=== PATIENT | male | born 1935 | race Caucasian/White ===

== ENCOUNTER → 2016-12-24 | Day surgery (SDC) | payer MEDICARE ==
[~2016-12-24] VITALS: Ht 177.8 cm; Wt 84.8 kg
[~2016-12-24] MED LIST: /BACIOPOI; /GLYB5TA; ACETAMINOPHEN 325 MG TAB PO PRN; ACETAMINOPHEN TAB 650MG DOSE (2X325MG) PO PRN; ACUV0.45 OU; AMLO2.5T; ASPI1TAB PO; ASPI81TA83; ATEN25TA; ATOR80TA59 PO; AVAN8TAB3; BIMA01SOL OU; CALC1CAP31 PO; COLA100C2; COLA100C5 PO; DORZ2OPD OU; DOXY100C PO; FLON1SPR; FLUNISOLIDE NASAL; FURO20TA2 PO; FURO40TA2 PO; GABA-282 PO; GLYB5TA PO; HUMU70IN SC; INSULIN 70/30; IPRASOL4 INH; ISOS30BRAN; KETOROLAC 0.5% OPHTH SOLN OS ONE; LASI40TA; LATA5OPD OU; LEVA500T; LEVO25TA5 PO; LEVO75TA4 PO; LIDOCAINE 2% W/EPIN INJ 20ML **PRES FREE As Ordered ONE; LIDOCAINE 4% INJ 5 ML AMP OU ONE; LISI10TA4; LR 1,000 ML IV SCH; MIDAZOLAM INJ 2 MG/2 ML VIAL (J2250) As Ordered ONE; MUPI2OI TOP; MURO5OIN OU; NEXI20CA PO; NITR4TASL SL; NOVO1INJ4 SC; NOVOINJ14 SC; OFLOXACIN 0.3 % (OCUFLOX) OPTH SOL 5ML OS ONE; OMEG100011 PO; OMEGA 3 FISH OIL; ONDANSETRON 4MG/2ML VIAL (J2405) IV PRN; PERC5TAB8; PLAV1TAB2 PO; PLAV75TA2; POVIDONE-IODINE 5% OPHTH PREP SOL 30ML As Ordered ONE; PRED1SUS OS; PROPARACAINE 0.5% OPHTH SOL 15ML OS PRN; PROV90AE; SAWPOW; SIMB1SUS OU; SIMV40TA2; SIMV40TA2 PO; SLOWTAB; THERGRAN; TIMO0.5S4 OU; TOBR3OPD OU; TOBRADEX OPHTH OINT 3.5 GM As Ordered ONE; TRAM50TA2 PO; TRIMETHOBENZAMIDE 300 MG CAP PO PRN; VITA100066 PO; VITA500T88 PO; VITMTA PO; ZYRT10TA2 PO; [UNRECOGNIZED DRUG - OTHER]; fentaNYL 100 MCG/2 ML INJECTION (J3010) As Ordered ONE
[2016-12-24 10:30] VITALS: BP 161/71
--- NOTE | 2016-12-25 11:05 | RO ---
DATE OF PROCEDURE: 12/24/2016 PREOPERATIVE DIAGNOSIS: Glaucoma left eye. POSTOPERATIVE DIAGNOSIS; Glaucoma left eye. PROCEDURE: Placement of the Ahmed valve left eye. SURGEON: Gem Jackson MD CHURN DRILLER HELPER: None. ANESTHESIA: COMPLICATIONS: None. PROCEDURE IN DETAIL: The patient was brought to the operating room and laid in supine position. The left eye was prepped and draped in a sterile fashion for ophthalmic surgery and a lid speculum was placed. A #7-0 Vicryl suture was used to rotate the eye downward and inwards towards the nose. A limbal based conjunctival peritomy was done for 5 o'clock hours in the supratemporal quadrant. Following this, hemostasis was obtained as necessary. The eye was marked about 9 mm behind the limbus. A scleral tunnel was created 5 mm behind the limbus and was carried all the way to the limbus and the eye was entered with a side port blade. The Ahmed valve was then primed and was working well. The tube was cute in sized and then inserted through the scleral tunnel. The Ahmed valve was then sutured in place 9 mm behind the limbus with two #10-0 nylon sutures. The conjunctiva was then closed using #8-0 Vicryl sutures. The corneal suture was released. The eye was patched with TobraDex and patient returned to the recovery room in stable condition after the lid speculum was removed.
== END | disposition home or self-care (01) ==
LOC: M SDC 06:19
PROVIDERS: ATTEND Ophthalmology
DX: H40.812 Glaucoma with increased episcleral venous pressure, left eye (principal); I10 Essential (primary) hypertension; E78.5 Hyperlipidemia, unspecified; I25.2 Old myocardial infarction; E11.9 Type 2 diabetes mellitus without complications; E03.9 Hypothyroidism, unspecified; J44.9 Chronic obstructive pulmonary disease, unspecified; Z95.5 Presence of coronary angioplasty implant and graft; Z87.891 Personal history of nicotine dependence; Z79.899 Other long term (current) drug therapy; Z79.02 Long term (current) use of antithrombotics/antiplatelets; Z79.82 Long term (current) use of aspirin
CPT/HCPCS: 66183; J2250; J3010

== ENCOUNTER 2017-01-12 07:22 | Day surgery (SDC) | payer MEDICARE ==
[~2017-01-12] VITALS: Ht 177.8 cm; Wt 84.8 kg
[~2017-01-12 07:22] MED LIST changes: -ACETAMINOPHEN TAB 650MG DOSE (2X325MG) PO PRN; +BSS with VANC/TOB/EPI for EYE CASES IR ONE; -KETOROLAC 0.5% OPHTH SOLN OS ONE; +LIDOCAINE 3.5 % 1ML OPHTH TOPICAL GEL OU ONE; -LIDOCAINE 4% INJ 5 ML AMP OU ONE; -LR 1,000 ML IV SCH; +OFLOXACIN 0.3 % (OCUFLOX) OPTH SOL 5ML OD ONE; -OFLOXACIN 0.3 % (OCUFLOX) OPTH SOL 5ML OS ONE; -ONDANSETRON 4MG/2ML VIAL (J2405) IV PRN; -POVIDONE-IODINE 5% OPHTH PREP SOL 30ML As Ordered ONE; +PROPARACAINE 0.5% OPHTH SOL 15ML OD PRN; -PROPARACAINE 0.5% OPHTH SOL 15ML OS PRN; -TRIMETHOBENZAMIDE 300 MG CAP PO PRN; -fentaNYL 100 MCG/2 ML INJECTION (J3010) As Ordered ONE
[2017-01-12] MEDS ORDERED: D5W/0.2% SODIUM CHLORIDE 250 ML IV ONE (07:45)
[2017-01-12] MEDS ORDERED: mitoMYcin 0.2 MG/VIAL KIT FOR OPHTHALMIC USE (J7315 PER 0.2MG) As Ordered ONE (08:59)
[2017-01-12] MEDS ORDERED: fentaNYL 100 MCG/2 ML INJECTION (J3010) As Ordered ONE (09:20)
[2017-01-12 10:10] VITALS: BP 173/73
[2017-01-12] MEDS ORDERED: TRIMETHOBENZAMIDE 300 MG CAP PO PRN (10:15)
[2017-01-12] MEDS ORDERED: KETOROLAC 0.5% OPHTH SOLN OD ONE (10:15)
--- NOTE | 2017-02-05 16:29 | RO ---
DATE OF PROCEDURE: 01/12/2017 PREPROCEDURE DIAGNOSIS: Uncontrolled glaucoma, right eye. POSTPROCEDURE DIAGNOSIS: Uncontrolled glaucoma, right eye. PROCEDURE: Placement of the Ahmed valve on the right eye. SURGEON: Dr. Gem Jackson PSYCHOLOGIST PRIVATE PRACTICE: ANESTHESIA: Local IV standby. COMPLICATIONS: None. DESCRIPTION OF PROCEDURE: The patient was brought to the operating room, laid in supine position. The eye was prepped and draped in a sterile fashion for ophthalmic surgery and a lid speculum was placed. Conjunctival peritomy was done between 10 o'clock and 1 o'clock hours and then carried on superiorly in the supratemporal quadrant. Tenon dissection was carried out, hemostasis obtained with the help of the cautery as needed. With the help of the calipers, 9 mm mitchel was placed away from the limbus in the supratemporal quadrant. The Ahmed valve was primed and then sutured in place using two #10-0 nylon sutures, 9 mm away from the limbus and the supratemporal quadrant. A scleral tunnel was then made in front of the Ahmed valve all the way into the blue line, and the anterior chamber was entered with the help of the Super Sharp blade. The tube of the Ahmed valve was then cut to size and then placed in the tunnel and was noted to be in excellent position, placed right in the posterior chamber. Conjunctiva was then closed using #10-0 nylon sutures. No leaks were noted. Anterior chamber was well maintained. Lid speculum was removed, TobraDex ointment was applied, eye was patched and the patient was returned to the recovery room in stable condition.
== END 2017-01-12 10:42 | disposition home or self-care (01) ==
LOC: M SDC 07:22
PROVIDERS: ATTEND Ophthalmology
DX: H40.811 Glaucoma with increased episcleral venous pressure, right eye (principal); I25.10 Atherosclerotic heart disease of native coronary artery without angina pectoris; I25.2 Old myocardial infarction; E11.9 Type 2 diabetes mellitus without complications; I10 Essential (primary) hypertension; E78.5 Hyperlipidemia, unspecified; E03.9 Hypothyroidism, unspecified; J44.9 Chronic obstructive pulmonary disease, unspecified; Z98.61 Coronary angioplasty status; Z87.891 Personal history of nicotine dependence; Z79.4 Long term (current) use of insulin; Z79.82 Long term (current) use of aspirin; Z79.02 Long term (current) use of antithrombotics/antiplatelets; Z88.8 Allergy status to other drugs, medicaments and biological substances; N40.0 Benign prostatic hyperplasia without lower urinary tract symptoms
CPT/HCPCS: 66183; J2250; J3010

== ENCOUNTER 2017-06-21 10:40 | Emergency (ER) | payer MEDICARE ==
[2017-06-21] MEDS: NITROGLYCERIN 0.4 MG SUBL TABLET SL (11:31)
[2017-06-21] MEDS: NS 1,000 ML IV (11:31)
[2017-06-21 11:37] LABS: BASO # 0.1 10^3/uL (0.0-0.2); BASO % 0.9 % (0.0-1.0); EOS % 0.1 % (0.0-3.0); HEMATOCRIT 46.5 % (42.0-52.0); HEMOGLOBIN 14.9 g/dl (14.0-18.0); IMMATURE GRANULOCYTE # 0.1 10^3/uL (0-0); IMMATURE GRANULOCYTE % 0.3 % (0-0); LYMPH # 1.2 10^3/uL (1.5-4.5); LYMPH % 7.6 % (24.0-44.0); MEAN CORPUSCULAR HEMOGLOBIN 29.2 pg (27.0-33.0); MEAN CORPUSCULAR VOLUME 91.2 fl (80.0-96.0); MONO # 0.8 10^3/uL (0.0-0.8); NEUTROPHILS # 13.4 10^3/uL (1.8-7.7); NEUTROPHILS % 86.1 % (36.0-66.0); PLATELET COUNT, AUTOMATED 237 10^3/uL (150-450); RED CELL DISTRIBUTION WIDTH 16.1 % (11.5-14.5); WHITE BLOOD COUNT 15.6 10^3/uL (4.0-10.0)
[2017-06-21] MEDS ORDERED: HEPARIN SOD (PORCINE) 5000 UNITS/ML VIAL As Ordered (11:46)
[2017-06-21] MEDS ORDERED: HEPARIN 25,000 UNITS/250 ML D5W BAG (100 UNITS/ML) As Ordered (11:46)
[2017-06-21] MEDS: ASPIRIN 81 MG CHEW TABLET PO (11:48)
[2017-06-21] MEDS: HEPARIN SOD (PORCINE) 5000 UNITS/ML VIAL IV (11:53)
[2017-06-21] MEDS: HEPARIN DRIP 25,000 UNITS in APPROPRIATE DILUENT 1 EA IV (11:54)
[2017-06-21 11:59] LABS: INR 1.16
[2017-06-21 12:00] LABS: PARTIAL THROMBOPLASTIN TIME 35.4 SECONDS (26.8-37.9)
[2017-06-21 12:06] LABS: ALBUMIN 3.3 GM/DL (3.2-5.2); ALBUMIN/GLOBULIN RATIO 0.85 (1.00-1.93); ALKALINE PHOSPHATASE 200 U/L (45-117); ALT/SGPT 44 U/L (12-78); ANION GAP 14 MEQ/L (8-16); AST/SGOT 65 U/L (7-37); BILIRUBIN,DIRECT 0.5 MG/DL (0.0-0.2); BILIRUBIN,TOTAL 1.2 MG/DL (0.2-1.0); BLOOD UREA NITROGEN 42 MG/DL (7-18); CALCIUM LEVEL 9.1 MG/DL (8.8-10.2); CARBON DIOXIDE LEVEL 26 MEQ/L (21-32); CHLORIDE LEVEL 96 MEQ/L (98-107); CPK CREATINE PHOSPHOKINASE 141 U/L (39-308); CREATININE FOR GFR 2.58 MG/DL (0.70-1.30); FREE T4 1.39 NG/DL (0.76-1.46); GLOMERULAR FILTRATION RATE 25.5 (>35); GLUCOSE, FASTING 305 MG/DL (83-110); POTASSIUM SERUM 3.6 MEQ/L (3.5-5.1); SODIUM LEVEL 136 MEQ/L (136-145); TOTAL PROTEIN 7.2 GM/DL (6.4-8.2)
[2017-06-21 12:12] LABS: CK-MB VALUE MASS 9.4 NG/ML (0.0-3.6); MB/CK RELATIVE INDEX 6.66 (< OR =4)
[2017-06-21 12:13] LABS: TROPONIN I 7.16 NG/ML (< 0.10)
[2017-06-21 12:17] LABS: NT-PRO BNP 39112 PG/ML (<450)
[2017-06-21] MEDS: NITROGLYCERIN 2% OINT 1 GM *U/D* PKT TOP (12:23)
== END 2017-06-21 12:27 | disposition short-term general hospital (02) ==
LOC: M ED 10:40
DX: I21.4 Non-ST elevation (NSTEMI) myocardial infarction (principal); I25.110 Atherosclerotic heart disease of native coronary artery with unstable angina pectoris; I25.2 Old myocardial infarction; E10.9 Type 1 diabetes mellitus without complications; J44.9 Chronic obstructive pulmonary disease, unspecified; E07.9 Disorder of thyroid, unspecified; Z95.5 Presence of coronary angioplasty implant and graft; Z95.1 Presence of aortocoronary bypass graft; Z87.891 Personal history of nicotine dependence; Z79.899 Other long term (current) drug therapy; Z79.02 Long term (current) use of antithrombotics/antiplatelets; Z79.82 Long term (current) use of aspirin; Z88.8 Allergy status to other drugs, medicaments and biological substances; Z88.5 Allergy status to narcotic agent; Z91.041 Radiographic dye allergy status
CPT/HCPCS: 71045

== ENCOUNTER 2017-06-30 12:24 | Inpatient (IN) | payer MEDICARE, OTHER ==
[2017-06-30] MEDS: NS 500 ML IV (12:45)
[2017-06-30 13:03] LABS: BASO # 0.1 10^3/uL (0.0-0.2); EOS # 0.2 10^3/uL (0.0-0.50); EOS % 1.4 % (0.0-3.0); HEMATOCRIT 38.5 % (42.0-52.0); HEMOGLOBIN 12.2 g/dl (14.0-18.0); IMMATURE GRANULOCYTE # 0.1 10^3/uL (0-0); IMMATURE GRANULOCYTE % 0.5 % (0-0); LYMPH # 1.2 10^3/uL (1.5-4.5); LYMPH % 10.7 % (24.0-44.0); MEAN CORPUSCULAR HEMOGLOBIN 29.5 pg (27.0-33.0); MEAN CORPUSCULAR HGB CONC 31.7 g/dl (32.0-36.5); MONO % 9.2 % (0.0-5.0); NEUTROPHILS # 8.6 10^3/uL (1.8-7.7); NEUTROPHILS % 77.2 % (36.0-66.0); PLATELET COUNT, AUTOMATED 241 10^3/uL (150-450); RED BLOOD COUNT 4.14 10^6/uL (4.30-6.10); RED CELL DISTRIBUTION WIDTH 16.3 % (11.5-14.5); WHITE BLOOD COUNT 11.2 10^3/uL (4.0-10.0)
[2017-06-30 13:17] LABS: INR 1.09; PROTHROMBIN TIME 14.3 SECONDS (12.4-14.5)
[2017-06-30 13:18] LABS: PARTIAL THROMBOPLASTIN TIME 31.9 SECONDS (26.8-37.9)
[2017-06-30 13:24] LABS: NT-PRO BNP 26743 PG/ML (<450)
[2017-06-30 13:24] LABS: ALBUMIN 2.4 GM/DL (3.2-5.2); ALBUMIN/GLOBULIN RATIO 0.67 (1.00-1.93); ALKALINE PHOSPHATASE 160 U/L (45-117); ALT/SGPT 27 U/L (12-78); ANION GAP 10 MEQ/L (8-16); AST/SGOT 32 U/L (7-37); BILIRUBIN,DIRECT 0.2 MG/DL (0.0-0.2); BILIRUBIN,TOTAL 0.4 MG/DL (0.2-1.0); BLOOD UREA NITROGEN 82 MG/DL (7-18); CALCIUM LEVEL 8.3 MG/DL (8.8-10.2); CARBON DIOXIDE LEVEL 23 MEQ/L (21-32); CHLORIDE LEVEL 96 MEQ/L (98-107); CREATININE FOR GFR 5.53 MG/DL (0.70-1.30); GLOMERULAR FILTRATION RATE 10.6 (>35); GLUCOSE, FASTING 229 MG/DL (70-100); POTASSIUM SERUM 4.4 MEQ/L (3.5-5.1); SODIUM LEVEL 129 MEQ/L (136-145)
[2017-06-30] MEDS: DOBUTamine HCL 500,000 MCG in APPROPRIATE DILUENT 1 EA IV ×2 (14:32→17:33)
[2017-06-30] MEDS ORDERED: zolPIDEM TARTRATE 5 MG TAB PO (15:30)
[2017-06-30] MEDS ORDERED: GLUCAGON FOR INJ 1 MG VIAL (J1610) SC (15:45)
[2017-06-30] MEDS ORDERED: NITROGLYCERIN 0.4 MG SUBL TABLET SL (15:45)
[2017-06-30] MEDS ORDERED: GLUCOSE 4 GM CHEW TABLET PO (15:45)
[2017-06-30 15:50] LABS: MAGNESIUM LEVEL 2.8 MG/DL (1.8-2.4)
[2017-06-30 15:58] LABS: TROPONIN I 2.76 NG/ML (< 0.10)
[2017-06-30] MEDS: FUROSEMIDE 100 MG/10 ML VIAL (J1940) IV ×2 (16:00→22:55)
[2017-06-30] MEDS ORDERED: ALBUTEROL SULFATE 2.5 MG/0.5 ML INH NEB SOLN INH (16:15)
[2017-06-30 17:32] LABS: APPEARANCE, URINE HAZY (CLEAR); BACTERIA, URINE AUTO 1+ (NEGATIVE); BILIRUBIN, URINE AUTO NEGATIVE (NEGATIVE); BLOOD, URINE BLOOD 3+ (NEGATIVE); COLOR, URINE YELLOW (YELLOW); GLUCOSE, URINE (UA) AUTO 1+ mg/dL (NEGATIVE); KETONE, URINE AUTO NEGATIVE (NEGATIVE); LEUKOCYTE ESTERASE, URINE AUTO NEGATIVE (NEGATIVE); MUCUS, URINE SMALL (NEGATIVE); NITRITE, URINE AUTO NEGATIVE (NEGATIVE); PROTEIN, URINE AUTO NEGATIVE (NEGATIVE); RBC, URINE AUTO 6 /HPF (0-3); SPECIFIC GRAVITY URINE AUTO 1.005 (1.002-1.035); SQUAMOUS EPITHELIAL CELL UR AU 1 /HPF (0-6); UROBILINOGEN, URINE AUTO 0.2 mg/dL (0.0-2.0); WBC, URINE AUTO 6 /HPF (0-3)
[2017-06-30] MEDS: PANTOPRAZOLE 40MG TAB (PROTONIX) PO (17:46)
[2017-06-30] MEDS: HumaLOG INSULIN (NovoLOG) PER UNIT SC ×2 (17:47→21:00)
[2017-06-30 17:51] LABS: BEDSIDE GLUCOSE 238 MG/DL (83-110)
[2017-06-30] MEDS: DORZOLAMIDE 2% OPHTH SOLN 10 ML BTL OU (21:00)
[2017-06-30] MEDS: ALBUTEROL SULFATE 2.5 MG/0.5 ML INH NEB SOLN INH (21:01)
[2017-06-30 21:02] LABS: BEDSIDE GLUCOSE 212 MG/DL (83-110)
[2017-06-30] MEDS: APIXABAN 2.5 MG TAB (ELIQUIS) PO (21:17)
[2017-06-30] MEDS: SENOKOT S TAB PO (21:17)
[2017-06-30] MEDS: SIMVASTATIN 40 MG TAB PO (21:17)
[2017-06-30] MEDS: LATANOPROST 0.005% OPHTH SOLN 2.5 ML OU (21:18)
[2017-06-30] MEDS: metOLazone 2.5 MG TAB PO (22:50)
[2017-06-30 23:53] LABS: TROPONIN I 2.48 NG/ML (< 0.10)
[2017-07-01] MEDS: DOBUTamine HCL 500,000 MCG in APPROPRIATE DILUENT 1 EA IV ×3 (01:12→21:06)
[2017-07-01] MEDS: LEVOTHYROXINE 75MCG TABLET (0.075MG) PO (06:07)
[2017-07-01] MEDS: ALBUTEROL SULFATE 2.5 MG/0.5 ML INH NEB SOLN INH ×4 (07:20→20:26)
[2017-07-01 07:38] LABS: BASO # 0.1 10^3/uL (0.0-0.2); BASO % 0.6 % (0.0-1.0); EOS # 0.1 10^3/uL (0.0-0.50); EOS % 0.7 % (0.0-3.0); HEMATOCRIT 33.4 % (42.0-52.0); HEMOGLOBIN 10.9 g/dl (14.0-18.0); IMMATURE GRANULOCYTE % 0.4 % (0-0); LYMPH # 0.7 10^3/uL (1.5-4.5); LYMPH % 7.9 % (24.0-44.0); MEAN CORPUSCULAR HEMOGLOBIN 29.9 pg (27.0-33.0); MEAN CORPUSCULAR HGB CONC 32.6 g/dl (32.0-36.5); MEAN CORPUSCULAR VOLUME 91.5 fl (80.0-96.0); MONO # 0.7 10^3/uL (0.0-0.8); MONO % 8.5 % (0.0-5.0); NEUTROPHILS # 6.8 10^3/uL (1.8-7.7); NEUTROPHILS % 81.9 % (36.0-66.0); PLATELET COUNT, AUTOMATED 186 10^3/uL (150-450); RED BLOOD COUNT 3.65 10^6/uL (4.30-6.10); RED CELL DISTRIBUTION WIDTH 16.1 % (11.5-14.5); WHITE BLOOD COUNT 8.2 10^3/uL (4.0-10.0)
[2017-07-01 08:05] LABS: ALBUMIN 2.3 GM/DL (3.2-5.2); ANION GAP 10 MEQ/L (8-16); BLOOD UREA NITROGEN 81 MG/DL (7-18); CALCIUM LEVEL 8.3 MG/DL (8.8-10.2); CARBON DIOXIDE LEVEL 22 MEQ/L (21-32); CHLORIDE LEVEL 98 MEQ/L (98-107); CREATININE FOR GFR 5.61 MG/DL (0.70-1.30); GLOMERULAR FILTRATION RATE 10.4 (>35); GLUCOSE, FASTING 243 MG/DL (70-100); PHOSPHORUS LEVEL 5.1 MG/DL (2.5-4.9); POTASSIUM SERUM 4.4 MEQ/L (3.5-5.1); SODIUM LEVEL 130 MEQ/L (136-145)
[2017-07-01 08:10] LABS: TROPONIN I 2.33 NG/ML (< 0.10)
[2017-07-01] MEDS: HumaLOG INSULIN (NovoLOG) PER UNIT SC ×4 (08:29→21:00)
[2017-07-01] MEDS: CALCITRIOL 0.25 MCG CAP (S0169) PO (08:29)
[2017-07-01] MEDS: CLOPIDOGREL 75 MG TAB PO (08:30)
[2017-07-01] MEDS: PANTOPRAZOLE 40MG TAB (PROTONIX) PO (08:30)
[2017-07-01] MEDS: metOLazone 2.5 MG TAB PO (08:30)
[2017-07-01] MEDS: FUROSEMIDE 100 MG/10 ML VIAL (J1940) IV (08:30)
[2017-07-01] MEDS: APIXABAN 2.5 MG TAB (ELIQUIS) PO ×2 (08:30→20:31)
[2017-07-01] MEDS: VITAMIN D 1,000 INTERNATIONAL UNITS TABLET PO (08:30)
[2017-07-01] MEDS: SENOKOT S TAB PO ×2 (08:31→20:31)
[2017-07-01 08:52] LABS: T UPTAKE 34 % (33-40); THYROXINE (T4) 5.8 UG/DL (4.5-12.0)
[2017-07-01] MEDS: DORZOLAMIDE 2% OPHTH SOLN 10 ML BTL OU ×3 (09:00→21:00)
[2017-07-01 11:11] LABS: BEDSIDE GLUCOSE 176 MG/DL (83-110)
[2017-07-01 18:11] LABS: BEDSIDE GLUCOSE 245 MG/DL (83-110)
[2017-07-01 20:09] LABS: BEDSIDE GLUCOSE 177 MG/DL (83-110)
[2017-07-01] MEDS: LATANOPROST 0.005% OPHTH SOLN 2.5 ML OU (20:31)
[2017-07-01] MEDS: SIMVASTATIN 40 MG TAB PO (20:31)
[2017-07-02] MEDS: ONDANSETRON 4MG/2ML VIAL (J2405) IV ×4 (01:29→16:48)
[2017-07-02 05:03] LABS: BASO % 0.6 % (0.0-1.0); EOS % 0.6 % (0.0-3.0); HEMATOCRIT 31.9 % (42.0-52.0); HEMOGLOBIN 10.6 g/dl (14.0-18.0); IMMATURE GRANULOCYTE % 0.4 % (0-0); LYMPH # 0.7 10^3/uL (1.5-4.5); LYMPH % 10.3 % (24.0-44.0); MEAN CORPUSCULAR HEMOGLOBIN 29.4 pg (27.0-33.0); MEAN CORPUSCULAR HGB CONC 33.2 g/dl (32.0-36.5); MEAN CORPUSCULAR VOLUME 88.4 fl (80.0-96.0); MONO # 0.7 10^3/uL (0.0-0.8); MONO % 10.3 % (0.0-5.0); NEUTROPHILS # 5.3 10^3/uL (1.8-7.7); NEUTROPHILS % 77.8 % (36.0-66.0); PLATELET COUNT, AUTOMATED 229 10^3/uL (150-450); RED BLOOD COUNT 3.61 10^6/uL (4.30-6.10); WHITE BLOOD COUNT 6.8 10^3/uL (4.0-10.0)
[2017-07-02 05:31] LABS: ALBUMIN 2.3 GM/DL (3.2-5.2); ANION GAP 9 MEQ/L (8-16); BLOOD UREA NITROGEN 81 MG/DL (7-18); CALCIUM LEVEL 8.3 MG/DL (8.8-10.2); CARBON DIOXIDE LEVEL 24 MEQ/L (21-32); CHLORIDE LEVEL 98 MEQ/L (98-107); CREATININE FOR GFR 5.45 MG/DL (0.70-1.30); GLOMERULAR FILTRATION RATE 10.8 (>35); GLUCOSE, FASTING 246 MG/DL (70-100); PHOSPHORUS LEVEL 4.8 MG/DL (2.5-4.9); POTASSIUM SERUM 4.3 MEQ/L (3.5-5.1); SODIUM LEVEL 131 MEQ/L (136-145)
[2017-07-02 05:43] LABS: TROPONIN I 2.39 NG/ML (< 0.10)
[2017-07-02] MEDS: LEVOTHYROXINE 75MCG TABLET (0.075MG) PO (06:14)
[2017-07-02] MEDS: DOBUTamine HCL 500,000 MCG in APPROPRIATE DILUENT 1 EA IV ×2 (07:20→17:26)
[2017-07-02] MEDS ORDERED: metOLazone 2.5 MG TAB PO (08:45)
[2017-07-02] MEDS ORDERED: FUROSEMIDE 100 MG/10 ML VIAL (J1940) IV (08:45)
[2017-07-02] MEDS: HumaLOG INSULIN (NovoLOG) PER UNIT SC ×4 (08:55→21:00)
[2017-07-02] MEDS: PANTOPRAZOLE 40MG TAB (PROTONIX) PO (08:56)
[2017-07-02] MEDS: CLOPIDOGREL 75 MG TAB PO (08:56)
[2017-07-02] MEDS: FUROSEMIDE 100 MG/10 ML VIAL (J1940) IV (08:56)
[2017-07-02] MEDS: VITAMIN D 1,000 INTERNATIONAL UNITS TABLET PO (08:56)
[2017-07-02] MEDS: SENOKOT S TAB PO ×2 (08:56→20:52)
[2017-07-02] MEDS: metOLazone 2.5 MG TAB PO (08:56)
[2017-07-02] MEDS: APIXABAN 2.5 MG TAB (ELIQUIS) PO ×2 (08:56→20:52)
[2017-07-02] MEDS: ALBUTEROL SULFATE 2.5 MG/0.5 ML INH NEB SOLN INH ×4 (10:05→19:47)
[2017-07-02] MEDS: prednisoLONE ACET 1% OPHTH SUSP 5ML OU ×2 (12:15→20:52)
[2017-07-02 12:16] LABS: BEDSIDE GLUCOSE 230 MG/DL (83-110)
[2017-07-02 16:19] LABS: BEDSIDE GLUCOSE 208 MG/DL (83-110)
[2017-07-02] MEDS: SIMVASTATIN 40 MG TAB PO (20:52)
[2017-07-02] MEDS: LATANOPROST 0.005% OPHTH SOLN 2.5 ML OU (20:52)
[2017-07-02 21:07] LABS: BEDSIDE GLUCOSE 241 MG/DL (83-110)
[2017-07-03 04:42] LABS: BASO # 0.1 10^3/uL (0.0-0.2); BASO % 0.9 % (0.0-1.0); EOS # 0.1 10^3/uL (0.0-0.50); EOS % 1.9 % (0.0-3.0); HEMOGLOBIN 10.6 g/dl (14.0-18.0); IMMATURE GRANULOCYTE % 0.5 % (0-0); LYMPH % 13.8 % (24.0-44.0); MEAN CORPUSCULAR HEMOGLOBIN 29.9 pg (27.0-33.0); MEAN CORPUSCULAR HGB CONC 33.1 g/dl (32.0-36.5); MEAN CORPUSCULAR VOLUME 90.4 fl (80.0-96.0); MONO # 0.9 10^3/uL (0.0-0.8); MONO % 12.4 % (0.0-5.0); NEUTROPHILS # 5.3 10^3/uL (1.8-7.7); NEUTROPHILS % 70.5 % (36.0-66.0); PLATELET COUNT, AUTOMATED 227 10^3/uL (150-450); RED BLOOD COUNT 3.54 10^6/uL (4.30-6.10); RED CELL DISTRIBUTION WIDTH 16.1 % (11.5-14.5); WHITE BLOOD COUNT 7.5 10^3/uL (4.0-10.0)
[2017-07-03 05:01] LABS: ALBUMIN 2.5 GM/DL (3.2-5.2); ANION GAP 9 MEQ/L (8-16); BLOOD UREA NITROGEN 71 MG/DL (7-18); CALCIUM LEVEL 8.3 MG/DL (8.8-10.2); CARBON DIOXIDE LEVEL 28 MEQ/L (21-32); CHLORIDE LEVEL 96 MEQ/L (98-107); CREATININE FOR GFR 5.14 MG/DL (0.70-1.30); GLOMERULAR FILTRATION RATE 11.5 (>35); GLUCOSE, FASTING 235 MG/DL (70-100); PHOSPHORUS LEVEL 4.3 MG/DL (2.5-4.9); SODIUM LEVEL 133 MEQ/L (136-145)
[2017-07-03] MEDS: DOBUTamine HCL 500,000 MCG in APPROPRIATE DILUENT 1 EA IV (05:04)
[2017-07-03] MEDS: metOLazone 2.5 MG TAB PO (06:11)
[2017-07-03] MEDS: FUROSEMIDE 100 MG/10 ML VIAL (J1940) IV (06:11)
[2017-07-03] MEDS: LEVOTHYROXINE 75MCG TABLET (0.075MG) PO (06:11)
[2017-07-03] MEDS: ONDANSETRON 4MG/2ML VIAL (J2405) IV (06:21)
[2017-07-03] MEDS: ALBUTEROL SULFATE 2.5 MG/0.5 ML INH NEB SOLN INH ×4 (07:21→19:41)
[2017-07-03] MEDS: HumaLOG INSULIN (NovoLOG) PER UNIT SC ×4 (08:06→20:33)
[2017-07-03] MEDS: CLOPIDOGREL 75 MG TAB PO (08:27)
[2017-07-03] MEDS: VITAMIN D 1,000 INTERNATIONAL UNITS TABLET PO (08:27)
[2017-07-03] MEDS: PANTOPRAZOLE 40MG TAB (PROTONIX) PO (08:27)
[2017-07-03] MEDS: prednisoLONE ACET 1% OPHTH SUSP 5ML OU ×2 (08:28→20:26)
[2017-07-03] MEDS: SENOKOT S TAB PO ×2 (08:28→20:25)
[2017-07-03] MEDS: CALCITRIOL 0.25 MCG CAP (S0169) PO (08:28)
[2017-07-03] MEDS: APIXABAN 2.5 MG TAB (ELIQUIS) PO ×2 (08:28→20:25)
[2017-07-03 12:03] LABS: BEDSIDE GLUCOSE 240 MG/DL (83-110)
[2017-07-03 17:31] LABS: BEDSIDE GLUCOSE 369 MG/DL (83-110)
[2017-07-03] MEDS: SIMVASTATIN 40 MG TAB PO (20:25)
[2017-07-03] MEDS: LATANOPROST 0.005% OPHTH SOLN 2.5 ML OU (20:26)
[2017-07-03 20:43] LABS: BEDSIDE GLUCOSE 327 MG/DL (83-110)
[2017-07-04 04:36] LABS: BASO # 0.1 10^3/uL (0.0-0.2); BASO % 1.1 % (0.0-1.0); EOS # 0.2 10^3/uL (0.0-0.50); EOS % 1.8 % (0.0-3.0); HEMATOCRIT 35.2 % (42.0-52.0); HEMOGLOBIN 11.5 g/dl (14.0-18.0); IMMATURE GRANULOCYTE % 0.5 % (0-0); LYMPH # 1.3 10^3/uL (1.5-4.5); LYMPH % 15.6 % (24.0-44.0); MEAN CORPUSCULAR HEMOGLOBIN 29.1 pg (27.0-33.0); MEAN CORPUSCULAR HGB CONC 32.7 g/dl (32.0-36.5); MEAN CORPUSCULAR VOLUME 89.1 fl (80.0-96.0); MONO # 1.2 10^3/uL (0.0-0.8); MONO % 14.8 % (0.0-5.0); NEUTROPHILS # 5.5 10^3/uL (1.8-7.7); NEUTROPHILS % 66.2 % (36.0-66.0); PLATELET COUNT, AUTOMATED 252 10^3/uL (150-450); RED BLOOD COUNT 3.95 10^6/uL (4.30-6.10); RED CELL DISTRIBUTION WIDTH 16.2 % (11.5-14.5); WHITE BLOOD COUNT 8.3 10^3/uL (4.0-10.0)
[2017-07-04] MEDS: LEVOTHYROXINE 75MCG TABLET (0.075MG) PO (05:00)
[2017-07-04 05:04] LABS: ALBUMIN 2.5 GM/DL (3.2-5.2); ANION GAP 9 MEQ/L (8-16); BLOOD UREA NITROGEN 70 MG/DL (7-18); CALCIUM LEVEL 8.9 MG/DL (8.8-10.2); CARBON DIOXIDE LEVEL 32 MEQ/L (21-32); CHLORIDE LEVEL 94 MEQ/L (98-107); CREATININE FOR GFR 4.73 MG/DL (0.70-1.30); GLOMERULAR FILTRATION RATE 12.7 (>35); GLUCOSE, FASTING 252 MG/DL (70-100); PHOSPHORUS LEVEL 4.7 MG/DL (2.5-4.9); POTASSIUM SERUM 3.9 MEQ/L (3.5-5.1); SODIUM LEVEL 135 MEQ/L (136-145)
[2017-07-04] MEDS: ALBUTEROL SULFATE 2.5 MG/0.5 ML INH NEB SOLN INH ×4 (07:26→19:42)
[2017-07-04] MEDS: HumaLOG INSULIN (NovoLOG) PER UNIT SC ×4 (08:23→20:28)
[2017-07-04] MEDS: ONDANSETRON 4MG/2ML VIAL (J2405) IV (08:23)
[2017-07-04] MEDS: prednisoLONE ACET 1% OPHTH SUSP 5ML OU ×2 (08:23→20:29)
[2017-07-04] MEDS: PANTOPRAZOLE 40MG TAB (PROTONIX) PO (08:24)
[2017-07-04] MEDS: APIXABAN 2.5 MG TAB (ELIQUIS) PO ×2 (08:24→20:27)
[2017-07-04] MEDS: VITAMIN D 1,000 INTERNATIONAL UNITS TABLET PO (08:24)
[2017-07-04] MEDS: SENOKOT S TAB PO ×2 (08:24→20:27)
[2017-07-04] MEDS: CLOPIDOGREL 75 MG TAB PO (08:24)
[2017-07-04 12:04] LABS: BEDSIDE GLUCOSE 312 MG/DL (83-110)
[2017-07-04 17:00] LABS: BEDSIDE GLUCOSE 338 MG/DL (83-110)
[2017-07-04 20:23] LABS: BEDSIDE GLUCOSE 384 MG/DL (83-110)
[2017-07-04] MEDS: SIMVASTATIN 40 MG TAB PO (20:27)
[2017-07-04] MEDS: LATANOPROST 0.005% OPHTH SOLN 2.5 ML OU (20:29)
[2017-07-04] MEDS: HumuLIN (NovoLIN)70/30 INSULIN INJ PER UNIT SC (20:29)
[2017-07-05 04:34] LABS: BASO # 0.1 10^3/uL (0.0-0.2); BASO % 1.1 % (0.0-1.0); EOS # 0.3 10^3/uL (0.0-0.50); HEMATOCRIT 36.1 % (42.0-52.0); HEMOGLOBIN 11.7 g/dl (14.0-18.0); IMMATURE GRANULOCYTE # 0.1 10^3/uL (0-0); IMMATURE GRANULOCYTE % 0.5 % (0-0); LYMPH # 1.6 10^3/uL (1.5-4.5); LYMPH % 15.5 % (24.0-44.0); MEAN CORPUSCULAR HEMOGLOBIN 29.5 pg (27.0-33.0); MEAN CORPUSCULAR HGB CONC 32.4 g/dl (32.0-36.5); MEAN CORPUSCULAR VOLUME 91.2 fl (80.0-96.0); MONO # 1.3 10^3/uL (0.0-0.8); MONO % 12.9 % (0.0-5.0); NEUTROPHILS # 6.7 10^3/uL (1.8-7.7); PLATELET COUNT, AUTOMATED 239 10^3/uL (150-450); RED BLOOD COUNT 3.96 10^6/uL (4.30-6.10); RED CELL DISTRIBUTION WIDTH 15.9 % (11.5-14.5)
[2017-07-05 04:54] LABS: ALBUMIN 2.5 GM/DL (3.2-5.2); ANION GAP 7 MEQ/L (8-16); BLOOD UREA NITROGEN 67 MG/DL (7-18); CALCIUM LEVEL 8.7 MG/DL (8.8-10.2); CARBON DIOXIDE LEVEL 35 MEQ/L (21-32); CHLORIDE LEVEL 97 MEQ/L (98-107); CREATININE FOR GFR 3.91 MG/DL (0.70-1.30); GLOMERULAR FILTRATION RATE 15.8 (>35); GLUCOSE, FASTING 58 MG/DL (70-100); PHOSPHORUS LEVEL 3.9 MG/DL (2.5-4.9); POTASSIUM SERUM 3.6 MEQ/L (3.5-5.1); SODIUM LEVEL 139 MEQ/L (136-145)
[2017-07-05 05:19] LABS: BEDSIDE GLUCOSE 58 MG/DL (83-110)
[2017-07-05] MEDS: LEVOTHYROXINE 75MCG TABLET (0.075MG) PO (05:34)
[2017-07-05 05:51] LABS: BEDSIDE GLUCOSE 95 MG/DL (83-110)
[2017-07-05 08:02] LABS: BEDSIDE GLUCOSE 160 MG/DL (83-110)
[2017-07-05] MEDS: ALBUTEROL SULFATE 2.5 MG/0.5 ML INH NEB SOLN INH ×4 (08:40→19:42)
[2017-07-05] MEDS: SENOKOT S TAB PO ×2 (09:12→20:41)
[2017-07-05] MEDS: APIXABAN 2.5 MG TAB (ELIQUIS) PO ×2 (09:18→20:41)
[2017-07-05] MEDS: PANTOPRAZOLE 40MG TAB (PROTONIX) PO (09:18)
[2017-07-05] MEDS: CLOPIDOGREL 75 MG TAB PO (09:18)
[2017-07-05] MEDS: VITAMIN D 1,000 INTERNATIONAL UNITS TABLET PO (09:18)
[2017-07-05] MEDS: HumuLIN (NovoLIN)70/30 INSULIN INJ PER UNIT SC ×2 (09:19→20:41)
[2017-07-05] MEDS: prednisoLONE ACET 1% OPHTH SUSP 5ML OU ×2 (09:20→20:41)
[2017-07-05 12:09] LABS: BEDSIDE GLUCOSE 305 MG/DL (83-110)
[2017-07-05] MEDS: HumaLOG INSULIN (NovoLOG) PER UNIT SC (12:15)
[2017-07-05] MEDS ORDERED: HumaLOG INSULIN (NovoLOG) PER UNIT As Ordered (12:19)
[2017-07-05] MEDS: POTASSIUM CHLORIDE 10 MEQ SR TABLET PO (13:41)
[2017-07-05 16:52] LABS: BEDSIDE GLUCOSE 163 MG/DL (83-110)
[2017-07-05 20:28] LABS: BEDSIDE GLUCOSE 300 MG/DL (83-110)
[2017-07-05] MEDS: SIMVASTATIN 40 MG TAB PO (20:41)
[2017-07-05] MEDS: LATANOPROST 0.005% OPHTH SOLN 2.5 ML OU (20:41)
[2017-07-06 04:47] LABS: BASO # 0.1 10^3/uL (0.0-0.2); BASO % 1.2 % (0.0-1.0); EOS # 0.2 10^3/uL (0.0-0.50); EOS % 2.1 % (0.0-3.0); HEMATOCRIT 35.6 % (42.0-52.0); HEMOGLOBIN 11.5 g/dl (14.0-18.0); IMMATURE GRANULOCYTE # 0.1 10^3/uL (0-0); IMMATURE GRANULOCYTE % 0.5 % (0-0); LYMPH # 1.5 10^3/uL (1.5-4.5); LYMPH % 15.5 % (24.0-44.0); MEAN CORPUSCULAR HEMOGLOBIN 29.9 pg (27.0-33.0); MEAN CORPUSCULAR HGB CONC 32.3 g/dl (32.0-36.5); MEAN CORPUSCULAR VOLUME 92.5 fl (80.0-96.0); MONO # 1.1 10^3/uL (0.0-0.8); MONO % 11.3 % (0.0-5.0); NEUTROPHILS # 6.6 10^3/uL (1.8-7.7); NEUTROPHILS % 69.4 % (36.0-66.0); PLATELET COUNT, AUTOMATED 239 10^3/uL (150-450); RED BLOOD COUNT 3.85 10^6/uL (4.30-6.10); RED CELL DISTRIBUTION WIDTH 15.9 % (11.5-14.5); WHITE BLOOD COUNT 9.5 10^3/uL (4.0-10.0)
[2017-07-06 04:56] LABS: ALBUMIN 2.4 GM/DL (3.2-5.2); ANION GAP 5 MEQ/L (8-16); BLOOD UREA NITROGEN 56 MG/DL (7-18); CALCIUM LEVEL 8.5 MG/DL (8.8-10.2); CARBON DIOXIDE LEVEL 36 MEQ/L (21-32); CHLORIDE LEVEL 98 MEQ/L (98-107); CREATININE FOR GFR 3.26 MG/DL (0.70-1.30); GLOMERULAR FILTRATION RATE 19.5 (>35); GLUCOSE, FASTING 161 MG/DL (70-100); PHOSPHORUS LEVEL 3.2 MG/DL (2.5-4.9); SODIUM LEVEL 139 MEQ/L (136-145)
[2017-07-06] MEDS: LEVOTHYROXINE 75MCG TABLET (0.075MG) PO (05:54)
[2017-07-06] MEDS: ALBUTEROL SULFATE 2.5 MG/0.5 ML INH NEB SOLN INH ×4 (07:13→19:36)
[2017-07-06] MEDS: HumuLIN (NovoLIN)70/30 INSULIN INJ PER UNIT SC ×2 (08:04→20:23)
[2017-07-06] MEDS: CALCITRIOL 0.25 MCG CAP (S0169) PO (08:08)
[2017-07-06] MEDS: SENOKOT S TAB PO ×2 (08:09→20:15)
[2017-07-06] MEDS: CLOPIDOGREL 75 MG TAB PO (08:09)
[2017-07-06] MEDS: prednisoLONE ACET 1% OPHTH SUSP 5ML OU ×2 (08:09→20:15)
[2017-07-06] MEDS: APIXABAN 2.5 MG TAB (ELIQUIS) PO (08:09)
[2017-07-06] MEDS: ACETAMINOPHEN TAB 650MG DOSE (2X325MG) PO (08:09)
[2017-07-06] MEDS: PANTOPRAZOLE 40MG TAB (PROTONIX) PO (08:09)
[2017-07-06] MEDS: VITAMIN D 1,000 INTERNATIONAL UNITS TABLET PO (08:15)
[2017-07-06 11:44] LABS: BEDSIDE GLUCOSE 186 MG/DL (83-110)
[2017-07-06] MEDS: MOM 30ML SUSPENSION UDC PO (15:51)
[2017-07-06 16:51] LABS: BEDSIDE GLUCOSE 121 MG/DL (83-110)
[2017-07-06] MEDS: SIMVASTATIN 40 MG TAB PO (20:14)
[2017-07-06] MEDS: LATANOPROST 0.005% OPHTH SOLN 2.5 ML OU (20:15)
[2017-07-06 20:35] LABS: BEDSIDE GLUCOSE 237 MG/DL (83-110)
[2017-07-07] MEDS: ACETAMINOPHEN TAB 650MG DOSE (2X325MG) PO ×3 (00:30→20:15)
[2017-07-07 05:15] LABS: BASO # 0.1 10^3/uL (0.0-0.2); BASO % 1.3 % (0.0-1.0); EOS # 0.3 10^3/uL (0.0-0.50); EOS % 3.7 % (0.0-3.0); HEMATOCRIT 35.1 % (42.0-52.0); HEMOGLOBIN 11.3 g/dl (14.0-18.0); IMMATURE GRANULOCYTE % 0.3 % (0-0); LYMPH # 1.5 10^3/uL (1.5-4.5); LYMPH % 17.8 % (24.0-44.0); MEAN CORPUSCULAR HEMOGLOBIN 29.7 pg (27.0-33.0); MEAN CORPUSCULAR HGB CONC 32.2 g/dl (32.0-36.5); MEAN CORPUSCULAR VOLUME 92.4 fl (80.0-96.0); MONO # 0.9 10^3/uL (0.0-0.8); MONO % 10.1 % (0.0-5.0); NEUTROPHILS # 5.8 10^3/uL (1.8-7.7); NEUTROPHILS % 66.8 % (36.0-66.0); PLATELET COUNT, AUTOMATED 227 10^3/uL (150-450); RED CELL DISTRIBUTION WIDTH 15.6 % (11.5-14.5); WHITE BLOOD COUNT 8.7 10^3/uL (4.0-10.0)
[2017-07-07 05:31] LABS: ALBUMIN 2.3 GM/DL (3.2-5.2); ANION GAP 4 MEQ/L (8-16); BLOOD UREA NITROGEN 56 MG/DL (7-18); CALCIUM LEVEL 8.8 MG/DL (8.8-10.2); CARBON DIOXIDE LEVEL 37 MEQ/L (21-32); CHLORIDE LEVEL 98 MEQ/L (98-107); GLOMERULAR FILTRATION RATE 23.2 (>35); GLUCOSE, FASTING 87 MG/DL (70-100); PHOSPHORUS LEVEL 2.7 MG/DL (2.5-4.9); POTASSIUM SERUM 4.2 MEQ/L (3.5-5.1); SODIUM LEVEL 139 MEQ/L (136-145)
[2017-07-07] MEDS: LEVOTHYROXINE 75MCG TABLET (0.075MG) PO (06:05)
[2017-07-07] MEDS: ALBUTEROL SULFATE 2.5 MG/0.5 ML INH NEB SOLN INH ×4 (07:53→19:38)
[2017-07-07] MEDS: MOM 30ML SUSPENSION UDC PO (08:43)
[2017-07-07] MEDS: ASPIRIN 81 MG ENTERIC TAB PO (08:43)
[2017-07-07] MEDS: SENOKOT S TAB PO ×2 (08:43→20:15)
[2017-07-07] MEDS: CLOPIDOGREL 75 MG TAB PO (08:43)
[2017-07-07] MEDS: VITAMIN D 1,000 INTERNATIONAL UNITS TABLET PO (08:43)
[2017-07-07] MEDS: PANTOPRAZOLE 40MG TAB (PROTONIX) PO (08:43)
[2017-07-07] MEDS: HumuLIN (NovoLIN)70/30 INSULIN INJ PER UNIT SC ×2 (08:44→20:17)
[2017-07-07] MEDS: prednisoLONE ACET 1% OPHTH SUSP 5ML OU ×2 (08:44→20:17)
[2017-07-07 12:07] LABS: BEDSIDE GLUCOSE 145 MG/DL (83-110)
[2017-07-07] MEDS: BISACODYL 10 MG SUPP PR (14:20)
[2017-07-07 16:29] LABS: BEDSIDE GLUCOSE 159 MG/DL (83-110)
[2017-07-07] MEDS: SIMVASTATIN 40 MG TAB PO (20:15)
[2017-07-07] MEDS: LATANOPROST 0.005% OPHTH SOLN 2.5 ML OU (20:17)
[2017-07-07 20:30] LABS: BEDSIDE GLUCOSE 212 MG/DL (83-110)
[2017-07-08 04:45] LABS: MAGNESIUM LEVEL 2.2 MG/DL (1.8-2.4)
[2017-07-08] MEDS: LEVOTHYROXINE 75MCG TABLET (0.075MG) PO (06:07)
[2017-07-08] MEDS: ACETAMINOPHEN TAB 650MG DOSE (2X325MG) PO ×2 (06:47→21:10)
[2017-07-08 07:18] LABS: BEDSIDE GLUCOSE 56 MG/DL (83-110)
[2017-07-08 07:18] LABS: BEDSIDE GLUCOSE 72 MG/DL (83-110)
[2017-07-08] MEDS: ALBUTEROL SULFATE 2.5 MG/0.5 ML INH NEB SOLN INH ×4 (07:29→20:04)
[2017-07-08] MEDS: HumuLIN (NovoLIN)70/30 INSULIN INJ PER UNIT SC ×2 (09:16→21:09)
[2017-07-08] MEDS: PANTOPRAZOLE 40MG TAB (PROTONIX) PO (09:16)
[2017-07-08] MEDS: ASPIRIN 81 MG ENTERIC TAB PO (09:16)
[2017-07-08] MEDS: VITAMIN D 1,000 INTERNATIONAL UNITS TABLET PO (09:16)
[2017-07-08] MEDS: CLOPIDOGREL 75 MG TAB PO (09:16)
[2017-07-08] MEDS: SENOKOT S TAB PO ×2 (09:16→21:10)
[2017-07-08] MEDS: CALCITRIOL 0.25 MCG CAP (S0169) PO (09:16)
[2017-07-08] MEDS: prednisoLONE ACET 1% OPHTH SUSP 5ML OU ×2 (09:17→21:10)
[2017-07-08] MEDS: MOM 30ML SUSPENSION UDC PO (09:21)
[2017-07-08 13:01] LABS: BEDSIDE GLUCOSE 198 MG/DL (83-110)
[2017-07-08] MEDS: BISACODYL 10 MG SUPP PR (15:12)
[2017-07-08] MEDS: FLEET ENEMA PR (17:18)
[2017-07-08 18:09] LABS: BEDSIDE GLUCOSE 114 MG/DL (83-110)
[2017-07-08 20:58] LABS: BEDSIDE GLUCOSE 173 MG/DL (83-110)
[2017-07-08] MEDS: LATANOPROST 0.005% OPHTH SOLN 2.5 ML OU (21:10)
[2017-07-08] MEDS: SIMVASTATIN 40 MG TAB PO (21:10)
[2017-07-09 05:05] LABS: HEMATOCRIT 35.7 % (42.0-52.0); HEMOGLOBIN 11.6 g/dl (14.0-18.0); MEAN CORPUSCULAR HEMOGLOBIN 29.4 pg (27.0-33.0); MEAN CORPUSCULAR HGB CONC 32.5 g/dl (32.0-36.5); MEAN CORPUSCULAR VOLUME 90.4 fl (80.0-96.0); PLATELET COUNT, AUTOMATED 221 10^3/uL (150-450); RED BLOOD COUNT 3.95 10^6/uL (4.30-6.10); RED CELL DISTRIBUTION WIDTH 15.5 % (11.5-14.5); WHITE BLOOD COUNT 8.1 10^3/uL (4.0-10.0)
[2017-07-09] MEDS: LEVOTHYROXINE 75MCG TABLET (0.075MG) PO (05:17)
[2017-07-09 05:25] LABS: ANION GAP 5 MEQ/L (8-16); BLOOD UREA NITROGEN 43 MG/DL (7-18); CALCIUM LEVEL 8.6 MG/DL (8.8-10.2); CARBON DIOXIDE LEVEL 35 MEQ/L (21-32); CHLORIDE LEVEL 96 MEQ/L (98-107); CREATININE FOR GFR 2.52 MG/DL (0.70-1.30); GLOMERULAR FILTRATION RATE 26.2 (>35); GLUCOSE, FASTING 107 MG/DL (70-100); POTASSIUM SERUM 4.2 MEQ/L (3.5-5.1); SODIUM LEVEL 136 MEQ/L (136-145)
[2017-07-09] MEDS: HumuLIN (NovoLIN)70/30 INSULIN INJ PER UNIT SC ×2 (07:30→20:26)
[2017-07-09] MEDS: ALBUTEROL SULFATE 2.5 MG/0.5 ML INH NEB SOLN INH ×4 (07:34→21:11)
[2017-07-09] MEDS: VITAMIN D 1,000 INTERNATIONAL UNITS TABLET PO (09:08)
[2017-07-09] MEDS: MOM 30ML SUSPENSION UDC PO (09:08)
[2017-07-09] MEDS: CLOPIDOGREL 75 MG TAB PO (09:08)
[2017-07-09] MEDS: SENOKOT S TAB PO ×2 (09:08→20:25)
[2017-07-09] MEDS: ACETAMINOPHEN TAB 650MG DOSE (2X325MG) PO (09:08)
[2017-07-09] MEDS: PANTOPRAZOLE 40MG TAB (PROTONIX) PO (09:08)
[2017-07-09] MEDS: ASPIRIN 81 MG ENTERIC TAB PO (09:08)
[2017-07-09] MEDS: prednisoLONE ACET 1% OPHTH SUSP 5ML OU ×2 (09:09→20:26)
[2017-07-09 11:57] LABS: BEDSIDE GLUCOSE 134 MG/DL (83-110)
[2017-07-09] MEDS ORDERED: MIDAZOLAM INJ 2 MG/2 ML VIAL (J2250) As Ordered ×2 (12:31→14:24)
[2017-07-09] MEDS ORDERED: fentaNYL 100 MCG/2 ML INJECTION (J3010) As Ordered (12:32)
[2017-07-09] MEDS: VANCOMYCIN 1000 MG/20 ML VIAL (J3370) As Ordered (12:32)
[2017-07-09] MEDS: LIDOCAINE 1% SDV INJ 30 ML VIAL As Ordered (13:43)
[2017-07-09] MEDS: ISOVUE-300 61% 50ML VIAL (Q9967) As Ordered (13:49)
[2017-07-09] MEDS: ceFAZolin 2 GM/D5W 50 ML IV BAG (J0690 PER 500MG) As Ordered (13:49)
[2017-07-09] MEDS ORDERED: PROPOFOL 200 MG/20 ML VIAL As Ordered ×2 (14:19→14:55)
[2017-07-09] MEDS ORDERED: KETAMINE HCL 200 MG/20 ML VIAL As Ordered (14:20)
[2017-07-09] MEDS ORDERED: ONDANSETRON 4MG/2ML VIAL (J2405) As Ordered (14:38)
[2017-07-09] MEDS ORDERED: AMIODARONE HCL 150 MG/100 ML PREMIXED BAG (NEXTERONE) As Ordered ×2 (15:00→15:58)
[2017-07-09] MEDS: AMIODARONE 150MG/3ML INJ (J0282) As Ordered (15:20)
[2017-07-09] MEDS: AMIODARONE HCL 150 MG/100 ML PREMIXED BAG (NEXTERONE) As Ordered (15:30)
[2017-07-09] MEDS: MUPIROCIN 2% OINT 22 GM TUBE As Ordered (15:32)
[2017-07-09] MEDS ORDERED: PERCOCET 5MG/325MG TAB As Ordered (16:10)
[2017-07-09] MEDS ORDERED: ONDANSETRON 4MG/2ML VIAL (J2405) IV (16:15)
[2017-07-09] MEDS ORDERED: HYDROmorphone HCL 1 MG/ML SYRINGE (J1170) IV (16:15)
[2017-07-09] MEDS ORDERED: fentaNYL 100 MCG/2 ML INJECTION (J3010) IV (16:15)
[2017-07-09] MEDS: PERCOCET 5MG/325MG TAB PO (16:20)
[2017-07-09] MEDS: LR 1,000 ML IV (17:00)
[2017-07-09] MEDS: SODIUM CHLORIDE 0.9% 1000 ML IV (17:00)
[2017-07-09 17:38] LABS: BEDSIDE GLUCOSE 166 MG/DL (83-110)
[2017-07-09] MEDS ORDERED: zolPIDEM TARTRATE 5 MG TAB PO (18:30)
[2017-07-09] MEDS: ASCORBIC ACID 250 MG TAB PO (18:51)
[2017-07-09 20:22] LABS: BEDSIDE GLUCOSE 197 MG/DL (83-110)
[2017-07-09] MEDS: SIMVASTATIN 40 MG TAB PO (20:25)
[2017-07-09] MEDS: LATANOPROST 0.005% OPHTH SOLN 2.5 ML OU (20:26)
[2017-07-10 05:48] LABS: ANION GAP 1 MEQ/L (8-16); BLOOD UREA NITROGEN 38 MG/DL (7-18); CARBON DIOXIDE LEVEL 38 MEQ/L (21-32); CHLORIDE LEVEL 98 MEQ/L (98-107); CREATININE FOR GFR 2.51 MG/DL (0.70-1.30); GLOMERULAR FILTRATION RATE 26.3 (>35); GLUCOSE, FASTING 45 MG/DL (70-100); PHOSPHORUS LEVEL 3.2 MG/DL (2.5-4.9); POTASSIUM SERUM 4.4 MEQ/L (3.5-5.1); SODIUM LEVEL 137 MEQ/L (136-145)
[2017-07-10] MEDS: LEVOTHYROXINE 75MCG TABLET (0.075MG) PO (06:17)
[2017-07-10] MEDS: ALBUTEROL SULFATE 2.5 MG/0.5 ML INH NEB SOLN INH ×4 (07:40→20:00)
[2017-07-10] MEDS: VITAMIN D 1,000 INTERNATIONAL UNITS TABLET PO (08:20)
[2017-07-10] MEDS: CALCITRIOL 0.25 MCG CAP (S0169) PO (08:20)
[2017-07-10] MEDS: ASPIRIN 81 MG ENTERIC TAB PO (08:20)
[2017-07-10] MEDS: PANTOPRAZOLE 40MG TAB (PROTONIX) PO (08:21)
[2017-07-10] MEDS: CLOPIDOGREL 75 MG TAB PO (08:21)
[2017-07-10] MEDS: ASCORBIC ACID 250 MG TAB PO (08:21)
[2017-07-10] MEDS: SENOKOT S TAB PO ×2 (08:21→21:13)
[2017-07-10] MEDS: prednisoLONE ACET 1% OPHTH SUSP 5ML OU ×2 (08:21→21:14)
[2017-07-10 08:32] LABS: BEDSIDE GLUCOSE 100 MG/DL (83-110)
[2017-07-10] MEDS: HumuLIN (NovoLIN)70/30 INSULIN INJ PER UNIT SC ×2 (12:24→21:33)
[2017-07-10] MEDS: MAGNESIUM CITRATE 300 ML BTL PO (15:15)
[2017-07-10] MEDS ORDERED: FLEET ENEMA PR (19:00)
[2017-07-10] MEDS: FLEET ENEMA PR (19:09)
[2017-07-10] MEDS: SIMVASTATIN 40 MG TAB PO (21:13)
[2017-07-10] MEDS: BISACODYL 10 MG SUPP PR (21:14)
[2017-07-10] MEDS: LATANOPROST 0.005% OPHTH SOLN 2.5 ML OU (21:14)
[2017-07-10 21:40] LABS: BEDSIDE GLUCOSE 184 MG/DL (83-110)
[2017-07-11 04:46] LABS: ALBUMIN 2.5 GM/DL (3.2-5.2); ALBUMIN/GLOBULIN RATIO 0.66 (1.00-1.93); ALKALINE PHOSPHATASE 139 U/L (45-117); ALT/SGPT 20 U/L (12-78); ANION GAP 5 MEQ/L (8-16); AST/SGOT 34 U/L (7-37); BILIRUBIN,TOTAL 0.6 MG/DL (0.2-1.0); BLOOD UREA NITROGEN 40 MG/DL (7-18); CALCIUM LEVEL 8.7 MG/DL (8.8-10.2); CARBON DIOXIDE LEVEL 34 MEQ/L (21-32); CHLORIDE LEVEL 97 MEQ/L (98-107); CREATININE FOR GFR 2.16 MG/DL (0.70-1.30); GLOMERULAR FILTRATION RATE 31.3 (>35); POTASSIUM SERUM 3.7 MEQ/L (3.5-5.1); SODIUM LEVEL 136 MEQ/L (136-145); TOTAL PROTEIN 6.3 GM/DL (6.4-8.2)
[2017-07-11 04:51] LABS: GLUCOSE, FASTING 31 MG/DL (70-100)
[2017-07-11 04:52] LABS: TROPONIN I 2.18 NG/ML (< 0.10)
[2017-07-11] MEDS: DEXTROSE 50% 50 ML SYRINGE IV (04:57)
[2017-07-11 05:15] LABS: BEDSIDE GLUCOSE 82 MG/DL (83-110)
[2017-07-11] MEDS: LEVOTHYROXINE 75MCG TABLET (0.075MG) PO (05:55)
[2017-07-11] MEDS: HumuLIN (NovoLIN)70/30 INSULIN INJ PER UNIT SC ×2 (07:30→16:51)
[2017-07-11] MEDS: ALBUTEROL SULFATE 2.5 MG/0.5 ML INH NEB SOLN INH ×4 (08:00→19:44)
[2017-07-11] MEDS: CLOPIDOGREL 75 MG TAB PO (09:58)
[2017-07-11] MEDS: SENOKOT S TAB PO ×2 (09:58→21:21)
[2017-07-11] MEDS: ASCORBIC ACID 250 MG TAB PO (09:58)
[2017-07-11] MEDS: APIXABAN 2.5 MG TAB (ELIQUIS) PO ×2 (09:58→21:21)
[2017-07-11] MEDS: PANTOPRAZOLE 40MG TAB (PROTONIX) PO (09:58)
[2017-07-11] MEDS: VITAMIN D 1,000 INTERNATIONAL UNITS TABLET PO (09:58)
[2017-07-11] MEDS: prednisoLONE ACET 1% OPHTH SUSP 5ML OU ×2 (09:59→21:21)
[2017-07-11] MEDS ORDERED: SLF 3 ML SYR IV (10:15)
[2017-07-11 12:03] LABS: BEDSIDE GLUCOSE 295 MG/DL (83-110)
[2017-07-11] MEDS: FUROSEMIDE 40 MG TAB PO (12:39)
[2017-07-11] MEDS: SLF 3 ML SYR IV ×2 (12:40→21:22)
[2017-07-11 16:44] LABS: BEDSIDE GLUCOSE 283 MG/DL (83-110)
[2017-07-11] MEDS: BISACODYL 10 MG SUPP PR (16:55)
[2017-07-11 20:38] LABS: BEDSIDE GLUCOSE 276 MG/DL (83-110)
[2017-07-11] MEDS: SIMVASTATIN 40 MG TAB PO (21:20)
[2017-07-11] MEDS: LATANOPROST 0.005% OPHTH SOLN 2.5 ML OU (21:21)
[2017-07-12] MEDS: ACETAMINOPHEN TAB 650MG DOSE (2X325MG) PO (02:46)
[2017-07-12 04:22] LABS: ANION GAP 8 MEQ/L (8-16); BLOOD UREA NITROGEN 40 MG/DL (7-18); CALCIUM LEVEL 8.2 MG/DL (8.8-10.2); CARBON DIOXIDE LEVEL 33 MEQ/L (21-32); CHLORIDE LEVEL 95 MEQ/L (98-107); CREATININE FOR GFR 2.28 MG/DL (0.70-1.30); GLOMERULAR FILTRATION RATE 29.4 (>35); GLUCOSE, FASTING 214 MG/DL (70-100); POTASSIUM SERUM 4.3 MEQ/L (3.5-5.1); SODIUM LEVEL 136 MEQ/L (136-145)
[2017-07-12] MEDS: SLF 3 ML SYR IV (06:32)
[2017-07-12] MEDS: LEVOTHYROXINE 75MCG TABLET (0.075MG) PO (06:32)
[2017-07-12] MEDS: ALBUTEROL SULFATE 2.5 MG/0.5 ML INH NEB SOLN INH ×2 (07:34→11:14)
[2017-07-12] MEDS: PANTOPRAZOLE 40MG TAB (PROTONIX) PO (08:15)
[2017-07-12] MEDS: VITAMIN D 1,000 INTERNATIONAL UNITS TABLET PO (08:15)
[2017-07-12] MEDS: SENOKOT S TAB PO (08:15)
[2017-07-12] MEDS: ASCORBIC ACID 250 MG TAB PO (08:16)
[2017-07-12] MEDS: APIXABAN 2.5 MG TAB (ELIQUIS) PO (08:16)
[2017-07-12] MEDS: FUROSEMIDE 40 MG TAB PO (08:16)
[2017-07-12] MEDS: CLOPIDOGREL 75 MG TAB PO (08:16)
[2017-07-12] MEDS: HumuLIN (NovoLIN)70/30 INSULIN INJ PER UNIT SC (08:16)
[2017-07-12] MEDS: prednisoLONE ACET 1% OPHTH SUSP 5ML OU (08:17)
[2017-07-12 10:26] LABS: BEDSIDE GLUCOSE 293 MG/DL (83-110)
[2017-07-12 11:47] LABS: BEDSIDE GLUCOSE 201 MG/DL (83-110)
[2017-07-13 11:11] LABS: BEDSIDE GLUCOSE 185 MG/DL (83-110)
== END 2017-07-12 13:13 | disposition home health service (06) | DRG 242 ==
LOC: M PCU 07-09 12:15 → M ED 12:24 → M ED INP 15:18 → M ICU 16:55
PROC: 02H63JZ Insertion of Pacemaker Lead into Right Atrium, Percutaneous Approach (ICD-10-PCS; principal; 2017-07-09 12:00)
PROC: 0JH606Z Insertion of Pacemaker, Dual Chamber into Chest Subcutaneous Tissue and Fascia, Open Approach (ICD-10-PCS; 2017-07-09 12:00)
PROC: 02HK3JZ Insertion of Pacemaker Lead into Right Ventricle, Percutaneous Approach (ICD-10-PCS; 2017-07-09 12:00)
DX: I49.5 Sick sinus syndrome (principal); I50.33 Acute on chronic diastolic (congestive) heart failure; I13.0 Hypertensive heart and chronic kidney disease with heart failure and stage 1 through stage 4 chronic kidney disease, or unspecified chronic kidney disease; N17.9 Acute kidney failure, unspecified; I48.92 Unspecified atrial flutter; E87.1 Hypo-osmolality and hyponatremia; N18.4 Chronic kidney disease, stage 4 (severe); E87.3 Alkalosis; N25.81 Secondary hyperparathyroidism of renal origin; E87.2 Acidosis; I48.0 Paroxysmal atrial fibrillation; I25.10 Atherosclerotic heart disease of native coronary artery without angina pectoris; E11.40 Type 2 diabetes mellitus with diabetic neuropathy, unspecified; Z79.899 Other long term (current) drug therapy; I44.0 Atrioventricular block, first degree; D72.829 Elevated white blood cell count, unspecified; I27.20 Pulmonary hypertension, unspecified; I73.9 Peripheral vascular disease, unspecified; I25.2 Old myocardial infarction; E78.00 Pure hypercholesterolemia, unspecified; Z87.891 Personal history of nicotine dependence; I65.29 Occlusion and stenosis of unspecified carotid artery; E11.319 Type 2 diabetes mellitus with unspecified diabetic retinopathy without macular edema; M19.90 Unspecified osteoarthritis, unspecified site; M79.1 Myalgia; Z79.4 Long term (current) use of insulin; Z88.8 Allergy status to other drugs, medicaments and biological substances; E11.21 Type 2 diabetes mellitus with diabetic nephropathy; E55.9 Vitamin D deficiency, unspecified; E78.5 Hyperlipidemia, unspecified; M10.9 Gout, unspecified; Z79.82 Long term (current) use of aspirin; E03.9 Hypothyroidism, unspecified; E87.6 Hypokalemia; D64.9 Anemia, unspecified

== ENCOUNTER → 2017-11-09 | Outpatient (CLI) | payer MEDICARE, OTHER ==
[2017-11-09 13:27] LABS: IONIZED CALCIUM 4.7 MG/DL (4.5-5.3)
[2017-11-09 13:37] LABS: BASO # 0.1 10^3/uL (0.0-0.2); BASO % 0.6 % (0.0-1.0); EOS % 0.4 % (0.0-3.0); HEMATOCRIT 41.7 % (42.0-52.0); HEMOGLOBIN 13.4 g/dl (13.5-17.5); IMMATURE GRANULOCYTE % 0.4 % (0-3.0); LYMPH # 1.3 10^3/uL (1.5-4.5); LYMPH % 13.7 % (24.0-44.0); MEAN CORPUSCULAR HEMOGLOBIN 29.4 pg (27.0-33.0); MEAN CORPUSCULAR HGB CONC 32.1 g/dl (32.0-36.5); MEAN CORPUSCULAR VOLUME 91.4 fl (80.0-96.0); MONO # 0.6 10^3/uL (0.0-0.8); MONO % 5.7 % (0.0-5.0); NEUTROPHILS # 7.6 10^3/uL (1.8-7.7); NEUTROPHILS % 79.2 % (36.0-66.0); PLATELET COUNT, AUTOMATED 209 10^3/uL (150-450); RED BLOOD COUNT 4.56 10^6/uL (4.30-6.10); RED CELL DISTRIBUTION WIDTH 16.4 % (11.5-14.5); WHITE BLOOD COUNT 9.6 10^3/uL (4.0-10.0)
[2017-11-09 13:59] LABS: ALBUMIN 3.6 GM/DL (3.2-5.2); ALBUMIN/GLOBULIN RATIO 1.13 (1.00-1.93); ALKALINE PHOSPHATASE 101 U/L (45-117); ALT/SGPT 65 U/L (12-78); ANION GAP 8 MEQ/L (8-16); AST/SGOT 32 U/L (7-37); BILIRUBIN,TOTAL 0.5 MG/DL (0.2-1.0); BLOOD UREA NITROGEN 67 MG/DL (7-18); C REACTIVE PROTEIN QUANTITATIV < 0.30 MG/DL (0.00-0.30); CALCIUM LEVEL 9.3 MG/DL (8.8-10.2); CARBON DIOXIDE LEVEL 31 MEQ/L (21-32); CHLORIDE LEVEL 100 MEQ/L (98-107); COMPLEMENT C3 92.8 MG/DL (90-180); COMPLEMENT C4 22.9 MG/DL (10-40); CREATININE FOR GFR 3.05 MG/DL (0.70-1.30); GAMMA GLUTAMYLTRANSPEPTIDASE 83 U/L (15-85); GLUCOSE, FASTING 212 MG/DL (70-100); SODIUM LEVEL 139 MEQ/L (136-145); TOTAL PROTEIN 6.8 GM/DL (6.4-8.2); URIC ACID 4.6 MG/DL (3.5-7.2)
[2017-11-09 14:05] LABS: PTH INTACT 23.3 PG/ML (18.5-88.0)
[2017-11-09 14:30] LABS: TOTAL 25(OH) VITAMIN D 31.6 NG/ML (30.0-100.0)
[2017-11-09 14:43] LABS: ERYTHROCYTE SEDIMENTATION RATE 1 mm/hr (0-20)
[2017-11-11 00:07] LABS: ANTI DOUBLE STRAND-DNA AB 1 IU/mL (0-9)
== END ==
LOC: M LAB 12:37
DX: H15.093 Other scleritis, bilateral (principal)
CPT/HCPCS: 82977

== ENCOUNTER → 2017-12-14 | Outpatient (CLI) | payer MEDICARE, OTHER ==
[2017-12-14 11:57] LABS: BASO % 0.1 % (0.0-1.0); HEMATOCRIT 42.6 % (42.0-52.0); HEMOGLOBIN 13.8 g/dl (13.5-17.5); IMMATURE GRANULOCYTE # 0.1 10^3/uL (0-0); IMMATURE GRANULOCYTE % 0.9 % (0-3.0); LYMPH # 0.5 10^3/uL (1.5-4.5); MEAN CORPUSCULAR HEMOGLOBIN 30.5 pg (27.0-33.0); MEAN CORPUSCULAR HGB CONC 32.4 g/dl (32.0-36.5); MONO # 0.6 10^3/uL (0.0-0.8); NEUTROPHILS # 14.2 10^3/uL (1.8-7.7); PLATELET COUNT, AUTOMATED 125 10^3/uL (150-450); RED BLOOD COUNT 4.53 10^6/uL (4.30-6.10); RED CELL DISTRIBUTION WIDTH 16.7 % (11.5-14.5); WHITE BLOOD COUNT 15.4 10^3/uL (4.0-10.0)
== END ==
LOC: M LAB 11:16
DX: M05.741 Rheumatoid arthritis with rheumatoid factor of right hand without organ or systems involvement (principal)
CPT/HCPCS: 85027

== ENCOUNTER → 2018-02-08 | Outpatient (CLI) | payer MEDICARE, OTHER ==
[2018-02-08 13:28] LABS: POTASSIUM SERUM 4.5 MEQ/L (3.5-5.1)
== END ==
LOC: M LAB 12:36
DX: E87.5 Hyperkalemia (principal)
CPT/HCPCS: 84132

== ENCOUNTER → 2018-02-15 | Outpatient (CLI) | payer MEDICARE ==
[2018-02-15 13:42] LABS: BASO % 0.5 % (0.0-1.0); HEMATOCRIT 40.3 % (42.0-52.0); IMMATURE GRANULOCYTE % 1.9 % (0-3.0); LYMPH # 0.3 10^3/uL (1.5-4.5); MEAN CORPUSCULAR HEMOGLOBIN 32.2 pg (27.0-33.0); MEAN CORPUSCULAR HGB CONC 32.3 g/dl (32.0-36.5); MEAN CORPUSCULAR VOLUME 99.8 fl (80.0-96.0); MONO # 0.3 10^3/uL (0.0-0.8); MONO % 15.9 % (0.0-5.0); NEUTROPHILS # 1.5 10^3/uL (1.8-7.7); NEUTROPHILS % 67.7 % (36.0-66.0); PLATELET COUNT, AUTOMATED 142 10^3/uL (150-450); RED BLOOD COUNT 4.04 10^6/uL (4.30-6.10); WHITE BLOOD COUNT 2.1 10^3/uL (4.0-10.0)
[2018-02-15 14:50] LABS: ALBUMIN 3.2 GM/DL (3.2-5.2); ALBUMIN/GLOBULIN RATIO 1.19 (1.00-1.93); ALKALINE PHOSPHATASE 82 U/L (45-117); ALT/SGPT 81 U/L (12-78); ANION GAP 13 MEQ/L (8-16); AST/SGOT 47 U/L (7-37); BILIRUBIN,TOTAL 0.5 MG/DL (0.2-1.0); BLOOD UREA NITROGEN 51 MG/DL (7-18); C REACTIVE PROTEIN QUANTITATIV < 0.30 MG/DL (0.00-0.30); CALCIUM LEVEL 8.7 MG/DL (8.8-10.2); CARBON DIOXIDE LEVEL 29 MEQ/L (21-32); CHLORIDE LEVEL 97 MEQ/L (98-107); CREATININE FOR GFR 3.09 MG/DL (0.70-1.30); GLOMERULAR FILTRATION RATE 20.7 (>35); GLUCOSE, FASTING 149 MG/DL (70-100); POTASSIUM SERUM 4.2 MEQ/L (3.5-5.1); SODIUM LEVEL 139 MEQ/L (136-145); TOTAL PROTEIN 5.9 GM/DL (6.4-8.2)
== END ==
LOC: M LAB 12:12
DX: H15.093 Other scleritis, bilateral (principal)
CPT/HCPCS: 80053

== ENCOUNTER → 2018-02-18 | Outpatient (CLI) | payer MEDICARE ==
[2018-02-18 13:43] LABS: BASO % 1.5 % (0.0-1.0); HEMATOCRIT 41.6 % (42.0-52.0); HEMOGLOBIN 13.1 g/dl (13.5-17.5); IMMATURE GRANULOCYTE # 0.2 10^3/uL (0-0); LYMPH % 8.8 % (24.0-44.0); MEAN CORPUSCULAR HEMOGLOBIN 31.9 pg (27.0-33.0); MEAN CORPUSCULAR HGB CONC 31.5 g/dl (32.0-36.5); MEAN CORPUSCULAR VOLUME 101.2 fl (80.0-96.0); MONO # 0.8 10^3/uL (0.0-0.8); MONO % 38.7 % (0.0-5.0); NEUTROPHILS % 43.6 % (36.0-66.0); PLATELET COUNT, AUTOMATED 120 10^3/uL (150-450); RED BLOOD COUNT 4.11 10^6/uL (4.30-6.10)
[2018-02-18 14:15] LABS: IMMATURE GRANULOCYTE % 7.4 % (0-3.0); NEUTROPHILS # 0.9 10^3/uL (1.8-7.7)
[2018-02-18 14:16] LABS: LYMPH # 0.2 10^3/uL (1.5-4.5); POS COUNT POS FLAG; POSITIVE DIFF POS FLAG; POSITIVE MORPH POS FLAG
[2018-02-18 14:21] LABS: ALBUMIN 3.5 GM/DL (3.2-5.2); ALBUMIN/GLOBULIN RATIO 1.21 (1.00-1.93); ALKALINE PHOSPHATASE 91 U/L (45-117); ALT/SGPT 131 U/L (12-78); ANION GAP 11 MEQ/L (8-16); AST/SGOT 66 U/L (7-37); BILIRUBIN,TOTAL 0.5 MG/DL (0.2-1.0); BLOOD UREA NITROGEN 52 MG/DL (7-18); CALCIUM LEVEL 9.4 MG/DL (8.8-10.2); CARBON DIOXIDE LEVEL 29 MEQ/L (21-32); CHLORIDE LEVEL 101 MEQ/L (98-107); CREATININE FOR GFR 2.97 MG/DL (0.70-1.30); GLOMERULAR FILTRATION RATE 21.6 (>35); GLUCOSE, FASTING 89 MG/DL (70-100); POTASSIUM SERUM 4.1 MEQ/L (3.5-5.1); SODIUM LEVEL 141 MEQ/L (136-145); TOTAL PROTEIN 6.4 GM/DL (6.4-8.2)
== END ==
LOC: M LAB 12:49
DX: D72.819 Decreased white blood cell count, unspecified (principal)
CPT/HCPCS: 80053

== ENCOUNTER → 2018-02-22 | Outpatient (CLI) | payer MEDICARE ==
[2018-02-22 13:03] LABS: BASO # 0.1 10^3/uL (0.0-0.2); BASO % 0.9 % (0.0-1.0); EOS % 0.2 % (0.0-3.0); HEMATOCRIT 42.3 % (42.0-52.0); HEMOGLOBIN 13.2 g/dl (13.5-17.5); IMMATURE GRANULOCYTE # 0.7 10^3/uL (0-0); LYMPH # 0.5 10^3/uL (1.5-4.5); LYMPH % 6.2 % (24.0-44.0); MEAN CORPUSCULAR HEMOGLOBIN 31.9 pg (27.0-33.0); MEAN CORPUSCULAR HGB CONC 31.2 g/dl (32.0-36.5); MEAN CORPUSCULAR VOLUME 102.2 fl (80.0-96.0); MONO # 0.8 10^3/uL (0.0-0.8); MONO % 8.9 % (0.0-5.0); NEUTROPHILS # 6.5 10^3/uL (1.8-7.7); PLATELET COUNT, AUTOMATED 155 10^3/uL (150-450); RED BLOOD COUNT 4.14 10^6/uL (4.30-6.10); RED CELL DISTRIBUTION WIDTH 15.4 % (11.5-14.5); WHITE BLOOD COUNT 8.5 10^3/uL (4.0-10.0)
[2018-02-22 13:08] LABS: APPEARANCE, URINE CLEAR (CLEAR); BACTERIA, URINE AUTO NEGATIVE (NEGATIVE); BILIRUBIN, URINE AUTO NEGATIVE (NEGATIVE); BLOOD, URINE BLOOD NEGATIVE (NEGATIVE); COLOR, URINE YELLOW (YELLOW); GLUCOSE, URINE (UA) AUTO 1+ mg/dL (NEGATIVE); KETONE, URINE AUTO TRACE mg/dL (NEGATIVE); LEUKOCYTE ESTERASE, URINE AUTO NEGATIVE (NEGATIVE); MUCUS, URINE SMALL (NEGATIVE); NITRITE, URINE AUTO NEGATIVE (NEGATIVE); PROTEIN, URINE AUTO 2+ mg/dL (NEGATIVE); RBC, URINE AUTO 2 /HPF (0-3); SPECIFIC GRAVITY URINE AUTO 1.012 (1.002-1.035); SQUAMOUS EPITHELIAL CELL UR AU 0 /HPF (0-6); UROBILINOGEN, URINE AUTO 0.2 mg/dL (0.0-2.0); WBC, URINE AUTO 1 /HPF (0-3)
[2018-02-22 13:14] LABS: IMMATURE GRANULOCYTE % 7.8 % (0-3.0); POS COUNT POS FLAG; POSITIVE MORPH POS FLAG
[2018-02-22 13:25] LABS: ALBUMIN 3.1 GM/DL (3.2-5.2); ALBUMIN/GLOBULIN RATIO 1.11 (1.00-1.93); ALKALINE PHOSPHATASE 83 U/L (45-117); ALT/SGPT 86 U/L (12-78); ANION GAP 12 MEQ/L (8-16); AST/SGOT 44 U/L (7-37); BILIRUBIN,TOTAL 0.5 MG/DL (0.2-1.0); BLOOD UREA NITROGEN 44 MG/DL (7-18); C REACTIVE PROTEIN QUANTITATIV < 0.30 MG/DL (0.00-0.30); CALCIUM LEVEL 8.9 MG/DL (8.8-10.2); CARBON DIOXIDE LEVEL 27 MEQ/L (21-32); CHLORIDE LEVEL 101 MEQ/L (98-107); CREATININE FOR GFR 3.04 MG/DL (0.70-1.30); GLOMERULAR FILTRATION RATE 21.1 (>35); GLUCOSE, FASTING 106 MG/DL (70-100); POTASSIUM SERUM 4.1 MEQ/L (3.5-5.1); SODIUM LEVEL 140 MEQ/L (136-145); TOTAL PROTEIN 5.9 GM/DL (6.4-8.2)
== END ==
LOC: M LAB 11:59
DX: D72.819 Decreased white blood cell count, unspecified (principal)
CPT/HCPCS: 80053

== ENCOUNTER → 2018-02-26 | Outpatient (CLI) | payer MEDICARE ==
[2018-02-26 13:18] LABS: BASO # 0.1 10^3/uL (0.0-0.2); BASO % 0.5 % (0.0-1.0); EOS % 0.1 % (0.0-3.0); HEMATOCRIT 41.8 % (42.0-52.0); HEMOGLOBIN 13.5 g/dl (13.5-17.5); IMMATURE GRANULOCYTE # 0.6 10^3/uL (0-0); IMMATURE GRANULOCYTE % 3.7 % (0-3.0); LYMPH # 0.6 10^3/uL (1.5-4.5); LYMPH % 3.2 % (24.0-44.0); MEAN CORPUSCULAR HEMOGLOBIN 31.8 pg (27.0-33.0); MEAN CORPUSCULAR HGB CONC 32.3 g/dl (32.0-36.5); MEAN CORPUSCULAR VOLUME 98.4 fl (80.0-96.0); MONO % 5.8 % (0.0-5.0); NEUTROPHILS # 14.8 10^3/uL (1.8-7.7); NEUTROPHILS % 86.7 % (36.0-66.0); PLATELET COUNT, AUTOMATED 151 10^3/uL (150-450); RED BLOOD COUNT 4.25 10^6/uL (4.30-6.10); RED CELL DISTRIBUTION WIDTH 15.8 % (11.5-14.5); WHITE BLOOD COUNT 17.1 10^3/uL (4.0-10.0)
== END ==
LOC: M LAB 12:19
DX: D72.829 Elevated white blood cell count, unspecified (principal)
CPT/HCPCS: 85027

== ENCOUNTER → 2018-03-09 | Outpatient (CLI) | payer MEDICARE ==
[2018-03-09 12:31] LABS: BASO % 0.2 % (0.0-1.0); EOS % 0.2 % (0.0-3.0); HEMATOCRIT 41.1 % (42.0-52.0); HEMOGLOBIN 13.1 g/dl (13.5-17.5); IMMATURE GRANULOCYTE # 0.3 10^3/uL (0-0); LYMPH # 0.3 10^3/uL (1.5-4.5); LYMPH % 2.2 % (24.0-44.0); MEAN CORPUSCULAR HGB CONC 31.9 g/dl (32.0-36.5); MEAN CORPUSCULAR VOLUME 100.2 fl (80.0-96.0); MONO # 0.6 10^3/uL (0.0-0.8); MONO % 4.7 % (0.0-5.0); NEUTROPHILS # 12.1 10^3/uL (1.8-7.7); NEUTROPHILS % 90.7 % (36.0-66.0); PLATELET COUNT, AUTOMATED 150 10^3/uL (150-450); RED CELL DISTRIBUTION WIDTH 15.9 % (11.5-14.5); WHITE BLOOD COUNT 13.3 10^3/uL (4.0-10.0)
[2018-03-09 12:32] LABS: POSITIVE DIFF POS FLAG
[2018-03-09 12:56] LABS: ANION GAP 10 MEQ/L (8-16); BLOOD UREA NITROGEN 59 MG/DL (7-18); CALCIUM LEVEL 9.7 MG/DL (8.8-10.2); CARBON DIOXIDE LEVEL 29 MEQ/L (21-32); CHLORIDE LEVEL 101 MEQ/L (98-107); CREATININE FOR GFR 3.45 MG/DL (0.70-1.30); GLOMERULAR FILTRATION RATE 18.2 (>35); GLUCOSE, FASTING 78 MG/DL (70-100); POTASSIUM SERUM 4.2 MEQ/L (3.5-5.1); SODIUM LEVEL 140 MEQ/L (136-145)
== END ==
LOC: M LAB 11:39
DX: D72.829 Elevated white blood cell count, unspecified (principal)
CPT/HCPCS: 80048

== ENCOUNTER → 2018-03-11 | Outpatient (CLI) | payer MEDICARE ==
[2018-03-11 12:06] LABS: BASO % 0.1 % (0.0-1.0); EOS % 0.1 % (0.0-3.0); HEMATOCRIT 37.8 % (42.0-52.0); HEMOGLOBIN 12.3 g/dl (13.5-17.5); IMMATURE GRANULOCYTE # 0.3 10^3/uL (0-0); IMMATURE GRANULOCYTE % 1.8 % (0-3.0); LYMPH # 0.3 10^3/uL (1.5-4.5); MEAN CORPUSCULAR HEMOGLOBIN 32.5 pg (27.0-33.0); MEAN CORPUSCULAR HGB CONC 32.5 g/dl (32.0-36.5); MEAN CORPUSCULAR VOLUME 99.7 fl (80.0-96.0); MONO # 0.5 10^3/uL (0.0-0.8); MONO % 3.2 % (0.0-5.0); NEUTROPHILS # 13.2 10^3/uL (1.8-7.7); NEUTROPHILS % 92.8 % (36.0-66.0); RED BLOOD COUNT 3.79 10^6/uL (4.30-6.10); RED CELL DISTRIBUTION WIDTH 15.5 % (11.5-14.5); WHITE BLOOD COUNT 14.3 10^3/uL (4.0-10.0)
[2018-03-11 12:33] LABS: SUSPECT SAMPLE NO
== END ==
LOC: M LAB 11:42
DX: D72.829 Elevated white blood cell count, unspecified (principal)
CPT/HCPCS: 85027

== ENCOUNTER → 2018-03-15 | Outpatient (CLI) | payer MEDICARE ==
[2018-03-15 13:50] LABS: BASO % 1.1 % (0.0-1.0); HEMATOCRIT 39.4 % (42.0-52.0); HEMOGLOBIN 12.5 g/dl (13.5-17.5); IMMATURE GRANULOCYTE # 0.2 10^3/uL (0-0); LYMPH % 5.4 % (24.0-44.0); MEAN CORPUSCULAR HEMOGLOBIN 31.9 pg (27.0-33.0); MEAN CORPUSCULAR HGB CONC 31.7 g/dl (32.0-36.5); MEAN CORPUSCULAR VOLUME 100.5 fl (80.0-96.0); MONO # 0.2 10^3/uL (0.0-0.8); MONO % 7.2 % (0.0-5.0); NEUTROPHILS # 2.2 10^3/uL (1.8-7.7); NEUTROPHILS % 80.9 % (36.0-66.0); PLATELET COUNT, AUTOMATED 127 10^3/uL (150-450); RED BLOOD COUNT 3.92 10^6/uL (4.30-6.10); RED CELL DISTRIBUTION WIDTH 15.1 % (11.5-14.5); WHITE BLOOD COUNT 2.8 10^3/uL (4.0-10.0)
[2018-03-15 13:51] LABS: IMMATURE GRANULOCYTE % 5.4 % (0-3.0); LYMPH # 0.2 10^3/uL (1.5-4.5)
[2018-03-15 13:52] LABS: POS COUNT POS FLAG; POSITIVE DIFF POS FLAG; POSITIVE MORPH POS FLAG
[2018-03-15 14:34] LABS: ALBUMIN 3.4 GM/DL (3.2-5.2); ALBUMIN/GLOBULIN RATIO 1.48 (1.00-1.93); ALKALINE PHOSPHATASE 86 U/L (45-117); ALT/SGPT 65 U/L (12-78); ANION GAP 11 MEQ/L (8-16); AST/SGOT 32 U/L (7-37); BILIRUBIN,TOTAL 0.6 MG/DL (0.2-1.0); BLOOD UREA NITROGEN 60 MG/DL (7-18); C REACTIVE PROTEIN QUANTITATIV < 0.30 MG/DL (0.00-0.30); CALCIUM LEVEL 9.7 MG/DL (8.8-10.2); CARBON DIOXIDE LEVEL 30 MEQ/L (21-32); CHLORIDE LEVEL 96 MEQ/L (98-107); CREATININE FOR GFR 3.29 MG/DL (0.70-1.30); GLOMERULAR FILTRATION RATE 19.2 (>35); GLUCOSE, FASTING 575 MG/DL (70-100); SODIUM LEVEL 137 MEQ/L (136-145); TOTAL PROTEIN 5.7 GM/DL (6.4-8.2)
== END ==
LOC: M LAB 12:53
DX: H15.093 Other scleritis, bilateral (principal)
CPT/HCPCS: 80053

== ENCOUNTER → 2018-03-22 | Outpatient (CLI) | payer MEDICARE ==
[2018-03-22 12:52] LABS: BASO # 0.1 10^3/uL (0.0-0.2); BASO % 1.9 % (0.0-1.0); EOS % 0.7 % (0.0-3.0); HEMATOCRIT 42.3 % (42.0-52.0); IMMATURE GRANULOCYTE # 0.4 10^3/uL (0-0); LYMPH % 8.1 % (24.0-44.0); MEAN CORPUSCULAR HEMOGLOBIN 31.5 pg (27.0-33.0); MEAN CORPUSCULAR HGB CONC 30.7 g/dl (32.0-36.5); MEAN CORPUSCULAR VOLUME 102.4 fl (80.0-96.0); MONO # 0.8 10^3/uL (0.0-0.8); MONO % 28.1 % (0.0-5.0); NEUTROPHILS # 1.3 10^3/uL (1.8-7.7); NEUTROPHILS % 48.2 % (36.0-66.0); PLATELET COUNT, AUTOMATED 125 10^3/uL (150-450); RED BLOOD COUNT 4.13 10^6/uL (4.30-6.10); RED CELL DISTRIBUTION WIDTH 15.4 % (11.5-14.5); WHITE BLOOD COUNT 2.7 10^3/uL (4.0-10.0)
[2018-03-22 13:05] LABS: LYMPH # 0.2 10^3/uL (1.5-4.5); POS COUNT POS FLAG; POSITIVE DIFF POS FLAG; POSITIVE MORPH POS FLAG
[2018-03-22 13:20] LABS: ALKALINE PHOSPHATASE 91 U/L (45-117); ALT/SGPT 70 U/L (12-78); ANION GAP 11 MEQ/L (8-16); AST/SGOT 48 U/L (7-37); BILIRUBIN,TOTAL 0.4 MG/DL (0.2-1.0); BLOOD UREA NITROGEN 48 MG/DL (7-18); C REACTIVE PROTEIN QUANTITATIV 0.45 MG/DL (0.00-0.30); CALCIUM LEVEL 9.1 MG/DL (8.8-10.2); CARBON DIOXIDE LEVEL 29 MEQ/L (21-32); CHLORIDE LEVEL 98 MEQ/L (98-107); CREATININE FOR GFR 2.91 MG/DL (0.70-1.30); GLOMERULAR FILTRATION RATE 22.1 (>35); GLUCOSE, FASTING 166 MG/DL (70-100); SODIUM LEVEL 138 MEQ/L (136-145); TOTAL PROTEIN 5.5 GM/DL (6.4-8.2)
== END ==
LOC: M LAB 11:53
DX: H15.093 Other scleritis, bilateral (principal)
CPT/HCPCS: 80053

== ENCOUNTER → 2018-03-26 | Outpatient (CLI) | payer MEDICARE ==
[2018-03-26 12:19] LABS: BASO # 0.2 10^3/uL (0.0-0.2); BASO % 1.5 % (0.0-1.0); EOS % 0.1 % (0.0-3.0); HEMATOCRIT 41.7 % (42.0-52.0); IMMATURE GRANULOCYTE # 0.8 10^3/uL (0-0); LYMPH # 0.7 10^3/uL (1.5-4.5); LYMPH % 6.6 % (24.0-44.0); MEAN CORPUSCULAR HEMOGLOBIN 31.7 pg (27.0-33.0); MEAN CORPUSCULAR HGB CONC 31.2 g/dl (32.0-36.5); MEAN CORPUSCULAR VOLUME 101.7 fl (80.0-96.0); MONO # 0.9 10^3/uL (0.0-0.8); MONO % 9.5 % (0.0-5.0); NEUTROPHILS # 7.4 10^3/uL (1.8-7.7); PLATELET COUNT, AUTOMATED 171 10^3/uL (150-450); RED CELL DISTRIBUTION WIDTH 15.8 % (11.5-14.5); WHITE BLOOD COUNT 9.9 10^3/uL (4.0-10.0)
[2018-03-26 13:27] LABS: IMMATURE GRANULOCYTE % 8.3 % (0-3.0); POS COUNT POS FLAG; POSITIVE MORPH POS FLAG
[2018-03-26 15:43] LABS: ALBUMIN 3.3 GM/DL (3.2-5.2); ALBUMIN/GLOBULIN RATIO 1.38 (1.00-1.93); ALKALINE PHOSPHATASE 99 U/L (45-117); ALT/SGPT 55 U/L (12-78); ANION GAP 12 MEQ/L (8-16); AST/SGOT 31 U/L (7-37); BILIRUBIN,TOTAL 0.6 MG/DL (0.2-1.0); BLOOD UREA NITROGEN 47 MG/DL (7-18); C REACTIVE PROTEIN QUANTITATIV 1.09 MG/DL (0.00-0.30); CALCIUM LEVEL 10.1 MG/DL (8.8-10.2); CARBON DIOXIDE LEVEL 29 MEQ/L (21-32); CHLORIDE LEVEL 96 MEQ/L (98-107); CREATININE FOR GFR 3.03 MG/DL (0.70-1.30); GLOMERULAR FILTRATION RATE 21.1 (>35); GLUCOSE, FASTING 385 MG/DL (70-100); SODIUM LEVEL 137 MEQ/L (136-145); TOTAL PROTEIN 5.7 GM/DL (6.4-8.2)
== END ==
LOC: M LAB 11:45
DX: H15.093 Other scleritis, bilateral (principal)
CPT/HCPCS: 80053

== ENCOUNTER → 2018-04-12 | Outpatient (CLI) | payer MEDICARE ==
[2018-04-12 13:46] LABS: BASO # 0.1 10^3/uL (0.0-0.2); BASO % 0.7 % (0.0-1.0); EOS % 0.2 % (0.0-3.0); HEMATOCRIT 39.3 % (42.0-52.0); HEMOGLOBIN 12.5 g/dl (13.5-17.5); IMMATURE GRANULOCYTE # 0.7 10^3/uL (0-0); LYMPH # 0.5 10^3/uL (1.5-4.5); LYMPH % 3.9 % (24.0-44.0); MEAN CORPUSCULAR HEMOGLOBIN 31.5 pg (27.0-33.0); MEAN CORPUSCULAR HGB CONC 31.8 g/dl (32.0-36.5); MONO # 0.6 10^3/uL (0.0-0.8); MONO % 5.1 % (0.0-5.0); NEUTROPHILS # 9.7 10^3/uL (1.8-7.7); NEUTROPHILS % 84.4 % (36.0-66.0); PLATELET COUNT, AUTOMATED 201 10^3/uL (150-450); RED BLOOD COUNT 3.97 10^6/uL (4.30-6.10); RED CELL DISTRIBUTION WIDTH 15.3 % (11.5-14.5); WHITE BLOOD COUNT 11.5 10^3/uL (4.0-10.0)
[2018-04-12 13:47] LABS: IMMATURE GRANULOCYTE % 5.7 % (0-3.0); POS COUNT POS FLAG; POSITIVE DIFF Y; POSITIVE MORPH POS FLAG
[2018-04-12 14:26] LABS: ALBUMIN 3.5 GM/DL (3.2-5.2); ALKALINE PHOSPHATASE 97 U/L (45-117); ALT/SGPT 41 U/L (12-78); ANION GAP 10 MEQ/L (8-16); AST/SGOT 36 U/L (7-37); BILIRUBIN,TOTAL 0.5 MG/DL (0.2-1.0); BLOOD UREA NITROGEN 39 MG/DL (7-18); C REACTIVE PROTEIN QUANTITATIV 2.06 MG/DL (0.00-0.30); CALCIUM LEVEL 9.8 MG/DL (8.8-10.2); CARBON DIOXIDE LEVEL 30 MEQ/L (21-32); CHLORIDE LEVEL 96 MEQ/L (98-107); CREATININE FOR GFR 2.73 MG/DL (0.70-1.30); GLOMERULAR FILTRATION RATE 23.8 (>35); GLUCOSE, FASTING 26 MG/DL (70-100); POTASSIUM SERUM 4.4 MEQ/L (3.5-5.1); SODIUM LEVEL 136 MEQ/L (136-145); TOTAL PROTEIN 6.2 GM/DL (6.4-8.2)
== END ==
LOC: M LAB 12:40
DX: H15.093 Other scleritis, bilateral (principal)
CPT/HCPCS: 80053

== ENCOUNTER → 2018-04-15 | Outpatient (CLI) | payer MEDICARE ==
[2018-04-15 13:05] LABS: BASO # 0.1 10^3/uL (0.0-0.2); BASO % 0.4 % (0.0-1.0); EOS % 0.1 % (0.0-3.0); HEMATOCRIT 38.1 % (42.0-52.0); IMMATURE GRANULOCYTE # 1.1 10^3/uL (0-0); LYMPH # 0.3 10^3/uL (1.5-4.5); LYMPH % 1.8 % (24.0-44.0); MEAN CORPUSCULAR HEMOGLOBIN 31.5 pg (27.0-33.0); MEAN CORPUSCULAR HGB CONC 31.5 g/dl (32.0-36.5); MONO # 0.9 10^3/uL (0.0-0.8); MONO % 5.5 % (0.0-5.0); NEUTROPHILS % 85.4 % (36.0-66.0); PLATELET COUNT, AUTOMATED 171 10^3/uL (150-450); RED BLOOD COUNT 3.81 10^6/uL (4.30-6.10); RED CELL DISTRIBUTION WIDTH 15.3 % (11.5-14.5); WHITE BLOOD COUNT 16.4 10^3/uL (4.0-10.0)
[2018-04-15 13:12] LABS: IMMATURE GRANULOCYTE % 6.8 % (0-3.0)
[2018-04-15 13:58] LABS: ALBUMIN 3.1 GM/DL (3.2-5.2); ALBUMIN/GLOBULIN RATIO 1.19 (1.00-1.93); ALKALINE PHOSPHATASE 100 U/L (45-117); ALT/SGPT 34 U/L (12-78); ANION GAP 11 MEQ/L (8-16); AST/SGOT 29 U/L (7-37); BILIRUBIN,TOTAL 0.6 MG/DL (0.2-1.0); BLOOD UREA NITROGEN 36 MG/DL (7-18); C REACTIVE PROTEIN QUANTITATIV 4.85 MG/DL (0.00-0.30); CALCIUM LEVEL 9.2 MG/DL (8.8-10.2); CARBON DIOXIDE LEVEL 29 MEQ/L (21-32); CHLORIDE LEVEL 93 MEQ/L (98-107); CREATININE FOR GFR 2.89 MG/DL (0.70-1.30); GLOMERULAR FILTRATION RATE 22.3 (>35); GLUCOSE, FASTING 486 MG/DL (70-100); POTASSIUM SERUM 4.4 MEQ/L (3.5-5.1); SODIUM LEVEL 133 MEQ/L (136-145); TOTAL PROTEIN 5.7 GM/DL (6.4-8.2)
== END ==
LOC: M LAB 12:29
DX: H15.093 Other scleritis, bilateral (principal); Z79.899 Other long term (current) drug therapy
CPT/HCPCS: 80053

== ENCOUNTER → 2018-04-19 | Outpatient (CLI) | payer MEDICARE ==
[2018-04-19 12:17] LABS: BASO # 0.1 10^3/uL (0.0-0.2); BASO % 0.9 % (0.0-1.0); EOS # 0.1 10^3/uL (0.0-0.50); EOS % 0.4 % (0.0-3.0); HEMATOCRIT 38.6 % (42.0-52.0); HEMOGLOBIN 12.3 g/dl (13.5-17.5); IMMATURE GRANULOCYTE # 0.7 10^3/uL (0-0); LYMPH # 0.6 10^3/uL (1.5-4.5); LYMPH % 4.9 % (24.0-44.0); MEAN CORPUSCULAR HEMOGLOBIN 31.1 pg (27.0-33.0); MEAN CORPUSCULAR HGB CONC 31.9 g/dl (32.0-36.5); MEAN CORPUSCULAR VOLUME 97.5 fl (80.0-96.0); MONO # 0.9 10^3/uL (0.0-0.8); NEUTROPHILS # 10.2 10^3/uL (1.8-7.7); NEUTROPHILS % 81.1 % (36.0-66.0); PLATELET COUNT, AUTOMATED 239 10^3/uL (150-450); RED BLOOD COUNT 3.96 10^6/uL (4.30-6.10); RED CELL DISTRIBUTION WIDTH 14.6 % (11.5-14.5); WHITE BLOOD COUNT 12.6 10^3/uL (4.0-10.0)
[2018-04-19 12:22] LABS: IMMATURE GRANULOCYTE % 5.7 % (0-3.0); POS COUNT POS FLAG; POSITIVE MORPH POS FLAG
[2018-04-19 12:52] LABS: ALBUMIN 2.7 GM/DL (3.2-5.2); ALBUMIN/GLOBULIN RATIO 0.93 (1.00-1.93); ALKALINE PHOSPHATASE 113 U/L (45-117); ALT/SGPT 34 U/L (12-78); ANION GAP 10 MEQ/L (8-16); AST/SGOT 32 U/L (7-37); BILIRUBIN,TOTAL 0.5 MG/DL (0.2-1.0); BLOOD UREA NITROGEN 41 MG/DL (7-18); C REACTIVE PROTEIN QUANTITATIV 6.81 MG/DL (0.00-0.30); CARBON DIOXIDE LEVEL 29 MEQ/L (21-32); CHLORIDE LEVEL 96 MEQ/L (98-107); CREATININE FOR GFR 3.07 MG/DL (0.70-1.30); GLOMERULAR FILTRATION RATE 20.8 (>35); GLUCOSE, FASTING 269 MG/DL (70-100); POTASSIUM SERUM 4.2 MEQ/L (3.5-5.1); SODIUM LEVEL 135 MEQ/L (136-145); TOTAL PROTEIN 5.6 GM/DL (6.4-8.2)
== END ==
LOC: M LAB 11:33
DX: H15.093 Other scleritis, bilateral (principal); Z51.81 Encounter for therapeutic drug level monitoring; Z79.899 Other long term (current) drug therapy
CPT/HCPCS: 80053

== ENCOUNTER → 2018-04-23 | Outpatient (CLI) | payer MEDICARE ==
[2018-04-23 17:21] LABS: ALBUMIN 2.8 GM/DL (3.2-5.2); ALBUMIN/GLOBULIN RATIO 0.97 (1.00-1.93); ALKALINE PHOSPHATASE 118 U/L (45-117); ALT/SGPT 34 U/L (12-78); ANION GAP 8 MEQ/L (8-16); AST/SGOT 30 U/L (7-37); BILIRUBIN,TOTAL 0.3 MG/DL (0.2-1.0); BLOOD UREA NITROGEN 41 MG/DL (7-18); CALCIUM LEVEL 8.8 MG/DL (8.8-10.2); CARBON DIOXIDE LEVEL 31 MEQ/L (21-32); CHLORIDE LEVEL 96 MEQ/L (98-107); CREATININE FOR GFR 3.37 MG/DL (0.70-1.30); GLOMERULAR FILTRATION RATE 18.7 (>35); GLUCOSE, FASTING 404 MG/DL (70-100); SODIUM LEVEL 135 MEQ/L (136-145); TOTAL PROTEIN 5.7 GM/DL (6.4-8.2)
[2018-04-23 17:30] LABS: BASO # 0.1 10^3/uL (0.0-0.2); BASO % 0.5 % (0.0-1.0); EOS % 0.1 % (0.0-3.0); HEMATOCRIT 38.6 % (42.0-52.0); IMMATURE GRANULOCYTE # 0.6 10^3/uL (0-0); LYMPH # 0.3 10^3/uL (1.5-4.5); LYMPH % 2.5 % (24.0-44.0); MEAN CORPUSCULAR HGB CONC 31.1 g/dl (32.0-36.5); MEAN CORPUSCULAR VOLUME 99.7 fl (80.0-96.0); MONO # 0.4 10^3/uL (0.0-0.8); NEUTROPHILS # 9.3 10^3/uL (1.8-7.7); NEUTROPHILS % 86.9 % (36.0-66.0); PLATELET COUNT, AUTOMATED 282 10^3/uL (150-450); RED BLOOD COUNT 3.87 10^6/uL (4.30-6.10); RED CELL DISTRIBUTION WIDTH 14.7 % (11.5-14.5); WHITE BLOOD COUNT 10.7 10^3/uL (4.0-10.0)
[2018-04-23 17:31] LABS: POS COUNT POS FLAG; POSITIVE DIFF POS FLAG; POSITIVE MORPH POS FLAG
== END ==
LOC: M LAB 15:49
DX: Z51.81 Encounter for therapeutic drug level monitoring (principal); Z79.899 Other long term (current) drug therapy; H15.093 Other scleritis, bilateral
CPT/HCPCS: 80053

== ENCOUNTER → 2018-05-21 | Outpatient (CLI) | payer MEDICARE ==
[~2018-05-21] MED LIST changes: -ACETAMINOPHEN 325 MG TAB PO PRN; +AK-T0.3S OU; +ALLO100T PO; +BRIM1OPD OU; -BSS with VANC/TOB/EPI for EYE CASES IR ONE; +COEN100C PO; +ELIQ2.5T PO; -GABA-282 PO; +GABA-843 PO; +IPRA0.00 INH; -IPRASOL4 INH; +KLOR10TA76 PO; -LIDOCAINE 2% W/EPIN INJ 20ML **PRES FREE As Ordered ONE; -LIDOCAINE 3.5 % 1ML OPHTH TOPICAL GEL OU ONE; +MAGN250T9 PO; -MIDAZOLAM INJ 2 MG/2 ML VIAL (J2250) As Ordered ONE; -OFLOXACIN 0.3 % (OCUFLOX) OPTH SOL 5ML OD ONE; +POTA10808; -PRED1SUS OS; +PRED1SUS2 OD; +PREDOPD OD; -PROPARACAINE 0.5% OPHTH SOL 15ML OD PRN; +SENN8.6T63 PO; -TIMO0.5S4 OU; +TIMO0.5S42 OU; -TOBR3OPD OU; -TOBRADEX OPHTH OINT 3.5 GM As Ordered ONE; +TRAV04OPD OS; +ZYRT10CA5 PO; -ZYRT10TA2 PO
[2018-05-21 12:15] LABS: BASO # 0.1 10^3/uL (0.0-0.2); EOS # 0.1 10^3/uL (0.0-0.50); EOS % 0.8 % (0.0-3.0); HEMATOCRIT 37.4 % (42.0-52.0); HEMOGLOBIN 11.6 g/dl (13.5-17.5); LYMPH # 0.6 10^3/uL (1.5-4.5); LYMPH % 6.7 % (24.0-44.0); MEAN CORPUSCULAR HEMOGLOBIN 29.1 pg (27.0-33.0); MONO # 0.7 10^3/uL (0.0-0.8); MONO % 7.3 % (0.0-5.0); NEUTROPHILS # 7.3 10^3/uL (1.8-7.7); NEUTROPHILS % 81.6 % (36.0-66.0); PLATELET COUNT, AUTOMATED 205 10^3/uL (150-450); RED BLOOD COUNT 3.98 10^6/uL (4.30-6.10)
[2018-05-21 12:41] LABS: ALBUMIN 3.3 GM/DL (3.2-5.2); ALT/SGPT 35 U/L (12-78); BILIRUBIN,TOTAL 0.5 MG/DL (0.2-1.0); BLOOD UREA NITROGEN 40 MG/DL (7-18); C REACTIVE PROTEIN QUANTITATIV < 0.30 MG/DL (0.00-0.30); CALCIUM LEVEL 9.4 MG/DL (8.8-10.2); CARBON DIOXIDE LEVEL 31 MEQ/L (21-32); CHLORIDE LEVEL 100 MEQ/L (98-107); CREATININE FOR GFR 2.95 MG/DL (0.70-1.30); GLOMERULAR FILTRATION RATE 21.8 (>35); GLUCOSE, FASTING 179 MG/DL (70-100); POTASSIUM SERUM 5.2 MEQ/L (3.5-5.1); SODIUM LEVEL 140 MEQ/L (136-145)
== END ==
LOC: M LAB 11:36
PROVIDERS: ATTEND Internal Medicine
DX: Z51.81 Encounter for therapeutic drug level monitoring (principal); Z79.899 Other long term (current) drug therapy

== ENCOUNTER → 2018-05-24 | Outpatient (CLI) | payer MEDICARE ==
[2018-05-24 12:33] LABS: BASO # 0.1 10^3/uL (0.0-0.2); BASO % 0.8 % (0.0-1.0); EOS % 0.4 % (0.0-3.0); HEMATOCRIT 38.4 % (42.0-52.0); HEMOGLOBIN 11.8 g/dl (13.5-17.5); LYMPH # 0.4 10^3/uL (1.5-4.5); LYMPH % 4.8 % (24.0-44.0); MEAN CORPUSCULAR HEMOGLOBIN 28.6 pg (27.0-33.0); MEAN CORPUSCULAR HGB CONC 30.7 g/dl (32.0-36.5); MEAN CORPUSCULAR VOLUME 93.2 fl (80.0-96.0); MONO # 1.1 10^3/uL (0.0-0.8); MONO % 12.1 % (0.0-5.0); NEUTROPHILS # 7.4 10^3/uL (1.8-7.7); NEUTROPHILS % 80.1 % (36.0-66.0); PLATELET COUNT, AUTOMATED 197 10^3/uL (150-450); RED BLOOD COUNT 4.12 10^6/uL (4.30-6.10); WHITE BLOOD COUNT 9.2 10^3/uL (4.0-10.0)
[2018-05-24 13:00] LABS: ALBUMIN 3.3 GM/DL (3.2-5.2); BILIRUBIN,TOTAL 0.4 MG/DL (0.2-1.0); C REACTIVE PROTEIN QUANTITATIV 1.47 MG/DL (0.00-0.30); CALCIUM LEVEL 9.2 MG/DL (8.8-10.2); CREATININE FOR GFR 2.96 MG/DL (0.70-1.30); GLOMERULAR FILTRATION RATE 21.7 (>35); POTASSIUM SERUM 4.6 MEQ/L (3.5-5.1); TOTAL PROTEIN 5.8 GM/DL (6.4-8.2)
== END ==
LOC: M LAB 12:00
PROVIDERS: ATTEND Internal Medicine
DX: Z51.81 Encounter for therapeutic drug level monitoring (principal); Z79.899 Other long term (current) drug therapy

== ENCOUNTER 2018-06-12 16:54 | Emergency (ER) | payer MEDICARE ==
[~2018-06-12] VITALS: Ht 177.8 cm; Wt 77.3 kg
[2018-06-12] MEDS ORDERED: ADACEL/BOOSTRIX VACCINE (DIPHTH/PERTUSS/ACELL/TETANUS)0.5ML SYR (90715) IM ONE (17:15)
[2018-06-12 17:45] VITALS: BP 143/64
== END 2018-06-12 17:59 | disposition home or self-care (01) ==
LOC: M ED 16:54
DX: S41.101A Unspecified open wound of right upper arm, initial encounter (principal); W19.XXXA Unspecified fall, initial encounter; Y92.098 Other place in other non-institutional residence as the place of occurrence of the external cause; E11.51 Type 2 diabetes mellitus with diabetic peripheral angiopathy without gangrene; I51.9 Heart disease, unspecified; I25.2 Old myocardial infarction; N18.9 Chronic kidney disease, unspecified; J44.9 Chronic obstructive pulmonary disease, unspecified; I73.9 Peripheral vascular disease, unspecified; Z95.820 Peripheral vascular angioplasty status with implants and grafts; Z87.891 Personal history of nicotine dependence; Z88.5 Allergy status to narcotic agent; Z88.8 Allergy status to other drugs, medicaments and biological substances; Z79.899 Other long term (current) drug therapy; Z79.01 Long term (current) use of anticoagulants; Z79.02 Long term (current) use of antithrombotics/antiplatelets; Z79.4 Long term (current) use of insulin

== ENCOUNTER → 2018-06-23 | Outpatient (CLI) | payer MEDICARE ==
[2018-06-23 11:57] LABS: BASO # 0.1 10^3/uL (0.0-0.2); BASO % 1.2 % (0.0-1.0); EOS # 0.1 10^3/uL (0.0-0.50); EOS % 1.4 % (0.0-3.0); HEMATOCRIT 37.3 % (42.0-52.0); HEMOGLOBIN 11.3 g/dl (13.5-17.5); LYMPH # 0.6 10^3/uL (1.5-4.5); MEAN CORPUSCULAR HEMOGLOBIN 26.7 pg (27.0-33.0); MEAN CORPUSCULAR HGB CONC 30.3 g/dl (32.0-36.5); MONO # 0.8 10^3/uL (0.0-0.8); MONO % 9.8 % (0.0-5.0); NEUTROPHILS % 78.7 % (36.0-66.0); PLATELET COUNT, AUTOMATED 209 10^3/uL (150-450); RED BLOOD COUNT 4.24 10^6/uL (4.30-6.10); WHITE BLOOD COUNT 7.6 10^3/uL (4.0-10.0)
[2018-06-23 12:25] LABS: ALT/SGPT 28 U/L (12-78); BILIRUBIN,TOTAL 0.4 MG/DL (0.2-1.0); BLOOD UREA NITROGEN 42 MG/DL (7-18); C REACTIVE PROTEIN QUANTITATIV < 0.30 MG/DL (0.00-0.30); CALCIUM LEVEL 9.6 MG/DL (8.8-10.2); CARBON DIOXIDE LEVEL 33 MEQ/L (21-32); CHLORIDE LEVEL 94 MEQ/L (98-107); CREATININE FOR GFR 3.09 MG/DL (0.70-1.30); GLOMERULAR FILTRATION RATE 20.7 (>35); GLUCOSE, FASTING 216 MG/DL (70-100); SODIUM LEVEL 136 MEQ/L (136-145); TOTAL PROTEIN 5.7 GM/DL (6.4-8.2)
== END ==
LOC: M LAB 10:54
PROVIDERS: ATTEND Internal Medicine
DX: Z51.81 Encounter for therapeutic drug level monitoring (principal); Z79.899 Other long term (current) drug therapy

== ENCOUNTER → 2018-06-25 | Outpatient (CLI) | payer MEDICARE ==
[2018-06-25 14:15] LABS: BASO # 0.1 10^3/uL (0.0-0.2); EOS % 0.5 % (0.0-3.0); HEMATOCRIT 36.3 % (42.0-52.0); HEMOGLOBIN 11.1 g/dl (13.5-17.5); LYMPH # 0.5 10^3/uL (1.5-4.5); LYMPH % 6.8 % (24.0-44.0); MEAN CORPUSCULAR HEMOGLOBIN 26.6 pg (27.0-33.0); MEAN CORPUSCULAR HGB CONC 30.6 g/dl (32.0-36.5); MEAN CORPUSCULAR VOLUME 86.8 fl (80.0-96.0); MONO # 0.7 10^3/uL (0.0-0.8); MONO % 8.7 % (0.0-5.0); NEUTROPHILS # 6.4 10^3/uL (1.8-7.7); NEUTROPHILS % 82.4 % (36.0-66.0); PLATELET COUNT, AUTOMATED 223 10^3/uL (150-450); RED BLOOD COUNT 4.18 10^6/uL (4.30-6.10); WHITE BLOOD COUNT 7.7 10^3/uL (4.0-10.0)
[2018-06-25 14:47] LABS: ALBUMIN 3.3 GM/DL (3.2-5.2); ALT/SGPT 28 U/L (12-78); BILIRUBIN,TOTAL 0.3 MG/DL (0.2-1.0); BLOOD UREA NITROGEN 42 MG/DL (7-18); C REACTIVE PROTEIN QUANTITATIV < 0.30 MG/DL (0.00-0.30); CALCIUM LEVEL 9.5 MG/DL (8.8-10.2); CARBON DIOXIDE LEVEL 32 MEQ/L (21-32); CHLORIDE LEVEL 96 MEQ/L (98-107); CREATININE FOR GFR 3.16 MG/DL (0.70-1.30); GLOMERULAR FILTRATION RATE 20.1 (>35); GLUCOSE, FASTING 264 MG/DL (70-100); POTASSIUM SERUM 4.3 MEQ/L (3.5-5.1); SODIUM LEVEL 137 MEQ/L (136-145); TOTAL PROTEIN 5.9 GM/DL (6.4-8.2)
== END ==
LOC: M LAB 13:34
PROVIDERS: ATTEND Internal Medicine
DX: Z51.81 Encounter for therapeutic drug level monitoring (principal); Z79.899 Other long term (current) drug therapy

== ENCOUNTER → 2018-06-29 | Outpatient (CLI) | payer MEDICARE ==
[2018-06-29 17:23] LABS: ALBUMIN 3.3 GM/DL (3.2-5.2); ALT/SGPT 28 U/L (12-78); BILIRUBIN,TOTAL 0.3 MG/DL (0.2-1.0); BLOOD UREA NITROGEN 40 MG/DL (7-18); C REACTIVE PROTEIN QUANTITATIV < 0.30 MG/DL (0.00-0.30); CALCIUM LEVEL 9.8 MG/DL (8.8-10.2); CARBON DIOXIDE LEVEL 30 MEQ/L (21-32); CHLORIDE LEVEL 95 MEQ/L (98-107); CREATININE FOR GFR 3.43 MG/DL (0.70-1.30); GLOMERULAR FILTRATION RATE 18.3 (>35); GLUCOSE, FASTING 423 MG/DL (70-100); POTASSIUM SERUM 4.6 MEQ/L (3.5-5.1); SODIUM LEVEL 135 MEQ/L (136-145); TOTAL PROTEIN 5.9 GM/DL (6.4-8.2)
[2018-06-29 18:08] LABS: APPEARANCE, URINE CLEAR (CLEAR); BACTERIA, URINE AUTO 1+ (NEGATIVE); BILIRUBIN, URINE AUTO NEGATIVE (NEGATIVE); BLOOD, URINE BLOOD NEGATIVE (NEGATIVE); COLOR, URINE YELLOW (YELLOW); GLUCOSE, URINE (UA) AUTO 3+ mg/dL (NEGATIVE); KETONE, URINE AUTO NEGATIVE (NEGATIVE); LEUKOCYTE ESTERASE, URINE AUTO 2+ (NEGATIVE); MUCUS, URINE SMALL (NEGATIVE); NITRITE, URINE AUTO NEGATIVE (NEGATIVE); PROTEIN, URINE AUTO NEGATIVE (NEGATIVE); RBC, URINE AUTO 1 /HPF (0-3); SPECIFIC GRAVITY URINE AUTO 1.008 (1.002-1.035); SQUAMOUS EPITHELIAL CELL UR AU 0 /HPF (0-6); UROBILINOGEN, URINE AUTO 0.2 mg/dL (0.0-2.0); WBC, URINE AUTO 16 /HPF (0-3)
[2018-06-29 18:17] LABS: BASO # 0.1 10^3/uL (0.0-0.2); BASO % 1.2 % (0.0-1.0); EOS % 0.3 % (0.0-3.0); HEMATOCRIT 36.5 % (42.0-52.0); HEMOGLOBIN 10.8 g/dl (13.5-17.5); LYMPH # 0.7 10^3/uL (1.5-4.5); LYMPH % 9.9 % (24.0-44.0); MEAN CORPUSCULAR HGB CONC 29.6 g/dl (32.0-36.5); MEAN CORPUSCULAR VOLUME 87.7 fl (80.0-96.0); MONO # 0.7 10^3/uL (0.0-0.8); MONO % 10.4 % (0.0-5.0); NEUTROPHILS # 5.2 10^3/uL (1.8-7.7); NEUTROPHILS % 77.3 % (36.0-66.0); PLATELET COUNT, AUTOMATED 273 10^3/uL (150-450); RED BLOOD COUNT 4.16 10^6/uL (4.30-6.10); WHITE BLOOD COUNT 6.7 10^3/uL (4.0-10.0)
== END ==
LOC: M LAB 15:48
PROVIDERS: ATTEND Internal Medicine
DX: Z51.81 Encounter for therapeutic drug level monitoring (principal); Z79.899 Other long term (current) drug therapy

== ENCOUNTER → 2018-07-23 | Outpatient (CLI) | payer MEDICARE ==
[2018-07-23 10:48] LABS: BASO # 0.1 10^3/uL (0.0-0.2); BASO % 1.1 % (0.0-1.0); EOS # 0.2 10^3/uL (0.0-0.50); EOS % 1.8 % (0.0-3.0); HEMATOCRIT 36.5 % (42.0-52.0); LYMPH % 11.5 % (24.0-44.0); MEAN CORPUSCULAR HEMOGLOBIN 24.8 pg (27.0-33.0); MEAN CORPUSCULAR HGB CONC 30.1 g/dl (32.0-36.5); MEAN CORPUSCULAR VOLUME 82.4 fl (80.0-96.0); MONO # 0.8 10^3/uL (0.0-0.8); MONO % 8.9 % (0.0-5.0); NEUTROPHILS # 6.4 10^3/uL (1.8-7.7); NEUTROPHILS % 76.1 % (36.0-66.0); PLATELET COUNT, AUTOMATED 228 10^3/uL (150-450); RED BLOOD COUNT 4.43 10^6/uL (4.30-6.10); WHITE BLOOD COUNT 8.4 10^3/uL (4.0-10.0)
[2018-07-23 11:09] LABS: ALBUMIN 3.3 GM/DL (3.2-5.2); BILIRUBIN,TOTAL 0.4 MG/DL (0.2-1.0); C REACTIVE PROTEIN QUANTITATIV 0.85 MG/DL (0.00-0.30); CALCIUM LEVEL 9.9 MG/DL (8.8-10.2); CREATININE FOR GFR 2.92 MG/DL (0.70-1.30); GLOMERULAR FILTRATION RATE 22.1 (>35); POTASSIUM SERUM 3.8 MEQ/L (3.5-5.1); TOTAL PROTEIN 5.7 GM/DL (6.4-8.2)
== END ==
LOC: M LAB 09:42
PROVIDERS: ATTEND Internal Medicine
DX: Z79.899 Other long term (current) drug therapy (principal)

== ENCOUNTER → 2018-07-27 | Outpatient (CLI) | payer MEDICARE ==
[2018-07-27 11:47] LABS: BASO # 0.1 10^3/uL (0.0-0.2); BASO % 1.8 % (0.0-1.0); EOS # 0.2 10^3/uL (0.0-0.50); HEMATOCRIT 35.2 % (42.0-52.0); HEMOGLOBIN 10.9 g/dl (13.5-17.5); LYMPH # 1.1 10^3/uL (1.5-4.5); LYMPH % 14.1 % (24.0-44.0); MEAN CORPUSCULAR HEMOGLOBIN 24.9 pg (27.0-33.0); MEAN CORPUSCULAR VOLUME 80.4 fl (80.0-96.0); MONO # 0.8 10^3/uL (0.0-0.8); NEUTROPHILS # 5.4 10^3/uL (1.8-7.7); NEUTROPHILS % 70.6 % (36.0-66.0); PLATELET COUNT, AUTOMATED 236 10^3/uL (150-450); RED BLOOD COUNT 4.38 10^6/uL (4.30-6.10); WHITE BLOOD COUNT 7.6 10^3/uL (4.0-10.0)
[2018-07-27 12:53] LABS: ALBUMIN 3.4 GM/DL (3.2-5.2); BILIRUBIN,TOTAL 0.4 MG/DL (0.2-1.0); C REACTIVE PROTEIN QUANTITATIV 0.33 MG/DL (0.00-0.30); CALCIUM LEVEL 9.9 MG/DL (8.8-10.2); CREATININE FOR GFR 3.19 MG/DL (0.70-1.30); GLOMERULAR FILTRATION RATE 19.9 (>35); POTASSIUM SERUM 4.1 MEQ/L (3.5-5.1); TOTAL PROTEIN 6.1 GM/DL (6.4-8.2)
== END ==
LOC: M LAB 10:38
PROVIDERS: ATTEND Internal Medicine
DX: Z79.899 Other long term (current) drug therapy (principal)

== ENCOUNTER → 2018-07-30 | Outpatient (CLI) | payer MEDICARE ==
[2018-07-30 10:44] LABS: BASO # 0.2 10^3/uL (0.0-0.2); BASO % 1.5 % (0.0-1.0); EOS # 0.1 10^3/uL (0.0-0.50); EOS % 1.1 % (0.0-3.0); HEMATOCRIT 35.8 % (42.0-52.0); LYMPH % 9.1 % (24.0-44.0); MEAN CORPUSCULAR HEMOGLOBIN 24.6 pg (27.0-33.0); MEAN CORPUSCULAR HGB CONC 30.7 g/dl (32.0-36.5); MEAN CORPUSCULAR VOLUME 80.1 fl (80.0-96.0); MONO # 0.9 10^3/uL (0.0-0.8); MONO % 8.9 % (0.0-5.0); NEUTROPHILS # 8.2 10^3/uL (1.8-7.7); NEUTROPHILS % 78.9 % (36.0-66.0); PLATELET COUNT, AUTOMATED 276 10^3/uL (150-450); RED BLOOD COUNT 4.47 10^6/uL (4.30-6.10); WHITE BLOOD COUNT 10.4 10^3/uL (4.0-10.0)
[2018-07-30 11:19] LABS: ALBUMIN 3.6 GM/DL (3.2-5.2); ALT/SGPT 21 U/L (12-78); BILIRUBIN,TOTAL 0.5 MG/DL (0.2-1.0); BLOOD UREA NITROGEN 38 MG/DL (7-18); C REACTIVE PROTEIN QUANTITATIV < 0.30 MG/DL (0.00-0.30); CALCIUM LEVEL 9.7 MG/DL (8.8-10.2); CARBON DIOXIDE LEVEL 30 MEQ/L (21-32); CHLORIDE LEVEL 97 MEQ/L (98-107); CREATININE FOR GFR 3.27 MG/DL (0.70-1.30); GLOMERULAR FILTRATION RATE 19.4 (>35); GLUCOSE, FASTING 225 MG/DL (70-100); SODIUM LEVEL 138 MEQ/L (136-145); TOTAL PROTEIN 6.3 GM/DL (6.4-8.2)
== END ==
LOC: M LAB 10:03
PROVIDERS: ATTEND Internal Medicine
DX: Z51.81 Encounter for therapeutic drug level monitoring (principal); Z79.899 Other long term (current) drug therapy

== ENCOUNTER → 2018-08-03 | Outpatient (CLI) | payer MEDICARE ==
[2018-08-03 11:35] LABS: BASO # 0.1 10^3/uL (0.0-0.2); BASO % 1.4 % (0.0-1.0); EOS # 0.1 10^3/uL (0.0-0.50); EOS % 1.5 % (0.0-3.0); HEMATOCRIT 38.4 % (42.0-52.0); HEMOGLOBIN 11.7 g/dl (13.5-17.5); LYMPH # 1.1 10^3/uL (1.5-4.5); LYMPH % 11.7 % (24.0-44.0); MEAN CORPUSCULAR HEMOGLOBIN 24.9 pg (27.0-33.0); MEAN CORPUSCULAR HGB CONC 30.5 g/dl (32.0-36.5); MEAN CORPUSCULAR VOLUME 81.7 fl (80.0-96.0); MONO % 10.1 % (0.0-5.0); NEUTROPHILS # 7.1 10^3/uL (1.8-7.7); NEUTROPHILS % 74.9 % (36.0-66.0); PLATELET COUNT, AUTOMATED 298 10^3/uL (150-450); WHITE BLOOD COUNT 9.4 10^3/uL (4.0-10.0)
[2018-08-03 12:44] LABS: ALBUMIN 3.7 GM/DL (3.2-5.2); ALT/SGPT 23 U/L (12-78); BILIRUBIN,TOTAL 0.5 MG/DL (0.2-1.0); BLOOD UREA NITROGEN 37 MG/DL (7-18); C REACTIVE PROTEIN QUANTITATIV < 0.30 MG/DL (0.00-0.30); CALCIUM LEVEL 10.3 MG/DL (8.8-10.2); CARBON DIOXIDE LEVEL 31 MEQ/L (21-32); CHLORIDE LEVEL 96 MEQ/L (98-107); GLOMERULAR FILTRATION RATE 18.5 (>35); GLUCOSE, FASTING 214 MG/DL (70-100); POTASSIUM SERUM 3.8 MEQ/L (3.5-5.1); SODIUM LEVEL 137 MEQ/L (136-145); TOTAL PROTEIN 6.4 GM/DL (6.4-8.2)
== END ==
LOC: M LAB 10:36
PROVIDERS: ATTEND Internal Medicine
DX: Z79.899 Other long term (current) drug therapy (principal)

== ENCOUNTER → 2018-08-16 | Outpatient (CLI) | payer MEDICARE ==
[2018-08-16 11:55] LABS: BASO # 0.1 10^3/uL (0.0-0.2); BASO % 0.5 % (0.0-1.0); EOS % 0.1 % (0.0-3.0); HEMATOCRIT 33.7 % (42.0-52.0); HEMOGLOBIN 10.3 g/dl (13.5-17.5); LYMPH # 0.4 10^3/uL (1.5-4.5); LYMPH % 2.7 % (24.0-44.0); MEAN CORPUSCULAR HGB CONC 30.6 g/dl (32.0-36.5); MEAN CORPUSCULAR VOLUME 78.4 fl (80.0-96.0); MONO # 0.4 10^3/uL (0.0-0.8); MONO % 3.1 % (0.0-5.0); NEUTROPHILS # 12.5 10^3/uL (1.8-7.7); NEUTROPHILS % 93.2 % (36.0-66.0); PLATELET COUNT, AUTOMATED 191 10^3/uL (150-450); WHITE BLOOD COUNT 13.5 10^3/uL (4.0-10.0)
== END ==
LOC: M LAB 10:59
PROVIDERS: ATTEND Internal Medicine
DX: Z79.899 Other long term (current) drug therapy (principal)

== ENCOUNTER → 2018-08-19 | Outpatient (CLI) | payer MEDICARE ==
[2018-08-19 12:15] LABS: BASO # 0.1 10^3/uL (0.0-0.2); BASO % 0.9 % (0.0-1.0); EOS % 0.3 % (0.0-3.0); HEMOGLOBIN 10.6 g/dl (13.5-17.5); LYMPH # 0.6 10^3/uL (1.5-4.5); MEAN CORPUSCULAR HEMOGLOBIN 23.6 pg (27.0-33.0); MEAN CORPUSCULAR HGB CONC 30.3 g/dl (32.0-36.5); MONO # 0.5 10^3/uL (0.0-0.8); MONO % 4.7 % (0.0-5.0); NEUTROPHILS # 10.1 10^3/uL (1.8-7.7); NEUTROPHILS % 87.3 % (36.0-66.0); PLATELET COUNT, AUTOMATED 200 10^3/uL (150-450); RED BLOOD COUNT 4.49 10^6/uL (4.30-6.10); WHITE BLOOD COUNT 11.6 10^3/uL (4.0-10.0)
[2018-08-19 12:39] LABS: ALBUMIN 3.7 GM/DL (3.2-5.2); ALT/SGPT 24 U/L (12-78); BILIRUBIN,TOTAL 0.5 MG/DL (0.2-1.0); BLOOD UREA NITROGEN 59 MG/DL (7-18); C REACTIVE PROTEIN QUANTITATIV < 0.30 MG/DL (0.00-0.30); CALCIUM LEVEL 9.6 MG/DL (8.8-10.2); CARBON DIOXIDE LEVEL 32 MEQ/L (21-32); CHLORIDE LEVEL 94 MEQ/L (98-107); CREATININE FOR GFR 3.39 MG/DL (0.70-1.30); GLOMERULAR FILTRATION RATE 18.6 (>35); GLUCOSE, FASTING 294 MG/DL (70-100); POTASSIUM SERUM 3.8 MEQ/L (3.5-5.1); SODIUM LEVEL 136 MEQ/L (136-145)
== END ==
LOC: M LAB 11:10
PROVIDERS: ATTEND Internal Medicine
DX: Z79.899 Other long term (current) drug therapy (principal)

== ENCOUNTER → 2018-08-22 | Outpatient (CLI) | payer MEDICARE ==
[2018-08-22 13:15] LABS: BASO % 0.5 % (0.0-1.0); HEMATOCRIT 35.9 % (42.0-52.0); HEMOGLOBIN 10.9 g/dl (13.5-17.5); LYMPH # 0.3 10^3/uL (1.5-4.5); LYMPH % 3.7 % (24.0-44.0); MEAN CORPUSCULAR HEMOGLOBIN 24.1 pg (27.0-33.0); MEAN CORPUSCULAR HGB CONC 30.4 g/dl (32.0-36.5); MEAN CORPUSCULAR VOLUME 79.4 fl (80.0-96.0); MONO # 0.2 10^3/uL (0.0-0.8); MONO % 2.5 % (0.0-5.0); NEUTROPHILS # 7.7 10^3/uL (1.8-7.7); NEUTROPHILS % 92.8 % (36.0-66.0); PLATELET COUNT, AUTOMATED 174 10^3/uL (150-450); RED BLOOD COUNT 4.52 10^6/uL (4.30-6.10); WHITE BLOOD COUNT 8.3 10^3/uL (4.0-10.0)
[2018-08-22 13:48] LABS: ALBUMIN 3.7 GM/DL (3.2-5.2); ALT/SGPT 29 U/L (12-78); BILIRUBIN,TOTAL 0.6 MG/DL (0.2-1.0); BLOOD UREA NITROGEN 54 MG/DL (7-18); C REACTIVE PROTEIN QUANTITATIV < 0.30 MG/DL (0.00-0.30); CALCIUM LEVEL 9.7 MG/DL (8.8-10.2); CARBON DIOXIDE LEVEL 31 MEQ/L (21-32); CHLORIDE LEVEL 96 MEQ/L (98-107); GLOMERULAR FILTRATION RATE 21.4 (>35); GLUCOSE, FASTING 189 MG/DL (70-100); POTASSIUM SERUM 4.7 MEQ/L (3.5-5.1); SODIUM LEVEL 137 MEQ/L (136-145); TOTAL PROTEIN 6.1 GM/DL (6.4-8.2)
== END ==
LOC: M LAB 12:57
PROVIDERS: ATTEND Internal Medicine
DX: Z79.899 Other long term (current) drug therapy (principal)

== ENCOUNTER → 2018-08-26 | Outpatient (CLI) | payer MEDICARE ==
[2018-08-26 15:56] LABS: BASO % 0.2 % (0.0-1.0); HEMATOCRIT 36.6 % (42.0-52.0); HEMOGLOBIN 10.9 g/dl (13.5-17.5); LYMPH # 0.3 10^3/uL (1.5-4.5); LYMPH % 1.8 % (24.0-44.0); MEAN CORPUSCULAR HEMOGLOBIN 23.8 pg (27.0-33.0); MEAN CORPUSCULAR HGB CONC 29.8 g/dl (32.0-36.5); MEAN CORPUSCULAR VOLUME 79.9 fl (80.0-96.0); MONO # 1.6 10^3/uL (0.0-0.8); MONO % 10.2 % (0.0-5.0); NEUTROPHILS # 13.6 10^3/uL (1.8-7.7); NEUTROPHILS % 86.3 % (36.0-66.0); PLATELET COUNT, AUTOMATED 183 10^3/uL (150-450); RED BLOOD COUNT 4.58 10^6/uL (4.30-6.10); WHITE BLOOD COUNT 15.7 10^3/uL (4.0-10.0)
[2018-08-26 16:20] LABS: ALBUMIN 3.8 GM/DL (3.2-5.2); BILIRUBIN,TOTAL 0.6 MG/DL (0.2-1.0); C REACTIVE PROTEIN QUANTITATIV 2.77 MG/DL (0.00-0.30); CALCIUM LEVEL 9.3 MG/DL (8.8-10.2); CREATININE FOR GFR 3.38 MG/DL (0.70-1.30); GLOMERULAR FILTRATION RATE 18.6 (>35); POTASSIUM SERUM 3.9 MEQ/L (3.5-5.1); TOTAL PROTEIN 6.2 GM/DL (6.4-8.2)
== END ==
LOC: M LAB 15:24
PROVIDERS: ATTEND Internal Medicine
DX: Z79.899 Other long term (current) drug therapy (principal)

== ENCOUNTER → 2018-08-30 | Outpatient (CLI) | payer MEDICARE ==
[~2018-08-30] MED LIST changes: -/GLYB5TA; -ASPI1TAB PO; +ASPI81TA26 PO; +GLYB-147 PO; +GLYB1TAB29; -GLYB5TA PO; +LATA0.0013 OU; -LATA5OPD OU; +MUPI1OIN2 TOP; -MUPI2OI TOP
[2018-08-30 12:43] LABS: BASO # 0.1 10^3/uL (0.0-0.2); BASO % 0.7 % (0.0-1.0); EOS % 0.4 % (0.0-3.0); HEMATOCRIT 37.2 % (42.0-52.0); HEMOGLOBIN 11.3 g/dl (13.5-17.5); LYMPH # 0.3 10^3/uL (1.5-4.5); MEAN CORPUSCULAR HEMOGLOBIN 23.3 pg (27.0-33.0); MEAN CORPUSCULAR HGB CONC 30.4 g/dl (32.0-36.5); MEAN CORPUSCULAR VOLUME 76.9 fl (80.0-96.0); MONO # 0.7 10^3/uL (0.0-0.8); MONO % 7.5 % (0.0-5.0); NEUTROPHILS # 8.1 10^3/uL (1.8-7.7); NEUTROPHILS % 87.7 % (36.0-66.0); PLATELET COUNT, AUTOMATED 281 10^3/uL (150-450); RED BLOOD COUNT 4.84 10^6/uL (4.30-6.10); WHITE BLOOD COUNT 9.2 10^3/uL (4.0-10.0)
[2018-08-30 13:33] LABS: ALBUMIN 3.4 GM/DL (3.2-5.2); BILIRUBIN,TOTAL 0.5 MG/DL (0.2-1.0); C REACTIVE PROTEIN QUANTITATIV 10.7 MG/DL (0.00-0.30); CALCIUM LEVEL 9.1 MG/DL (8.8-10.2); CREATININE FOR GFR 3.17 MG/DL (0.70-1.30); GLOMERULAR FILTRATION RATE 20.1 (>35); TOTAL PROTEIN 6.5 GM/DL (6.4-8.2)
== END ==
LOC: M LAB 11:55
PROVIDERS: ATTEND Internal Medicine
DX: Z79.899 Other long term (current) drug therapy (principal)

== ENCOUNTER → 2018-09-01 | Outpatient (CLI) | payer MEDICARE | LOC: M LAB 15:18 | PROVIDERS: ATTEND Internal Medicine | DX: M05.741 Rheumatoid arthritis with rheumatoid factor of right hand without organ or systems involvement (principal) ==

== ENCOUNTER → 2018-09-02 | Outpatient (REF) | payer MEDICARE ==
[2018-09-02 12:45] LABS: AMORPHOUS SEDIMENT SMALL (NEGATIVE); APPEARANCE, URINE CLEAR (CLEAR); BACTERIA, URINE AUTO NEGATIVE (NEGATIVE); BILIRUBIN, URINE AUTO NEGATIVE (NEGATIVE); BLOOD, URINE BLOOD NEGATIVE (NEGATIVE); COLOR, URINE YELLOW (YELLOW); GLUCOSE, URINE (UA) AUTO 1+ mg/dL (NEGATIVE); KETONE, URINE AUTO NEGATIVE (NEGATIVE); LEUKOCYTE ESTERASE, URINE AUTO NEGATIVE (NEGATIVE); NITRITE, URINE AUTO NEGATIVE (NEGATIVE); PROTEIN, URINE AUTO NEGATIVE (NEGATIVE); RBC, URINE AUTO 1 /HPF (0-3); SPECIFIC GRAVITY URINE AUTO 1.008 (1.002-1.035); SQUAMOUS EPITHELIAL CELL UR AU 0 /HPF (0-6); URIC ACID CRYSTALS SMALL; UROBILINOGEN, URINE AUTO 0.2 mg/dL (0.0-2.0); WBC, URINE AUTO 0 /HPF (0-3)
== END ==
LOC: M LAB REF 12:12
PROVIDERS: ATTEND Internal Medicine
DX: M05.741 Rheumatoid arthritis with rheumatoid factor of right hand without organ or systems involvement (principal)

== ENCOUNTER → 2018-09-07 | Outpatient (CLI) | payer MEDICARE ==
[~2018-09-07] MED LIST changes: +ASPI81TA85 PO; +PRED5PAK PO; +PRED5TA PO; +SENN1TAB36 PO
== END ==
LOC: M LAB 10:48
PROVIDERS: ATTEND Internal Medicine
DX: M05.741 Rheumatoid arthritis with rheumatoid factor of right hand without organ or systems involvement (principal)

== ENCOUNTER 2018-09-16 12:13 | Inpatient (IN) | payer MEDICARE ==
[~2018-09-16] VITALS: Ht 177.8 cm; Wt 78.9 kg
[2018-09-16] MEDS ORDERED: OSEL30CA PO (12:39)
[2018-09-16 15:10] VITALS: BP 144/70
--- NOTE | 2018-09-16 15:36 | HPEPDOC ---
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 He was found to have an elevated lactic acid and tested positive for influenza A for which he was started on Tamiflu and placed on droplet precaution. Blood cultures were ordered which came back negative. Given his soft BPs and dry appearance on exam, his diuretics were held. He was provided with wound care treatment for his MRSA cellulitis and found to have significant deficits and gait and ADLs compared to hi prior level of function so deemed medically appropriate for discharge to ARU on 09/16/18. REVIEW OF SYSTEMS: The following is a completed review of systems and has been reviewed. Review of systems otherwise unremarkable. PAIN: Patient self reports no pain EYES: left eye vision loss EARS, NOSE, & THROAT: denies dysphagia or throat pain CARDIOVASCULAR: denies chest pain or palpitations PULMONARY: Negative. Denies shortness of breath GASTROINTESTINAL: +constipated GENITOURINARY: +retention MUSCULOSKELETAL: bilateral LE weakness NEUROLOGICAL: peripheral neuropathy HEMATOLOGICAL: +anemia SKIN: right foot ulcers PSYCHIATRIC: Unremarkable All other review of systems found to be negative. PAST MEDICAL HISTORY: as per HPI ALLERGIES: Please see below. MEDICATIONS: Please see below. SOCIAL HISTORY: Lives with saranya, denies smoking/ETOH/illicit drugs DIET: low sodium with fluid restriction PHYSICAL EXAMINATION: VITAL SIGNS: Please see below. GENERAL: Pleasant and cooperative. No acute distress. HEENT: PERRL. Extraocular movements intact. Injected left conjunctiva CARDIOVASCULAR: Regular rate and rhythm. No murmurs, rubs, or gallops LUNGS: Clear to auscultation bilaterally. No wheezes. No rhonchi ABDOMEN: Soft, nontender, nondistended. Positive bowel sounds. NEUROLOGICAL: Alert and oriented times three. Cranial nerves II through XII grossly intact. Sensation diminished in stocking-pattern LE EXTREMITIES: 5\5 strength bilateral upper extremities. 5-\5 strength bilat hip flexion, knee extension4/5 ankle DF 0/5 EHL . SKIN: right D1 2 ulcers and right lateral foot ulcer IMAGING: Imaging documentation personally reviewed by record FUNCTIONAL STATUS: Premorbid: Modified Independent with 4-wheeled rolling walker for ambulation and requiring assistance from his for some activities of daily life. On Admission: Contact Guard Assist for ambulation with RW, functional transfers, dressing, and toileting. GOALS: Mod-I with RW for ambulation community distances, stair negotiation, improve endurance, Mod-I for bathing, dressing, toileting, optimize dynamic balance, medical optimization, assess for DME needs, family training. ASSESSMENT:82-year-old M with extensive cardiac history who presents status post worsening of polyneuropathy in setting of Influenza. PLAN: 1. Rehab: PT/OT, assess for DME needs 2. Neuro: pmh diabetic polyneuropathy with bilateral LE weakness exacerbated by recent viral illness- goal is to improve endurance while on ARU 3. ID: +Influenza A, continue precautions, c/u Tamiflu for 2 more days 4. Cardiac: systolic/diastolic MELVI with EF 25%, +Paroxysmal Afib off AC, Tachy- avelino syndrome with PM, CAD s/p CABG- c/i ASA, Plavix, Lasix restarted at discharge from inpatient-will consult medicine to follow -c/u statin for HLD 5. resp: pmh COPD, supplemental 02 prn, titrate to 88-92%, c/u Duonebs and incentive spirometry. will add Guaifenesin 6. Renal: pmh CKD4, will consider renal consult while on ARU- otherwise f/u outpatient 7. Rheum: pmh gouth, c/u Allopurinol 8. Endo: pmh DM c/u insulin sliding scale coverage and hypothyroidism c/u Synt hroid 9. Pain: gabapentin and tylenol 10. DVT ppx: c/u heparin 11. GI ppx: will add protonix, order fleet enema today and bowel meds 12. : f/u admission UA and Ucx, monitor PVRs 13. Skin: bilateral LE wounds- c/u optifoam to ulcers, patient follows with Dr. Blum 14. Dispo: TBD POST ADMISSION PHYSICIAN EVALUATION: Medical and functional status: Description of medical status, medical assessment: As above. Rehabilitation diagnosis and current and prior cold morbid medical conditions as above. Risk of complications and plans to mitigate them as above. Description of functional status current status is as above. Prior status as above. Status compared to preadmission: There are no clinically significant differences between the patient's current status and the information described on the preadmission screening document. Treatment plan anticipated: Treatment plan is as described above. Required disciplines including physical therapy, occupational therapy, others as noted above. Intensity of services: 3 hours a day, 6 days a week. Special considerations: There are no specific special or safety considerations that would likely preclude immediate implementation of an intensive rehabilitation program or subsequently influence the plan of care. ATTESTATION: Considering all the information above, it is my best judgment that this patient requires intensive rehabilitation therapy as described above and an inpatient hospital environment due to the complexity of nursing, medical, and rehabilitation needs required by the patient. Furthermore, this patient can reasonably be expected to participate in an benefit from an inpatient rehabilitation stay with an interdisciplinary team approach to the delivery of rehabilitation care under the direction and supervision of rehabilitation physician. PROGNOSIS: Excellent ESTIMATED LENGTH OF STAY:8-10 days. PROJECTED DISCHARGE DESTINATION: Home with family support and any durable medical equipment required to increase functional safety and mobility. TIME SPENT COUNSELING AND COORDINATING INITIAL CARE: Greater than 70 minutes. Vital Signs Vital Signs Date Time Temp Pulse Resp B/P (MAP) Pulse Ox O2 Delivery O2 Flow Rate FiO2 09/16/18 15:10 97.0 64 17 144/70 (94) 98 Home Medications Scheduled Allopurinol (Allopurinol) 100 Mg Tab, 100 MG PO DAILY, (Reported) Aspirin (Aspir 81) 81 Mg Tablet.dr, 81 MG PO DAILY, (Reported) Atorvastatin Calcium (Atorvastatin Calcium) 80 Mg Tab, 40 MG PO QHS, (Reported) Calcitriol (Calcitriol) 0.25 Mcg Cap, 0.5 MCG PO 1XWK, (Reported) TAKES ON MONDAYS Cholecalciferol (Vitamin D3) (Vitamin D3) 1,000 Unit Tab, 1,000 UNIT PO DAILY, (Reported) Clopidogrel Bisulfate (Plavix) 75 Mg Tab, 75 MG PO DAILY, (Reported) Furosemide (Furosemide) 40 Mg Tab, 40 MG PO QAM, (Reported) Furosemide (Furosemide) 20 Mg Tab, 20 MG PO QHS, (Reported) Gabapentin (Gabapentin) 300 Mg Cap, 300 MG PO BID, (Reported) Insulin NPH Hum/Reg Insulin Hm (Novolin 70-30 100 Unit/ml Vial) 1 Inj Inj, 26 UNITS SC QHS, (Reported) Insulin NPH Hum/Reg Insulin Hm (Novolin 70-30 100 Unit/ml Vial) 1 Inj Inj, 36 UNITS SC QAM, (Reported) Ipratropium/Albuterol Sulfate (Iprat-Albut 0.5-3(2.5) mg/3 ml) 1 Rudy Rudy, 1 RUDY INH BID, (Reported) Levothyroxine Sodium (Levothyroxine Sodium) 75 Mcg Tab, 75 MCG PO DAILY, (Reported) Multivitamins (Thera M Plus Tablet) 1 Tab Tab, 1 TAB PO DAILY, (Reported) [place]-3 Fatty Acids/Fish Oil (Forks 3 1,000 mg Softgel) 1 Cap Cap, 1 CAP PO DAILY, (Reported) Oseltamivir Phosphate (Oseltamivir Phosphate) 30 Mg Capsule, 30 MG PO DAILY Prednisone (Prednisone) 5 Mg Tablet, 5 MG PO DAILY, (Reported) Sennosides/Docusate Sodium (Docusate Sodium-Senna Tablet) 1 Each Tablet, 1 TAB PO BID, (Reported) Ubidecarenone (Coenzyme Q10) 100 Mg Cap, 100 MG PO DAILY, (Reported) Scheduled PRN Nitroglycerin (Nitrostat) 0.4 Mg Subl, 0.4 MG SL NITRO PRN for CHEST PAIN, (Reported) Allergies Coded Allergies: fluorescein (Verified Allergy, Intermediate, HYPOTENSION, 09/13/18) brimonidine (Verified Allergy, Mild, EYE REDNESS, 09/13/18) tramadol (Unverified Allergy, Unknown, 09/13/18) PEPPER ARTIS MD Sep 16, 2018 15:36
[2018-09-16] MEDS ORDERED: DEXTROSE 50% 50 ML SYRINGE IV PRN (16:00)
[2018-09-16] MEDS ORDERED: NITROGLYCERIN 0.4 MG SUBL TABLET SL PRN (16:00)
[2018-09-16] MEDS ORDERED: MAALOX 30 ML SUSP *UDC PO PRN (16:00)
[2018-09-16] MEDS ORDERED: GLUCOSE 4 GM CHEW TABLET PO PRN (16:00)
[2018-09-16] MEDS ORDERED: ONDANSETRON 4 MG TAB (S0181) PO PRN (16:00)
[2018-09-16] MEDS ORDERED: GLUCAGON FOR INJ 1 MG VIAL (J1610) SC PRN (16:00)
[2018-09-16] MEDS ORDERED: FLEET ENEMA PR ONE (16:45)
[2018-09-16] MEDS: HumaLOG INSULIN (NovoLOG) PER UNIT SC SCH ×2 (17:16→22:36)
[2018-09-16] MEDS: MOM 30ML SUSPENSION UDC PO PRN (18:44)
[2018-09-16] MEDS: IPRATROPIUM 0.5MG/ALBUTEROL 2.5MG INH SOL UD 3ML (DUONEB)(J7620) NEB SCH (19:47)
[2018-09-16 20:00] VITALS: BP 169/74
[2018-09-16] MEDS: GABAPENTIN 300 MG CAP PO SCH (20:19)
[2018-09-16] MEDS: DOCUSATE SODIUM 100 MG CAP PO SCH (20:19)
[2018-09-16] MEDS: ATORVASTATIN 20 MG TAB PO SCH (20:19)
[2018-09-16] MEDS: HEPARIN SOD (PORCINE) 5000 UNITS/ML VIAL SQ SCH (20:19)
[2018-09-16] MEDS: FUROSEMIDE 20 MG TAB PO SCH (20:19)
[2018-09-16] MEDS: SENOKOT S TAB PO SCH (20:19)
[2018-09-16 21:39] LABS: APPEARANCE, URINE CLEAR (CLEAR); BACTERIA, URINE AUTO NEGATIVE (NEGATIVE); BILIRUBIN, URINE AUTO NEGATIVE (NEGATIVE); BLOOD, URINE BLOOD NEGATIVE (NEGATIVE); COLOR, URINE YELLOW (YELLOW); GLUCOSE, URINE (UA) AUTO 3+ mg/dL (NEGATIVE); KETONE, URINE AUTO NEGATIVE (NEGATIVE); LEUKOCYTE ESTERASE, URINE AUTO NEGATIVE (NEGATIVE); NITRITE, URINE AUTO NEGATIVE (NEGATIVE); PROTEIN, URINE AUTO 1+ mg/dL (NEGATIVE); RBC, URINE AUTO 0 /HPF (0-3); SPECIFIC GRAVITY URINE AUTO 1.014 (1.002-1.035); SQUAMOUS EPITHELIAL CELL UR AU 0 /HPF (0-6); UROBILINOGEN, URINE AUTO 0.2 mg/dL (0.0-2.0); WBC, URINE AUTO 0 /HPF (0-3)
[2018-09-17] MEDS: IPRATROPIUM 0.5MG/ALBUTEROL 2.5MG INH SOL UD 3ML (DUONEB)(J7620) NEB SCH ×4 (02:00→20:19)
[2018-09-17 06:00] VITALS: BP 160/58
[2018-09-17] MEDS: LEVOTHYROXINE 75MCG TABLET (0.075MG) PO SCH (06:13)
[2018-09-17 06:55] LABS: BASO % 0.5 % (0.0-1.0); EOS # 0.1 10^3/uL (0.0-0.50); EOS % 4.3 % (0.0-3.0); HEMATOCRIT 28.4 % (42.0-52.0); HEMOGLOBIN 8.7 g/dl (13.5-17.5); LYMPH # 0.4 10^3/uL (1.5-4.5); LYMPH % 20.9 % (24.0-44.0); MEAN CORPUSCULAR HEMOGLOBIN 23.5 pg (27.0-33.0); MEAN CORPUSCULAR HGB CONC 30.6 g/dl (32.0-36.5); MEAN CORPUSCULAR VOLUME 76.8 fl (80.0-96.0); MONO # 0.3 10^3/uL (0.0-0.8); MONO % 13.4 % (0.0-5.0); NEUTROPHILS # 1.1 10^3/uL (1.8-7.7); NEUTROPHILS % 59.8 % (36.0-66.0); PLATELET COUNT, AUTOMATED 123 10^3/uL (150-450)
[2018-09-17 07:16] LABS: ALBUMIN 2.6 GM/DL (3.2-5.2); BILIRUBIN,TOTAL 0.3 MG/DL (0.2-1.0); CALCIUM LEVEL 8.7 MG/DL (8.8-10.2); CREATININE FOR GFR 2.69 MG/DL (0.70-1.30); GLOMERULAR FILTRATION RATE 24.2 (>35); POTASSIUM SERUM 4.2 MEQ/L (3.5-5.1); TOTAL PROTEIN 5.3 GM/DL (6.4-8.2)
[2018-09-17 07:20] LABS: WHITE BLOOD COUNT 1.9 10^3/uL (4.0-10.0)
[2018-09-17] MEDS: PANTOPRAZOLE 40MG TAB (PROTONIX) PO SCH (08:12)
[2018-09-17] MEDS: SENOKOT S TAB PO SCH ×2 (08:12→22:03)
[2018-09-17] MEDS: CLOPIDOGREL 75 MG TAB PO SCH (08:12)
[2018-09-17] MEDS: predniSONE 5 MG TAB PO SCH (08:12)
[2018-09-17] MEDS: CO-ENZYME Q10 50 MG CAP PO SCH (08:12)
[2018-09-17] MEDS: ASPIRIN 81 MG CHEW TABLET PO SCH (08:12)
[2018-09-17] MEDS: OMEGA-3 1000MG CAPSULE PO SCH (08:12)
[2018-09-17] MEDS: ALLOPURINOL 100 MG TAB PO SCH (08:12)
[2018-09-17] MEDS: GABAPENTIN 300 MG CAP PO SCH ×2 (08:12→22:04)
[2018-09-17] MEDS: DOCUSATE SODIUM 100 MG CAP PO SCH ×2 (08:12→22:03)
[2018-09-17] MEDS: VITAMIN D 1,000 INTERNATIONAL UNITS TABLET PO SCH (08:12)
[2018-09-17] MEDS: MULTIVITAMINS/MINERALS THERAP 1 TAB PO SCH (08:12)
[2018-09-17] MEDS: HumaLOG INSULIN (NovoLOG) PER UNIT SC SCH ×4 (08:13→22:06)
[2018-09-17] MEDS: MOM 30ML SUSPENSION UDC PO PRN (08:13)
[2018-09-17 08:15] VITALS: BP 142/70
[2018-09-17] MEDS ORDERED: FUROSEMIDE 40 MG TAB PO SCH (09:00)
[2018-09-17] MEDS: HEPARIN SOD (PORCINE) 5000 UNITS/ML VIAL SQ SCH (09:00)
[2018-09-17] MEDS ORDERED: OSELTAMIVIR PHOSPHATE 30MG CAPSULE PO SCH (09:00)
[2018-09-17] MEDS ORDERED: TAMI30CA PO (11:25)
--- NOTE | 2018-09-17 11:43 | IPNPDOC ---
PM&R Progress Note DATE OF SERVICE: Sep 17, 2018 Popped Corn Oven Attendant Progress Note Subjective: Patient reports he feels well today, except his sinuses are congested. He reported having a good bowel movement yesterday. REVIEW OF SYSTEMS: The following is a completed review of systems and has been reviewed. Review of systems otherwise unremarkable. PAIN: Patient self reports no pain EYES: left eye vision loss EARS, NOSE, & THROAT: denies dysphagia or throat pain CARDIOVASCULAR: denies chest pain or palpitations PULMONARY: Negative. Denies shortness of breath GASTROINTESTINAL: +constipated GENITOURINARY: +retention MUSCULOSKELETAL: bilateral LE weakness NEUROLOGICAL: peripheral neuropathy HEMATOLOGICAL: +anemia SKIN: right foot ulcers PSYCHIATRIC: Unremarkable All other review of systems found to be negative. PHYSICAL EXAMINATION: VITAL SIGNS: Please see below. GENERAL: Pleasant and cooperative. No acute distress. HEENT: PERRL. Extraocular movements intact. Injected left conjunctiva CARDIOVASCULAR: Regular rate and rhythm. No murmurs, rubs, or gallops LUNGS: Clear to auscultation bilaterally. No wheezes. No rhonchi ABDOMEN: Soft, nontender, nondistended. Positive bowel sounds. NEUROLOGICAL: Alert and oriented times three. Cranial nerves II through XII grossly intact. Sensation diminished in stocking-pattern LE EXTREMITIES: 5\5 strength bilateral upper extremities. 5-\5 strength bilat hip flexion, knee extension4/5 ankle DF 0/5 EHL . SKIN: right D1 2 ulcers and right lateral foot ulcer ASSESSMENT:82-year-old M with extensive cardiac history who presents status post worsening of polyneuropathy in setting of Influenza. PLAN: 1. Rehab: PT/OT, assess for DME needs 2. Neuro: pmh diabetic polyneuropathy with bilateral LE weakness exacerbated by recent viral illness- goal is to improve endurance while on ARU 3. ID: +Influenza A, continue precautions, c/u Tamiflu for 1 more day 4. Cardiac: systolic/diastolic MELVI with EF 25%, +Paroxysmal Afib off AC, Tachy- avelino syndrome with PM, CAD s/p CABG- c/i ASA, Plavix, Lasix restarted at discharge from inpatient-medicine consulted to follow -c/u statin for HLD 5. resp: pmh COPD, supplemental 02 prn, titrate to 88-92% not on at home, c/u Duonebs and incentive spirometry. c/u Guaifenesin- will order repeat CXR to rule out PNA given continued drop in wbc and platelets 6. Renal: pmh CKD4, will consider renal consult while on ARU- otherwise f/u outpatient- Display Designer at baseline today 7. Rheum: pmh gouth, c/u Allopurinol 8. Endo: pmh DM c/u insulin sliding scale coverage and hypothyroidism c/u Synthroid 9. Pain: gabapentin and tylenol 10. DVT ppx: will hold given drop in platelet count 11. 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 GI ppx: will add protonix 12. : f/u admission UA and Ucx, monitor PVRs 13. Skin: bilateral LE wounds- c/u optifoam to ulcers, patient follows with Dr. Blum 14. Dispo: TBD Allergies Coded Allergies: fluorescein (Verified Allergy, Intermediate, HYPOTENSION, 09/13/18) brimonidine (Verified Allergy, Mild, EYE REDNESS, 09/13/18) tramadol (Unverified Allergy, Unknown, 09/13/18) Vital Signs Vital Signs Date Time Temp Pulse Resp B/P (MAP) Pulse Ox O2 Delivery O2 Flow Rate FiO2 09/17/18 08:15 142/70 (94) 09/17/18 06:00 97.7 59 18 95 Laboratory Data CBC/BMP Laboratory Tests 09/17/18 06:30 Red Blood Count 3.70 L, Mean Corpuscular Volume 76.8 L, Mean Corpuscular Hemoglobin 23.5 L, Mean Corpuscular Hemoglobin Concent 30.6 L, Red Cell Distribution Width 19.2 H, Neutrophils (%) (Auto) 59.8, Lymphocytes (%) (Auto) 20.9 L, Monocytes (%) (Auto) 13.4 H, Eosinophils (%) (Auto) 4.3 H, Basophils (%) (Auto) 0.5, Neutrophils # (Auto) 1.1 L, Lymphocytes # (Auto) 0.4 L, Monocytes # (Auto) 0.3, Eosinophils # (Auto) 0.1, Basophils # (Auto) 0.0, Calcium Level 8.7 L, Aspartate Amino Transf (AST/SGOT) 39 H, Alanine Aminotransferase (ALT/SGPT) 32, Alkaline Phosphatase 108, Total Bilirubin 0.3, Total Protein 5.3 L, Albumin 2.6 L Labs 24H Laboratory Tests 2 09/16/18 17:04: Bedside Glucose (Misc Panel) 368H 09/16/18 21:15: Urine Appearance CLEAR, Urine Color YELLOW, Urine pH 6.0, Urine Specific Celeste 1.014, Urine Protein 1+H, Urine Glucose (UA) 3+H, Urine Ketones NEGATIVE, Urine Urobilinogen 0.2, Urine Bilirubin NEGATIVE, Urine Leukocyte Esterase NEGATIVE, Urine Blood NEGATIVE, Urine Nitrite NEGATIVE, Urine WBC (Auto) 0, Urine RBC (Auto) 0, Urine Hyaline Casts (Auto) 0, Urine Bacteria (Auto) NEGATIVE, Urine Squamous Epithelial Cells 0, Urine Sperm (Auto) 09/16/18 21:44: Bedside Glucose (Misc Panel) 406H 09/17/18 06:30: Immature Granulocyte % (Auto) 1.1, White Blood Count 1.9L, Red Blood Count 3.70L, Hemoglobin 8.7L, Hematocrit 28.4L, Mean Corpuscular Volume 76.8L, Mean Corpuscular Hemoglobin 23.5L, Mean Corpuscular Hemoglobin Concent 30.6L, Red Cell Distribution Width 19.2H, Platelet Count 123L, Neutrophils (%) (Auto) 59.8, Lymphocytes (%) (Auto) 20.9L, Monocytes (%) (Auto) 13.4H, Eosinophils (%) (Auto) 4.3H, Basophils (%) (Auto) 0.5, Neutrophils # (Auto) 1.1L, Lymphocytes # (Auto) 0.4L, Monocytes # (Auto) 0.3, Eosinophils # (Auto) 0.1, Basophils # (Auto) 0.0, Nucleated Red Blood Cells % (auto) 0.0, Anion Gap 6L, Glomerular Filtration Rate 24.2L, Blood Urea Nitrogen 48H, Creatinine 2.69H, Sodium Level 140, Potassium Level 4.2, Chloride Level 102, Carbon Dioxide Level 32, Calcium Level 8.7L, Aspartate Amino Transf (AST/SGOT) 39H, Alanine Aminotransferase (ALT/SGPT) 32, Alkaline Phosphatase 108, Total Bilirubin 0.3, Total Protein 5.3L, Albumin 2.6L, Albumin/Globulin Ratio 0.96L Microbiology Microbiology 09/16/18 Urine Culture, Received Pending Current Medications Current Medications Current Medications Acetaminophen (Tylenol Tab) 650 mg Q4HP PRN PO fever/MILD PAIN (PS 1-4); Start 09/16/18 at 16:00 Al Hydrox/Mg Hydrox/Simethicone (Mylanta) 30 ml Q4HP PRN PO DYSPEPSIA; Start 09/16/18 at 16:00 Albuterol/ Ipratropium (Duoneb (Ipr 0.5mg/Alb 2.5mg)) 3 ml RQ6H NEB Last administered on 09/17/18 07:19; Start 09/16/18 at 20:00 Allopurinol (Zyloprim) 100 mg DAILY PO Last administered on 09/17/18 08:12; Start 09/17/18 at 09:00 Aspirin (Aspirin Chewable) 81 mg DAILY PO Last administered on 09/17/18 08:12; Start 09/17/18 at 09:00 Atorvastatin Calcium (Lipitor) 40 mg QHS PO Last administered on 09/16/18 20:19; Start 09/16/18 at 21:00 Clopidogrel Bisulfate (PLAVix) 75 mg DAILY PO Last administered on 09/17/18 08:12; Start 09/17/18 at 09:00 Coenzyme Q10 (Coenzyme Q10) 100 mg DAILY PO Last administered on 09/17/18 08:12; Start 09/17/18 at 09:00; Stop 10/17/18 at 08:59 Dextrose (Dextrose 50%) 25 ml ASDIRECTED PRN IV SEE LABEL COMMENTS; Start 09/16/18 at 16:00 Docusate Sodium (Colace) 100 mg BID PO Last administered on 09/17/18 08:12; Start 09/16/18 at 21:00 Fish Oil ([place]-3 (1000mg)) 1 cap DAILY PO Last administered on 09/17/18 08:12; Start 09/17/18 at 09:00 Furosemide (Lasix) 20 mg QHS PO Last administered on 09/16/18 20:19; Start 09/16/18 at 21:00 Furosemide (Lasix) 40 mg DAILY PO Last administered on 09/17/18at 08:14; Start 09/17/18 at 09:00 Gabapentin (Neurontin) 300 mg BID PO Last administered on 09/17/18 08:12; Start 09/16/18 at 21:00 Glucagon (Glucagon) 1 mg ASDIRECTED PRN SC SEE LABEL COMMENTS; Start 09/16/18 at 16:00 Glucose (Glucose) 16 GM ASDIRECTED PRN PO SEE LABEL COMMENTS; Start 09/16/18 at 16:00 Heparin Sodium (Porcine) (Heparin) 5,000 units BID SQ Last administered on at 20:19; Start 09/16/18 at 21:00 Insulin Human Lispro (HumaLOG INSULIN) SEE PROTOCOL TABLE AC SC Last administered on 09/17/18at 08:13; Start 09/16/18 at 17:30 Insulin Human Lispro (HumaLOG INSULIN) SEE PROTOCOL TABLE QHS SC Last administered on 09/16/18at 22:36; Start 09/16/18 at 21:00 Levothyroxine Sodium (Synthroid) 75 mcg DAILY@06 PO Last administered on 09/17/18at 06:13; Start 09/17/18 at 06:00 Magnesium Hydroxide (Milk Of Magnesia) 30 ml DAILYPRN PRN PO CONSTIPATION Last administered on 09/17/18 08:13; Start 09/16/18 at 16:00 Multivitamins (Theragram-M) 1 tab DAILY PO Last administered on 09/17/18 08:12; Start 09/17/18 at 09:00 Nitroglycerin (Nitrostat (1/ 150)) 0.4 mg Q5MP PRN SL CHEST PAIN; Start 09/16/18 at 16:00 Ondansetron HCl (Zofran) 4 mg Q6HP PRN PO NAUSEA; Start 09/16/18 at 16:00 Oseltamivir Phosphate (Tamiflu) 30 mg DAILY PO Last administered on 09/17/18at 08:12; Start 09/17/18 at 09:00; Stop 09/18/18 at 09:01 Pantoprazole Sodium (Protonix) 40 mg DAILY PO Last administered on 09/17/18at 08:12; Start 09/17/18 at 09:00 Prednisone (Deltasone) 5 mg DAILY PO Last administered on 09/17/18at 08:12; Start 09/17/18 at 09:00 Senna/Docusate Sodium (Senokot S) 1 tab BID PO Last administered on 09/17/18at 08:12; Start 09/16/18 at 21:00 Vitamin D (Vitamin D) 1,000 units DAILY PO Last administered on 09/17/18at 08:12; Start 09/17/18 at 09:00 PEPPER ARTIS MD Sep 17, 2018 11:43
[2018-09-17] MEDS: guaiFENesin 200 MG TAB PO SCH ×3 (12:22→22:04)
[2018-09-17] MEDS: FLUTICASONE PROP 0.05% NASAL SPRAY 16 GM (FLONASE) NARES SCH ×2 (12:22→22:05)
[2018-09-17] MEDS: SODIUM CHLORIDE NASAL 0.65% SPRAY BTL (OCEAN) SCH ×3 (12:23→22:05)
--- NOTE | 2018-09-17 12:45 | REP ---
Chest two views HISTORY: Rule out infiltrate Comparison: 09/13/2018 The lungs are clear. There is blunting of the right costophrenic angle due to a small pleural effusion. The heart is normal in size. The pulmonary vasculature is normal in appearance. The bony structure is intact. A cardiac pacemaker is present. IMPRESSION: Small right pleural effusion. Electronically Signed by Justus Pryor MD 09/17/2018 12:36 P
[2018-09-17 14:00] VITALS: BP 160/75
--- NOTE | 2018-09-17 16:37 | IPNPDOC ---
Date Seen The patient was seen on 09/17/18. Progress Note Subjective: Pt was seen and examined at the bedside. 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 Pt understands that he needs to be in rehab and his needs time to recover at home also. still w nonproductive cough. Physical Examination vitals: pls see below General exam: Alert and cooperative, A&O 3, NAD Eye exam: PERRLA, EOMI ENT: Atraumatic, normocephalic, dry mucous membranes Neck: Supple, no JVD Cardiac: RRR, no appreciable murmurs Respiratory: Mild rhonchi of bilateral bases, equal chest rise bilaterally, in no respiratory distress or any accessory muscle use Abdomen: Positive bowel sounds, soft, nontender, nondistended Extremity: 1-2+ edema of bilateral feet let>right, no calf tenderness Skin: [place], warm, multiple small scattered lesions on bilateral shins and feet, eschars on right big toe and pinky Neuro: normal tone, normal speech, no focal deficit MSK: Strength 5/5 x4, Able to move all extremities independently, good paperhanger assistant strength bilaterally laboratory data, imaging studies, microbiology: reviewed, pls see below Assessment/Plan 82-year-old male, with extensive PMH as listed below, presents to the ER for chronic lower extremity weakness that worsened yesterday and led to him falling. His , son, and [id number] accompany him and verify the information. He denies any symptoms prior to the fall. Denies any lightheadedness, dizziness, chest pain, shortness of breath. He states he simply felt his legs feel weak and give out, which has happened in the past as well. He denies hitting his head. He does endorse cough with minimal phlegm, chills, muscle aches for the past 2 days. Positive sick contact for who had similar symptoms a few days prior. He is found to be flu positive in the ER with low-grade temperature 100.1. He will be admitted for weakness and positive flu. At time of admission, he has no other complaints. Lower extremity weakness -Patient states this is chronic for him, and led to a fall prior to admission. No neuro deficits or complaints -Likely 2/2 deconditioning, worsened by acute influenza infection -Strength 5/5 in all extremities while resting -Will place him on fall precautions, PT/OT -appears dry on exam and admits decreased po intake. 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 Has hx of MRSA cellulitis -Currently being managed by PCP. Family requesting continued wound care while he is admitted -Wound care from PT consulted Hx of Systolic & Diastolic Heart Failure -Per previous records, EF was ~25%. Most recent echo on file 06/18: LVEF 55%, Mild LVH, impairment of LV diastolic fxn, moderate pulmonary hypertension -dry on exam, borderline hypotensive on admission. Will start on gentle IVF -Hold home Lasix and consider resuming upon reassessment of volume status in a.m . Paroxysmal atrial fibrillation/flutter -with hx of cardioversion, not on AC-reason is unclear -per previous records, was supposed to be on Eliquis -will require further investigation -EKG on admission reveals HR controlled under atrial pacing Hx of Tachy-Cecil Syndrome s/p PPM 07/[address] 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 Steward currently at baseline Cr ~3.2 IDDM 2 with peripheral neuropathy Continue insulin sliding scale Continue home gabapentin COPD stable, no O2 at baseline continue nebs & chronically on prednisone PVD s/p multiple surgeries as listed above in H&P Glaucoma continue home eye drops Hypothyroidism Continue home Synthroid Gout Stable, Continue home allopurinol DVT ppx: renally-dosed Lovenox VS, I&O, 24H, Fishbone Vital Signs/I&O Vital Signs Date Time Temp Pulse Resp B/P (MAP) Pulse Ox O2 Delivery O2 Flow Rate FiO2 09/17/18 14:00 96.9 70 19 160/75 (103) 96 I&O- Last 24 Hours up to 6 AM 09/17/18 06:00 Intake Total 440 ml Output Total 1425 ml Balance -985 ml Laboratory Data 24H LABS Laboratory Tests 2 09/16/18 17:04: Bedside Glucose (Misc Panel) 368H 09/16/18 21:15: Urine Appearance CLEAR, Urine Color YELLOW, Urine pH 6.0, Urine Specific [place] 1.014, Urine Protein 1+H, Urine Glucose (UA) 3+H, Urine Ketones NEGATIVE, Urine Urobilinogen 0.2, Urine Bilirubin NEGATIVE, Urine Leukocyte Esterase NEGATIVE, Urine Blood NEGATIVE, Urine Nitrite NEGATIVE, Urine WBC (Auto) 0, Urine RBC (Auto) 0, Urine Hyaline Casts (Auto) 0, Urine Bacteria (Auto) NEGATIVE, Urine Squamous Epithelial Cells 0, Urine Sperm (Auto) 09/16/18 21:44: Bedside Glucose (Misc Panel) 406H 09/17/18 06:30: Immature Granulocyte % (Auto) 1.1, White Blood Count 1.9L, Red Blood Count 3.70L, Hemoglobin 8.7L, Hematocrit 28.4L, Mean Corpuscular Volume 76.8L, Mean Corpuscular Hemoglobin 23.5L, Mean Corpuscular Hemoglobin Concent 30.6L, Red Cell Distribution Width 19.2H, Platelet Count 123L, Neutrophils (%) (Auto) 59.8, Lymphocytes (%) (Auto) 20.9L, Monocytes (%) (Auto) 13.4H, Eosinophils (%) (Auto) 4.3H, Basophils (%) (Auto) 0.5, Neutrophils # (Auto) 1.1L, Lymphocytes # (Auto) 0.4L, Monocytes # (Auto) 0.3, Eosinophils # (Auto) 0.1, Basophils # (Auto) 0.0, Nucleated Red Blood Cells % (auto) 0.0, Anion Gap 6L, Glomerular Filtration Rate 24.2L, Blood Urea Nitrogen 48H, Creatinine 2.69H, Sodium Level 140, Potassium Level 4.2, Chloride Level 102, Carbon Dioxide Level 32, Calcium Level 8.7L, Aspartate Amino Transf (AST/SGOT) 39H, Alanine Aminotransferase (ALT/SGPT) 32, Alkaline Phosphatase 108, Total Bilirubin 0.3, Total Protein 5.3L, Albumin 2.6L, Albumin/Globulin Ratio 0.96L 09/17/18 11:30: Bedside Glucose (Misc Panel) 326H 09/17/18 16:28: Bedside Glucose (Misc Panel) 401H CBC/BMP Laboratory Tests 09/17/18 06:30 Red Blood Count 3.70 L, Mean Corpuscular Volume 76.8 L, Mean Corpuscular Hemoglobin 23.5 L, Mean Corpuscular Hemoglobin Concent 30.6 L, Red Cell Distribution Width 19.2 H, Neutrophils (%) (Auto) 59.8, Lymphocytes (%) (Auto) 20.9 L, Monocytes (%) (Auto) 13.4 H, Eosinophils (%) (Auto) 4.3 H, Basophils (%) (Auto) 0.5, Neutrophils # (Auto) 1.1 L, Lymphocytes # (Auto) 0.4 L, Monocytes # (Auto) 0.3, Eosinophils # (Auto) 0.1, Basophils # (Auto) 0.0, Calcium Level 8.7 L, Aspartate Amino Transf (AST/SGOT) 39 H, Alanine Aminotransferase (ALT/SGPT) 32, Alkaline Phosphatase 108, Total Bilirubin 0.3, Total Protein 5.3 L, Albumin 2.6 L Microbiology Microbiology 09/16/18 Urine Culture - Final, Complete UZAIR EVANS MD Sep 17, 2018 16:37
[2018-09-17] MEDS ORDERED: OSELTAMIVIR PHOSPHATE 30MG CAPSULE PO ONE (16:45)
[2018-09-17 20:00] VITALS: BP 154/67
[2018-09-17] MEDS: FUROSEMIDE 20 MG TAB PO SCH (22:04)
[2018-09-17] MEDS: ATORVASTATIN 20 MG TAB PO SCH (22:04)
[2018-09-17] MEDS: HumuLIN (NovoLIN)70/30 INSULIN INJ PER UNIT SC SCH (22:04)
[2018-09-18] MEDS: IPRATROPIUM 0.5MG/ALBUTEROL 2.5MG INH SOL UD 3ML (DUONEB)(J7620) NEB SCH ×4 (01:33→20:05)
[2018-09-18] MEDS: ACETAMINOPHEN TAB 650MG DOSE (2X325MG) PO PRN (05:19)
[2018-09-18] MEDS: LEVOTHYROXINE 75MCG TABLET (0.075MG) PO SCH (05:20)
[2018-09-18 06:00] VITALS: BP 142/62
[2018-09-18] MEDS ORDERED: OSELTAMIVIR PHOSPHATE 30MG CAPSULE PO ONE (07:00)
[2018-09-18] MEDS ORDERED: HumuLIN (NovoLIN)70/30 INSULIN INJ PER UNIT SC SCH (09:00)
[2018-09-18] MEDS: SODIUM CHLORIDE NASAL 0.65% SPRAY BTL (OCEAN) SCH ×3 (09:00→21:40)
[2018-09-18] MEDS: FLUTICASONE PROP 0.05% NASAL SPRAY 16 GM (FLONASE) NARES SCH ×2 (09:00→21:41)
[2018-09-18] MEDS: ALLOPURINOL 100 MG TAB PO SCH (09:47)
[2018-09-18] MEDS: MULTIVITAMINS/MINERALS THERAP 1 TAB PO SCH (09:47)
[2018-09-18] MEDS: HumaLOG INSULIN (NovoLOG) PER UNIT SC SCH ×4 (09:47→21:00)
[2018-09-18] MEDS: CO-ENZYME Q10 50 MG CAP PO SCH (09:47)
[2018-09-18] MEDS: OMEGA-3 1000MG CAPSULE PO SCH (09:47)
[2018-09-18] MEDS: CLOPIDOGREL 75 MG TAB PO SCH (09:48)
[2018-09-18] MEDS: FUROSEMIDE 20 MG TAB PO SCH ×2 (09:48→21:38)
[2018-09-18] MEDS: ASPIRIN 81 MG CHEW TABLET PO SCH (09:48)
[2018-09-18] MEDS: guaiFENesin 200 MG TAB PO SCH ×3 (09:48→21:38)
[2018-09-18] MEDS: DOCUSATE SODIUM 100 MG CAP PO SCH ×2 (09:48→21:38)
[2018-09-18] MEDS: PANTOPRAZOLE 40MG TAB (PROTONIX) PO SCH (09:48)
[2018-09-18] MEDS: GABAPENTIN 300 MG CAP PO SCH ×2 (09:48→21:38)
[2018-09-18] MEDS: SENOKOT S TAB PO SCH ×2 (09:48→21:38)
[2018-09-18] MEDS: predniSONE 5 MG TAB PO SCH (09:52)
[2018-09-18] MEDS: VITAMIN D 1,000 INTERNATIONAL UNITS TABLET PO SCH (09:52)
--- NOTE | 2018-09-18 11:21 | IPNPDOC ---
Date Seen The patient was seen on 09/18/18. Progress Note Subjective: Last dose of tamiflu today. He denies any fevers, myalgias, sob. He continues to have occasional nonproductive cough. He is relieved that his is recovering from the flu at home, and has a neighbor that was able to bring her to a fu appt with her doctor. Pt has been very cooperative with physical therapy, and feels that he is getting stronger by the day. His creatinine is at baseline. No other issues. Physical Examination vitals: pls see below General exam: Alert and cooperative, A&O 3, NAD Eye exam: PERRLA, EOMI ENT: Atraumatic, normocephalic, dry mucous membranes Neck: Supple, no JVD Cardiac: RRR, no appreciable murmurs Respiratory: Mild rhonchi of bilateral bases, equal chest rise bilaterally, in no respiratory distress or any accessory muscle use Abdomen: Positive bowel sounds, soft, nontender, nondistended Extremity: 1-2+ edema of bilateral feet let>right, no calf tenderness Skin: [place], warm, multiple small scattered lesions on bilateral shins and feet, eschars on right big toe and pinky Neuro: normal tone, normal speech, no focal deficit MSK: Strength 5/5 x4, Able to move all extremities independently, good custom protection officer strength bilaterally laboratory data, imaging studies, microbiology: reviewed, pls see below Assessment/Plan 82-year-old male, with extensive PMH as listed below, presents to the ER for chronic lower extremity weakness that worsened yesterday and led to him falling. His , son, and [id number] accompany him and verify the information. He denies any symptoms prior to the fall. Denies any lightheadedness, dizziness, chest pain, shortness of breath. He states he simply felt his legs feel weak and give out, which has happened in the past as well. He denies hitting his head. He does endorse cough with minimal phlegm, chills, muscle aches for the past 2 days. Positive sick contact for who had similar symptoms a few days prior. He is found to be flu positive in the ER with low-grade temperature 100.1. He will be admitted for weakness and positive flu. At time of admission, he has no other complaints. Lower extremity weakness -Patient states this is chronic for him, and led to a fall prior to admission. No neuro deficits or complaints -Likely 2/2 deconditioning, worsened by acute influenza infection -Strength 5/5 in all extremities while resting -Will place him on fall precautions, PT/OT -appears dry on exam and admits decreased po intake. 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 Has hx of MRSA cellulitis -Currently being managed by PCP. Family requesting continued wound care while he is admitted -Wound care from PT consulted Hx of Systolic & Diastolic Heart Failure -Per previous records, EF was ~25%. Most recent echo on file 06/18: LVEF 55%, Mild LVH, impairment of LV diastolic fxn, moderate pulmonary hypertension -dry on exam, borderline hypotensive on admission. Will start on gentle IVF -Hold home Lasix and consider resuming upon reassessment of volume status in a.m. Paroxysmal atrial fibrillation/flutter -with hx of cardioversion, not on AC-reason is unclear -per previous records, was supposed to be on Eliquis -will require further investigation -EKG on admission reveals HR controlled under atrial pacing Hx of Tachy-Cecil Syndrome s/p PPM 07/[address] 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 Steward currently at baseline Cr ~3.2 IDDM 2 with peripheral neuropathy Continue insulin sliding scale Continue home gabapentin COPD stable, no O2 at baseline continue nebs & chronically on prednisone PVD s/p multiple surgeries as listed above in H&P Glaucoma continue home eye drops Hypothyroidism Continue home Synthroid Gout Stable, Continue home allopurinol DVT ppx: renally-dosed Lovenox VS, I&O, 24H, Fishbone Vital Signs/I&O Vital Signs Date Time Temp Pulse Resp B/P (MAP) Pulse Ox O2 Delivery O2 Flow Rate FiO2 09/18/18 06:15 98.4 09/18/18 06:00 72 17 142/62 (88) 94 I&O- Last 24 Hours up to 6 AM 09/18/18 06:00 Intake Total 1140 ml Output Total 2725 ml Balance -1585 ml Laboratory Data 24H LABS Laboratory Tests 2 09/17/18 11:30: Bedside Glucose (Misc Panel) 326H 09/17/18 16:28: Bedside Glucose (Misc Panel) 401H 09/17/18 19:34: Bedside Glucose (Misc Panel) 368H 09/18/18 06:50: Bedside Glucose (Misc Panel) 105 Microbiology Microbiology 09/16/18 Urine Culture - Final, Complete UZAIR EVANS MD Sep 18, 2018 11:21
[2018-09-18 14:00] VITALS: BP 136/64
[2018-09-18 14:18] VITALS: BP 142/62
[2018-09-18 20:00] VITALS: BP 155/70
[2018-09-18] MEDS: HumuLIN (NovoLIN)70/30 INSULIN INJ PER UNIT SC SCH (21:00)
[2018-09-18] MEDS: ATORVASTATIN 20 MG TAB PO SCH (21:38)
[2018-09-19] MEDS: IPRATROPIUM 0.5MG/ALBUTEROL 2.5MG INH SOL UD 3ML (DUONEB)(J7620) NEB SCH ×4 (02:00→20:00)
[2018-09-19 04:56] VITALS: BP 153/68
[2018-09-19] MEDS: LEVOTHYROXINE 75MCG TABLET (0.075MG) PO SCH (05:34)
[2018-09-19 06:32] LABS: HEMATOCRIT 30.2 % (42.0-52.0); HEMOGLOBIN 9.2 g/dl (13.5-17.5); MEAN CORPUSCULAR HEMOGLOBIN 23.7 pg (27.0-33.0); MEAN CORPUSCULAR HGB CONC 30.5 g/dl (32.0-36.5); MEAN CORPUSCULAR VOLUME 77.6 fl (80.0-96.0); PLATELET COUNT, AUTOMATED 114 10^3/uL (150-450); RED BLOOD COUNT 3.89 10^6/uL (4.30-6.10); WHITE BLOOD COUNT 3.5 10^3/uL (4.0-10.0)
[2018-09-19] MEDS ORDERED: HumuLIN (NovoLIN)70/30 INSULIN INJ PER UNIT SC SCH (09:00)
[2018-09-19] MEDS: predniSONE 5 MG TAB PO SCH (09:30)
[2018-09-19] MEDS: MULTIVITAMINS/MINERALS THERAP 1 TAB PO SCH (09:30)
[2018-09-19] MEDS: GABAPENTIN 300 MG CAP PO SCH ×2 (09:30→22:03)
[2018-09-19] MEDS: ALLOPURINOL 100 MG TAB PO SCH (09:30)
[2018-09-19] MEDS: OMEGA-3 1000MG CAPSULE PO SCH (09:30)
[2018-09-19] MEDS: guaiFENesin 200 MG TAB PO SCH ×3 (09:30→22:02)
[2018-09-19] MEDS: DOCUSATE SODIUM 100 MG CAP PO SCH ×2 (09:30→22:02)
[2018-09-19] MEDS: ASPIRIN 81 MG CHEW TABLET PO SCH (09:30)
[2018-09-19] MEDS: PANTOPRAZOLE 40MG TAB (PROTONIX) PO SCH (09:30)
[2018-09-19] MEDS: CLOPIDOGREL 75 MG TAB PO SCH (09:30)
[2018-09-19] MEDS: VITAMIN D 1,000 INTERNATIONAL UNITS TABLET PO SCH (09:30)
[2018-09-19] MEDS: FUROSEMIDE 20 MG TAB PO SCH ×2 (09:31→22:03)
[2018-09-19] MEDS: CO-ENZYME Q10 50 MG CAP PO SCH (09:31)
[2018-09-19] MEDS: HumaLOG INSULIN (NovoLOG) PER UNIT SC SCH ×4 (09:31→22:04)
[2018-09-19] MEDS: SENOKOT S TAB PO SCH ×2 (09:32→22:03)
[2018-09-19] MEDS: FLUTICASONE PROP 0.05% NASAL SPRAY 16 GM (FLONASE) NARES SCH ×2 (09:34→22:05)
[2018-09-19] MEDS: SODIUM CHLORIDE NASAL 0.65% SPRAY BTL (OCEAN) SCH ×3 (09:35→22:05)
[2018-09-19] MEDS: ACETAMINOPHEN TAB 650MG DOSE (2X325MG) PO PRN (12:40)
[2018-09-19 14:00] VITALS: BP 122/60
--- NOTE | 2018-09-19 20:55 | IPNPDOC ---
Date Seen The patient was seen on 09/19/18. Progress Note Subjective: He c/o feeling cold requesting a blanket. He feels a little tired today and wanted to take a morning nap after breakfast. Last dose of tamiflu THURSDAY. He denies any fevers, myalgias, sob. He continues to have occasional nonproductive cough. He is relieved that his is recovering from the flu at home, and has a neighbor thatwas able to bring her to a fu appt with her doctor. Pt has been very cooperative with physical therapy, and feels that he is getting stronger by the day. His creatinine is at baseline. No other issues. Physical Examination vitals: pls see below General exam: Alert and cooperative, A&O 3, NAD Eye exam: PERRLA, EOMI ENT: Atraumatic, normocephalic, dry mucous membranes Neck: Supple, no JVD Cardiac: RRR, no appreciable murmurs Respiratory: Mild rhonchi of bilateral bases, equal chest rise bilaterally, in no respiratory distress or any accessory muscle use Abdomen: Positive bowel sounds, soft, nontender, nondistended Extremity: 1-2+ edema of bilateral feet let>right, no calf tenderness Skin: [place], warm, multiple small scattered lesions on bilateral shins and feet, eschars on right big toe and pinky Neuro: normal tone, normal speech, no focal deficit MSK: Strength 5/5 x4, Able to move all extremities independently, good sprayer machine strength bilaterally laboratory data, imaging studies, microbiology: reviewed, pls see below Assessment/Plan 82-year-old male, with extensive PMH as listed below, presents to the ER for chronic lower extremity weakness that worsened yesterday and led to him falling. His , son, and [id number] accompany him and verify the information. He denies any symptoms prior to the fall. Denies any lightheadedness, dizziness, chest pain, shortness of breath. He states he simply felt his legs feel weak and give out, which has happened in the past as well. He denies hitting his head. He does endorse cough with minimal phlegm, chills, muscle aches for the past 2 days. Positive sick contact for who had similar symptoms a few days prior. He is found to be flu positive in the ER with low-grade temperature 100.1. He will be admitted for weakness and positive flu. At time of admission, he has no other complaints. Lower extremity weakness -Patient states this is chronic for him, and led to a fall prior to admission. No neuro deficits or complaints -Likely 2/2 deconditioning, worsened by acute influenza infection -Strength 5/5 in all extremities while resting -Will place him on fall precautions, PT/OT -appears dry on exam and admits decreased po intake. 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 Has hx of MRSA cellulitis -Currently being managed by PCP. Family requesting continued wound care while he is admitted -Wound care from PT consulted Hx of Systolic & Diastolic Heart Failure -Per previous records, EF was ~25%. Most recent echo on file 06/18: LVEF 55%, Mild LVH, impairment of LV diastolic fxn, moderate pulmonary hypertension -dry on exam, borderline hypotensive on admission. Will start on gentle IVF -Hold home Lasix and consider resuming upon reassessment of volume status in a.m. Paroxysmal atrial fibrillation/flutter -with hx of cardioversion, not on AC-reason is unclear -per previous records, was supposed to be on Eliquis -will require further investigation -EKG on admission reveals HR controlled under atrial pacing Hx of Tachy-Cecil Syndrome s/p PPM 07/[address] 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 Steward currently at baseline Cr ~3.2 IDDM 2 with peripheral neuropathy Continue insulin sliding scale Continue home gabapentin COPD stable, no O2 at baseline continue nebs & chronically on prednisone PVD s/p multiple surgeries as listed above in H&P Glaucoma continue home eye drops Hypothyroidism Continue home Synthroid Gout Stable, Continue home allopurinol DVT ppx: renally-dosed Lovenox VS, I&O, 24H, Fishbone Vital Signs/I&O Vital Signs Date Time Temp Pulse Resp B/P (MAP) Pulse Ox O2 Delivery O2 Flow Rate FiO2 09/19/18 14:00 98.9 72 18 122/60 (80) 94 I&O- Last 24 Hours up to 6 AM 09/19/18 06:00 Intake Total 1210 ml Output Total 1825 ml Balance -615 ml Laboratory Data 24H LABS Laboratory Tests 2 09/19/18 05:37: Bedside Glucose (Misc Panel) 138H 09/19/18 06:05: Nucleated Red Blood Cells % (auto) 0.0 09/19/18 11:58: Bedside Glucose (Misc Panel) 290H 09/19/18 16:33: Bedside Glucose (Misc Panel) 382H 09/19/18 19:30: Bedside Glucose (Misc Panel) 440H CBC/BMP Laboratory Tests 09/19/18 06:05 Red Blood Count 3.89 L, Mean Corpuscular Volume 77.6 L, Mean Corpuscular Hemoglobin 23.7 L, Mean Corpuscular Hemoglobin Concent 30.5 L, Red Cell Distribution Width 19.7 H Microbiology Microbiology 09/16/18 Urine Culture - Final, Complete UZAIR EVANS MD Sep 19, 2018 20:55
[2018-09-19] MEDS: ATORVASTATIN 20 MG TAB PO SCH (22:02)
[2018-09-19] MEDS: HumuLIN (NovoLIN)70/30 INSULIN INJ PER UNIT SC SCH (22:04)
[2018-09-20] MEDS: IPRATROPIUM 0.5MG/ALBUTEROL 2.5MG INH SOL UD 3ML (DUONEB)(J7620) NEB SCH ×4 (02:00→21:37)
[2018-09-20] MEDS: LEVOTHYROXINE 75MCG TABLET (0.075MG) PO SCH (06:05)
[2018-09-20] MEDS: HumaLOG INSULIN (NovoLOG) PER UNIT SC SCH ×4 (07:30→21:00)
[2018-09-20] MEDS: HumuLIN (NovoLIN)70/30 INSULIN INJ PER UNIT SC SCH ×2 (07:30→17:23)
--- NOTE | 2018-09-20 08:36 | IPNPDOC ---
Date Seen The patient was seen on 09/20/18. Progress Note Subjective: Pt was seen and examined at the bedside, chart has been reviewed. no new issues overnight. Yesterday, He c/o feeling cold requesting a blanket. He feels a little tired today and wanted to take a morning nap after breakfast. Last dose of tamiflu THURSDAY. He denies any fevers, myalgias, sob. He continues to have occasional nonproductive cough. He is relieved that his is recovering from the flu at home, and has a neighbor thatwas able to bring her to a fu appt with her doctor. Pt has been very cooperative with physical therapy, and feels that he is getting stronger by the day. His creatinine is at baseline. No other issues. Physical Examination vitals: pls see below General exam: Alert and cooperative, A&O 3, NAD Eye exam: PERRLA, EOMI ENT: Atraumatic, normocephalic, dry mucous membranes Neck: Supple, no JVD Cardiac: RRR, no appreciable murmurs Respiratory: Mild rhonchi of bilateral bases, equal chest rise bilaterally, in no respiratory distress or any accessory muscle use Abdomen: Positive bowel sounds, soft, nontender, nondistended Extremity: 1-2+ edema of bilateral feet let>right, no calf tenderness Skin: [place], warm, multiple small scattered lesions on bilateral shins and feet, eschars on right big toe and pinky Neuro: normal tone, normal speech, no focal deficit MSK: Strength 5/5 x4, Able to move all extremities independently, good rib knitter strength bilaterally laboratory data, imaging studies, microbiology: reviewed, pls see below Assessment/Plan 82-year-old male, with extensive PMH as listed below, presents to the ER for chronic lower extremity weakness that worsened yesterday and led to him falling. His , son, and [id number] accompany him and verify the information. He denies any symptoms prior to the fall. Denies any lightheadedness, dizziness, chest pain, shortness of breath. He states he simply felt his legs feel weak and give out, which has happened in the past as well. He denies hitting his head. He does endorse cough with minimal phlegm, chills, muscle aches for the past 2 days. Positive sick contact for who had similar symptoms a few days prior. He is found to be flu positive in the ER with low-grade temperature 100.1. He will be admitted for weakness and positive flu. At time of admission, he has no other complaints. Lower extremity weakness -Patient states this is chronic for him, and led to a fall prior to admission. No neuro deficits or complaints -Likely 2/2 deconditioning, worsened by acute influenza infection -Strength 5/5 in all extremities while resting -Will place him on fall precautions, PT/OT -appears dry on exam and admits decreased po intake. 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 Has hx of MRSA cellulitis -Currently being managed by PCP. Family requesting continued wound care while he is admitted -Wound care from PT consulted Hx of Systolic & Diastolic Heart Failure -Per previous records, EF was ~25%. Most recent echo on file 06/18: LVEF 55%, Mild LVH, impairment of LV diastolic fxn, moderate pulmonary hypertension -dry on exam, borderline hypotensive on admission. Will start on gentle IVF -Hold home Lasix and consider resuming upon reassessment of volume status in a.m. Paroxysmal atrial fibrillation/flutter -with hx of cardioversion, not on AC-reason is unclear -per previous records, was supposed to be on Eliquis -will require further investigation -EKG on admission reveals HR controlled under atrial pacing Hx of Tachy-Cecil Syndrome s/p PPM 07/[address] 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 Steward currently at baseline Cr ~3.2 IDDM 2 with peripheral neuropathy Continue insulin sliding scale Continue home gabapentin COPD stable, no O2 at baseline continue nebs & chronically on prednisone PVD s/p multiple surgeries as listed above in H&P Glaucoma continue home eye drops Hypothyroidism Continue home Synthroid Gout Stable, Continue home allopurinol DVT ppx: renally-dosed Lovenox VS, I&O, 24H, Fishbone Vital Signs/I&O Vital Signs Date Time Temp Pulse Resp B/P (MAP) Pulse Ox O2 Delivery O2 Flow Rate FiO2 4/22/19 06:00 98.5 63 20 95 09/19/18 14:00 122/60 (80) I&O- Last 24 Hours up to 6 AM 09/20/18 06:00 Intake Total 1220 ml Output Total 1365 ml Balance -145 ml Laboratory Data 24H LABS Laboratory Tests 2 09/19/18 11:58: Bedside Glucose (Misc Panel) 290H 09/19/18 16:33: Bedside Glucose (Misc Panel) 382H 09/19/18 19:30: Bedside Glucose (Misc Panel) 440H 09/19/18 21:40: Bedside Glucose (Misc Panel) 432H 09/20/18 05:47: Bedside Glucose (Misc Panel) 47L 09/20/18 06:22: Bedside Glucose Confirm (Misc) 94 09/20/18 06:37: Bedside Glucose (Misc Panel) 112H Microbiology Microbiology 09/16/18 Urine Culture - Final, Complete UZAIR EVANS MD Sep 20, 2018 08:36
[2018-09-20] MEDS: SENOKOT S TAB PO SCH ×2 (09:17→21:49)
[2018-09-20] MEDS: MULTIVITAMINS/MINERALS THERAP 1 TAB PO SCH (09:17)
[2018-09-20] MEDS: PANTOPRAZOLE 40MG TAB (PROTONIX) PO SCH (09:17)
[2018-09-20] MEDS: OMEGA-3 1000MG CAPSULE PO SCH (09:17)
[2018-09-20] MEDS: ALLOPURINOL 100 MG TAB PO SCH (09:17)
[2018-09-20] MEDS: guaiFENesin 200 MG TAB PO SCH ×3 (09:17→21:49)
[2018-09-20] MEDS: DOCUSATE SODIUM 100 MG CAP PO SCH ×2 (09:17→21:49)
[2018-09-20] MEDS: ASPIRIN 81 MG CHEW TABLET PO SCH (09:18)
[2018-09-20] MEDS: CLOPIDOGREL 75 MG TAB PO SCH (09:18)
[2018-09-20] MEDS: CO-ENZYME Q10 50 MG CAP PO SCH (09:18)
[2018-09-20] MEDS: VITAMIN D 1,000 INTERNATIONAL UNITS TABLET PO SCH (09:18)
[2018-09-20] MEDS: SODIUM CHLORIDE NASAL 0.65% SPRAY BTL (OCEAN) SCH ×3 (09:19→21:50)
[2018-09-20] MEDS: GABAPENTIN 300 MG CAP PO SCH ×2 (09:19→21:49)
[2018-09-20] MEDS: FUROSEMIDE 20 MG TAB PO SCH ×2 (09:19→21:50)
[2018-09-20] MEDS: predniSONE 5 MG TAB PO SCH (09:19)
[2018-09-20] MEDS: FLUTICASONE PROP 0.05% NASAL SPRAY 16 GM (FLONASE) NARES SCH ×2 (09:19→21:50)
[2018-09-20 14:00] VITALS: BP 153/66
[2018-09-20] MEDS: ACETAMINOPHEN TAB 650MG DOSE (2X325MG) PO PRN (16:13)
[2018-09-20 20:00] VITALS: BP 134/64
[2018-09-20] MEDS: ATORVASTATIN 20 MG TAB PO SCH (21:50)
[2018-09-21] MEDS: IPRATROPIUM 0.5MG/ALBUTEROL 2.5MG INH SOL UD 3ML (DUONEB)(J7620) NEB SCH ×4 (02:00→20:17)
[2018-09-21] MEDS: MOM 30ML SUSPENSION UDC PO PRN (05:33)
[2018-09-21] MEDS: LEVOTHYROXINE 75MCG TABLET (0.075MG) PO SCH (05:33)
[2018-09-21 06:00] VITALS: BP 154/70
[2018-09-21 07:35] LABS: CALCIUM LEVEL 8.9 MG/DL (8.8-10.2); CREATININE FOR GFR 2.49 MG/DL (0.70-1.30); GLOMERULAR FILTRATION RATE 26.5 (>35); POTASSIUM SERUM 4.1 MEQ/L (3.5-5.1)
[2018-09-21] MEDS: HumaLOG INSULIN (NovoLOG) PER UNIT SC SCH ×4 (08:45→21:37)
[2018-09-21] MEDS: OMEGA-3 1000MG CAPSULE PO SCH (08:45)
[2018-09-21] MEDS: CO-ENZYME Q10 50 MG CAP PO SCH (08:45)
[2018-09-21] MEDS: VITAMIN D 1,000 INTERNATIONAL UNITS TABLET PO SCH (08:45)
[2018-09-21] MEDS: guaiFENesin 200 MG TAB PO SCH ×3 (08:45→21:38)
[2018-09-21] MEDS: HumuLIN (NovoLIN)70/30 INSULIN INJ PER UNIT SC SCH ×2 (08:45→17:19)
[2018-09-21] MEDS: predniSONE 5 MG TAB PO SCH (08:45)
[2018-09-21] MEDS: GABAPENTIN 300 MG CAP PO SCH ×2 (08:46→21:37)
[2018-09-21] MEDS: CLOPIDOGREL 75 MG TAB PO SCH (08:46)
[2018-09-21] MEDS: SENOKOT S TAB PO SCH ×2 (08:46→21:38)
[2018-09-21] MEDS: DOCUSATE SODIUM 100 MG CAP PO SCH ×2 (08:46→21:37)
[2018-09-21] MEDS: SODIUM CHLORIDE NASAL 0.65% SPRAY BTL (OCEAN) SCH ×3 (08:46→21:38)
[2018-09-21] MEDS: ALLOPURINOL 100 MG TAB PO SCH (08:46)
[2018-09-21] MEDS: ASPIRIN 81 MG CHEW TABLET PO SCH (08:46)
[2018-09-21] MEDS: FUROSEMIDE 20 MG TAB PO SCH ×2 (08:46→17:18)
[2018-09-21] MEDS: MULTIVITAMINS/MINERALS THERAP 1 TAB PO SCH (08:46)
[2018-09-21] MEDS: PANTOPRAZOLE 40MG TAB (PROTONIX) PO SCH (08:46)
[2018-09-21] MEDS: FLUTICASONE PROP 0.05% NASAL SPRAY 16 GM (FLONASE) NARES SCH ×2 (08:47→21:38)
--- NOTE | 2018-09-21 10:31 | IPNPDOC ---
PM&R Progress Note DATE OF SERVICE: Sep 21, 2018 [employer] Progress Note Subjective: Patient reports he feels well, he still has a non-productive cough, but feels he is getting stronger. REVIEW OF SYSTEMS: The following is a completed review of systems and has been reviewed. Review of systems otherwise unremarkable. PAIN: Patient self reports no pain EYES: left eye vision loss EARS, NOSE, & THROAT: denies dysphagia or throat pain CARDIOVASCULAR: denies chest pain or palpitations PULMONARY: Negative. Denies shortness of breath GASTROINTESTINAL:denies constipation/diarrhea GENITOURINARY: +retention MUSCULOSKELETAL: bilateral LE weakness NEUROLOGICAL: peripheral neuropathy HEMATOLOGICAL: +anemia SKIN: right foot ulcers PSYCHIATRIC: Unremarkable All other review of systems found to be negative. PHYSICAL EXAMINATION: VITAL SIGNS: Please see below. GENERAL: Pleasant and cooperative. No acute distress. HEENT: PERRL. Extraocular movements intact. Injected left conjunctiva CARDIOVASCULAR: Regular rate and rhythm. No murmurs, rubs, or gallops LUNGS: Clear to auscultation bilaterally. No wheezes. No rhonchi ABDOMEN: Soft, nontender, nondistended. Positive bowel sounds. NEUROLOGICAL: Alert and oriented times three. Cranial nerves II through XII grossly intact. Sensation diminished in stocking-pattern LE EXTREMITIES: 5\\5 strength bilateral upper extremities. 5-\\5 strength bilat hip flexion, knee extension4/5 ankle DF 0/5 EHL . SKIN: right D1 2 ulcers and right lateral foot ulcer ASSESSMENT:82-year-old M with extensive cardiac history who presents status post worsening of polyneuropathy in setting of Influenza. PLAN: 1. Rehab: PT/OT, assess for DME needs, ambulating with RW 2. Neuro: pmh diabetic polyneuropathy with bilateral LE weakness exacerbated by recent viral illness- goal is to improve endurance while on ARU 3. ID: +Influenza A, continue precautions, Tamiflu held per medicine 4. Cardiac: systolic/diastolic MELVI with EF 25%, +Paroxysmal Afib off AC, Tachy- avelino syndrome with PM, CAD s/p CABG- c/i ASA, Plavix, Lasix restarted at discharge from inpatient-medicine consulted to follow -c/u statin for HLD 5. resp: pmh COPD, supplemental 02 prn, titrate to 88-92% not on at home, c/u Duonebs and incentive spirometry. c/u Guaifenesin- -CXR 09/17/18 "small right pleural effusion" 6. 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 Rheum: pmh gouth, c/u Allopurinol 8. Endo: pmh DM c/u insulin sliding scale coverage and hypothyroidism c/u Synt hroid 9. Pain: gabapentin and tylenol 10. DVT ppx: will hold given drop in platelet count 11. 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 GI ppx: c/u protonix 12. : admission UA and Ucx negative, monitor PVRs 13. Skin: bilateral LE wounds- c/u bandages to right foot and right anterior presley, keep left anterior presley ulcers c/d/i- patient follows with Dr. Blum 14. Dispo: 09/28/18 to home Allergies Coded Allergies: fluorescein (Verified Allergy, Intermediate, HYPOTENSION, 09/13/18) brimonidine (Verified Allergy, Mild, EYE REDNESS, 09/13/18) tramadol (Unverified Allergy, Unknown, 09/13/18) Vital Signs Vital Signs Date Time Temp Pulse Resp B/P (MAP) Pulse Ox O2 Delivery O2 Flow Rate FiO2 09/21/18 06:00 97.1 64 18 154/70 (98) 96 Laboratory Data CBC/BMP Laboratory Tests 09/21/18 06:47 Calcium Level 8.9 Labs 24H Laboratory Tests 2 09/20/18 11:24: Bedside Glucose (Misc Panel) 381H 09/20/18 17:10: Bedside Glucose (Misc Panel) 256H 09/20/18 20:04: Bedside Glucose (Misc Panel) 245H 09/21/18 06:47: Anion Gap 6L, Glomerular Filtration Rate 26.5L, Blood Urea Nitrogen 51H, Creatinine 2.49H, Sodium Level 136, Potassium Level 4.1, Chloride Level 100, Carbon Dioxide Level 30, Calcium Level 8.9 Microbiology Microbiology 09/16/18 Urine Culture - Final, Complete Current Medications Current Medications Current Medications Acetaminophen (Tylenol Tab) 650 mg Q4HP PRN PO fever/MILD PAIN (PS 1-4) Last administered on 09/20/18at 16:13; Start 09/16/18 at 16:00 Al Hydrox/Mg Hydrox/Simethicone (Mylanta) 30 ml Q4HP PRN PO DYSPEPSIA; Start 09/16/18 at 16:00 Albuterol/ Ipratropium (Duoneb (Ipr 0.5mg/Alb 2.5mg)) 3 ml RQ6H NEB Last administered on 09/21/18 07:20; Start 09/16/18 at 20:00 Allopurinol (Zyloprim) 100 mg DAILY PO Last administered on 09/21/18 08:46; Start 09/17/18 at 09:00 Aspirin (Aspirin Chewable) 81 mg DAILY PO Last administered on 09/21/18 08:46; Start 09/17/18 at 09:00 Atorvastatin Calcium (Lipitor) 40 mg QHS PO Last administered on 09/20/18 21:50; Start 09/16/18 at 21:00 Clopidogrel Bisulfate (PLAVix) 75 mg DAILY PO Last administered on 09/21/18 08:46; Start 09/17/18 at 09:00 Coenzyme Q10 (Coenzyme Q10) 100 mg DAILY PO Last administered on 09/21/18 08:45; Start 09/17/18 at 09:00; Stop 10/17/18 at 08:59 Dextrose (Dextrose 50%) 25 ml ASDIRECTED PRN IV SEE LABEL COMMENTS; Start 09/16/18 at 16:00 Docusate Sodium (Colace) 100 mg BID PO Last administered on 09/21/18 08:46; Start 09/16/18 at 21:00 Fish Oil ([place]-3 (1000mg)) 1 cap DAILY PO Last administered on 09/21/18 08:45; Start 09/17/18 at 09:00 Fluticasone Propionate (Flonase 0.05% Nasal [place]) 1 spray BID NARES Last administered on 09/21/18 08:47; Start 09/17/18 at 09:00 Furosemide (Lasix) 20 mg DAILY PO Last administered on 09/21/18 08:46; Start 09/18/18 at 09:00 Furosemide (Lasix) 20 mg QHS PO Last administered on 09/20/18 21:50; Start 09/16/18 at 21:00 Furosemide (Lasix) 40 mg DAILY PO Last administered on 09/17/18at 08:14; Start 09/17/18 at 09:00; Stop 09/17/18 at 11:22; Status DC Gabapentin (Neurontin) 300 mg BID PO Last administered on 09/21/18at 08:46; S tart 09/16/18 at 21:00 Glucagon (Glucagon) 1 mg ASDIRECTED PRN SC SEE LABEL COMMENTS; Start 09/16/18 at 16:00 Glucose (Glucose) 16 GM ASDIRECTED PRN PO SEE LABEL COMMENTS; Start 09/16/18 at 16:00 Guaifenesin (Robitussin Tab) 400 mg TID PO Last administered on 09/21/18at 08:45; Start 09/17/18 at 09:00 Heparin Sodium (Porcine) (Heparin) 5,000 units BID SQ Last administered on 09/16/18at 20:19; Start 09/16/18 at 21:00; Stop 09/17/18 at 11:20; Status DC Home Med (Med Rec Complete!) ASDIRECTED XX ; Start 09/17/18 at 11:30; Stop 09/17/18 at 11:30; Status DC Insulin Human Isoph/Insulin Regular (HumuLIN 70/30 INSULIN) 15 units DAILY@0730 SC Last administered on 09/21/18at 08:45; Start 09/20/18 at 07:30 Insulin Human Isoph/Insulin Regular (HumuLIN 70/30 INSULIN) 15 units DAILY@1730 SC Last administered on 09/20/18at 17:23; Start 09/20/18 at 17:30 Insulin Human Isoph/Insulin Regular (HumuLIN 70/30 INSULIN) 25 units QAM SC ; Start 09/19/18 at 09:00; Stop 09/20/18 at 09:15; Status DC Insulin Human Isoph/Insulin Regular (HumuLIN 70/30 INSULIN) 26 units QHS SC Last administered on 09/19/18at 22:04; Start 09/17/18 at 21:00; Stop 09/20/18 at 09:15; Status DC Insulin Human Isoph/Insulin Regular (HumuLIN 70/30 INSULIN) 36 units QAM SC Last administered on 09/18/18at 09:49; Start 09/18/18 at 09:00; Stop 09/19/18 at 06:50; Status DC Insulin Human Lispro (HumaLOG INSULIN) SEE PROTOCOL TABLE AC SC Last administered on 09/21/18 08:45; Start 09/16/18 at 17:30 Insulin Human Lispro (HumaLOG INSULIN) SEE PROTOCOL TABLE QHS SC Last administered on 09/19/18 22:04; Start 09/16/18 at 21:00 Levothyroxine Sodium (Synthroid) 75 mcg DAILY@06 PO Last administered on 09/21/18 05:33; Start 09/17/18 at 06:00 Magnesium Hydroxide (Milk Of Magnesia) 30 ml DAILYPRN PRN PO CONSTIPATION Last administered on 09/21/18 05:33; Start 09/16/18 at 16:00 Multivitamins (Theragram-M) 1 tab DAILY PO Last administered on 09/21/18 08:46; Start 09/17/18 at 09:00 Nitroglycerin (Nitrostat (1/ 150)) 0.4 mg Q5MP PRN SL CHEST PAIN; Start 09/16/18 at 16:00 Ondansetron HCl (Zofran) 4 mg Q6HP PRN PO NAUSEA; Start 09/16/18 at 16:00 Oseltamivir Phosphate (Tamiflu) 30 mg DAILY PO Last administered on 09/17/18 08:12; Start 09/17/18 at 09:00; Status Future Hold Pantoprazole Sodium (Protonix) 40 mg DAILY PO Last administered on 09/21/18 08:46; Start 09/17/18 at 09:00 Prednisone (Deltasone) 5 mg DAILY PO Last administered on 09/21/18 08:45; Start 09/17/18 at 09:00 Senna/Docusate Sodium (Senokot S) 1 tab BID PO Last administered on 09/21/18 08:46; Start 09/16/18 at 21:00 Sodium Chloride ([place] Nasal [place]) 2 spray TID NA Last administered on 09/21/18 08:46; Start 09/17/18 at 09:00 Vitamin D (Vitamin D) 1,000 units DAILY PO Last administered on 09/21/18 08:45; Start 09/17/18 at 09:00 PEPPER ARTIS MD Sep 21, 2018 10:31
[2018-09-21 14:00] VITALS: BP 130/62
[2018-09-21 20:00] VITALS: BP 159/70
--- NOTE | 2018-09-21 20:24 | IPN ---
DATE: 09/21/2018 SUBJECTIVE: The patient is seen and examined in the room today. The patient denies any acute complaints. Patient states his breathing is fine. Denies needing oxygen support. OBJECTIVE: VITAL SIGNS: Temperature is 97.1, pulse is 64, respirations 18, blood pressure is 154/70, pulse oximetry is 96% in room air. GENERAL: The patient is alert, awake, comfortable. HEENT: Normocephalic, atraumatic. Extraocular motor grossly intact. CARDIOVASCULAR: Positive S1, S2, regular rate. LUNGS: Positive rhonchi bilaterally. No wheezes appreciated. ABDOMEN: Soft, nontender, nondistended. Bowel sounds present. EXTREMITIES: Mild pitting edema bilaterally, left greater than the right. LABORATORY DATA: Most recent laboratory data showed sodium is 136, potassium 4.1, chloride 100, carbon dioxide 30, BUN 51, creatinine is 2.49, GFR is 26.5, fasting glucose 226, calcium 8.9. ASSESSMENT AND PLAN: 1. Left lower extremity weakness. The patient currently continues rehabilitation (rehab) and occupational therapy (OT) in acute rehabilitation unit (ARU); diet, activity level, pain control, and anticoagulation per acute rehab instructions. 2. Influenza A infection. Status post Tamiflu. 3. 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 4. History of methicillin-resistant Staphylococcus aureus (MRSA) infection. Wound care from PT consulted. 5. Systolic and diastolic dysfunction. Most recent echo demonstrated left ventricular ejection fraction (EF) of 55%. Impairment of diastolic function. Moderate pulmonary hypertension. Continue to monitor the patient's fluid status. Currently the patient is on Lasix twice a day. 6. Gout. On allopurinol. 7. Paroxysmal atrial fibrillation/atrial flutter. Status post cardioversion. Not on anticoagulation. Will continue investigating possible contraindications. 8. 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 9. Coronary artery disease. Status post coronary artery bypass graft (CABG). On aspirin, Plavix, statin. 10. Chronic kidney disease, stage IV. Continue to follow renal function. 11. Insulin-dependent diabetes with peripheral neuropathy. Continue insulin. Continue gabapentin. 12. Chronic obstructive pulmonary disease (COPD). No exacerbation at this moment. Patient comfortable in room air. 13. Peripheral vascular disease. Patient is on aspirin, Plavix and statin. 14. Hypothyroidism. On Synthroid. 15. Deep vein thrombosis (DVT) prophylaxis. Per ARU recommendations.
[2018-09-21] MEDS: TAMSULOSIN 0.4 MG CAP PO SCH (21:37)
[2018-09-21] MEDS: ATORVASTATIN 20 MG TAB PO SCH (21:38)
[2018-09-22] MEDS: IPRATROPIUM 0.5MG/ALBUTEROL 2.5MG INH SOL UD 3ML (DUONEB)(J7620) NEB SCH ×4 (01:57→21:18)
[2018-09-22 06:00] VITALS: BP 156/72
[2018-09-22] MEDS: LEVOTHYROXINE 75MCG TABLET (0.075MG) PO SCH (06:17)
[2018-09-22 06:59] LABS: HEMATOCRIT 29.3 % (42.0-52.0); HEMOGLOBIN 8.9 g/dl (13.5-17.5); MEAN CORPUSCULAR HEMOGLOBIN 23.5 pg (27.0-33.0); MEAN CORPUSCULAR HGB CONC 30.4 g/dl (32.0-36.5); MEAN CORPUSCULAR VOLUME 77.5 fl (80.0-96.0); PLATELET COUNT, AUTOMATED 185 10^3/uL (150-450); RED BLOOD COUNT 3.78 10^6/uL (4.30-6.10); WHITE BLOOD COUNT 3.1 10^3/uL (4.0-10.0)
[2018-09-22 07:26] LABS: CALCIUM LEVEL 8.4 MG/DL (8.8-10.2); CREATININE FOR GFR 2.48 MG/DL (0.70-1.30); GLOMERULAR FILTRATION RATE 26.6 (>35); POTASSIUM SERUM 4.3 MEQ/L (3.5-5.1)
[2018-09-22] MEDS: HumuLIN (NovoLIN)70/30 INSULIN INJ PER UNIT SC SCH ×2 (07:30→17:07)
[2018-09-22] MEDS: predniSONE 5 MG TAB PO SCH (08:53)
[2018-09-22] MEDS: OMEGA-3 1000MG CAPSULE PO SCH (08:53)
[2018-09-22] MEDS: ASPIRIN 81 MG CHEW TABLET PO SCH (08:53)
[2018-09-22] MEDS: ALLOPURINOL 100 MG TAB PO SCH (08:53)
[2018-09-22] MEDS: VITAMIN D 1,000 INTERNATIONAL UNITS TABLET PO SCH (08:53)
[2018-09-22] MEDS: FUROSEMIDE 20 MG TAB PO SCH ×2 (08:53→17:07)
[2018-09-22] MEDS: GABAPENTIN 300 MG CAP PO SCH ×2 (08:53→20:45)
[2018-09-22] MEDS: HumaLOG INSULIN (NovoLOG) PER UNIT SC SCH ×4 (08:53→20:45)
[2018-09-22] MEDS: guaiFENesin 200 MG TAB PO SCH ×3 (08:53→20:45)
[2018-09-22] MEDS: CLOPIDOGREL 75 MG TAB PO SCH (08:53)
[2018-09-22] MEDS: MULTIVITAMINS/MINERALS THERAP 1 TAB PO SCH (08:53)
[2018-09-22] MEDS: DOCUSATE SODIUM 100 MG CAP PO SCH ×2 (08:53→20:45)
[2018-09-22] MEDS: SENOKOT S TAB PO SCH ×2 (08:53→20:45)
[2018-09-22] MEDS: PANTOPRAZOLE 40MG TAB (PROTONIX) PO SCH (08:53)
[2018-09-22 08:54] VITALS: BP 125/59
[2018-09-22] MEDS: FLUTICASONE PROP 0.05% NASAL SPRAY 16 GM (FLONASE) NARES SCH ×2 (08:54→20:46)
[2018-09-22] MEDS: CO-ENZYME Q10 50 MG CAP PO SCH (08:54)
[2018-09-22] MEDS: SODIUM CHLORIDE NASAL 0.65% SPRAY BTL (OCEAN) SCH ×3 (08:54→20:46)
--- NOTE | 2018-09-22 10:45 | IPNPDOC ---
PM&R Progress Note DATE OF SERVICE: Sep 22, 2018 [employer] Editor Progress Note Subjective: Patient seen in the gym, reports he still has a cough that comes and goes, denies fevers or chills. REVIEW OF SYSTEMS: The following is a completed review of systems and has been reviewed. Review of systems otherwise unremarkable. PAIN: Patient self reports no pain EYES: left eye vision loss EARS, NOSE, & THROAT: denies dysphagia or throat pain CARDIOVASCULAR: denies chest pain or palpitations PULMONARY: Negative. Denies shortness of breath GASTROINTESTINAL:denies constipation/diarrhea GENITOURINARY: +retention (improving) MUSCULOSKELETAL: bilateral LE weakness NEUROLOGICAL: peripheral neuropathy HEMATOLOGICAL: +anemia SKIN: right foot ulcers PSYCHIATRIC: Unremarkable All other review of systems found to be negative. PHYSICAL EXAMINATION: VITAL SIGNS: Please see below. GENERAL: Pleasant and cooperative. No acute distress. HEENT: PERRL. Extraocular movements intact. Injected left conjunctiva CARDIOVASCULAR: Regular rate and rhythm. No murmurs, rubs, or gallops LUNGS: Clear to auscultation bilaterally. No wheezes. No rhonchi, +upper airway congestion ABDOMEN: Soft, nontender, nondistended. Positive bowel sounds. NEUROLOGICAL: Alert and oriented times three. Cranial nerves II through XII grossly intact. Sensation diminished in stocking-pattern LE EXTREMITIES: 5\\5 strength bilateral upper extremities. 5-\\5 strength bilat hip flexion, knee extension4/5 ankle DF 0/5 EHL . SKIN: right D1 2 ulcers and right lateral foot ulcer ASSESSMENT:82-year-old M with extensive cardiac history who presents status post worsening of polyneuropathy in setting of Influenza. PLAN: 1. Rehab: PT/OT, assess for DME needs, ambulating with RW 2. Neuro: pmh diabetic polyneuropathy with bilateral LE weakness exacerbated by recent viral illness- goal is to improve endurance while on ARU 3. ID: +Influenza A, continue precautions, Tamiflu held per medicine 4. Cardiac: systolic/diastolic MELVI with EF 25%, +Paroxysmal Afib off AC, Tachy- avelino syndrome with PM, CAD s/p CABG- c/i ASA, Plavix, Lasix restarted at discharge from inpatient-medicine consulted to follow -c/u statin for HLD 5. resp: pmh COPD, supplemental 02 prn, titrate to 88-92% not on at home, c/u Duonebs and incentive spirometry, will increase Guaifenesin to 600mg TID -CXR 09/17/18 "small right pleural effusion" 6. 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 Rheum: pmh gouth, c/u Allopurinol 8. Endo: pmh DM c/u insulin sliding scale coverage and hypothyroidism c/u Synthroid 9. Pain: gabapentin and tylenol 10. DVT ppx: will hold heparin given drop in platelet count, Dopplers today negative for DVT 11. 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 GI ppx: c/u protonix 12. : admission UA and Ucx negative, monitor PVRs 13. Skin: bilateral LE wounds- c/u bandages to right foot and right anterior presley, keep left anterior presley ulcers c/d/i- patient follows with Dr. Blum 14. Dispo: 09/28/18 to home Allergies Coded Allergies: fluorescein (Verified Allergy, Intermediate, HYPOTENSION, 09/13/18) brimonidine (Verified Allergy, Mild, EYE REDNESS, 09/13/18) tramadol (Unverified Allergy, Unknown, 09/13/18) Vital Signs Vital Signs Date Time Temp Pulse Resp B/P (MAP) Pulse Ox O2 Delivery O2 Flow Rate FiO2 09/22/18 08:54 71 125/59 (81) 09/22/18 06:00 98.1 18 96 Laboratory Data CBC/BMP Laboratory Tests 09/22/18 06:40 Red Blood Count 3.78 L, Mean Corpuscular Volume 77.5 L, Mean Corpuscular Hemoglobin 23.5 L, Mean Corpuscular Hemoglobin Concent 30.4 L, Red Cell Distribution Width 19.9 H, Calcium Level 8.4 L Labs 24H Laboratory Tests 2 09/21/18 11:33: Bedside Glucose (Misc Panel) 177H 09/21/18 16:44: Bedside Glucose (Misc Panel) 266H 09/21/18 19:45: Bedside Glucose (Misc Panel) 273H 09/22/18 06:40: Nucleated Red Blood Cells % (auto) 0.0, Anion Gap 7L, Glomerular Filtration Rate 26.6L, Blood Urea Nitrogen 52H, Creatinine 2.48H, Sodium Level 139, Potassium Level 4.3, Chloride Level 101, Carbon Dioxide Level 31, Calcium Level 8.4L Microbiology Microbiology 09/16/18 Urine Culture - Final, Complete Current Medications Current Medications Current Medications Acetaminophen (Tylenol Tab) 650 mg Q4HP PRN PO fever/MILD PAIN (PS 1-4) Last administered on 09/20/18 16:13; Start 09/16/18 at 16:00 Al Hydrox/Mg Hydrox/Simethicone (Mylanta) 30 ml Q4HP PRN PO DYSPEPSIA; Start at 16:00 Albuterol/ Ipratropium (Duoneb (Ipr 0.5mg/Alb 2.5mg)) 3 ml RQ6H NEB Last administered on 09/22/18 09:15; Start 09/16/18 at 20:00 Allopurinol (Zyloprim) 100 mg DAILY PO Last administered on 09/22/18 08:53; Start 09/17/18 at 09:00 Aspirin (Aspirin Chewable) 81 mg DAILY PO Last administered on 09/22/18 08:53; Start 09/17/18 at 09:00 Atorvastatin Calcium (Lipitor) 40 mg QHS PO Last administered on 09/21/18 21:38; Start 09/16/18 at 21:00 Clopidogrel Bisulfate (PLAVix) 75 mg DAILY PO Last administered on 09/22/18 08:53; Start 09/17/18 at 09:00 Coenzyme Q10 (Coenzyme Q10) 100 mg DAILY PO Last administered on 09/22/18 08:54; Start 09/17/18 at 09:00; Stop 10/17/18 at 08:59 Dextrose (Dextrose 50%) 25 ml ASDIRECTED PRN IV SEE LABEL COMMENTS; Start 09/16/18 at 16:00 Docusate Sodium (Colace) 100 mg BID PO Last administered on 09/22/18 08:53; Start 09/16/18 at 21:00 Fish Oil ([place]-3 (1000mg)) 1 cap DAILY PO Last administered on 09/22/18 08:53; Start 09/17/18 at 09:00 Fluticasone Propionate (Flonase 0.05% Nasal [place]) 1 spray BID NARES Last administered on 09/22/18 08:54; Start 09/17/18 at 09:00 Furosemide (Lasix) 20 mg DAILY PO Last administered on 09/22/18 08:53; Start 09/18/18 at 09:00 Furosemide (Lasix) 20 mg QHS PO Last administered on 09/20/18 21:50; Start 09/16/18 at 21:00; Stop 09/21/18 at 10:31; Status DC Furosemide (Lasix) 20 mg QPM@1700 PO Last administered on 09/21/18 17:18; Start 09/21/18 at 17:00 Furosemide (Lasix) 40 mg DAILY PO Last administered on 09/17/18 08:14; Start 09/17/18 at 09:00; Stop 09/17/18 at 11:22; Status DC Gabapentin (Neurontin) 300 mg BID PO Last administered on 09/22/18 08:53; Start 09/16/18 at 21:00 Glucagon (Glucagon) 1 mg ASDIRECTED PRN SC SEE LABEL COMMENTS; Start 09/16/18 at 16:00 Glucose (Glucose) 16 GM ASDIRECTED PRN PO SEE LABEL COMMENTS; Start 09/16/18 at 16:00 Guaifenesin (Robitussin Tab) 400 mg TID PO Last administered on 09/22/18 08:53; Start 09/17/18 at 09:00 Heparin Sodium (Porcine) (Heparin) 5,000 units BID SQ Last administered on 09/16/18 20:19; Start 09/16/18 at 21:00; Stop 09/17/18 at 11:20; Status DC Home Med (Med Rec Complete!) ASDIRECTED XX ; Start 09/17/18 at 11:30; Stop 09/17/18 at 11:30; Status DC Insulin Human Isoph/Insulin Regular (HumuLIN 70/30 INSULIN) 15 units DAILY@0730 SC Last administered on 09/21/18 08:45; Start 09/20/18 at 07:30 Insulin Human Isoph/Insulin Regular (HumuLIN 70/30 INSULIN) 15 units DAILY@1730 SC Last administered on 09/21/18 17:19; Start 09/20/18 at 17:30 Insulin Human Isoph/Insulin Regular (HumuLIN 70/30 INSULIN) 25 units QAM SC ; Start 09/19/18 at 09:00; Stop 09/20/18 at 09:15; Status DC Insulin Human Isoph/Insulin Regular (HumuLIN 70/30 INSULIN) 26 units QHS SC Last administered on 09/19/18at 22:04; Start 09/17/18 at 21:00; Stop 09/20/18 at 09:15; Status DC Insulin Human Isoph/Insulin Regular (HumuLIN 70/30 INSULIN) 36 units QAM SC Last administered on 09/18/18at 09:49; Start 09/18/18 at 09:00; Stop 09/19/18 at 06:50; Status DC Insulin Human Lispro (HumaLOG INSULIN) SEE PROTOCOL TABLE AC SC Last administered on 09/22/18 08:53; Start 09/16/18 at 17:30 Insulin Human Lispro (HumaLOG INSULIN) SEE PROTOCOL TABLE QHS SC Last administered on 09/21/18 21:37; Start 09/16/18 at 21:00 Levothyroxine Sodium (Synthroid) 75 mcg DAILY@06 PO Last administered on 09/22/18 06:17; Start 09/17/18 at 06:00 Magnesium Hydroxide (Milk Of Magnesia) 30 ml DAILYPRN PRN PO CONSTIPATION Last administered on 09/21/18 05:33; Start 09/16/18 at 16:00 Multivitamins (Theragram-M) 1 tab DAILY PO Last administered on 09/22/18 08: 53; Start 09/17/18 at 09:00 Nitroglycerin (Nitrostat (1/ 150)) 0.4 mg Q5MP PRN SL CHEST PAIN; Start 09/16/18 at 16:00 Ondansetron HCl (Zofran) 4 mg Q6HP PRN PO NAUSEA; Start 09/16/18 at 16:00 Oseltamivir Phosphate (Tamiflu) 30 mg DAILY PO Last administered on 09/17/18 08:12; Start 09/17/18 at 09:00; Status Future Hold Pantoprazole Sodium (Protonix) 40 mg DAILY PO Last administered on 09/22/18 08:53; Start 09/17/18 at 09:00 Prednisone (Deltasone) 5 mg DAILY PO Last administered on 09/22/18 08:53; Start 09/17/18 at 09:00 Senna/Docusate Sodium (Senokot S) 1 tab BID PO Last administered on 09/22/18 08:53; Start 09/16/18 at 21:00 Sodium Chloride ([place] Nasal [place]) 2 spray TID NA Last administered on 09/22/18 08:54; Start 09/17/18 at 09:00 Tamsulosin HCl (Flomax) 0.4 mg QHS PO Last administered on 09/21/18 21:37; Start 09/21/18 at 21:00 Vitamin D (Vitamin D) 1,000 units DAILY PO Last administered on 09/22/18 08:53; Start 09/17/18 at 09:00 A-FIB/CHADSVASC A-FIB History Current/History of A-Fib/PAF?: No Current Oral Anticoagulant The: No PEPPER ARTIS MD Sep 22, 2018 10:45
--- NOTE | 2018-09-22 13:18 | IPNPDOC ---
Text Note Date of Service The patient was seen on 09/22/18. NOTE SUBJECTIVE: The patient is seen and examined in the room today. Patient still has intermittent cough. He denies sputum production. Denies fever or chill. Patient still has lower extremity swellings. OBJECTIVE: VITAL SIGNS: Listed below. GENERAL: The patient is alert, awake, comfortable. HEENT: Normocephalic, atraumatic. Extraocular motor grossly intact. CARDIOVASCULAR: Positive S1, S2, regular rate. LUNGS: Positive rhonchi bilaterally. No wheezes appreciated. ABDOMEN: Soft, nontender, nondistended. Bowel sounds present. EXTREMITIES: Pitting edema bilaterally, left greater than the right. LABORATORY DATA: Listed below. ASSESSMENT AND PLAN: #. Lower extremity weakness. - Continues rehabilitation (rehab) and occupational therapy (OT) in acute rehabilitation unit (ARU); diet, activity level, pain control, and anticoagulation per acute rehab instructions. #. Influenza A infection. - On Tamiflu. #. Systolic and diastolic dysfunction. - Most recent echo demonstrated left ventricular ejection fraction (EF) of 55%. Impairment of diastolic function. Moderate pulmonary hypertension. - Patient was on lasix QDaily. Patient had signs of fluid overload. Currently titi jacobsen is on lasix BID. Continue monitoring fluid status. Continue monitoring renal function. #. 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 #. History of methicillin-resistant Staphylococcus aureus (MRSA) infection. - Wound care from PT consulted. #. Gout. - On allopurinol. #. Paroxysmal atrial fibrillation/atrial flutter. - Status post cardioversion. Not on anticoagulation. Will continue investigating possible contraindications. #. 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 #. Coronary artery disease. - Status post coronary artery bypass graft (CABG). On aspirin, Plavix, statin. #. Chronic kidney disease, stage IV. Continue to follow renal function. #. Insulin-dependent diabetes with peripheral neuropathy. - Continue insulin. Continue gabapentin. #. Chronic obstructive pulmonary disease (COPD). - No exacerbation at this moment. Patient comfortable in room air. #. Peripheral vascular disease. - Patient is on aspirin, Plavix and statin. #. Hypothyroidism. - On Synthroid. #. Deep vein thrombosis (DVT) prophylaxis. Per ARU recommendations. VS,Fishbone, I+O VS, Fishbone, I+O Laboratory Tests 4/24/19 06:40 Red Blood Count 3.78 L, Mean Corpuscular Volume 77.5 L, Mean Corpuscular Hemoglobin 23.5 L, Mean Corpuscular Hemoglobin Concent 30.4 L, Red Cell Distribution Width 19.9 H, Calcium Level 8.4 L Vital Signs Date Time Temp Pulse Resp B/P (MAP) Pulse Ox O2 Delivery O2 Flow Rate FiO2 09/22/18 08:54 71 125/59 (81) 09/22/18 06:00 98.1 18 96 I&O- Last 24 Hours up to 6 AM 09/22/18 06:00 Intake Total 820 ml Output Total 975 ml Balance -155 ml HARLEEN CLAY DO Sep 22, 2018 13:18
[2018-09-22 14:00] VITALS: BP 150/66
--- NOTE | 2018-09-22 14:48 | REP ---
Bilateral lower extremity Duplex Doppler venous ultrasound: Real time compression and duplex Doppler interrogation of the bilateral lower extremity deep venous system is performed. Bilaterally, the common femoral, superficial femoral and popliteal veins are fully compressible with transducer pressure and demonstrate normal spontaneous and phasic flow, without evidence of deep venous thrombosis. Impression: No evidence of deep venous thrombosis of the bilateral lower extremity femoral popliteal venous system. Electronically Signed by Cassius Adame MD 09/22/2018 02:40 P
[2018-09-22] MEDS: ACETAMINOPHEN TAB 650MG DOSE (2X325MG) PO PRN (14:52)
[2018-09-22 20:00] VITALS: BP 145/65
[2018-09-22] MEDS: TAMSULOSIN 0.4 MG CAP PO SCH (20:45)
[2018-09-22] MEDS: ATORVASTATIN 20 MG TAB PO SCH (20:45)
[2018-09-23] MEDS: IPRATROPIUM 0.5MG/ALBUTEROL 2.5MG INH SOL UD 3ML (DUONEB)(J7620) NEB SCH ×4 (02:00→20:12)
[2018-09-23] MEDS: LEVOTHYROXINE 75MCG TABLET (0.075MG) PO SCH (05:21)
[2018-09-23 06:04] VITALS: BP 155/68
[2018-09-23] MEDS: HumuLIN (NovoLIN)70/30 INSULIN INJ PER UNIT SC SCH ×2 (07:30→17:13)
[2018-09-23] MEDS: HumaLOG INSULIN (NovoLOG) PER UNIT SC SCH ×4 (08:03→20:58)
[2018-09-23] MEDS: guaiFENesin 200 MG TAB PO SCH ×3 (08:05→20:57)
[2018-09-23] MEDS: MULTIVITAMINS/MINERALS THERAP 1 TAB PO SCH (08:05)
[2018-09-23] MEDS: ALLOPURINOL 100 MG TAB PO SCH (08:05)
[2018-09-23] MEDS: PANTOPRAZOLE 40MG TAB (PROTONIX) PO SCH (08:05)
[2018-09-23] MEDS: CLOPIDOGREL 75 MG TAB PO SCH (08:05)
[2018-09-23] MEDS: CO-ENZYME Q10 50 MG CAP PO SCH (08:06)
[2018-09-23] MEDS: DOCUSATE SODIUM 100 MG CAP PO SCH ×2 (08:06→20:57)
[2018-09-23] MEDS: predniSONE 5 MG TAB PO SCH (08:06)
[2018-09-23] MEDS: GABAPENTIN 300 MG CAP PO SCH ×2 (08:06→20:57)
[2018-09-23] MEDS: VITAMIN D 1,000 INTERNATIONAL UNITS TABLET PO SCH (08:06)
[2018-09-23] MEDS: ASPIRIN 81 MG CHEW TABLET PO SCH (08:06)
[2018-09-23] MEDS: OMEGA-3 1000MG CAPSULE PO SCH (08:06)
[2018-09-23] MEDS: SENOKOT S TAB PO SCH ×2 (08:06→20:57)
[2018-09-23] MEDS: FUROSEMIDE 20 MG TAB PO SCH ×2 (08:07→17:13)
[2018-09-23] MEDS: FLUTICASONE PROP 0.05% NASAL SPRAY 16 GM (FLONASE) NARES SCH ×2 (08:08→20:59)
[2018-09-23] MEDS: SODIUM CHLORIDE NASAL 0.65% SPRAY BTL (OCEAN) SCH ×3 (08:08→20:59)
[2018-09-23] MEDS: ACETAMINOPHEN TAB 650MG DOSE (2X325MG) PO PRN (08:45)
--- NOTE | 2018-09-23 10:36 | IPNPDOC ---
PM&R Progress Note DATE OF SERVICE: Sep 23, 2018 Financial Services Officer Progress Note Subjective: Patient reports his cough is getting better and his balance is improving. REVIEW OF SYSTEMS: The following is a completed review of systems and has been reviewed. Review of systems otherwise unremarkable. PAIN: Patient self reports no pain EYES: left eye vision loss EARS, NOSE, & THROAT: denies dysphagia or throat pain CARDIOVASCULAR: denies chest pain or palpitations PULMONARY: Negative. Denies shortness of breath GASTROINTESTINAL:denies constipation/diarrhea GENITOURINARY: +retention (improving) MUSCULOSKELETAL: bilateral LE weakness NEUROLOGICAL: peripheral neuropathy HEMATOLOGICAL: +anemia SKIN: right foot ulcers PSYCHIATRIC: Unremarkable All other review of systems found to be negative. PHYSICAL EXAMINATION: VITAL SIGNS: Please see below. GENERAL: Pleasant and cooperative. No acute distress. HEENT: PERRL. Extraocular movements intact. Injected left conjunctiva CARDIOVASCULAR: Regular rate and rhythm. No murmurs, rubs, or gallops LUNGS: Clear to auscultation bilaterally. No wheezes. No rhonchi, +upper airway congestion ABDOMEN: Soft, nontender, nondistended. Positive bowel sounds. NEUROLOGICAL: Alert and oriented times three. Cranial nerves II through XII grossly intact. Sensation diminished in stocking-pattern LE EXTREMITIES: 5\\5 strength bilateral upper extremities. 5-\\5 strength bilat hip flexion, knee extension4/5 ankle DF 0/5 EHL . SKIN: right D1 2 ulcers and right lateral foot ulcer ASSESSMENT:82-year-old M with extensive cardiac history who presents status post worsening of polyneuropathy in setting of Influenza. PLAN: 1. Rehab: PT/OT, assess for DME needs, ambulating further with RW 2. Neuro: pmh diabetic polyneuropathy with bilateral LE weakness exacerbated by recent viral illness- goal is to improve endurance while on ARU 3. ID: +Influenza A, continue precautions, Tamiflu held per medicine 4. Cardiac: systolic/diastolic MELVI with EF 25%, +Paroxysmal Afib off AC, Tachy- avelino syndrome with PM, CAD s/p CABG- c/i ASA, Plavix, Lasix restarted at discharge from inpatient-medicine consulted to follow -c/u statin for HLD 5. resp: pmh COPD, supplemental 02 prn, titrate to 88-92% not on at home, c/u Duonebs and incentive spirometry, will increase Guaifenesin to 600mg TID -CXR 09/17/18 "small right pleural effusion" 6. 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 Rheum: pmh gouth, c/u Allopurinol 8. Endo: pmh DM c/u insulin sliding scale coverage and hypothyroidism c/u Synthroid 9. Pain: gabapentin and tylenol 10. DVT ppx: will hold heparin given drop in platelet count, Dopplers today negative for DVT 11. 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 GI ppx: c/u protonix 12. : admission UA and Ucx negative, monitor PVRs 13. Skin: bilateral LE wounds- c/u bandages to right foot and right anterior presley, keep left anterior presley ulcers c/d/i- patient follows with Dr. Blum 14. Dispo: 09/28/18 to home Allergies Coded Allergies: fluorescein (Verified Allergy, Intermediate, HYPOTENSION, 09/13/18) brimonidine (Verified Allergy, Mild, EYE REDNESS, 09/13/18) tramadol (Unverified Allergy, Unknown, 09/13/18) Vital Signs Vital Signs Date Time Temp Pulse Resp B/P (MAP) Pulse Ox O2 Delivery O2 Flow Rate FiO2 09/23/18 06:04 98.4 63 20 155/68 (97) 93 Laboratory Data Labs 24H Laboratory Tests 2 09/22/18 12:29: Bedside Glucose (Misc Panel) 377H 09/22/18 16:31: Bedside Glucose (Misc Panel) 353H 09/22/18 20:38: Bedside Glucose (Misc Panel) 221H 09/23/18 05:16: Bedside Glucose (Misc Panel) 172H Microbiology Microbiology 09/16/18 Urine Culture - Final, Complete Current Medications Current Medications Current Medications Acetaminophen (Tylenol Tab) 650 mg Q4HP PRN PO fever/MILD PAIN (PS 1-4) Last administered on 09/23/18at 08:45; Start 09/16/18 at 16:00 Al Hydrox/Mg Hydrox/Simethicone (Mylanta) 30 ml Q4HP PRN PO DYSPEPSIA; Start 09/16/18 at 16:00 Albuterol/ Ipratropium (Duoneb (Ipr 0.5mg/Alb 2.5mg)) 3 ml RQ6H NEB Last administered on 09/23/18 08:36; Start 09/16/18 at 20:00 Allopurinol (Zyloprim) 100 mg DAILY PO Last administered on 09/23/18 08:05; Start 09/17/18 at 09:00 Aspirin (Aspirin Chewable) 81 mg DAILY PO Last administered on 09/23/18 08:06; Start 09/17/18 at 09:00 Atorvastatin Calcium (Lipitor) 40 mg QHS PO Last administered on 09/22/18 20:45; Start 09/16/18 at 21:00 Clopidogrel Bisulfate (PLAVix) 75 mg DAILY PO Last administered on 09/23/18 08:05; Start 09/17/18 at 09:00 Coenzyme Q10 (Coenzyme Q10) 100 mg DAILY PO Last administered on 09/23/18 08:06; Start 09/17/18 at 09:00; Stop 10/17/18 at 08:59 Dextrose (Dextrose 50%) 25 ml ASDIRECTED PRN IV SEE LABEL COMMENTS; Start 09/16/18 at 16:00 Docusate Sodium (Colace) 100 mg BID PO Last administered on 09/23/18 08:06; Start 09/16/18 at 21:00 Fish Oil ([place]-3 (1000mg)) 1 cap DAILY PO Last administered on 09/23/18 0 8:06; Start 09/17/18 at 09:00 Fluticasone Propionate (Flonase 0.05% Nasal [place]) 1 spray BID NARES Last administered on 09/23/18 08:08; Start 09/17/18 at 09:00 Furosemide (Lasix) 20 mg DAILY PO Last administered on 09/23/18 08:07; Start 09/18/18 at 09:00 Furosemide (Lasix) 20 mg QHS PO Last administered on 09/20/18 21:50; Start 09/16/18 at 21:00; Stop 09/21/18 at 10:31; Status DC Furosemide (Lasix) 20 mg QPM@1700 PO Last administered on 09/22/18 17:07; Start 09/21/18 at 17:00 Furosemide (Lasix) 40 mg DAILY PO Last administered on 09/17/18at 08:14; Start 09/17/18 at 09:00; Stop 09/17/18 at 11:22; Status DC Gabapentin (Neurontin) 300 mg BID PO Last administered on 09/23/18at 08:06; Start 09/16/18 at 21:00 Glucagon (Glucagon) 1 mg ASDIRECTED PRN SC SEE LABEL COMMENTS; Start 09/16/18 at 16:00 Glucose (Glucose) 16 GM ASDIRECTED PRN PO SEE LABEL COMMENTS; Start 09/16/18 at 16:00 Guaifenesin (Robitussin Tab) 400 mg TID PO Last administered on 09/22/18at 08:53; Start 09/17/18 at 09:00; Stop 09/22/18 at 14:37; Status DC Guaifenesin (Robitussin Tab) 600 mg TID PO Last administered on 09/23/18at 08:05; Start 09/22/18 at 16:00 Heparin Sodium (Porcine) (Heparin) 5,000 units BID SQ Last administered on 09/16/18at 20:19; Start 09/16/18 at 21:00; Stop 09/17/18 at 11:20; Status DC Home Med (Med Rec Complete!) ASDIRECTED XX ; Start 09/17/18 at 11:30; Stop 09/17/18 at 11:30; Status DC Insulin Human Isoph/Insulin Regular (HumuLIN 70/30 INSULIN) 15 units DAILY@0730 SC Last administered on 09/21/18at 08:45; Start 09/20/18 at 07:30 Insulin Human Isoph/Insulin Regular (HumuLIN 70/30 INSULIN) 15 units DAILY@1730 SC Last administered on 09/22/18at 17:07; Start 09/20/18 at 17:30 Insulin Human Isoph/Insulin Regular (HumuLIN 70/30 INSULIN) 25 units QAM SC ; Start 09/19/18 at 09:00; Stop 09/20/18 at 09:15; Status DC Insulin Human Isoph/Insulin Regular (HumuLIN 70/30 INSULIN) 26 units QHS SC Last administered on 09/19/18at 22:04; Start 09/17/18 at 21:00; Stop 09/20/18 at 09:15; Status DC Insulin Human Isoph/Insulin Regular (HumuLIN 70/30 INSULIN) 36 units QAM SC Last administered on 09/18/18 09:49; Start 09/18/18 at 09:00; Stop 09/19/18 at 06:50; Status DC Insulin Human Lispro (HumaLOG INSULIN) SEE PROTOCOL TABLE AC SC Last administered on 09/23/18 08:03; Start 09/16/18 at 17:30 Insulin Human Lispro (HumaLOG INSULIN) SEE PROTOCOL TABLE QHS SC Last administered on 09/21/18 21:37; Start 09/16/18 at 21:00 Levothyroxine Sodium (Synthroid) 75 mcg DAILY@06 PO Last administered on 09/23/18 05:21; Start 09/17/18 at 06:00 Magnesium Hydroxide (Milk Of Magnesia) 30 ml DAILYPRN PRN PO CONSTIPATION Last administered on 09/21/18 05:33; Start 09/16/18 at 16:00 Multivitamins (Theragram-M) 1 tab DAILY PO Last administered on 09/23/18 08:05; Start 09/17/18 at 09:00 Nitroglycerin (Nitrostat (1/ 150)) 0.4 mg Q5MP PRN SL CHEST PAIN; Start 09/16/18 at 16:00 Ondansetron HCl (Zofran) 4 mg Q6HP PRN PO NAUSEA; Start 09/16/18 at 16:00 Oseltamivir Phosphate (Tamiflu) 30 mg DAILY PO Last administered on 09/17/18 08:12; Start 09/17/18 at 09:00; Stop 09/22/18 at 14:59; Status DC Pantoprazole Sodium (Protonix) 40 mg DAILY PO Last administered on 09/23/18 08:05; Start 09/17/18 at 09:00 Prednisone (Deltasone) 5 mg DAILY PO Last administered on 09/23/18 08:06; Start 09/17/18 at 09:00 Senna/Docusate Sodium (Senokot S) 1 tab BID PO Last administered on 09/23/18 08:06; Start 09/16/18 at 21:00 Sodium Chloride ([place] Nasal [place]) 2 spray TID NA Last administered on 09/23/18 08:08; Start 09/17/18 at 09:00 Tamsulosin HCl (Flomax) 0.4 mg QHS PO Last administered on 09/22/18at 20:45; Start 09/21/18 at 21:00 Vitamin D (Vitamin D) 1,000 units DAILY PO Last administered on 09/23/18at 08:06; Start 09/17/18 at 09:00 A-FIB/CHADSVASC A-FIB History Current/History of A-Fib/PAF?: Yes Current Oral Anticoagulant The: No PEPPER ARTIS MD Sep 23, 2018 10:36
[2018-09-23 14:00] VITALS: BP 152/73
--- NOTE | 2018-09-23 19:22 | IPNPDOC ---
Text Note Date of Service The patient was seen on 09/23/18. NOTE SUBJECTIVE: The patient is seen and examined in the room today. Patient has intermittent cough. He feels lower extremity swellings are improving.Denies fever or chill. Patient still has lower extremity swellings. OBJECTIVE: VITAL SIGNS: Listed below. GENERAL: The patient is alert, awake, comfortable. HEENT: Normocephalic, atraumatic. Extraocular motor grossly intact. CARDIOVASCULAR: Positive S1, S2, regular rate. LUNGS: Positive rhonchi bilaterally. Positive expiratory wheezes appreciated. ABDOMEN: Soft, nontender, nondistended. Bowel sounds present. EXTREMITIES: Mild pitting edema bilaterally, left greater than the right. LABORATORY DATA: Listed below. ASSESSMENT AND PLAN: #. Lower extremity weakness. - Continues rehabilitation (rehab) and occupational therapy (OT) in acute rehabilitation unit (ARU); diet, activity level, pain control, and anticoagulation per acute rehab instructions. #. Influenza A infection. - S/P Tamiflu. #. Chronic obstructive pulmonary disease (COPD). - No exacerbation at this moment. Patient comfortable in room air. Continue breathing treatment PRN. #. Systolic and diastolic dysfunction. - Most recent echo demonstrated left ventricular ejection fraction (EF) of 55%. Impairment of diastolic function. Moderate pulmonary hypertension. - Patient had signs of fluid overload. Currently patient is on lasix BID. Continue monitoring fluid status. Continue monitoring renal function. #. 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 #. History of methicillin-resistant Staphylococcus aureus (MRSA) infection. - Wound care from PT consulted. #. Gout. - On allopurinol. #. Paroxysmal atrial fibrillation/atrial flutter. - Status post cardioversion. Not on anticoagulation. Will continue investigating possible contraindications. #. 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 #. Coronary artery disease. - Status post coronary artery bypass graft (CABG). On aspirin, Plavix, statin. #. Chronic kidney disease, stage IV. Continue to follow renal function. #. Insulin-dependent diabetes with peripheral neuropathy. - Continue insulin. Continue gabapentin. #. Peripheral vascular disease. - Patient is on aspirin, Plavix and statin. #. Hypothyroidism. - On Synthroid. #. Deep vein thrombosis (DVT) prophylaxis. Per ARU recommendations. VS,Fishbone, I+O VS, Fishbone, I+O Vital Signs Date Time Temp Pulse Resp B/P (MAP) Pulse Ox O2 Delivery O2 Flow Rate FiO2 09/23/18 14:00 97.6 73 19 152/73 (21) 92 I&O- Last 24 Hours up to 6 AM 09/23/18 06:00 Intake Total 1140 ml Output Total 1625 ml Balance -485 ml HARLEEN CLAY DO Sep 23, 2018 19:22
[2018-09-23] MEDS: ATORVASTATIN 20 MG TAB PO SCH (20:57)
[2018-09-23] MEDS: TAMSULOSIN 0.4 MG CAP PO SCH (20:57)
[2018-09-24] MEDS: IPRATROPIUM 0.5MG/ALBUTEROL 2.5MG INH SOL UD 3ML (DUONEB)(J7620) NEB SCH ×4 (02:00→19:39)
[2018-09-24] MEDS: LEVOTHYROXINE 75MCG TABLET (0.075MG) PO SCH (05:13)
[2018-09-24 05:47] VITALS: BP 143/63
[2018-09-24 07:09] LABS: BASO # 0.1 10^3/uL (0.0-0.2); EOS % 0.2 % (0.0-3.0); HEMOGLOBIN 9.3 g/dl (13.5-17.5); LYMPH # 0.7 10^3/uL (1.5-4.5); LYMPH % 12.7 % (24.0-44.0); MEAN CORPUSCULAR HEMOGLOBIN 23.1 pg (27.0-33.0); MEAN CORPUSCULAR VOLUME 76.9 fl (80.0-96.0); MONO % 20.4 % (0.0-5.0); NEUTROPHILS # 3.3 10^3/uL (1.8-7.7); NEUTROPHILS % 63.9 % (36.0-66.0); PLATELET COUNT, AUTOMATED 251 10^3/uL (150-450); RED BLOOD COUNT 4.03 10^6/uL (4.30-6.10); WHITE BLOOD COUNT 5.1 10^3/uL (4.0-10.0)
[2018-09-24 07:28] LABS: CREATININE FOR GFR 2.47 MG/DL (0.70-1.30); GLOMERULAR FILTRATION RATE 26.8 (>35)
[2018-09-24] MEDS: VITAMIN D 1,000 INTERNATIONAL UNITS TABLET PO SCH (07:59)
[2018-09-24] MEDS: CO-ENZYME Q10 50 MG CAP PO SCH (07:59)
[2018-09-24] MEDS: OMEGA-3 1000MG CAPSULE PO SCH (07:59)
[2018-09-24] MEDS: ASPIRIN 81 MG CHEW TABLET PO SCH (07:59)
[2018-09-24] MEDS: PANTOPRAZOLE 40MG TAB (PROTONIX) PO SCH (07:59)
[2018-09-24] MEDS: guaiFENesin 200 MG TAB PO SCH ×3 (07:59→21:28)
[2018-09-24] MEDS: DOCUSATE SODIUM 100 MG CAP PO SCH ×2 (08:00→21:28)
[2018-09-24] MEDS: SENOKOT S TAB PO SCH ×2 (08:00→21:28)
[2018-09-24] MEDS: FLUTICASONE PROP 0.05% NASAL SPRAY 16 GM (FLONASE) NARES SCH ×2 (08:00→21:28)
[2018-09-24] MEDS: FUROSEMIDE 20 MG TAB PO SCH ×2 (08:00→16:57)
[2018-09-24] MEDS: MULTIVITAMINS/MINERALS THERAP 1 TAB PO SCH (08:00)
[2018-09-24] MEDS: SODIUM CHLORIDE NASAL 0.65% SPRAY BTL (OCEAN) SCH ×3 (08:00→21:28)
[2018-09-24] MEDS: predniSONE 5 MG TAB PO SCH (08:00)
[2018-09-24] MEDS: ALLOPURINOL 100 MG TAB PO SCH (08:00)
[2018-09-24] MEDS: HumaLOG INSULIN (NovoLOG) PER UNIT SC SCH ×4 (08:01→21:00)
[2018-09-24] MEDS: GABAPENTIN 300 MG CAP PO SCH ×2 (08:02→21:28)
[2018-09-24] MEDS: HumuLIN (NovoLIN)70/30 INSULIN INJ PER UNIT SC SCH ×2 (08:02→16:58)
[2018-09-24] MEDS: CLOPIDOGREL 75 MG TAB PO SCH (08:02)
--- NOTE | 2018-09-24 12:15 | IPNPDOC ---
PM&R Progress Note DATE OF SERVICE: Sep 24, 2018 Deicer Kit Assembler Progress Note Subjective: Patient reports he is ready to go home next week, but that his still has the flu and is too weak ro come in for training. REVIEW OF SYSTEMS: The following is a completed review of systems and has been reviewed. Review of systems otherwise unremarkable. PAIN: Patient self reports no pain EYES: left eye vision loss EARS, NOSE, & THROAT: denies dysphagia or throat pain CARDIOVASCULAR: denies chest pain or palpitations PULMONARY: Negative. Denies shortness of breath GASTROINTESTINAL:denies constipation/diarrhea GENITOURINARY: +retention (improving) MUSCULOSKELETAL: bilateral LE weakness NEUROLOGICAL: peripheral neuropathy HEMATOLOGICAL: +anemia SKIN: right foot ulcers PSYCHIATRIC: Unremarkable All other review of systems found to be negative. PHYSICAL EXAMINATION: VITAL SIGNS: Please see below. GENERAL: Pleasant and cooperative. No acute distress. HEENT: PERRL. Extraocular movements intact. Injected left conjunctiva CARDIOVASCULAR: Regular rate and rhythm. No murmurs, rubs, or gallops LUNGS: Clear to auscultation bilaterally. No wheezes. No rhonchi, +upper airway congestion ABDOMEN: Soft, nontender, nondistended. Positive bowel sounds. NEUROLOGICAL: Alert and oriented times three. Cranial nerves II through XII grossly intact. Sensation diminished in stocking-pattern LE EXTREMITIES: 5\\5 strength bilateral upper extremities. 5-\\5 strength bilat hip flexion, knee extension4/5 ankle DF 0/5 EHL . SKIN: right D1 2 ulcers and right lateral foot ulcer ASSESSMENT:82-year-old M with extensive cardiac history who presents status post worsening of polyneuropathy in setting of Influenza. PLAN: 1. Rehab: PT/OT, assess for DME needs, ambulating further with RW 2. Neuro: pmh diabetic polyneuropathy with bilateral LE weakness exacerbated by recent viral illness- goal is to improve endurance while on ARU 3. ID: +Influenza A, continue precautions, Tamiflu held per medicine 4. Cardiac: systolic/diastolic MELVI with EF 25%, +Paroxysmal Afib off AC, Tachy- avelino syndrome with PM, CAD s/p CABG- c/i ASA, Plavix, Lasix restarted at d ischarge from inpatient-medicine consulted to follow -c/u statin for HLD 5. resp: pmh COPD, supplemental 02 prn, titrate to 88-92% not on at home, c/u Duonebs and incentive spirometry, will increase Guaifenesin to 600mg TID -CXR 09/17/18 "small right pleural effusion" 6. Renal: pmh CKD4, will consider renal consult while on ARU- otherwise f/u outpatient- Health Education Teacher at baseline today 7. Rheum: pmh gouth, c/u Allopurinol 8. Endo: pmh DM c/u insulin sliding scale coverage and hypothyroidism c/u Synthroid 9. Pain: gabapentin and tylenol 10. DVT ppx: will hold heparin given drop in platelet count, Dopplers today negative for DVT 11. 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 GI ppx: c/u protonix 12. : admission UA and Ucx negative, monitor PVRs 13. Skin: bilateral LE wounds- c/u bandages to right foot and right anterior presley, keep left anterior presley ulcers c/d/i- patient follows with Dr. Blum 14. Dispo: 09/28/18 to home Allergies Coded Allergies: fluorescein (Verified Allergy, Intermediate, HYPOTENSION, 09/13/18) brimonidine (Verified Allergy, Mild, EYE REDNESS, 09/13/18) tramadol (Unverified Allergy, Unknown, 09/13/18) Vital Signs Vital Signs Date Time Temp Pulse Resp B/P (MAP) Pulse Ox O2 Delivery O2 Flow Rate FiO2 09/24/18 05:47 98.0 58 18 143/63 (89) 97 Laboratory Data CBC/BMP Laboratory Tests 09/24/18 06:54 Red Blood Count 4.03 L, Mean Corpuscular Volume 76.9 L, Mean Corpuscular Hemoglobin 23.1 L, Mean Corpuscular Hemoglobin Concent 30.0 L, Red Cell Distr ibution Width 20.2 H, Neutrophils (%) (Auto) 63.9, Lymphocytes (%) (Auto) 12.7 L, Monocytes (%) (Auto) 20.4 H, Eosinophils (%) (Auto) 0.2, Basophils (%) (Auto) 1.0, Neutrophils # (Auto) 3.3, Lymphocytes # (Auto) 0.7 L, Monocytes # (Auto) 1.0 H, Eosinophils # (Auto) 0.0, Basophils # (Auto) 0.1, Calcium Level 9.0 Labs 24H Laboratory Tests 2 09/23/18 16:32: Bedside Glucose (Misc Panel) 268H 09/23/18 20:09: Bedside Glucose (Misc Panel) 283H 09/24/18 06:54: Immature Granulocyte % (Auto) 1.8, White Blood Count 5.1, Red Blood Count 4.03L, Hemoglobin 9.3L, Hematocrit 31.0L, Mean Corpuscular Volume 76.9L, Mean Corpuscul ar Hemoglobin 23.1L, Mean Corpuscular Hemoglobin Concent 30.0L, Red Cell Distribution Width 20.2H, Platelet Count 251, Neutrophils (%) (Auto) 63.9, Lymphocytes (%) (Auto) 12.7L, Monocytes (%) (Auto) 20.4H, Eosinophils (%) (Auto) 0.2, Basophils (%) (Auto) 1.0, Neutrophils # (Auto) 3.3, Lymphocytes # (Auto) 0.7L, Monocytes # (Auto) 1.0H, Eosinophils # (Auto) 0.0, Basophils # (Auto) 0.1, Nucleated Red Blood Cells % (auto) 0.0, Anion Gap 8, Glomerular Filtration Rate 26.8L, Blood Urea Nitrogen 53H, Creatinine 2.47H, Sodium Level 137, Potassium Level 4.0, Chloride Level 101, Carbon Dioxide Level 28, Calcium Level 9.0 09/24/18 11:41: Bedside Glucose (Misc Panel) 261H Microbiology Microbiology 09/16/18 Urine Culture - Final, Complete Current Medications Current Medications Current Medications Acetaminophen (Tylenol Tab) 650 mg Q4HP PRN PO fever/MILD PAIN (PS 1-4) Last administered on 09/23/18at 08:45; Start 09/16/18 at 16:00 Al Hydrox/Mg Hydrox/Simethicone (Mylanta) 30 ml Q4HP PRN PO DYSPEPSIA; Start 09/16/18 at 16:00 Albuterol/ Ipratropium (Duoneb (Ipr 0.5mg/Alb 2.5mg)) 3 ml RQ6H NEB Last administered on 09/24/18at 08:15; Start 09/16/18 at 20:00 Allopurinol (Zyloprim) 100 mg DAILY PO Last administered on 09/24/18 08:00; Start 09/17/18 at 09:00 Aspirin (Aspirin Chewable) 81 mg DAILY PO Last administered on 09/24/18 07:59; Start 09/17/18 at 09:00 Atorvastatin Calcium (Lipitor) 40 mg QHS PO Last administered on 09/23/18 20:57; Start 09/16/18 at 21:00 Clopidogrel Bisulfate (PLAVix) 75 mg DAILY PO Last administered on 09/24/18 08:02; Start 09/17/18 at 09:00 Coenzyme Q10 (Coenzyme Q10) 100 mg DAILY PO Last administered on 09/24/18 07:59; Start 09/17/18 at 09:00; Stop 10/17/18 at 08:59 Dextrose (Dextrose 50%) 25 ml ASDIRECTED PRN IV SEE LABEL COMMENTS; Start 09/16/18 at 16:00 Docusate Sodium (Colace) 100 mg BID PO Last administered on 09/24/18 08:00; Start 09/16/18 at 21:00 Fish Oil ([place]-3 (1000mg)) 1 cap DAILY PO Last administered on 09/24/18 07:59; Start 09/17/18 at 09:00 Fluticasone Propionate (Flonase 0.05% Nasal [place]) 1 spray BID NARES Last administered on 09/24/18 08:00; Start 09/17/18 at 09:00 Furosemide (Lasix) 20 mg DAILY PO Last administered on 09/24/18 08:00; Start 09/18/18 at 09:00 Furosemide (Lasix) 20 mg QHS PO Last administered on 09/20/18 21:50; Start 09/16/18 at 21:00; Stop 09/21/18 at 10:31; Status DC Furosemide (Lasix) 20 mg QPM@1700 PO Last administered on 09/23/18 17:13; Start 09/21/18 at 17:00 Furosemide (Lasix) 40 mg DAILY PO Last administered on 09/17/18 08:14; Start 09/17/18 at 09:00; Stop 09/17/18 at 11:22; Status DC Gabapentin (Neurontin) 300 mg BID PO Last administered on 09/24/18 08:02; Start 09/16/18 at 21:00 Glucagon (Glucagon) 1 mg ASDIRECTED PRN SC SEE LABEL COMMENTS; Start 09/16/18 at 16:00 Glucose (Glucose) 16 GM ASDIRECTED PRN PO SEE LABEL COMMENTS; Start 09/16/18 at 16:00 Guaifenesin (Robitussin Tab) 400 mg TID PO Last administered on 09/22/18at 08:53; Start 09/17/18 at 09:00; Stop 09/22/18 at 14:37; Status DC Guaifenesin (Robitussin Tab) 600 mg TID PO Last administered on 09/24/18at 07:59; Start 09/22/18 at 16:00 Heparin Sodium (Porcine) (Heparin) 5,000 units BID SQ Last administered on 09/16/18at 20:19; Start 09/16/18 at 21:00; Stop 09/17/18 at 11:20; Status DC Home Med (Med Rec Complete!) ASDIRECTED XX ; Start 09/17/18 at 11:30; Stop 09/17/18 at 11:30; Status DC Insulin Human Isoph/Insulin Regular (HumuLIN 70/30 INSULIN) 15 units DAILY@0730 SC Last administered on 09/21/18at 08:45; Start 09/20/18 at 07:30; Stop 09/23/18 at 10:36; Status DC Insulin Human Isoph/Insulin Regular (HumuLIN 70/30 INSULIN) 15 units DAILY@1730 SC Last administered on 09/22/18at 17:07; Start 09/20/18 at 17:30; Stop 09/23/18 at 10:36; Status DC Insulin Human Isoph/Insulin Regular (HumuLIN 70/30 INSULIN) 18 units DAILY@0730 SC Last administered on 09/24/18at 08:02; Start 09/24/18 at 07:30 Insulin Human Isoph/Insulin Regular (HumuLIN 70/30 INSULIN) 18 units DAILY@1730 SC Last administered on 09/23/18at 17:13; Start 09/23/18 at 17:30 Insulin Human Isoph/Insulin Regular (HumuLIN 70/30 INSULIN) 25 units QAM SC ; Start 09/19/18 at 09:00; Stop 09/20/18 at 09:15; Status DC Insulin Human Isoph/Insulin Regular (HumuLIN 70/30 INSULIN) 26 units QHS SC Last administered on 09/19/18 22:04; Start 09/17/18 at 21:00; Stop 09/20/18 at 09:15; Status DC Insulin Human Isoph/Insulin Regular (HumuLIN 70/30 INSULIN) 36 units QAM SC Last administered on 09/18/18 09:49; Start 09/18/18 at 09:00; Stop 09/19/18 at 06:50; Status DC Insulin Human Lispro (HumaLOG INSULIN) SEE PROTOCOL TABLE AC SC Last administered on 09/24/18 11:57; Start 09/16/18 at 17:30 Insulin Human Lispro (HumaLOG INSULIN) SEE PROTOCOL TABLE QHS SC Last administered on 09/23/18 20:58; Start 09/16/18 at 21:00 Levothyroxine Sodium (Synthroid) 75 mcg DAILY@06 PO Last administered on 09/24/18 05:13; Start 09/17/18 at 06:00 Magnesium Hydroxide (Milk Of Magnesia) 30 ml DAILYPRN PRN PO CONSTIPATION Last administered on 09/21/18 05:33; Start 09/16/18 at 16:00 Multivitamins (Theragram-M) 1 tab DAILY PO Last administered on 09/24/18 08:00; Start 09/17/18 at 09:00 Nitroglycerin (Nitrostat (1/ 150)) 0.4 mg Q5MP PRN SL CHEST PAIN; Start 09/16/18 at 16:00 Ondansetron HCl (Zofran) 4 mg Q6HP PRN PO NAUSEA; Start 09/16/18 at 16:00 Oseltamivir Phosphate (Tamiflu) 30 mg DAILY PO Last administered on 09/17/18 08:12; Start 09/17/18 at 09:00; Stop 09/22/18 at 14:59; Status DC Pantoprazole Sodium (Protonix) 40 mg DAILY PO Last administered on 09/24/18 07:59; Start 09/17/18 at 09:00 Prednisone (Deltasone) 5 mg DAILY PO Last administered on 09/24/18 08:00; Start 09/17/18 at 09:00 Senna/Docusate Sodium (Senokot S) 1 tab BID PO Last administered on 4/26/19at 08:00; Start 09/16/18 at 21:00 Sodium Chloride ([place] Nasal [place]) 2 spray TID NA Last administered on 09/24/18at 08:00; Start 09/17/18 at 09:00 Tamsulosin HCl (Flomax) 0.4 mg QHS PO Last administered on 09/23/18at 20:57; Start 09/21/18 at 21:00 Vitamin D (Vitamin D) 1,000 units DAILY PO Last administered on 09/24/18at 07:59; Start 09/17/18 at 09:00 A-FIB/CHADSVASC A-FIB History Current/History of A-Fib/PAF?: Yes Current Oral Anticoagulant The: No PEPPER ARTIS MD Sep 24, 2018 12:15
[2018-09-24 16:00] VITALS: BP 142/66
--- NOTE | 2018-09-24 16:43 | IPNPDOC ---
Text Note Date of Service The patient was seen on 09/24/18. NOTE SUBJECTIVE: The patient is seen and examined in the room today. Patient states he is feeling fine today. He had one neb treatment today and it helped with breathing. Patient has intermittent cough. He feels lower extremity swellings are improving.Denies fever or chill. Patient still has lower extremity swellings. OBJECTIVE: VITAL SIGNS: Listed below. GENERAL: The patient is alert, awake, comfortable. HEENT: Normocephalic, atraumatic. Extraocular motor grossly intact. CARDIOVASCULAR: Positive S1, S2, regular rate. LUNGS: Mild rhonchi bilaterally. Mild expiratory wheezes. ABDOMEN: Soft, nontender, nondistended. Bowel sounds present. EXTREMITIES: Mild pitting edema bilaterally, left greater than the right. LABORATORY DATA: Listed below. ASSESSMENT AND PLAN: #. Lower extremity weakness. - Continues rehabilitation (rehab) and occupational therapy (OT) in acute rehabilitation unit (ARU); diet, activity level, pain control, and anticoagulation per acute rehab instructions. #. Systolic and diastolic dysfunction. - Most recent echo demonstrated left ventricular ejection fraction (EF) of 55%. Impairment of diastolic function. Moderate pulmonary hypertension. - Signs of fluid overload are improving. Currently patient is on lasix BID. Continue monitoring fluid status. Continue monitoring renal function. #. Influenza A infection. - S/P Tamiflu. #. Chronic obstructive pulmonary disease (COPD). - No exacerbation at this moment. Patient comfortable in room air. Continue breathing treatment PRN. #. 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 #. History of methicillin-resistant Staphylococcus aureus (MRSA) infection. - Wound care from PT consulted. #. Gout. - On allopurinol. #. Paroxysmal atrial fibrillation/atrial flutter. - Status post cardioversion. Not on anticoagulation. Will continue investigating possible contraindications. #. 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 #. Coronary artery disease. - Status post coronary artery bypass graft (CABG). On aspirin, Plavix, statin. #. Chronic kidney disease, stage IV. Continue to follow renal function. #. Insulin-dependent diabetes with peripheral neuropathy. - Continue insulin. Continue gabapentin. #. Peripheral vascular disease. - Patient is on aspirin, Plavix and statin. #. Hypothyroidism. - On Synthroid. #. Deep vein thrombosis (DVT) prophylaxis. Per ARU recommendations. VS,Fishbone, I+O VS, Fishbone, I+O Laboratory Tests 09/24/18 06:54 Red Blood Count 4.03 L, Mean Corpuscular Volume 76.9 L, Mean Corpuscular Hemoglobin 23.1 L, Mean Corpuscular Hemoglobin Concent 30.0 L, Red Cell Distribution Width 20.2 H, Neutrophils (%) (Auto) 63.9, Lymphocytes (%) (Auto) 12.7 L, Monocytes (%) (Auto) 20.4 H, Eosinophils (%) (Auto) 0.2, Basophils (%) (Auto) 1.0, Neutrophils # (Auto) 3.3, Lymphocytes # (Auto) 0.7 L, Monocytes # (Auto) 1.0 H, Eosinophils # (Auto) 0.0, Basophils # (Auto) 0.1, Calcium Level 9.0 Vital Signs Date Time Temp Pulse Resp B/P (MAP) Pulse Ox O2 Delivery O2 Flow Rate FiO2 09/24/18 05:47 98.0 58 18 143/63 (89) 97 I&O- Last 24 Hours up to 6 AM 09/24/18 06:00 Intake Total 1210 ml Output Total 1525 ml Balance -315 ml HARLEEN CLAY DO Sep 24, 2018 16:43
[2018-09-24 20:00] VITALS: BP 151/66
[2018-09-24] MEDS: TAMSULOSIN 0.4 MG CAP PO SCH (21:28)
[2018-09-24] MEDS: ATORVASTATIN 20 MG TAB PO SCH (21:28)
[2018-09-25] MEDS: LEVOTHYROXINE 75MCG TABLET (0.075MG) PO SCH (05:28)
[2018-09-25 06:00] VITALS: BP 146/66
[2018-09-25 07:32] LABS: HEMATOCRIT 29.4 % (42.0-52.0); HEMOGLOBIN 9.1 g/dl (13.5-17.5); MEAN CORPUSCULAR HEMOGLOBIN 23.7 pg (27.0-33.0); MEAN CORPUSCULAR VOLUME 76.6 fl (80.0-96.0); PLATELET COUNT, AUTOMATED 259 10^3/uL (150-450); RED BLOOD COUNT 3.84 10^6/uL (4.30-6.10); WHITE BLOOD COUNT 7.8 10^3/uL (4.0-10.0)
[2018-09-25] MEDS: IPRATROPIUM 0.5MG/ALBUTEROL 2.5MG INH SOL UD 3ML (DUONEB)(J7620) NEB SCH ×3 (08:45→19:54)
[2018-09-25] MEDS: OMEGA-3 1000MG CAPSULE PO SCH (08:58)
[2018-09-25] MEDS: ALLOPURINOL 100 MG TAB PO SCH (08:58)
[2018-09-25] MEDS: guaiFENesin 200 MG TAB PO SCH ×3 (08:58→21:20)
[2018-09-25] MEDS: GABAPENTIN 300 MG CAP PO SCH ×2 (08:58→21:20)
[2018-09-25] MEDS: CO-ENZYME Q10 50 MG CAP PO SCH (08:58)
[2018-09-25] MEDS: MULTIVITAMINS/MINERALS THERAP 1 TAB PO SCH (08:58)
[2018-09-25] MEDS: FUROSEMIDE 20 MG TAB PO SCH ×2 (08:58→17:17)
[2018-09-25] MEDS: PANTOPRAZOLE 40MG TAB (PROTONIX) PO SCH (08:58)
[2018-09-25] MEDS: predniSONE 5 MG TAB PO SCH (08:58)
[2018-09-25] MEDS: CLOPIDOGREL 75 MG TAB PO SCH (08:59)
[2018-09-25] MEDS: ASPIRIN 81 MG CHEW TABLET PO SCH (08:59)
[2018-09-25] MEDS: VITAMIN D 1,000 INTERNATIONAL UNITS TABLET PO SCH (08:59)
[2018-09-25] MEDS: HumuLIN (NovoLIN)70/30 INSULIN INJ PER UNIT SC SCH ×2 (08:59→16:38)
[2018-09-25] MEDS: SENOKOT S TAB PO SCH ×2 (08:59→21:20)
[2018-09-25] MEDS: DOCUSATE SODIUM 100 MG CAP PO SCH ×2 (08:59→21:19)
[2018-09-25] MEDS: HumaLOG INSULIN (NovoLOG) PER UNIT SC SCH ×4 (09:00→21:26)
[2018-09-25] MEDS: FLUTICASONE PROP 0.05% NASAL SPRAY 16 GM (FLONASE) NARES SCH ×2 (09:00→21:20)
[2018-09-25] MEDS: SODIUM CHLORIDE NASAL 0.65% SPRAY BTL (OCEAN) SCH ×3 (09:00→21:20)
--- NOTE | 2018-09-25 11:44 | IPNPDOC ---
Text Note Date of Service The patient was seen on 09/25/18. NOTE SUBJECTIVE: The patient is seen and examined in the room today. Patient denies acute complaint. His breathing is stable. He has used nebulizer treatment few times and he thinks that helps a lot. He feels lower extremity swellings are improving. OBJECTIVE: VITAL SIGNS: Listed below. GENERAL: The patient is alert, awake, comfortable. HEENT: Normocephalic, atraumatic. Extraocular motor grossly intact. CARDIOVASCULAR: Positive S1, S2, regular rate. LUNGS: Mild rhonchi bilaterally. Mild expiratory wheezes. ABDOMEN: Soft, nontender, nondistended. Bowel sounds present. EXTREMITIES: Mild pitting edema bilaterally, left greater than the right. LABORATORY DATA: Listed below. ASSESSMENT AND PLAN: #. Lower extremity weakness. - Continues rehabilitation (rehab) and occupational therapy (OT) in acute rehabilitation unit (ARU); diet, activity level, pain control, and anticoagul ation per acute rehab instructions. #. Systolic and diastolic dysfunction. - Most recent echo demonstrated left ventricular ejection fraction (EF) of 55%. Impairment of diastolic function. Moderate pulmonary hypertension. - On lasix BID. No sign of significant fluid overload. Continue monitoring fluid status. Continue monitoring renal function. #. Influenza A infection. - S/P Tamiflu. #. Chronic obstructive pulmonary disease (COPD). - No exacerbation at this moment. Patient comfortable in room air. Continue breathing treatment PRN. #. 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 #. History of methicillin-resistant Staphylococcus aureus (MRSA) infection. - Wound care from PT consulted. #. Gout. - On allopurinol. #. Paroxysmal atrial fibrillation/atrial flutter. - Status post cardioversion. Not on anticoagulation. Will continue investigating possible contraindications. #. 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 #. Coronary artery disease. - Status post coronary artery bypass graft (CABG). On aspirin, Plavix, statin. #. Chronic kidney disease, stage IV. Continue to follow renal function. #. Insulin-dependent diabetes with peripheral neuropathy. - Continue insulin. Continue gabapentin. #. Peripheral vascular disease. - Patient is on aspirin, Plavix and statin. #. Hypothyroidism. - On Synthroid. #. Deep vein thrombosis (DVT) prophylaxis. Per ARU recommendations. VS,Fishbone, I+O VS, Fishbone, I+O Laboratory Tests 09/25/18 07:04 Red Blood Count 3.84 L, Mean Corpuscular Volume 76.6 L, Mean Corpuscular Hemoglobin 23.7 L, Mean Corpuscular Hemoglobin Concent 31.0 L, Red Cell Distribution Width 20.2 H Vital Signs Date Time Temp Pulse Resp B/P (MAP) Pulse Ox O2 Delivery O2 Flow Rate FiO2 09/25/18 06:00 99.8 67 17 146/66 (80) 93 I&O- Last 24 Hours up to 6 AM 09/25/18 06:00 Intake Total 1080 ml Output Total 1000 ml Balance 80 ml AHRLEEN CLAY DO Sep 25, 2018 11:44
[2018-09-25 14:00] VITALS: BP 135/62
[2018-09-25] MEDS: MOM 30ML SUSPENSION UDC PO PRN (17:17)
[2018-09-25 20:00] VITALS: BP 140/60
[2018-09-25] MEDS: TAMSULOSIN 0.4 MG CAP PO SCH (21:19)
[2018-09-25] MEDS: ATORVASTATIN 20 MG TAB PO SCH (21:20)
[2018-09-26] MEDS: IPRATROPIUM 0.5MG/ALBUTEROL 2.5MG INH SOL UD 3ML (DUONEB)(J7620) NEB SCH ×4 (02:15→20:26)
[2018-09-26 06:00] VITALS: BP_SYST 128; BP_SYST 130; BP_DIAS 60; BP_DIAS 64
[2018-09-26] MEDS: LEVOTHYROXINE 75MCG TABLET (0.075MG) PO SCH (06:10)
[2018-09-26] MEDS: HumaLOG INSULIN (NovoLOG) PER UNIT SC SCH ×4 (08:01→20:09)
[2018-09-26] MEDS: MULTIVITAMINS/MINERALS THERAP 1 TAB PO SCH (08:01)
[2018-09-26] MEDS: DOCUSATE SODIUM 100 MG CAP PO SCH ×2 (08:01→20:08)
[2018-09-26] MEDS: PANTOPRAZOLE 40MG TAB (PROTONIX) PO SCH (08:01)
[2018-09-26] MEDS: HumuLIN (NovoLIN)70/30 INSULIN INJ PER UNIT SC SCH ×2 (08:01→17:27)
[2018-09-26] MEDS: ASPIRIN 81 MG CHEW TABLET PO SCH (08:02)
[2018-09-26] MEDS: guaiFENesin 200 MG TAB PO SCH ×3 (08:02→20:08)
[2018-09-26] MEDS: ALLOPURINOL 100 MG TAB PO SCH (08:02)
[2018-09-26] MEDS: VITAMIN D 1,000 INTERNATIONAL UNITS TABLET PO SCH (08:02)
[2018-09-26] MEDS: CLOPIDOGREL 75 MG TAB PO SCH (08:02)
[2018-09-26] MEDS: OMEGA-3 1000MG CAPSULE PO SCH (08:02)
[2018-09-26] MEDS: GABAPENTIN 300 MG CAP PO SCH ×2 (08:02→20:08)
[2018-09-26] MEDS: SENOKOT S TAB PO SCH ×2 (08:02→20:08)
[2018-09-26] MEDS: CO-ENZYME Q10 50 MG CAP PO SCH (08:02)
[2018-09-26] MEDS: SODIUM CHLORIDE NASAL 0.65% SPRAY BTL (OCEAN) SCH ×3 (08:03→20:09)
[2018-09-26] MEDS: predniSONE 5 MG TAB PO SCH (08:03)
[2018-09-26] MEDS: FUROSEMIDE 20 MG TAB PO SCH ×2 (08:03→17:25)
[2018-09-26] MEDS: FLUTICASONE PROP 0.05% NASAL SPRAY 16 GM (FLONASE) NARES SCH ×3 (08:03→20:09)
--- NOTE | 2018-09-26 12:31 | IPNPDOC ---
Text Note Date of Service The patient was seen on 09/26/18. NOTE SUBJECTIVE: The patient is seen and examined today. Patient still has intermittent mild cough but he denies shortness of breath. He denies worsening of lower extremity swelling. Denies acute complaint. OBJECTIVE: VITAL SIGNS: Listed below. GENERAL: The patient is alert, awake, comfortable. HEENT: Normocephalic, atraumatic. Extraocular motor grossly intact. CARDIOVASCULAR: Positive S1, S2, regular rate. LUNGS: Mild rhonchi bilaterally mainly in lower lobes. No wheeze. ABDOMEN: Soft, nontender, nondistended. Bowel sounds present. EXTREMITIES: Very mild pitting edema bilaterally, left greater than the right. LABORATORY DATA: Listed below. ASSESSMENT AND PLAN: #. Lower extremity weakness. - Continues rehabilitation (rehab) and occupational therapy (OT) in acute [facility] (ARU); diet, activity level, pain control, and anticoagulation per acute rehab instructions. #. Systolic and diastolic dysfunction. - Most recent echo demonstrated left ventricular ejection fraction (EF) of 55%. Impairment of diastolic function. Moderate pulmonary hypertension. - On lasix BID. No sign of fluid overload. Continue monitoring fluid status. Continue monitoring renal function. #. Influenza A infection. - S/P Tamiflu. #. Chronic obstructive pulmonary disease (COPD). - No exacerbation at this moment. Patient comfortable in room air. Continue breathing treatment PRN. #. 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 #. History of methicillin-resistant Staphylococcus aureus (MRSA) infection. - Wound care from PT consulted. #. Gout. - On allopurinol. #. Paroxysmal atrial fibrillation/atrial flutter. - Status post cardioversion. Not on anticoagulation. Will continue investigating possible contraindications. #. 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 #. Coronary artery disease. - Status post coronary artery bypass graft (CABG). On aspirin, Plavix, statin. #. Chronic kidney disease, stage IV. Stable #. Insulin-dependent diabetes with peripheral neuropathy. - Continue insulin. Continue gabapentin. #. Peripheral vascular disease. - Patient is on aspirin, Plavix and statin. #. Hypothyroidism. - On Synthroid. #. Deep vein thrombosis (DVT) prophylaxis. Per ARU recommendations. VS,Fishbone, I+O VS, Fishbone, I+O Vital Signs Date Time Temp Pulse Resp B/P (MAP) Pulse Ox O2 Delivery O2 Flow Rate FiO2 09/26/18 06:00 98.8 70 18 128/64 (36) 96 I&O- Last 24 Hours up to 6 AM 09/26/18 06:00 Intake Total 1480 ml Output Total 500 ml Balance 980 ml HARLEEN CLAY DO Sep 26, 2018 12:31
[2018-09-26 13:26] LABS: HEMATOCRIT 32.1 % (42.0-52.0); HEMOGLOBIN 9.5 g/dl (13.5-17.5); MEAN CORPUSCULAR HEMOGLOBIN 23.3 pg (27.0-33.0); MEAN CORPUSCULAR HGB CONC 29.6 g/dl (32.0-36.5); MEAN CORPUSCULAR VOLUME 78.7 fl (80.0-96.0); PLATELET COUNT, AUTOMATED 283 10^3/uL (150-450); RED BLOOD COUNT 4.08 10^6/uL (4.30-6.10); WHITE BLOOD COUNT 9.9 10^3/uL (4.0-10.0)
[2018-09-26 13:52] LABS: CALCIUM LEVEL 8.7 MG/DL (8.8-10.2); CREATININE FOR GFR 2.66 MG/DL (0.70-1.30); GLOMERULAR FILTRATION RATE 24.6 (>35); POTASSIUM SERUM 4.4 MEQ/L (3.5-5.1)
[2018-09-26 14:00] VITALS: BP 138/65
[2018-09-26 20:00] VITALS: BP 157/74
[2018-09-26] MEDS: ATORVASTATIN 20 MG TAB PO SCH (20:08)
[2018-09-26] MEDS: TAMSULOSIN 0.4 MG CAP PO SCH (20:08)
[2018-09-27] MEDS: IPRATROPIUM 0.5MG/ALBUTEROL 2.5MG INH SOL UD 3ML (DUONEB)(J7620) NEB SCH ×4 (01:45→20:00)
[2018-09-27] MEDS: LEVOTHYROXINE 75MCG TABLET (0.075MG) PO SCH (05:47)
[2018-09-27 06:00] VITALS: BP 147/67
[2018-09-27] MEDS: FLUTICASONE PROP 0.05% NASAL SPRAY 16 GM (FLONASE) NARES SCH ×2 (09:00→20:53)
[2018-09-27] MEDS: SODIUM CHLORIDE NASAL 0.65% SPRAY BTL (OCEAN) SCH ×3 (09:00→20:53)
[2018-09-27] MEDS: HumaLOG INSULIN (NovoLOG) PER UNIT SC SCH ×4 (09:47→20:53)
[2018-09-27] MEDS: GABAPENTIN 300 MG CAP PO SCH ×2 (09:48→20:52)
[2018-09-27] MEDS: ALLOPURINOL 100 MG TAB PO SCH (09:48)
[2018-09-27] MEDS: HumuLIN (NovoLIN)70/30 INSULIN INJ PER UNIT SC SCH ×2 (09:48→17:28)
[2018-09-27] MEDS: VITAMIN D 1,000 INTERNATIONAL UNITS TABLET PO SCH (09:48)
[2018-09-27] MEDS: FUROSEMIDE 20 MG TAB PO SCH ×2 (09:48→17:26)
[2018-09-27] MEDS: guaiFENesin 200 MG TAB PO SCH ×3 (09:48→20:52)
[2018-09-27] MEDS: OMEGA-3 1000MG CAPSULE PO SCH (09:48)
[2018-09-27] MEDS: MULTIVITAMINS/MINERALS THERAP 1 TAB PO SCH (09:48)
[2018-09-27] MEDS: CLOPIDOGREL 75 MG TAB PO SCH (09:48)
[2018-09-27] MEDS: predniSONE 5 MG TAB PO SCH (09:49)
[2018-09-27] MEDS: CO-ENZYME Q10 50 MG CAP PO SCH (09:49)
[2018-09-27] MEDS: ASPIRIN 81 MG CHEW TABLET PO SCH (09:49)
[2018-09-27] MEDS: DOCUSATE SODIUM 100 MG CAP PO SCH ×2 (09:49→20:52)
[2018-09-27] MEDS: SENOKOT S TAB PO SCH ×2 (09:49→20:52)
[2018-09-27] MEDS: PANTOPRAZOLE 40MG TAB (PROTONIX) PO SCH (09:49)
[2018-09-27 14:00] VITALS: BP 158/69
--- NOTE | 2018-09-27 17:24 | IPNPDOC ---
Text Note Date of Service The patient was seen on 09/27/18. NOTE SUBJECTIVE: The patient is seen and examined during physical therapy section today. Patient denies shortness of breath. Denies worsening of lower extremity swelling. Denies acute complaint. OBJECTIVE: VITAL SIGNS: Listed below. GENERAL: The patient is alert, awake, comfortable. HEENT: Normocephalic, atraumatic. Extraocular motor grossly intact. CARDIOVASCULAR: Positive S1, S2, regular rate. LUNGS: Mild rhonchi bilaterally mainly in lower lobes. No wheeze. ABDOMEN: Soft, nontender, nondistended. Bowel sounds present. EXTREMITIES: Very mild pitting edema bilaterally, left greater than the right. LABORATORY DATA: Listed below. ASSESSMENT AND PLAN: #. Lower extremity weakness. - Continues rehabilitation (rehab) and occupational therapy (OT) in acute rehabilitation unit (ARU); diet, activity level, pain control, and anticoagulation per acute rehab instructions. #. Systolic and diastolic dysfunction. - Most recent echo demonstrated left ventricular ejection fraction (EF) of 55%. Impairment of diastolic function. Moderate pulmonary hypertension. - On lasix BID. No sign of fluid overload. Continue monitoring fluid status. Continue monitoring renal function. #. Influenza A infection. - S/P Tamiflu. #. Chronic obstructive pulmonary disease (COPD). - No exacerbation at this moment. Patient comfortable in room air. Continue breathing treatment PRN. #. 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 #. History of methicillin-resistant Staphylococcus aureus (MRSA) infection. - Wound care from PT consulted. #. Gout. - On allopurinol. #. Paroxysmal atrial fibrillation/atrial flutter. - Status post cardioversion. Not on anticoagulation. Will continue investigating possible contraindications. #. 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 #. Coronary artery disease. - Status post coronary artery bypass graft (CABG). On aspirin, Plavix, statin. #. Chronic kidney disease, stage IV. Stable #. Insulin-dependent diabetes with peripheral neuropathy. - Continue insulin. Continue gabapentin. #. Peripheral vascular disease. - Patient is on aspirin, Plavix and statin. #. Hypothyroidism. - On Synthroid. #. Deep vein thrombosis (DVT) prophylaxis. Per ARU recommendations. VS,Fishbone, I+O VS, Fishbone, I+O Vital Signs Date Time Temp Pulse Resp B/P (MAP) Pulse Ox O2 Delivery O2 Flow Rate FiO2 09/27/18 14:00 98.1 65 15 158/69 (93) 95 I&O- Last 24 Hours up to 6 AM 09/27/18 06:00 Intake Total 1460 ml Output Total 575 ml Balance 885 ml HARLEEN CLAY DO Sep 27, 2018 17:24
[2018-09-27 20:00] VITALS: BP 150/62
[2018-09-27] MEDS: TAMSULOSIN 0.4 MG CAP PO SCH (20:52)
[2018-09-27] MEDS: ATORVASTATIN 20 MG TAB PO SCH (20:52)
[2018-09-28] MEDS: IPRATROPIUM 0.5MG/ALBUTEROL 2.5MG INH SOL UD 3ML (DUONEB)(J7620) NEB SCH ×3 (02:00→12:59)
[2018-09-28] MEDS: LEVOTHYROXINE 75MCG TABLET (0.075MG) PO SCH (05:38)
[2018-09-28 06:47] LABS: HEMATOCRIT 29.1 % (42.0-52.0); HEMOGLOBIN 8.8 g/dl (13.5-17.5); MEAN CORPUSCULAR HEMOGLOBIN 23.1 pg (27.0-33.0); MEAN CORPUSCULAR HGB CONC 30.2 g/dl (32.0-36.5); MEAN CORPUSCULAR VOLUME 76.4 fl (80.0-96.0); PLATELET COUNT, AUTOMATED 237 10^3/uL (150-450); RED BLOOD COUNT 3.81 10^6/uL (4.30-6.10); WHITE BLOOD COUNT 8.2 10^3/uL (4.0-10.0)
[2018-09-28 07:15] LABS: CALCIUM LEVEL 8.6 MG/DL (8.8-10.2); CREATININE FOR GFR 2.39 MG/DL (0.70-1.30); GLOMERULAR FILTRATION RATE 27.8 (>35); POTASSIUM SERUM 4.1 MEQ/L (3.5-5.1)
[2018-09-28] MEDS: HumaLOG INSULIN (NovoLOG) PER UNIT SC SCH ×2 (08:37→12:23)
[2018-09-28] MEDS: HumuLIN (NovoLIN)70/30 INSULIN INJ PER UNIT SC SCH (08:37)
[2018-09-28] MEDS: DOCUSATE SODIUM 100 MG CAP PO SCH (08:37)
[2018-09-28] MEDS: ALLOPURINOL 100 MG TAB PO SCH (08:37)
[2018-09-28] MEDS: ASPIRIN 81 MG CHEW TABLET PO SCH (08:38)
[2018-09-28] MEDS: MULTIVITAMINS/MINERALS THERAP 1 TAB PO SCH (08:38)
[2018-09-28] MEDS: FUROSEMIDE 20 MG TAB PO SCH (08:38)
[2018-09-28] MEDS: PANTOPRAZOLE 40MG TAB (PROTONIX) PO SCH (08:38)
[2018-09-28] MEDS: SENOKOT S TAB PO SCH (08:38)
[2018-09-28] MEDS: CO-ENZYME Q10 50 MG CAP PO SCH (08:38)
[2018-09-28] MEDS: VITAMIN D 1,000 INTERNATIONAL UNITS TABLET PO SCH (08:38)
[2018-09-28] MEDS: CLOPIDOGREL 75 MG TAB PO SCH (08:38)
[2018-09-28] MEDS: predniSONE 5 MG TAB PO SCH (08:38)
[2018-09-28] MEDS: OMEGA-3 1000MG CAPSULE PO SCH (08:38)
[2018-09-28] MEDS: FLUTICASONE PROP 0.05% NASAL SPRAY 16 GM (FLONASE) NARES SCH (08:39)
[2018-09-28] MEDS: SODIUM CHLORIDE NASAL 0.65% SPRAY BTL (OCEAN) SCH (08:39)
[2018-09-28] MEDS: GABAPENTIN 300 MG CAP PO SCH (08:39)
[2018-09-28] MEDS ORDERED: CLOP75TA2 PO (10:13)
[2018-09-28] MEDS ORDERED: GABA-843 PO (10:13)
[2018-09-28] MEDS ORDERED: ASPI81CH8 PO (10:13)
[2018-09-28] MEDS ORDERED: ATOR1TAB21 PO (10:13)
[2018-09-28] MEDS ORDERED: LEVO75TA4 PO (10:13)
[2018-09-28] MEDS ORDERED: HUMU70IN SC ×2 (10:13)
[2018-09-28] MEDS ORDERED: FURO20TA2 PO ×2 (10:13)
[2018-09-28] MEDS ORDERED: COEN50CA PO (10:13)
[2018-09-28] MEDS ORDERED: FLOM0.4C39 PO (10:13)
[2018-09-28] MEDS ORDERED: ALLO10TA PO (10:13)
[2018-09-28] MEDS ORDERED: PRED5TA PO (10:13)
[2018-09-28] MEDS ORDERED: PANT40TA3 PO (10:13)
[2018-09-28] MEDS: guaiFENesin 200 MG TAB PO SCH (10:50)
[2018-09-28 14:00] VITALS: BP 131/60
[2018-09-28] MEDS ORDERED: NITR4TASL SL (14:42)
--- NOTE | 2018-10-06 16:29 | PMRDS ---
DATE OF ADMISSION: 09/16/2018 DATE OF DISCHARGE: 09/28/2018 CHIEF COMPLAINT/DISCHARGE DIAGNOSIS: Lower extremity weakness due to worsening polyneuropathy in setting of influenza. 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 He was found to have an elevated lactic acid and tested positive for influenza A, for which he was started on Tamiflu and placed on <<0:59>> precaution. Blood cultures were ordered, which came back negative. Given his soft blood pressures and dry appearance on exam, his diuretics were held. He was provided with wound care treatments for his MRSA cellulitis and found to have significant deficits in gait and activities of daily living (ADLs) compared to his prior level of function, so deemed medically appropriate for discharge to acute rehabilitation unit (ARU) on 09/16/2018. PAST MEDICAL HISTORY: As per history of present illness (HPI). HOSPITAL COURSE: The patient was admitted to ARU on a comprehensive physical therapy (PT)/occupational therapy (OT) program. He was maintained on influenza precautions. His Tamiflu was held early on in his hospital course due to leukopenia, thrombocytopenia, which resolved with discontinuation of his Tamiflu. His cough gradually improved with the use of guaifenesin breathing treatments. His creatinine remained at baseline. He was maintained on an insulin sliding scale for diabetes and Synthroid for his hypothyroidism. His heparin was held for deep venous thrombosis (DVT) prophylaxis given his thrombocytopenia and Dopplers were ordered to rule out DVTs, which were negative. His admission urinalysis (UA) and urine culture were negative and his bilateral lower extremity wounds were managed well on the inpatient stay and he was instructed to follow up with Dr. Blum upon discharge. His Lasix was restarted and he was followed by medicine during his hospital course. DISCHARGE MEDICATIONS: - allopurinol 100 daily - aspirin 81 daily - atorvastatin 40 nightly - Plavix 75 daily - Lasix 20 daily - Lasix 20 every evening - gabapentin 300 twice a day - insulin - Synthroid 75 mcg by mouth daily - nitroglycerin - Protonix 40 daily - prednisone five by mouth daily - Flomax 0.4 mcg by mouth nightly - coenzyme Q10 100 by mouth daily. FUNCTIONAL HISTORY: Upon discharge, the patient was modified independent for all functional transfers, able to ambulate 120 feet with a 4-wheeled rolling walker and able to negotiate stairs. In occupational therapy, he was modified independent for upper and lower body dressing, grooming, toileting and bathing, standby assist for eating. He was deemed functionally and medically stable to return to home with home services.
== END 2018-09-28 14:45 | disposition home health service (06) | DRG 300 ==
LOC: M PM&R 15:10
PROVIDERS: ADMIT Physical Medicine & Rehabilitation; ATTEND Physical Medicine & Rehabilitation
DX: E11.51 Type 2 diabetes mellitus with diabetic peripheral angiopathy without gangrene (principal); I50.42 Chronic combined systolic (congestive) and diastolic (congestive) heart failure; N18.4 Chronic kidney disease, stage 4 (severe); I48.92 Unspecified atrial flutter; I48.0 Paroxysmal atrial fibrillation; I25.10 Atherosclerotic heart disease of native coronary artery without angina pectoris; J44.9 Chronic obstructive pulmonary disease, unspecified; Z79.52 Long term (current) use of systemic steroids; M10.9 Gout, unspecified; J10.1 Influenza due to other identified influenza virus with other respiratory manifestations; Z95.0 Presence of cardiac pacemaker; I49.5 Sick sinus syndrome; R26.89 Other abnormalities of gait and mobility; E03.9 Hypothyroidism, unspecified; E11.621 Type 2 diabetes mellitus with foot ulcer; D64.9 Anemia, unspecified; Z79.82 Long term (current) use of aspirin; Z79.899 Other long term (current) drug therapy; Z88.8 Allergy status to other drugs, medicaments and biological substances; H40.9 Unspecified glaucoma; L97.529 Non-pressure chronic ulcer of other part of left foot with unspecified severity; L97.519 Non-pressure chronic ulcer of other part of right foot with unspecified severity

== ENCOUNTER → 2018-10-25 | Outpatient (CLI) | payer MEDICARE ==
[~2018-10-25] MED LIST changes: +ALLO10TA PO; +ASPI81CH8 PO; +ATOR1TAB21 PO; +CLOP75TA2 PO; +COEN50CA PO; +FLOM0.4C39 PO; +OSEL30CA PO; +PANT40TA3 PO; +TAMI30CA PO
[2018-10-25 12:22] LABS: BASO # 0.1 10^3/uL (0.0-0.2); BASO % 0.7 % (0.0-1.0); EOS % 0.3 % (0.0-3.0); HEMOGLOBIN 9.6 g/dl (13.5-17.5); LYMPH # 0.4 10^3/uL (1.5-4.5); LYMPH % 3.5 % (24.0-44.0); MEAN CORPUSCULAR HEMOGLOBIN 22.6 pg (27.0-33.0); MEAN CORPUSCULAR HGB CONC 29.1 g/dl (32.0-36.5); MEAN CORPUSCULAR VOLUME 77.8 fl (80.0-96.0); MONO # 0.5 10^3/uL (0.0-0.8); MONO % 4.8 % (0.0-5.0); NEUTROPHILS # 9.2 10^3/uL (1.8-7.7); NEUTROPHILS % 90.3 % (36.0-66.0); PLATELET COUNT, AUTOMATED 236 10^3/uL (150-450); RED BLOOD COUNT 4.24 10^6/uL (4.30-6.10); WHITE BLOOD COUNT 10.1 10^3/uL (4.0-10.0)
[2018-10-25 12:46] LABS: ALBUMIN 2.9 GM/DL (3.2-5.2); BILIRUBIN,TOTAL 0.4 MG/DL (0.2-1.0); C REACTIVE PROTEIN QUANTITATIV 2.4 MG/DL (0.00-0.30); CALCIUM LEVEL 9.3 MG/DL (8.8-10.2); CREATININE FOR GFR 3.24 MG/DL (0.70-1.30); GLOMERULAR FILTRATION RATE 19.6 (>35); POTASSIUM SERUM 4.1 MEQ/L (3.5-5.1); TOTAL PROTEIN 6.2 GM/DL (6.4-8.2)
== END ==
LOC: M LAB 11:57
PROVIDERS: ATTEND Internal Medicine
DX: Z79.899 Other long term (current) drug therapy (principal)

== ENCOUNTER → 2018-10-29 | Outpatient (CLI) | payer MEDICARE ==
[2018-10-29 14:21] LABS: BASO # 0.1 10^3/uL (0.0-0.2); EOS # 0.1 10^3/uL (0.0-0.50); HEMATOCRIT 32.7 % (42.0-52.0); HEMOGLOBIN 9.6 g/dl (13.5-17.5); LYMPH # 0.4 10^3/uL (1.5-4.5); LYMPH % 16.5 % (24.0-44.0); MEAN CORPUSCULAR HEMOGLOBIN 23.5 pg (27.0-33.0); MEAN CORPUSCULAR HGB CONC 29.4 g/dl (32.0-36.5); MEAN CORPUSCULAR VOLUME 80.1 fl (80.0-96.0); MONO # 0.2 10^3/uL (0.0-0.8); MONO % 8.7 % (0.0-5.0); NEUTROPHILS # 1.5 10^3/uL (1.8-7.7); NEUTROPHILS % 66.1 % (36.0-66.0); PLATELET COUNT, AUTOMATED 238 10^3/uL (150-450); RED BLOOD COUNT 4.08 10^6/uL (4.30-6.10); WHITE BLOOD COUNT 2.3 10^3/uL (4.0-10.0)
[2018-10-29 14:26] LABS: BASO % 3.5 % (0.0-1.0)
[2018-10-29 14:53] LABS: BILIRUBIN,TOTAL 0.4 MG/DL (0.2-1.0); C REACTIVE PROTEIN QUANTITATIV 1.32 MG/DL (0.00-0.30); CALCIUM LEVEL 9.6 MG/DL (8.8-10.2); CREATININE FOR GFR 3.3 MG/DL (0.70-1.30); GLOMERULAR FILTRATION RATE 19.2 (>35); POTASSIUM SERUM 4.9 MEQ/L (3.5-5.1); TOTAL PROTEIN 6.3 GM/DL (6.4-8.2)
== END ==
LOC: M LAB 12:41
PROVIDERS: ATTEND Internal Medicine
DX: Z79.899 Other long term (current) drug therapy (principal)

== ENCOUNTER → 2018-11-02 | Outpatient (CLI) | payer MEDICARE ==
[2018-11-02 14:10] LABS: BASO # 0.1 10^3/uL (0.0-0.2); BASO % 2.8 % (0.0-1.0); EOS % 0.5 % (0.0-3.0); HEMOGLOBIN 9.8 g/dl (13.5-17.5); LYMPH # 0.4 10^3/uL (1.5-4.5); LYMPH % 17.5 % (24.0-44.0); MEAN CORPUSCULAR HEMOGLOBIN 23.4 pg (27.0-33.0); MEAN CORPUSCULAR HGB CONC 29.7 g/dl (32.0-36.5); MEAN CORPUSCULAR VOLUME 78.8 fl (80.0-96.0); MONO # 0.8 10^3/uL (0.0-0.8); MONO % 39.3 % (0.0-5.0); NEUTROPHILS % 38.5 % (36.0-66.0); PLATELET COUNT, AUTOMATED 233 10^3/uL (150-450); RED BLOOD COUNT 4.19 10^6/uL (4.30-6.10); WHITE BLOOD COUNT 2.1 10^3/uL (4.0-10.0)
[2018-11-02 14:21] LABS: NEUTROPHILS # 0.8 10^3/uL (1.8-7.7)
[2018-11-02 14:33] LABS: ALBUMIN 3.1 GM/DL (3.2-5.2); BILIRUBIN,TOTAL 0.4 MG/DL (0.2-1.0); C REACTIVE PROTEIN QUANTITATIV 5.51 MG/DL (0.00-0.30); CALCIUM LEVEL 9.8 MG/DL (8.8-10.2); CREATININE FOR GFR 3.3 MG/DL (0.70-1.30); GLOMERULAR FILTRATION RATE 19.2 (>35); POTASSIUM SERUM 4.4 MEQ/L (3.5-5.1)
== END ==
LOC: M LAB 12:47
PROVIDERS: ATTEND Internal Medicine
DX: Z51.81 Encounter for therapeutic drug level monitoring (principal); Z79.899 Other long term (current) drug therapy

== ENCOUNTER → 2018-11-03 | Outpatient (CLI) | payer MEDICARE ==
[2018-11-03 12:03] LABS: BASO % 1.6 % (0.0-1.0); EOS % 0.5 % (0.0-3.0); HEMATOCRIT 32.4 % (42.0-52.0); HEMOGLOBIN 9.5 g/dl (13.5-17.5); LYMPH # 0.3 10^3/uL (1.5-4.5); LYMPH % 13.2 % (24.0-44.0); MEAN CORPUSCULAR HGB CONC 29.3 g/dl (32.0-36.5); MEAN CORPUSCULAR VOLUME 78.5 fl (80.0-96.0); MONO # 0.9 10^3/uL (0.0-0.8); MONO % 47.4 % (0.0-5.0); NEUTROPHILS % 36.2 % (36.0-66.0); PLATELET COUNT, AUTOMATED 222 10^3/uL (150-450); RED BLOOD COUNT 4.13 10^6/uL (4.30-6.10)
[2018-11-03 12:26] LABS: NEUTROPHILS # 0.7 10^3/uL (1.8-7.7); WHITE BLOOD COUNT 1.9 10^3/uL (4.0-10.0)
== END ==
LOC: M LAB 11:30
PROVIDERS: ATTEND Internal Medicine
DX: D72.819 Decreased white blood cell count, unspecified (principal)

== ENCOUNTER → 2018-11-04 | Outpatient (CLI) | payer MEDICARE ==
[2018-11-04 10:42] LABS: BASO # 0.1 10^3/uL (0.0-0.2); BASO % 2.7 % (0.0-1.0); EOS % 1.3 % (0.0-3.0); HEMATOCRIT 33.5 % (42.0-52.0); HEMOGLOBIN 9.8 g/dl (13.5-17.5); LYMPH # 0.4 10^3/uL (1.5-4.5); MEAN CORPUSCULAR HEMOGLOBIN 23.3 pg (27.0-33.0); MEAN CORPUSCULAR HGB CONC 29.3 g/dl (32.0-36.5); MEAN CORPUSCULAR VOLUME 79.8 fl (80.0-96.0); MONO # 1.1 10^3/uL (0.0-0.8); MONO % 35.2 % (0.0-5.0); NEUTROPHILS # 1.4 10^3/uL (1.8-7.7); NEUTROPHILS % 46.8 % (36.0-66.0); PLATELET COUNT, AUTOMATED 266 10^3/uL (150-450)
== END ==
LOC: M LAB 10:18
PROVIDERS: ATTEND Internal Medicine
DX: D72.819 Decreased white blood cell count, unspecified (principal)

== ENCOUNTER → 2018-11-10 | Outpatient (CLI) | payer MEDICARE ==
[2018-11-10 11:46] LABS: BASO # 0.1 10^3/uL (0.0-0.2); BASO % 0.7 % (0.0-1.0); EOS % 0.2 % (0.0-3.0); HEMATOCRIT 33.8 % (42.0-52.0); HEMOGLOBIN 9.9 g/dl (13.5-17.5); LYMPH # 0.6 10^3/uL (1.5-4.5); LYMPH % 3.2 % (24.0-44.0); MEAN CORPUSCULAR HEMOGLOBIN 22.8 pg (27.0-33.0); MEAN CORPUSCULAR HGB CONC 29.3 g/dl (32.0-36.5); MEAN CORPUSCULAR VOLUME 77.7 fl (80.0-96.0); MONO % 5.8 % (0.0-5.0); PLATELET COUNT, AUTOMATED 304 10^3/uL (150-450); RED BLOOD COUNT 4.35 10^6/uL (4.30-6.10); WHITE BLOOD COUNT 17.9 10^3/uL (4.0-10.0)
== END ==
LOC: M LAB 11:03
PROVIDERS: ATTEND Internal Medicine
DX: D72.819 Decreased white blood cell count, unspecified (principal)

== ENCOUNTER → 2018-11-20 | Outpatient (CLI) | payer MEDICARE ==
[2018-11-20 11:46] LABS: BASO # 0.1 10^3/uL (0.0-0.2); BASO % 0.5 % (0.0-1.0); EOS % 0.2 % (0.0-3.0); HEMATOCRIT 34.4 % (42.0-52.0); HEMOGLOBIN 10.2 g/dl (13.5-17.5); LYMPH # 0.5 10^3/uL (1.5-4.5); LYMPH % 4.2 % (24.0-44.0); MEAN CORPUSCULAR HEMOGLOBIN 23.7 pg (27.0-33.0); MEAN CORPUSCULAR HGB CONC 29.7 g/dl (32.0-36.5); MONO # 0.8 10^3/uL (0.0-0.8); MONO % 6.1 % (0.0-5.0); NEUTROPHILS # 11.4 10^3/uL (1.8-7.7); NEUTROPHILS % 88.5 % (36.0-66.0); PLATELET COUNT, AUTOMATED 220 10^3/uL (150-450); WHITE BLOOD COUNT 12.9 10^3/uL (4.0-10.0)
[2018-11-20 12:01] LABS: INR 0.98; PROTHROMBIN TIME 12.7 SECONDS (11.8-14.0)
[2018-11-20 12:02] LABS: PARTIAL THROMBOPLASTIN TIME 28.4 SECONDS (25.0-38.4)
[2018-11-20 12:05] LABS: CALCIUM LEVEL 9.2 MG/DL (8.8-10.2); CREATININE FOR GFR 3.4 MG/DL (0.70-1.30); GLOMERULAR FILTRATION RATE 18.5 (>35)
== END ==
LOC: M LAB 11:05
PROVIDERS: ATTEND Surgery Vascular Surgery
DX: Z01.818 Encounter for other preprocedural examination (principal); D69.8 Other specified hemorrhagic conditions; I70.212 Atherosclerosis of native arteries of extremities with intermittent claudication, left leg

== ENCOUNTER 2019-01-01 17:36 | Inpatient (IN) | payer MEDICARE ==
[~2019-01-01] VITALS: Ht 177.8 cm; Wt 84.6 kg
[2019-01-01] MEDS ORDERED: NS 1,000 ML IV SCH (17:55)
[2019-01-01] MEDS ORDERED: ACETAMINOPHEN 325 MG TAB PO ONE (18:00)
[2019-01-01 18:32] LABS: BASO # 0.1 10^3/uL (0.0-0.2); BASO % 0.3 % (0.0-1.0); HEMATOCRIT 30.5 % (42.0-52.0); LYMPH # 0.5 10^3/uL (1.5-4.5); LYMPH % 2.3 % (24.0-44.0); MEAN CORPUSCULAR HEMOGLOBIN 24.3 pg (27.0-33.0); MEAN CORPUSCULAR HGB CONC 29.5 g/dl (32.0-36.5); MEAN CORPUSCULAR VOLUME 82.2 fl (80.0-96.0); MONO # 1.2 10^3/uL (0.0-0.8); MONO % 5.4 % (0.0-5.0); NEUTROPHILS # 20.6 10^3/uL (1.8-7.7); NEUTROPHILS % 91.3 % (36.0-66.0); PLATELET COUNT, AUTOMATED 234 10^3/uL (150-450); RED BLOOD COUNT 3.71 10^6/uL (4.30-6.10); VENOUS BASE EXCESS 5.6 (-2.0-2.0); VENOUS HCO3 31.8 MEQ/L (23.0-27.0); VENOUS O2 SATURATION 64.1 % (60.0-80.0); VENOUS PARTIAL PRESSURE CO2 55.8 mmHg (38.0-50.0); VENOUS PARTIAL PRESSURE O2 34.6 mmHg (30.0-50.0); VENOUS PH 7.374 UNITS (7.330-7.430); VENOUS STANDARD HCO3 28.9 MEQ/L; VENOUS TOTAL CO2 33.5 MEQ/L (24.0-28.0); WHITE BLOOD COUNT 22.6 10^3/uL (4.0-10.0)
[2019-01-01 18:40] LABS: INR 1.12; PROTHROMBIN TIME 14.1 SECONDS (11.8-14.0)
[2019-01-01] MEDS ORDERED: COLA100C5 PO (18:45)
[2019-01-01] MEDS ORDERED: VYZU0.02 OU (18:45)
[2019-01-01] MEDS ORDERED: cefTRIAXone SOD 2 GM in D5W MINI-BAG PLUS 50 ML IV ONE (18:45)
[2019-01-01] MEDS ORDERED: HUMU1INJ SC (18:45)
[2019-01-01] MEDS ORDERED: TORS20TA2 PO (18:45)
[2019-01-01] MEDS ORDERED: FLOM0.4C39 PO (18:45)
--- NOTE | 2019-01-01 18:56 | REP ---
Clinical: Sepsis/shock . Comparison: 09/13/2018 . Findings: The mediastinum and cardiac silhouette are stable with evidence of prior sternotomy, CABG and pacemaker. Surgical clips along the left side of the neck may be related to prior vascular surgery. The lung gomez demonstrate chronic-appearing changes without acute consolidation, effusion, or pneumothorax. Skeletal structures are intact. Impression: Chronic-appearing changes. No acute cardiopulmonary process appreciated. Electronically Signed by Charan Jorge MD 01/01/2019 06:47 P
[2019-01-01 19:15] LABS: ALBUMIN 2.6 GM/DL (3.2-5.2); BILIRUBIN,DIRECT 0.2 MG/DL (0.0-0.2); BILIRUBIN,TOTAL 0.6 MG/DL (0.2-1.0); C REACTIVE PROTEIN QUANTITATIV 7.4 MG/DL (0.00-0.30); CALCIUM LEVEL 9.3 MG/DL (8.8-10.2); CK-MB VALUE MASS 1.1 NG/ML (<3.6); CREATININE FOR GFR 2.88 MG/DL (0.70-1.30); GLOMERULAR FILTRATION RATE 22.4 (>35); MB/CK RELATIVE INDEX 1.22 (< OR =4); POTASSIUM SERUM 4.8 MEQ/L (3.5-5.1); TOTAL PROTEIN 6.2 GM/DL (6.4-8.2); TROPONIN I 0.14 NG/ML (< 0.10)
[2019-01-01 19:40] LABS: APPEARANCE, URINE CLOUDY (CLEAR); BACTERIA, URINE AUTO 1+ (NEGATIVE); BILIRUBIN, URINE AUTO NEGATIVE (NEGATIVE); BLOOD, URINE BLOOD 1+ (NEGATIVE); COLOR, URINE YELLOW (YELLOW); GLUCOSE, URINE (UA) AUTO 3+ mg/dL (NEGATIVE); KETONE, URINE AUTO NEGATIVE (NEGATIVE); LEUKOCYTE ESTERASE, URINE AUTO 3+ (NEGATIVE); MUCUS, URINE SMALL (NEGATIVE); NITRITE, URINE AUTO POSITIVE (NEGATIVE); PROTEIN, URINE AUTO 1+ mg/dL (NEGATIVE); RBC, URINE AUTO 4 /HPF (0-3); SPECIFIC GRAVITY URINE AUTO 1.008 (1.002-1.035); SQUAMOUS EPITHELIAL CELL UR AU 0 /HPF (0-6); UROBILINOGEN, URINE AUTO 0.2 mg/dL (0.0-2.0); WBC, URINE AUTO 134 /HPF (0-3)
[2019-01-01] MEDS ORDERED: HumuLIN R (REGULAR) INSULIN (NovoLIN R) **100U/ML** PER UNIT SC STA (20:05)
[2019-01-01] MEDS ORDERED: MAALOX 30 ML SUSP *UDC PO PRN (21:00)
[2019-01-01] MEDS ORDERED: GLUCOSE 4 GM CHEW TABLET PO PRN (21:00)
[2019-01-01] MEDS ORDERED: GLUCAGON FOR INJ 1 MG VIAL (J1610) SC PRN (21:00)
[2019-01-01] MEDS: HumaLOG INSULIN (NovoLOG) PER UNIT SC SCH (21:00)
[2019-01-01] MEDS ORDERED: DEXTROSE 50% 50 ML SYRINGE IV PRN (21:00)
--- NOTE | 2019-01-01 22:29 | HPEPDOC ---
General Date of Admission Jan 01, 2019 at 20:46 Date of Service: Jan 01, 2019 Chief Complaint The patient is a 83-year-old male admitted with a reason for visit of Sepsis, Uti. 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 This morning woke up with chills and shaking, said he was confused so was brought to the ED In the ED he was febrile to 103.4 , His UA was very dirty and his WBC was elevated to 22.6, His lactate was also elevated. He was admitted for UTI and sepsis. Home Medications Scheduled Allopurinol (Allopurinol) 100 Mg Tab, 100 MG PO DAILY, (Reported) Aspirin (Aspir 81) 81 Mg Tablet.dr, 81 MG PO DAILY, (Reported) Atorvastatin Calcium (Atorvastatin Calcium) 80 Mg Tab, 40 MG PO QHS, (Reported) Calcitriol (Calcitriol) 0.25 Mcg Cap, 0.5 MCG PO 1XWK, (Reported) TAKES ON MONDAYS Cholecalciferol (Vitamin D3) (Vitamin D3) 1,000 Unit Tab, 1,000 UNIT PO DAILY, (Reported) Clopidogrel Bisulfate (Plavix) 75 Mg Tab, 75 MG PO DAILY, (Reported) Docusate Sodium (Colace) 100 Mg Capsule, 100 MG PO BID, (Reported) Gabapentin (Gabapentin) 300 Mg Cap, 300 MG PO BID, (Reported) Insulin NPH Hum/Reg Insulin Hm (Humulin 70/30 Kwikpen) 100 Unit/1 Ml Insuln.pen, 1 DOSE SC BID, (Reported) PER SLIDING SCALE Ipratropium/Albuterol Sulfate (Iprat-Albut 0.5-3(2.5) mg/3 ml) 1 Rudy Rudy, 1 RUDY INH BID, (Reported) Latanoprostene Bunod (Vyzulta) 0.024% 5ML Drops, 1 DROP OU QHS, (Reported) Levothyroxine Sodium (Levothyroxine Sodium) 75 Mcg Tab, 75 MCG PO DAILY, (Reported) Multivitamins (Thera M Plus Tablet) 1 Tab Tab, 1 TAB PO DAILY, (Reported) Audubon-3 Fatty Acids/Fish Oil ([place] 3 1,000 mg Softgel) 1 Cap Cap, 1 CAP PO DAILY, (Reported) Prednisone (Prednisone) 5 Mg Tablet, 5 MG PO DAILY, (Reported) Tamsulosin HCl (Flomax) 0.4 Mg Capsule, 0.4 MG PO QHS, (Reported) Torsemide (Torsemide) 20 Mg Tablet, 20 MG PO BID, (Reported) Ubidecarenone (Coenzyme Q10) 100 Mg Cap, 100 MG PO DAILY, (Reported) Scheduled PRN Nitroglycerin (Nitrostat) 0.4 Mg Subl, 0.4 MG SL NITRO PRN for CHEST PAIN, (Reported) Allergies Coded Allergies: fluorescein (Verified Allergy, Intermediate, HYPOTENSION, 09/13/18) brimonidine (Verified Allergy, Mild, EYE REDNESS, 09/13/18) tramadol (Unverified Allergy, Unknown, 09/13/18) Past Medical History Medical History 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 Hx of systolic and diastolic heart failure, right heart failure, LVH, Pulm HTN 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 Hypothyroidism CAD s/p CABG Ischemic & HTN heart ds Gout PVD s/p left femoral bypass, right femoral bypass and left carotid endarterectomy CKD IV Paroxysmal atrial fibrillation/flutter with hx of cardioversion, not on AC Hx of Tachy-Cecil Syndrome s/p PPM Glaucoma Surgical History CABG: RIGHT CORONARY ARTERY/PTCA/stenting Permanent pacemaker 07/2017 left femoral bypass, right femoral bypass and left carotid endarterectomy Left subclavian to common carotid artery bypass graft Cataract extraction Right iliac and left iliac stenting with repeat left iliac artery stenting left femoral endarterectomy with patch, femoral endarterectomy, and left femoral-popliteal bypass B/l Interocular hemorrhage repair Right external iliac stenting, cross femoral bypass graft for a from [id number] Left cataract extraction B/l common femoral artery angioplasty with right profunda femoral artery balloon angioplasty Right femoral endarterectomy Laser surgery for neovascularization of the eyes Family History Significant Family History: Heart disease (father and mother) Social History * Smoker: former Smoker Alcohol: Denies Drugs: denies A-FIB/CHADSVASC A-FIB History Current/History of A-Fib/PAF?: Yes Current PO Anticoag Therapy: No Review of Systems Constitutional: Reports: Chills, Malaise Eyes: Denies: Pain, Vision change ENT: Denies: Head Aches, Ear Pain, Dysphagia Skin: Reports: Lesions (drying ulcers in toes of the lower extremity); Denies: Rash, Breakdown Pulmonary: Denies: Dyspnea, Cough Cardiovascular: Denies: Chest Pain, Palpitations, Orthopnea, Paroxysmal Noc. Dyspnea, Lt Headedness Gastrointestinal: Denies: Nausea, Vomiting, Abdominal Pain, Diarrhea Genitourinary: Reports: Dysuria; Denies: Frequency, Incontinence, Hematuria, Retention Hematologic: Denies: Bruising, Bleeding Excessively Neurological: Reports: Weakness, Confusion Physical Examination General Exam: Positive: Alert, Cooperative, No Acute Distress Eye Exam: Positive: Conjunctiva & lids normal, EOMI; Negative: Sclera icteric ENT Exam: Positive: Atraumatic, Mucous membr. moist/pink, Pharynx Normal Neck Exam: Positive: Supple, Other (bilateral carotid bruit present); Negative: JVD, thyromegaly Chest Exam: Positive: Clear to auscultation, Diminished Heart Exam: Positive: Rate Normal, Regular Rhythm, Normal S1, Normal S2, Murmurs (systolic murmur best heard at the base); Negative: Rubs Telemetry: Positive: No significant arrhythmia Abdomen Exam: Positive: Normal bowel sounds, Soft; Negative: Tenderness, Hepatospenomegaly Extremity Exam: Positive: Edema, Other (there is bruising around the inner aspect of right thigh, stitches with sinai at the right groin, surgical scars in the both the legs. ); Negative: Clubbing, Cyanosis Skin Exam: Positive: Other skin issue (small drying ulcers in the toes) Vital Signs Vital Signs Date Time Temp Pulse Resp B/P (MAP) Pulse Ox O2 Delivery O2 Flow Rate FiO2 01/01/19 21:00 123/56 (78) 01/01/19 20:51 62 16 97 Room Air 01/01/19 19:18 98.6 Laboratory Data Labs 24H Laboratory Tests 2 01/01/19 18:03: Immature Granulocyte % (Auto) 0.7, White Blood Count 22.6H, Red Blood Count 3.71L, Hemoglobin 9.0L, Hematocrit 30.5L, Mean Corpuscular Volume 82.2, Mean Corpuscular Hemoglobin 24.3L, Mean Corpuscular Hemoglobin Concent 29.5L, Red Cell Distribution Width 20.0H, Platelet Count 234, Neutrophils (%) (Auto) 91.3H, Lymphocytes (%) (Auto) 2.3L, Monocytes (%) (Auto) 5.4H, Eosinophils (%) (Auto) 0.0, Basophils (%) (Auto) 0.3, Neutrophils # (Auto) 20.6H, Lymphocytes # (Auto) 0.5L, Monocytes # (Auto) 1.2H, Eosinophils # (Auto) 0.0, Basophils # (Auto) 0.1, Nucleated Red Blood Cells % (auto) 0.0, Prothrombin Time 14.1H, Prothromb Time International Ratio 1.12, Blood Gas Bicarbonate Standard 28.9, Venous Blood pH 7.374, Venous Blood Partial Pressure CO2 55.8H, Venous Blood Partial Pressure O2 34.6, Venous Blood Total Carbon Dioxide 33.5H, Venous Blood HCO3 31.8H, Venous Blood Oxygen Saturation 64.1, Venous Blood Base Excess 5.6H, Anion Gap 8, Glomerular Filtration Rate 22.4L, Lactic Acid Level 2.3*H, Calcium Level 9.3, Aspartate Amino Transf (AST/SGOT) 49H, Alanine Aminotransferase (ALT/SGPT) 17, Alkaline Phosphatase 153H, Total Bilirubin 0.6, Direct Bilirubin 0.2, Total Creatine Kinase 90, Creatine Kinase MB 1.1, Creatine Kinase MB Relative Index 1.22, Troponin I 0.14H, C-Reactive Protein, Quantitative 7.40H, Total Protein 6.2L, Albumin 2.6L, Albumin/Globulin Ratio 0.72L 01/01/19 19:27: Urine Appearance CLOUDYH, Urine Color YELLOW, Urine pH 5.0, Urine Specific [place] 1.008, Urine Protein 1+H, Urine Glucose (UA) 3+H, Urine Ketones NEGATIVE, Urine Urobilinogen 0.2, Urine Bilirubin NEGATIVE, Urine Leukocyte Esterase 3+H, Urine Blood 1+H, Urine Nitrite POSITIVE, Urine WBC (Auto) 134H, Urine RBC (Auto) 4H, Urine Hyaline Casts (Auto) 5, Urine Bacteria (Auto) 1+H, Urine Squamous Epithelial Cells 0, Urine Mucus (Auto) SMALL, Urine Sperm (Auto) 01/01/19 20:16: Bedside Glucose (Misc Panel) 428H CBC/BMP Laboratory Tests 01/01/19 18:03 Red Blood Count 3.71 L, Mean Corpuscular Volume 82.2, Mean Corpuscular Hemoglob in 24.3 L, Mean Corpuscular Hemoglobin Concent 29.5 L, Red Cell Distribution Width 20.0 H, Neutrophils (%) (Auto) 91.3 H, Lymphocytes (%) (Auto) 2.3 L, Monocytes (%) (Auto) 5.4 H, Eosinophils (%) (Auto) 0.0, Basophils (%) (Auto) 0.3, Neutrophils # (Auto) 20.6 H, Lymphocytes # (Auto) 0.5 L, Monocytes # (Auto) 1.2 H, Eosinophils # (Auto) 0.0, Basophils # (Auto) 0.1 Microbiology Microbiology 01/01/19 Blood Culture, Received Pending 01/01/19 Blood Culture, Received Pending 01/01/19 Gram Stain, Received Pending 01/01/19 Sputum Culture, Received Pending 01/01/19 Urine Culture, Received Pending Assessment/Plan 82M extensive pmh including systolic and diastolic CHF with EF 22%, Paroxysmal Afib s/p cardioversion not on anticoagulation for unclear reasons, 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 This morning woke up with chills and shaking, said he was confused so was brought to the ED In the ED he was febrile to 103.4 , His UA was very dirty and his WBC was elevated to 22.6, His lactate was also elevated. He was admitted for UTI and sepsis. Sepsis due to UTI catheter related UTI will give ceftriaxone blood cultures and urine cultures have been ordered continue gentle hydration Troponin elevated possibly due to sepsis will recheck lactacidosis gentle hydration Diabetes type 2, insulin dependent with retinopathy and neuropathy uncontrolled will give levemir and lispro FS AC and HS gabapentin CAD s/p CABG continue home meds ASA, Plavix, Statin COPD continue duonebs and prednisone CHF systolic and diastolic , right heart failure with pulmonary hypertension Echo from Jun 22, 2017 at [facility] showed EF of 22% Echo in our hospital on Jun 30, 2017 showed ED of 55% but at that time he was on dobutamine. appears to be mildly volume overloaded but not in exacerbation. will continue to monitor for fluid overload will hold diuretic at present CKD stage 4 with gout creatinine at baseline continue allopurinol and calcitriol Hypothyroid continue synthroid Paroxysmal A fib with h/o tachy cecil has pacemeker in place. now in sinus rhythm not on any anticoagulation BPH continue flomax. Plan / VTE VTE Prophylaxis Ordered?: Yes KIM BURNS MD Jan 01, 2019 22:29
[2019-01-02 00:15] VITALS: BP 128/62
[2019-01-02] MEDS: HEPARIN SOD (PORCINE) 5000 UNITS/ML VIAL SC SCH ×3 (00:32→20:57)
[2019-01-02] MEDS: DOCUSATE SODIUM 100 MG CAP PO SCH ×3 (00:32→20:57)
[2019-01-02] MEDS: GABAPENTIN 300 MG CAP PO SCH ×3 (00:33→20:57)
[2019-01-02] MEDS: TAMSULOSIN 0.4 MG CAP PO SCH ×2 (00:33→20:57)
[2019-01-02] MEDS: ATORVASTATIN 20 MG TAB PO SCH ×2 (00:33→20:57)
[2019-01-02] MEDS: NS 1,000 ML IV SCH ×2 (00:43→10:49)
[2019-01-02] MEDS: IPRATROPIUM 0.5MG/ALBUTEROL 2.5MG INH SOL UD 3ML (DUONEB)(J7620) NEB SCH ×3 (04:23→19:51)
[2019-01-02 06:00] VITALS: BP 146/67
[2019-01-02 06:39] LABS: BASO # 0.1 10^3/uL (0.0-0.2); BASO % 0.6 % (0.0-1.0); EOS # 0.1 10^3/uL (0.0-0.50); EOS % 0.4 % (0.0-3.0); HEMATOCRIT 28.2 % (42.0-52.0); HEMOGLOBIN 8.3 g/dl (13.5-17.5); LYMPH # 0.9 10^3/uL (1.5-4.5); LYMPH % 5.8 % (24.0-44.0); MEAN CORPUSCULAR HEMOGLOBIN 24.1 pg (27.0-33.0); MEAN CORPUSCULAR HGB CONC 29.4 g/dl (32.0-36.5); MONO # 1.2 10^3/uL (0.0-0.8); MONO % 7.5 % (0.0-5.0); NEUTROPHILS # 13.6 10^3/uL (1.8-7.7); NEUTROPHILS % 85.3 % (36.0-66.0); PLATELET COUNT, AUTOMATED 193 10^3/uL (150-450); RED BLOOD COUNT 3.44 10^6/uL (4.30-6.10)
[2019-01-02 07:12] LABS: CALCIUM LEVEL 8.9 MG/DL (8.8-10.2); CK-MB VALUE MASS 1.6 NG/ML (<3.6); CREATININE FOR GFR 2.58 MG/DL (0.70-1.30); GLOMERULAR FILTRATION RATE 25.4 (>35); MB/CK RELATIVE INDEX 4.85 (< OR =4); POTASSIUM SERUM 3.2 MEQ/L (3.5-5.1); TROPONIN I 0.18 NG/ML (< 0.10)
--- NOTE | 2019-01-02 08:16 | ECGEPIP ---
[facility] - ED Test Date: 2019-01-01 Pat Name: JOSE ECHEVARRIA Department: Room: [place] [address] Gender: Male [employer] Material: MONSTER : 1935 Requested By: Dorothy Garcia Order Number: [id number] Reading MD: Dorothy Garcia Measurements Intervals [place] Rate: 71 P: 53 RI: 197 QRS: 22 QRSD: 122 T: 56 QT: 428 QTc: 468 Interpretive Statements SINUS RHYTHM MODERATE INTRAVENTRICULAR CONDUCTION DELAY NONSPECIFIC ST & T-WAVE ABNORMALITY Electronically Signed on 01-02-2019 8:15:38 EDT by Dorothy Garcia
[2019-01-02] MEDS: HumaLOG INSULIN (NovoLOG) PER UNIT SC SCH ×4 (09:11→22:27)
[2019-01-02] MEDS: LEVEMIR (INSULIN DETEMIR) 1 UNITS/0.01ML SC SCH (09:11)
[2019-01-02] MEDS: CLOPIDOGREL 75 MG TAB PO SCH (09:12)
[2019-01-02] MEDS: LEVOTHYROXINE 75MCG TABLET (0.075MG) PO SCH (09:12)
[2019-01-02] MEDS: predniSONE 5 MG TAB PO SCH (09:12)
[2019-01-02] MEDS: ASPIRIN 81 MG ENTERIC TAB PO SCH (09:12)
[2019-01-02] MEDS: ALLOPURINOL 100 MG TAB PO SCH (09:12)
[2019-01-02 14:00] VITALS: BP 138/34
--- NOTE | 2019-01-02 17:07 | IPNPDOC ---
Date Seen The patient was seen on 01/02/19. Progress Note SUBJECTIVE: feels much better OBJECTIVE PHYSICAL EXAMINATION: VITAL SIGNS: Please see below. GENERAL: NAD ABDOMINAL: soft NT ND EXTREMITIES: no c/c/e LABORATORY DATA, IMAGING STUDIES, MICROBIOLOGY: Please see below. 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 This morning woke up with chills and shaking, said he was confused so was brought to the ED In the ED he was febrile to 103.4 , His UA was very dirty and his WBC was elevated to 22.6, His lactate was also elevated. He was admitted for UTI and sepsis. Sepsis due to UTI catheter related UTI CTX blood cultures and urine cultures have been ordered continue gentle hydration Troponin elevated has not peaked, repeat lactacidosis gentle hydration Diabetes type 2, insulin dependent with retinopathy and neuropathy uncontrolled will give levemir and lispro FS AC and HS gabapentin CAD s/p CABG continue home meds ASA, Plavix, Statin COPD continue duonebs and prednisone CHF systolic and diastolic , right heart failure with pulmonary hypertension Echo from Jun 22, 2017 at [facility] showed EF of 22% Echo in our hospital on Jun 30, 2017 showed ED of 55% but at that time he was on dobutamine. appears to be mildly volume overloaded but not in exacerbation. will continue to monitor for fluid overload will hold diuretic at present CKD stage 4 with gout creatinine at baseline continue allopurinol and calcitriol Hypothyroid continue synthroid Paroxysmal A fib with h/o tachsalma you has pacemeker in place. now in sinus rhythm not on any anticoagulation BPH continue flomax. VS, I&O, 24H, Fishbone Vital Signs/I&O Vital Signs Date Time Temp Pulse Resp B/P (MAP) Pulse Ox O2 Delivery O2 Flow Rate FiO2 01/02/19 14:00 98.0 76 15 138/34 (68) 98 01/01/19 22:30 Room Air I&O- Last 24 Hours up to 6 AM 01/02/19 05:59 Intake Total 0 ml Output Total 250 ml Balance -250 ml Laboratory Data 24H LABS Laboratory Tests 2 01/01/19 18:03: Immature Granulocyte % (Auto) 0.7, White Blood Count 22.6H, Red Blood Count 3.71L, Hemoglobin 9.0L, Hematocrit 30.5L, Mean Corpuscular Volume 82.2, Mean Corpuscular Hemoglobin 24.3L, Mean Corpuscular Hemoglobin Concent 29.5L, Red Cell Distribution Width 20.0H, Platelet Count 234, Neutrophils (%) (Auto) 91.3H, Lymphocytes (%) (Auto) 2.3L, Monocytes (%) (Auto) 5.4H, Eosinophils (%) (Auto) 0.0, Basophils (%) (Auto) 0.3, Neutrophils # (Auto) 20.6H, Lymphocytes # (Auto) 0.5L, Monocytes # (Auto) 1.2H, Eosinophils # (Auto) 0.0, Basophils # (Auto) 0.1, Nucleated Red Blood Cells % (auto) 0.0, Prothrombin Time 14.1H, Prothromb Time International Ratio 1.12, Blood Gas Bicarbonate Standard 28.9, Venous Blood pH 7.374, Venous Blood Partial Pressure CO2 55.8H, Venous Blood Partial Pressure O2 34.6, Venous Blood Total Carbon Dioxide 33.5H, Venous Blood HCO3 31.8H, Venous Blood Oxygen Saturation 64.1, Venous Blood Base Excess 5.6H, Anion Gap 8, Glomerular Filtration Rate 22.4L, Lactic Acid Level 2.3*H, Calcium Level 9.3, Aspartate Amino Transf (AST/SGOT) 49H, Alanine Aminotransferase (ALT/SGPT) 17, Alkaline Phosphatase 153H, Total Bilirubin 0.6, Direct Bilirubin 0.2, Total Creatine Kinase 90, Creatine Kinase MB 1.1, Creatine Kinase MB Relative Index 1.22, Troponin I 0.14H, C-Reactive Protein, Quantitative 7.40H, Total Protein 6.2L, Albumin 2.6L, Albumin/Globulin Ratio 0.72L 01/01/19 19:27: Urine Appearance CLOUDYH, Urine Color YELLOW, Urine pH 5.0, Urine Specific [place] 1.008, Urine Protein 1+H, Urine Glucose (UA) 3+H, Urine Ketones NEGATIVE, Urine Urobilinogen 0.2, Urine Bilirubin NEGATIVE, Urine Leukocyte Esterase 3+H, Urine Blood 1+H, Urine Nitrite POSITIVE, Urine WBC (Auto) 134H, Urine RBC (Auto) 4H, Urine Hyaline Casts (Auto) 5, Urine Bacteria (Auto) 1+H, Urine Squamous Epithelial Cells 0, Urine Mucus (Auto) SMALL, Urine Sperm (Auto) 01/01/19 20:16: Bedside Glucose (Misc Panel) 428H 01/01/19 22:39: Lactic Acid Followup at 4 Hours 2.4*H 01/02/19 00:35: Bedside Glucose (Misc Panel) 247H 01/02/19 06:09: Immature Granulocyte % (Auto) 0.4, White Blood Count 16.0H, Red Blood Count 3. 44L, Hemoglobin 8.3L, Hematocrit 28.2L, Mean Corpuscular Volume 82.0, Mean Corpuscular Hemoglobin 24.1L, Mean Corpuscular Hemoglobin Concent 29.4L, Red Cell Distribution Width 20.0H, Platelet Count 193, Neutrophils (%) (Auto) 85.3H, Lymphocytes (%) (Auto) 5.8L, Monocytes (%) (Auto) 7.5H, Eosinophils (%) (Auto) 0.4, Basophils (%) (Auto) 0.6, Neutrophils # (Auto) 13.6H, Lymphocytes # (Auto) 0.9L, Monocytes # (Auto) 1.2H, Eosinophils # (Auto) 0.1, Basophils # (Auto) 0.1, Nucleated Red Blood Cells % (auto) 0.0, Anion Gap 5L, Glomerular Filtration Rate 25.4L, Blood Urea Nitrogen 42H, Creatinine 2.58H, Sodium Level 138, Potassium Level 3.2#L, Chloride Level 101, Carbon Dioxide Level 32, Calcium Level 8.9, Total Creatine Kinase 33L, Creatine Kinase MB 1.6, Creatine Kinase MB Relative Index 4.85H, Troponin I 0.18#H 01/02/19 12:10: Bedside Glucose (Misc Panel) 200H CBC/BMP Laboratory Tests 01/01/19 18:03 Red Blood Count 3.71 L, Mean Corpuscular Volume 82.2, Mean Corpuscular Hemoglobin 24.3 L, Mean Corpuscular Hemoglobin Concent 29.5 L, Red Cell Distribu tion Width 20.0 H, Neutrophils (%) (Auto) 91.3 H, Lymphocytes (%) (Auto) 2.3 L, Monocytes (%) (Auto) 5.4 H, Eosinophils (%) (Auto) 0.0, Basophils (%) (Auto) 0.3, Neutrophils # (Auto) 20.6 H, Lymphocytes # (Auto) 0.5 L, Monocytes # (Auto) 1.2 H, Eosinophils # (Auto) 0.0, Basophils # (Auto) 0.1 01/02/19 06:09 Red Blood Count 3.44 L, Mean Corpuscular Volume 82.0, Mean Corpuscular Hemoglobin 24.1 L, Mean Corpuscular Hemoglobin Concent 29.4 L, Red Cell Distribution Width 20.0 H, Neutrophils (%) (Auto) 85.3 H, Lymphocytes (%) (Auto) 5.8 L, Monocytes (%) (Auto) 7.5 H, Eosinophils (%) (Auto) 0.4, Basophils (%) (Auto) 0.6, Neutrophils # (Auto) 13.6 H, Lymphocytes # (Auto) 0.9 L, Monocytes # (Auto) 1.2 H, Eosinophils # (Auto) 0.1, Basophils # (Auto) 0.1, Calcium Level 8.9, Total Creatine Kinase 33 L Microbiology Microbiology 01/01/19 Blood Culture, Received Pending 01/01/19 Blood Culture, Received Pending 01/01/19 Gram Stain - Final, Resulted 01/01/19 Sputum Culture, Resulted Pending 01/01/19 Urine Culture, Received Pending JOSSELYN TAYLOR MD Jan 02, 2019 17:07
[2019-01-02] MEDS ORDERED: POTASSIUM CHLORIDE 10 MEQ SR TABLET PO ONE (18:00)
[2019-01-02] MEDS: cefTRIAXone SOD 1 GM in D5W MINI-BAG PLUS 50 ML IV SCH (20:56)
[2019-01-02 22:00] VITALS: BP 145/51
[2019-01-03] MEDS: NS 1,000 ML IV SCH (03:01)
[2019-01-03 05:19] LABS: BASO # 0.1 10^3/uL (0.0-0.2); BASO % 0.6 % (0.0-1.0); EOS # 0.1 10^3/uL (0.0-0.50); EOS % 0.5 % (0.0-3.0); HEMATOCRIT 25.8 % (42.0-52.0); HEMOGLOBIN 7.7 g/dl (13.5-17.5); LYMPH # 0.8 10^3/uL (1.5-4.5); LYMPH % 6.1 % (24.0-44.0); MEAN CORPUSCULAR HEMOGLOBIN 23.5 pg (27.0-33.0); MEAN CORPUSCULAR HGB CONC 29.8 g/dl (32.0-36.5); MEAN CORPUSCULAR VOLUME 78.9 fl (80.0-96.0); MONO # 0.9 10^3/uL (0.0-0.8); MONO % 7.5 % (0.0-5.0); NEUTROPHILS # 10.6 10^3/uL (1.8-7.7); NEUTROPHILS % 84.8 % (36.0-66.0); PLATELET COUNT, AUTOMATED 205 10^3/uL (150-450); RED BLOOD COUNT 3.27 10^6/uL (4.30-6.10); WHITE BLOOD COUNT 12.5 10^3/uL (4.0-10.0)
[2019-01-03 05:32] LABS: CALCIUM LEVEL 8.6 MG/DL (8.8-10.2); CREATININE FOR GFR 2.55 MG/DL (0.70-1.30); GLOMERULAR FILTRATION RATE 25.7 (>35); POTASSIUM SERUM 4.1 MEQ/L (3.5-5.1)
[2019-01-03 06:00] VITALS: BP 147/55
[2019-01-03] MEDS: IPRATROPIUM 0.5MG/ALBUTEROL 2.5MG INH SOL UD 3ML (DUONEB)(J7620) NEB SCH ×2 (08:01→20:05)
[2019-01-03] MEDS: LEVEMIR (INSULIN DETEMIR) 1 UNITS/0.01ML SC SCH (09:03)
[2019-01-03] MEDS: HumaLOG INSULIN (NovoLOG) PER UNIT SC SCH ×5 (09:03→21:02)
[2019-01-03] MEDS: ASPIRIN 81 MG ENTERIC TAB PO SCH (09:04)
[2019-01-03] MEDS: GABAPENTIN 300 MG CAP PO SCH ×2 (09:04→21:10)
[2019-01-03] MEDS: ALLOPURINOL 100 MG TAB PO SCH (09:04)
[2019-01-03] MEDS: predniSONE 5 MG TAB PO SCH (09:04)
[2019-01-03] MEDS: HEPARIN SOD (PORCINE) 5000 UNITS/ML VIAL SC SCH ×2 (09:04→21:01)
[2019-01-03] MEDS: LEVOTHYROXINE 75MCG TABLET (0.075MG) PO SCH (09:04)
[2019-01-03] MEDS: DOCUSATE SODIUM 100 MG CAP PO SCH ×2 (09:04→21:01)
[2019-01-03] MEDS: CLOPIDOGREL 75 MG TAB PO SCH (09:04)
[2019-01-03 14:00] VITALS: BP 135/68
--- NOTE | 2019-01-03 17:55 | IPNPDOC ---
Date Seen The patient was seen on 01/03/19. Progress Note SUBJECTIVE: no complaints OBJECTIVE PHYSICAL EXAMINATION: VITAL SIGNS: Please see below. GENERAL: [NAD Abd: soft NT ND ext: trace edema PROBLEMS: #Sepsis 2/2 E Coli UTI #Troponin elevation, peaked, likely 2/2 demand #DM #CAD #CABG #COPD #CKD stage IV #Hypothyroidism #pAF #BPH #b/l fem-pop bypass had recent fem-fem bypass on 12/21/18 - IV cefriaxone, cx growing E Coli, follow sensitivity; likely catheter related from recent surgery - levemir, ISS - duonebs and prednisone - resume home torsemide to prevent volume overload as pt no longer septic and Cr at baseline - synthroid - flomax - allopurinol and calcitriol VS, I&O, 24H, Fishbone Vital Signs/I&O Vital Signs Date Time Temp Pulse Resp B/P (MAP) Pulse Ox O2 Delivery O2 Flow Rate FiO2 01/03/19 14:00 98.4 65 19 135/68 (90) 96 01/01/19 22:30 Room Air I&O- Last 24 Hours up to 6 AM 01/03/19 06:00 Intake Total 2351 ml Output Total 700 ml Balance 1651 ml Laboratory Data 24H LABS Laboratory Tests 2 01/02/19 22:22: Bedside Glucose (Misc Panel) 291H 01/03/19 04:58: Immature Granulocyte % (Auto) 0.5, White Blood Count 12.5H, Red Blood Count 3.27L, Hemoglobin 7.7L, Hematocrit 25.8L, Mean Corpuscular Volume 78.9L, Mean Corpuscular Hemoglobin 23.5L, Mean Corpuscular Hemoglobin Concent 29.8L, Red Cell Distribution Width 20.1H, Platelet Count 205, Neutrophils (%) (Auto) 84.8H, Lymphocytes (%) (Auto) 6.1L, Monocytes (%) (Auto) 7.5H, Eosinophils (%) (Auto) 0.5, Basophils (%) (Auto) 0.6, Neutrophils # (Auto) 10.6H, Lymphocytes # (Auto) 0.8L, Monocytes # (Auto) 0.9H, Eosinophils # (Auto) 0.1, Basophils # (Auto) 0.1, Nucleated Red Blood Cells % (auto) 0.0, Anion Gap 4L, Glomerular Filtration Rate 25.7L, Lactic Acid Level 1.4, Blood Urea Nitrogen 43H, Creatinine 2.55H, Sodium Level 138, Potassium Level 4.1#, Chloride Level 104, Carbon Dioxide Level 30, Calcium Level 8.6L CBC/BMP Laboratory Tests 01/03/19 04:58 Red Blood Count 3.27 L, Mean Corpuscular Volume 78.9 L, Mean Corpuscular Hemoglobin 23.5 L, Mean Corpuscular Hemoglobin Concent 29.8 L, Red Cell Distribution Width 20.1 H, Neutrophils (%) (Auto) 84.8 H, Lymphocytes (%) (Auto) 6.1 L, Monocytes (%) (Auto) 7.5 H, Eosinophils (%) (Auto) 0.5, Basophils (%) (Auto) 0.6, Neutrophils # (Auto) 10.6 H, Lymphocytes # (Auto) 0.8 L, Monocytes # (Auto) 0.9 H, Eosinophils # (Auto) 0.1, Basophils # (Auto) 0.1, Calcium Level 8.6 L Microbiology Microbiology 01/01/19 Blood Culture - Preliminary, Resulted No growth after 24 hours . All specim... 01/01/19 Blood Culture - Preliminary, Resulted No growth after 24 hours . All specim... 01/01/19 Gram Stain - Final, Resulted 01/01/19 Sputum Culture, Resulted Pending 01/01/19 Urine Culture - Final, Complete Escherichia Coli JOSSELYN TAYLOR MD Jan 03, 2019 17:55
[2019-01-03] MEDS: TAMSULOSIN 0.4 MG CAP PO SCH (21:01)
[2019-01-03] MEDS: ATORVASTATIN 20 MG TAB PO SCH (21:01)
[2019-01-03] MEDS: cefTRIAXone SOD 1 GM in D5W MINI-BAG PLUS 50 ML IV SCH (21:02)
[2019-01-03 22:00] VITALS: BP 145/55
[2019-01-04] MEDS: IPRATROPIUM 0.5MG/ALBUTEROL 2.5MG INH SOL UD 3ML (DUONEB)(J7620) NEB SCH ×3 (04:04→20:36)
[2019-01-04 06:00] VITALS: BP 162/62
[2019-01-04 06:42] LABS: BASO # 0.1 10^3/uL (0.0-0.2); BASO % 0.6 % (0.0-1.0); EOS # 0.1 10^3/uL (0.0-0.50); EOS % 1.2 % (0.0-3.0); HEMATOCRIT 28.8 % (42.0-52.0); HEMOGLOBIN 8.3 g/dl (13.5-17.5); LYMPH # 0.7 10^3/uL (1.5-4.5); LYMPH % 6.1 % (24.0-44.0); MEAN CORPUSCULAR HEMOGLOBIN 23.8 pg (27.0-33.0); MEAN CORPUSCULAR HGB CONC 28.8 g/dl (32.0-36.5); MEAN CORPUSCULAR VOLUME 82.5 fl (80.0-96.0); MONO # 0.8 10^3/uL (0.0-0.8); MONO % 7.1 % (0.0-5.0); NEUTROPHILS # 9.3 10^3/uL (1.8-7.7); NEUTROPHILS % 84.4 % (36.0-66.0); PLATELET COUNT, AUTOMATED 224 10^3/uL (150-450); RED BLOOD COUNT 3.49 10^6/uL (4.30-6.10); WHITE BLOOD COUNT 11.1 10^3/uL (4.0-10.0)
[2019-01-04 06:58] LABS: CALCIUM LEVEL 8.9 MG/DL (8.8-10.2); CREATININE FOR GFR 2.08 MG/DL (0.70-1.30); GLOMERULAR FILTRATION RATE 32.5 (>35); POTASSIUM SERUM 3.9 MEQ/L (3.5-5.1)
[2019-01-04] MEDS: HEPARIN SOD (PORCINE) 5000 UNITS/ML VIAL SC SCH ×2 (08:23→20:27)
[2019-01-04] MEDS: LEVEMIR (INSULIN DETEMIR) 1 UNITS/0.01ML SC SCH (08:24)
[2019-01-04] MEDS: ASPIRIN 81 MG ENTERIC TAB PO SCH (08:24)
[2019-01-04] MEDS: GABAPENTIN 300 MG CAP PO SCH ×2 (08:24→20:27)
[2019-01-04] MEDS: HumaLOG INSULIN (NovoLOG) PER UNIT SC SCH ×4 (08:24→20:16)
[2019-01-04] MEDS: ALLOPURINOL 100 MG TAB PO SCH (08:24)
[2019-01-04] MEDS: DOCUSATE SODIUM 100 MG CAP PO SCH ×2 (08:24→20:28)
[2019-01-04] MEDS: CLOPIDOGREL 75 MG TAB PO SCH (08:24)
[2019-01-04] MEDS: TORSEMIDE 20 MG TAB PO SCH ×2 (08:24→17:23)
[2019-01-04] MEDS: LEVOTHYROXINE 75MCG TABLET (0.075MG) PO SCH (08:24)
[2019-01-04] MEDS: predniSONE 5 MG TAB PO SCH (08:24)
[2019-01-04] MEDS ORDERED: guaiFENesin ER 600 MG TAB PO SCH ×3 (09:00→21:00)
--- NOTE | 2019-01-04 10:03 | REP ---
PORTABLE CHEST, ONE VIEW: HISTORY: Cough. COMPARISON: 01/01/2019 An increase in interstitial markings is present in the lungs consistent with chronic interstitial change. Parenchymal densities are present in the lower lobes consistent with atelectasis or infiltrates. Small bilateral pleural effusions are present. The heart is normal in size. The pulmonary vasculature is normal in appearance. A cardiac pacemaker is present. IMPRESSION: 1. Chronic interstitial change. 2. Bibasilar atelectasis or infiltrates. 3. Small bilateral pleural effusions. Electronically Signed by Justus Pryor MD 01/04/2019 10:07 A
[2019-01-04] MEDS ORDERED: IPRATROPIUM 0.5MG/ALBUTEROL 2.5MG INH SOL UD 3ML (DUONEB)(J7620) NEB PRN (13:00)
[2019-01-04] MEDS ORDERED: IPRATROPIUM 0.5MG/ALBUTEROL 2.5MG INH SOL UD 3ML (DUONEB)(J7620) NEB ONE (13:00)
[2019-01-04] MEDS: SENOKOT S TAB PO SCH ×2 (13:02→20:28)
--- NOTE | 2019-01-04 13:56 | IPN ---
DATE: 01/04/2019 The patient is seen and examined at the bedside. Chart has been reviewed. The patient complains of cough, productive of white sputum. Denies any chest pain, pressure or tightness, lightheadedness, dizziness, fever or chills. He denies any dysuria, urgency or frequency, flank pain. VITAL SIGNS: Temperature 98.7, pulse 50, respiratory rate 18, blood pressure 122/62, 96% on room air. GENERAL: Awake, alert, and oriented. Coughing at the bedside. No use of accessory respiratory muscles. No conversational dyspnea. He is awake, alert, and oriented to self. Answering questions appropriately. Face is symmetric. No jugular venous distention (JVD), thyromegaly or cervical lymphadenopathy. LUNGS: Diminished. No wheezing, rales or rhonchi. HEART: S1, S2. Sinus rhythm. ABDOMEN: Soft, nontender, nondistended. Positive bowel sounds. EXTREMITIES: No cyanosis or clubbing. Positive edema. There is ecchymosis on the right lower extremity. Microbiology, laboratories, and imaging studies have been reviewed and notable for a white count of 11, decreased from 22,000, hemoglobin 8.3, increased from 7.7 without intervention or blood transfusion. Creatinine is 2.08 from creatinine of 2.88 on admission. Microbiology: Urine culture E coli. Sputum culture Enterobacter. Both of which are sensitive to ceftriaxone. ASSESSMENT AND PLAN: This is an 83-year-old male with a past medical history significant for coronary artery disease, coronary artery bypass graft (CABG), ischemic cardiomyopathy with ejection fraction of 25%, chronic kidney disease stage IV, chronic obstructive pulmonary disease (COPD) on chronic steroids, PAD with bilateral fem-pop, recent fem-fem on 12/21/2018 in [place] with indwelling Orellana catheter on 12/30/2018, paroxysmal atrial fibrillation, status post cardioversion, not on anticoagulation, type 2 diabetes, methicillin resistant Staphylococcus aureus (MRSA) cellulitis, pacer due to sick sinus syndrome, admitted for urinary tract infection and found to have Escherichia (E) coli on urine culture and Enterobacter in the sputum, both of which are sensitive to ceftriaxone. CURRENT ISSUES: 1. Urinary tract infection, currently on IV ceftriaxone with decreasing white count, afebrile, hypothermic at 96.7. He currently has no new complaints. We will continue with IV antibiotics for now, 7 days of antibiotics. 2. Type 2 diabetes. On Levemir insulin sliding scale with coverage. 3. History of chronic obstructive pulmonary disease (COPD). We will change to four times a day DuoNeb and every 2 hours as needed DuoNeb for worsening shortness of breath. Mucinex. 4. Congestive heart failure (CHF) with ischemic cardiomyopathy with ejection fraction of 25%. On torsemide 20 mg twice a day. 5. Chronic kidney disease stage III. Currently stable on his current dose of diuretics. 6. Benign prostatic hypertrophy (BPH). On chronic Flomax. 7. Diabetic neuropathy. On gabapentin. 8. Dyslipidemia. On Lipitor 40 mg daily. 9. Type 2 diabetes. On 20 units of Levemir insulin, sliding scale, and consistent carbohydrate diet. 10. Chronic prednisone use for chronic obstructive pulmonary disease (COPD). 11. Hypothyroidism. On Synthroid. 12. History of coronary artery disease. On aspirin and Plavix. 13. Gout. On allopurinol. DISPOSITION: Will need to complete 7 days of antibiotics. Physical therapy (PT) has been consulted for deconditioning. The patient is currently not safe for discharge. Uses a two-wheeled walker. [facility]
[2019-01-04 14:00] VITALS: BP 147/66
[2019-01-04 14:14] LABS: CK-MB VALUE MASS 2.8 NG/ML (<3.6); MB/CK RELATIVE INDEX 8.75 (< OR =4); TROPONIN I 0.2 NG/ML (< 0.10)
[2019-01-04] MEDS: guaiFENesin ER 600 MG TAB PO SCH (20:28)
[2019-01-04] MEDS: TAMSULOSIN 0.4 MG CAP PO SCH (20:28)
[2019-01-04] MEDS: ATORVASTATIN 20 MG TAB PO SCH (20:28)
[2019-01-04] MEDS: cefTRIAXone SOD 1 GM in D5W MINI-BAG PLUS 50 ML IV SCH (20:29)
[2019-01-04 22:00] VITALS: BP 157/61
[2019-01-05 06:00] VITALS: BP 140/63
[2019-01-05 06:17] LABS: BASO # 0.1 10^3/uL (0.0-0.2); EOS # 0.2 10^3/uL (0.0-0.50); HEMATOCRIT 28.3 % (42.0-52.0); HEMOGLOBIN 8.3 g/dl (13.5-17.5); LYMPH # 0.7 10^3/uL (1.5-4.5); LYMPH % 8.6 % (24.0-44.0); MEAN CORPUSCULAR HGB CONC 29.3 g/dl (32.0-36.5); MEAN CORPUSCULAR VOLUME 81.8 fl (80.0-96.0); MONO # 0.8 10^3/uL (0.0-0.8); MONO % 9.8 % (0.0-5.0); NEUTROPHILS # 6.2 10^3/uL (1.8-7.7); NEUTROPHILS % 78.1 % (36.0-66.0); PLATELET COUNT, AUTOMATED 231 10^3/uL (150-450); RED BLOOD COUNT 3.46 10^6/uL (4.30-6.10); WHITE BLOOD COUNT 7.9 10^3/uL (4.0-10.0)
[2019-01-05 06:38] LABS: CREATININE FOR GFR 2.18 MG/DL (0.70-1.30)
[2019-01-05 06:39] LABS: CALCIUM LEVEL 9.1 MG/DL (8.8-10.2); GLOMERULAR FILTRATION RATE 30.8 (>35); POTASSIUM SERUM 3.8 MEQ/L (3.5-5.1)
[2019-01-05] MEDS: HumaLOG INSULIN (NovoLOG) PER UNIT SC SCH ×4 (07:30→21:00)
[2019-01-05] MEDS: IPRATROPIUM 0.5MG/ALBUTEROL 2.5MG INH SOL UD 3ML (DUONEB)(J7620) NEB SCH ×4 (07:57→19:35)
[2019-01-05] MEDS: HEPARIN SOD (PORCINE) 5000 UNITS/ML VIAL SC SCH ×2 (09:00→21:04)
[2019-01-05 09:16] LABS: CK-MB VALUE MASS 2.3 NG/ML (<3.6); MB/CK RELATIVE INDEX 5.48 (< OR =4); TROPONIN I 0.18 NG/ML (< 0.10)
[2019-01-05] MEDS: ASPIRIN 81 MG ENTERIC TAB PO SCH (10:53)
[2019-01-05] MEDS: ALLOPURINOL 100 MG TAB PO SCH (10:54)
[2019-01-05] MEDS: DOCUSATE SODIUM 100 MG CAP PO SCH ×2 (10:54→21:03)
[2019-01-05] MEDS: GABAPENTIN 300 MG CAP PO SCH ×2 (10:54→21:04)
[2019-01-05] MEDS: CLOPIDOGREL 75 MG TAB PO SCH (10:54)
[2019-01-05] MEDS: SENOKOT S TAB PO SCH ×2 (10:54→21:03)
[2019-01-05] MEDS: LEVOTHYROXINE 75MCG TABLET (0.075MG) PO SCH (10:54)
[2019-01-05] MEDS: predniSONE 5 MG TAB PO SCH (10:54)
[2019-01-05] MEDS: guaiFENesin ER 600 MG TAB PO SCH ×2 (10:55→21:03)
[2019-01-05] MEDS: LEVEMIR (INSULIN DETEMIR) 1 UNITS/0.01ML SC SCH (10:56)
[2019-01-05] MEDS: FUROSEMIDE 40 MG/4 ML VIAL (J1940) IV SCH ×2 (10:56→16:49)
[2019-01-05 14:00] VITALS: BP 159/98
[2019-01-05] MEDS: ATORVASTATIN 20 MG TAB PO SCH (21:03)
[2019-01-05] MEDS: TAMSULOSIN 0.4 MG CAP PO SCH (21:03)
[2019-01-05] MEDS: cefTRIAXone SOD 1 GM in D5W MINI-BAG PLUS 50 ML IV SCH (21:04)
[2019-01-05 22:00] VITALS: BP 143/65
[2019-01-06 06:00] VITALS: BP 145/69
[2019-01-06 06:29] LABS: BASO # 0.1 10^3/uL (0.0-0.2); BASO % 1.1 % (0.0-1.0); EOS # 0.2 10^3/uL (0.0-0.50); EOS % 2.6 % (0.0-3.0); HEMATOCRIT 26.3 % (42.0-52.0); HEMOGLOBIN 7.9 g/dl (13.5-17.5); LYMPH # 0.9 10^3/uL (1.5-4.5); LYMPH % 11.9 % (24.0-44.0); MEAN CORPUSCULAR HEMOGLOBIN 23.4 pg (27.0-33.0); MEAN CORPUSCULAR VOLUME 77.8 fl (80.0-96.0); MONO # 0.7 10^3/uL (0.0-0.8); MONO % 9.4 % (0.0-5.0); NEUTROPHILS # 5.4 10^3/uL (1.8-7.7); NEUTROPHILS % 74.4 % (36.0-66.0); PLATELET COUNT, AUTOMATED 230 10^3/uL (150-450); RED BLOOD COUNT 3.38 10^6/uL (4.30-6.10); WHITE BLOOD COUNT 7.2 10^3/uL (4.0-10.0)
[2019-01-06 06:46] LABS: CALCIUM LEVEL 8.9 MG/DL (8.8-10.2); CREATININE FOR GFR 2.13 MG/DL (0.70-1.30); GLOMERULAR FILTRATION RATE 31.7 (>35); POTASSIUM SERUM 3.7 MEQ/L (3.5-5.1)
[2019-01-06] MEDS: IPRATROPIUM 0.5MG/ALBUTEROL 2.5MG INH SOL UD 3ML (DUONEB)(J7620) NEB SCH ×4 (07:55→20:39)
[2019-01-06] MEDS: SENOKOT S TAB PO SCH ×2 (08:02→20:26)
[2019-01-06] MEDS: LEVOTHYROXINE 75MCG TABLET (0.075MG) PO SCH (08:02)
[2019-01-06] MEDS: ALLOPURINOL 100 MG TAB PO SCH (08:02)
[2019-01-06] MEDS: predniSONE 5 MG TAB PO SCH (08:02)
[2019-01-06] MEDS: DOCUSATE SODIUM 100 MG CAP PO SCH (08:02)
[2019-01-06] MEDS: CLOPIDOGREL 75 MG TAB PO SCH (08:02)
[2019-01-06] MEDS: HEPARIN SOD (PORCINE) 5000 UNITS/ML VIAL SC SCH ×2 (08:03→20:24)
[2019-01-06] MEDS: HumaLOG INSULIN (NovoLOG) PER UNIT SC SCH ×5 (08:03→22:09)
[2019-01-06] MEDS: guaiFENesin ER 600 MG TAB PO SCH ×2 (08:03→20:25)
[2019-01-06] MEDS: GABAPENTIN 300 MG CAP PO SCH ×2 (08:03→20:25)
[2019-01-06] MEDS: ASPIRIN 81 MG ENTERIC TAB PO SCH (08:03)
[2019-01-06] MEDS: LEVEMIR (INSULIN DETEMIR) 1 UNITS/0.01ML SC SCH (08:03)
[2019-01-06] MEDS ORDERED: FLEET ENEMA PR PRN (12:30)
[2019-01-06] MEDS: MOM 30ML SUSPENSION UDC PO PRN (12:30)
[2019-01-06 12:49] LABS: CK-MB VALUE MASS 2.1 NG/ML (<3.6); MB/CK RELATIVE INDEX 5.68 (< OR =4); TROPONIN I 0.15 NG/ML (< 0.10)
[2019-01-06] MEDS: BISACODYL 10 MG SUPP PR SCH ×2 (13:00→20:26)
--- NOTE | 2019-01-06 13:19 | IPN ---
DATE: 01/05/2019 This morning, patient still complains of congestion. Chest imaging shows possible pulmonary edema with small bilateral effusions, bibasilar atelectasis and infiltrates and chronic interstitial change. The patient still complains of congestion. No rhinorrhea, chest pain, pressure, tightness, lightheadedness. Her torsemide has been discontinued. The patient has been put on intravenous Lasix. VITAL SIGNS: Temperature 98.3, pulse 87, respiratory rate 18, blood pressure 159/98, 99% on room air. LUNGS: Diminished with bilateral rales. HEART: S1, S2 irregularly irregular. ABDOMEN: Soft, nontender, nondistended. Positive bowel sounds. EXTREMITIES: Ecchymosis on the right lower extremity. No cyanosis or clubbing, positive edema. LABORATORY DATA: Microbiology and imaging studies have been reviewed. ASSESSMENT AND PLAN: 83-year-old male with history of coronary artery disease, coronary artery bypass graft (CABG), ischemic cardiomyopathy with ejection fraction of 25%, chronic kidney disease stage IV, chronic obstructive pulmonary disease (COPD) on chronic steroids, PAD with bilateral fem-pop with recent fem-fem on 12/21/2018 in [place] with an indwelling Orellana catheter, paroxysmal atrial fibrillation, status post cardioversion, not on anticoagulation, methicillin resistant Staphylococcus aureus (MRSA) cellulitis, pacer due to sick sinus syndrome, admitted for urinary tract infection and found to have Escherichia (E) coli in urine culture and Enterobacter in the sputum, both of which are sensitive to ceftriaxone. CURRENT ISSUES: 1. Congestive heart failure (CHF) with depressed low ejection fraction, ejection fraction of 25%. He is currently being diuresed with Lasix intravenously with monitoring of electrolytes and creatinine, strict intake and output, daily weights, fluid restriction of 2 liters. 2. Urinary tract infection with E. coli on IV ceftriaxone with normal white count, afebrile. He currently has no new complaints to complete a seven day course of antibiotics. 3. Enterobacter in the sputum. Currently sensitive to ceftriaxone. No focal infiltrate on chest x-ray, but with small bilateral effusions and chronic interstitial changes. 4. Type 2 diabetes. On Levemir insulin sliding scale with coverage. Consistent carbohydrate renal diet and hypoglycemic protocol. Sliding scale with coverage. 5. History of COPD and steroid dependence. He is continued on his DuoNebs every 2 hours and four times a day. Mucinex as needed for complaints of congestion. 6. Chronic kidney disease stage III. Currently at baseline creatinine. Avoiding nephrotoxins, renally dosing all medications. He has currently been switched over from torsemide to IV Lasix due to small bilateral effusions and complaints of congestion with elevated BNP for decompensated CHF. 7. Benign prostatic hypertrophy (BPH). On chronic Flomax. 8. Diabetic neuropathy, on gabapentin. 9. Dyslipidemia, on Lipitor 40 mg daily. 9. Type 2 diabetes. On Levemir insulin sliding scale and consistent carbohydrate diet with coverage. 10. Hypothyroidism, on Synthroid. 11. History of coronary artery disease on aspirin and Plavix. 12. History of gout, on allopurinol. DISPOSITION: The patient is to complete seven days of antibiotics. Physical therapy (PT) has been consulted for deconditioning. The patient usually uses a two wheeled walker. Will await euvolemia prior to plans for discharge.
[2019-01-06 14:00] VITALS: BP 135/62
[2019-01-06] MEDS ORDERED: metOLazone 2.5 MG TAB PO ONE (14:00)
[2019-01-06] MEDS: FUROSEMIDE 40 MG/4 ML VIAL (J1940) IV SCH ×2 (14:36→20:25)
[2019-01-06] MEDS: ATORVASTATIN 20 MG TAB PO SCH (20:25)
[2019-01-06] MEDS: TAMSULOSIN 0.4 MG CAP PO SCH (20:25)
[2019-01-06] MEDS: cefTRIAXone SOD 1 GM in D5W MINI-BAG PLUS 50 ML IV SCH (21:02)
[2019-01-06 22:00] VITALS: BP 149/66
[2019-01-07] MEDS: FUROSEMIDE 40 MG/4 ML VIAL (J1940) IV SCH (02:34)
[2019-01-07 06:00] VITALS: BP 148/62
[2019-01-07 06:03] LABS: BASO # 0.1 10^3/uL (0.0-0.2); BASO % 0.8 % (0.0-1.0); EOS # 0.1 10^3/uL (0.0-0.50); EOS % 1.4 % (0.0-3.0); HEMATOCRIT 27.9 % (42.0-52.0); HEMOGLOBIN 8.4 g/dl (13.5-17.5); LYMPH # 0.7 10^3/uL (1.5-4.5); LYMPH % 7.6 % (24.0-44.0); MEAN CORPUSCULAR HEMOGLOBIN 23.9 pg (27.0-33.0); MEAN CORPUSCULAR HGB CONC 30.1 g/dl (32.0-36.5); MEAN CORPUSCULAR VOLUME 79.3 fl (80.0-96.0); MONO # 0.7 10^3/uL (0.0-0.8); MONO % 8.2 % (0.0-5.0); NEUTROPHILS # 7.4 10^3/uL (1.8-7.7); NEUTROPHILS % 81.3 % (36.0-66.0); PLATELET COUNT, AUTOMATED 247 10^3/uL (150-450); RED BLOOD COUNT 3.52 10^6/uL (4.30-6.10); WHITE BLOOD COUNT 9.1 10^3/uL (4.0-10.0)
[2019-01-07 06:22] LABS: CREATININE FOR GFR 2.17 MG/DL (0.70-1.30); POTASSIUM SERUM 4.3 MEQ/L (3.5-5.1)
[2019-01-07] MEDS: IPRATROPIUM 0.5MG/ALBUTEROL 2.5MG INH SOL UD 3ML (DUONEB)(J7620) NEB SCH ×4 (07:24→20:05)
[2019-01-07] MEDS: GABAPENTIN 300 MG CAP PO SCH ×2 (08:34→21:25)
[2019-01-07] MEDS: LEVOTHYROXINE 75MCG TABLET (0.075MG) PO SCH (08:34)
[2019-01-07] MEDS: HEPARIN SOD (PORCINE) 5000 UNITS/ML VIAL SC SCH ×2 (08:34→21:24)
[2019-01-07] MEDS: SENOKOT S TAB PO SCH ×2 (08:34→21:25)
[2019-01-07] MEDS: predniSONE 5 MG TAB PO SCH (08:34)
[2019-01-07] MEDS: ALLOPURINOL 100 MG TAB PO SCH (08:34)
[2019-01-07] MEDS: guaiFENesin ER 600 MG TAB PO SCH ×2 (08:34→21:25)
[2019-01-07] MEDS: CLOPIDOGREL 75 MG TAB PO SCH (08:34)
[2019-01-07] MEDS: ASPIRIN 81 MG ENTERIC TAB PO SCH (08:34)
[2019-01-07] MEDS: TORSEMIDE 20 MG TAB PO SCH ×2 (08:35→18:45)
[2019-01-07] MEDS: HumaLOG INSULIN (NovoLOG) PER UNIT SC SCH ×4 (08:35→21:25)
[2019-01-07] MEDS: BISACODYL 10 MG SUPP PR SCH ×2 (08:36→21:25)
[2019-01-07] MEDS: LEVEMIR (INSULIN DETEMIR) 1 UNITS/0.01ML SC SCH (08:36)
--- NOTE | 2019-01-07 08:51 | REP ---
AP PORTABLE CHEST: 01/07/2019. Clinical history: Dyspnea. Comparison: 01/04/2019, 01/01/2019. Findings: AP portable chest with dual lead pacer showing leads in the right atrium and right ventricle as before. Sternotomy wires as before. There are surgical clips at the left neck base. Haziness in the bilateral bases may reflect some subsegmental atelectasis or infiltrates, probably not much changed allowing for technique differences with the previous study. Some venous hypertension suggested without emily edema. Heart size unchanged. Not grossly enlarged. The aorta is mildly tortuous but normal for age. Airway intact. There is degenerative changes in the spine and shoulders. Impression: 1. Sternotomy wires and dual lead pacer unchanged. 2. Basilar atelectasis or infiltrates with haziness present. Small effusions cannot be entirely excluded. No emily edema. 3. Some venous hypertension suggested. Allowing for differences in technique, no significant interval change. Electronically Signed by Johnathan Parker MD 01/07/2019 03:01 P
[2019-01-07] MEDS ORDERED: LACTULOSE 20 GM/30 ML SYRUP UD PO ONE (09:00)
[2019-01-07] MEDS ORDERED: POLYETHYLENE GLYCOL (MIRALAX) 238GM BOTTLE PO ONE (11:00)
[2019-01-07 14:00] VITALS: BP 132/85
--- NOTE | 2019-01-07 16:55 | IPN ---
DATE: 01/06/2019 The patient continues to be congested, coughing at the bedside with yellow-white sputum. Denies any bright red blood per rectum, melena, but is persistently anemic with 7.9 hemoglobin today with no intervention. The patient was previously 8.3. Afebrile overnight. No fever or chills, nausea or vomiting. Tolerating his diet well. Temperature 98.9, pulse 98, respiratory rate 18, blood pressure 135/62, 100% on room air. GENERAL: The patient is awake, alert, oriented. Answering questions appropriately. No respiratory distress. No use of respiratory accessory muscles. LUNGS: Diminished with wheezing and crackles in bilateral lower lobes. HEART: S1, S2. Sinus rhythm. ABDOMEN: Soft, nontender, nondistended. EXTREMITIES: No cyanosis or clubbing. [place] in color. LABORATORY DATA: Microbiology and imaging studies have been reviewed. ASSESSMENT AND PLAN: This is an 83-year-old male with a history of coronary artery disease, coronary artery bypass graft (CABG), ischemic cardiomyopathy, ejection fraction 25%, chronic obstructive pulmonary disease (COPD), chronic kidney disease stage IV, fem-pop, peripheral arterial disease, paroxysmal atrial fibrillation, status post cardioversion, not on anticoagulation, methicillin resistant Staphylococcus aureus (MRSA) cellulitis, pacer due to sick sinus and found to have Escherichia (E) coli urinary tract infection (UTI) and Enterobacter in the sputum, both are sensitive to ceftriaxone. IMPRESSION: 1. Acute congestive heart failure (CHF) exacerbation with ejection fraction of 25%, currently being diuresed with Lasix intravenously. 2. Urinary tract infection with E coli. On IV ceftriaxone. Normal white count and afebrile. No new complaints. To complete 7 day course of antibiotics. 3. Enterobacter in the sputum. Sensitive to ceftriaxone with small bilateral effusions. Repeat chest x-ray once diuresis has been completed. 4. Type 2 diabetes. On Levemir sliding scale. Consistent carbohydrate diet. Hypoglycemic protocol with sliding scale with coverage. 5. History of chronic obstructive pulmonary disease (COPD) and steroid dependence. On DuoNeb every 2 hours as needed and four times daily. Mucinex has been given with decrease in secretions. 6. Chronic kidney disease stage III, at baseline creatinine. Currently being diuresed with IV Lasix. 7. Benign prostatic hypertrophy (BPH). On Flomax. 8. Diabetic neuropathy. On gabapentin. 9. Dyslipidemia. On Lipitor. 10. Type 2 diabetes. On sliding scale. Consistent carbohydrate diet. 11. Hypothyroidism. On Synthroid. 12. Coronary artery disease. On aspirin and Plavix. 13. History of gout. On allopurinol. DISPOSITION: We will await euvolemia and then change to oral Lasix and discharge to rehabilitation.
[2019-01-07] MEDS: ATORVASTATIN 20 MG TAB PO SCH (21:25)
[2019-01-07] MEDS: cefTRIAXone SOD 1 GM in D5W MINI-BAG PLUS 50 ML IV SCH (21:25)
[2019-01-07] MEDS: TAMSULOSIN 0.4 MG CAP PO SCH (21:25)
[2019-01-07 22:00] VITALS: BP 158/71
[2019-01-08 06:00] VITALS: BP 146/67
[2019-01-08 06:56] LABS: BASO # 0.1 10^3/uL (0.0-0.2); EOS # 0.2 10^3/uL (0.0-0.50); HEMATOCRIT 28.6 % (42.0-52.0); HEMOGLOBIN 8.6 g/dl (13.5-17.5); LYMPH # 0.8 10^3/uL (1.5-4.5); LYMPH % 10.5 % (24.0-44.0); MEAN CORPUSCULAR HEMOGLOBIN 23.3 pg (27.0-33.0); MEAN CORPUSCULAR HGB CONC 30.1 g/dl (32.0-36.5); MEAN CORPUSCULAR VOLUME 77.5 fl (80.0-96.0); MONO # 0.8 10^3/uL (0.0-0.8); MONO % 9.8 % (0.0-5.0); NEUTROPHILS % 76.3 % (36.0-66.0); PLATELET COUNT, AUTOMATED 247 10^3/uL (150-450); RED BLOOD COUNT 3.69 10^6/uL (4.30-6.10); WHITE BLOOD COUNT 7.8 10^3/uL (4.0-10.0)
[2019-01-08] MEDS: IPRATROPIUM 0.5MG/ALBUTEROL 2.5MG INH SOL UD 3ML (DUONEB)(J7620) NEB SCH ×4 (07:14→21:22)
[2019-01-08 07:17] LABS: CALCIUM LEVEL 9.4 MG/DL (8.8-10.2); CREATININE FOR GFR 2.24 MG/DL (0.70-1.30); GLOMERULAR FILTRATION RATE 29.9 (>35); POTASSIUM SERUM 4.5 MEQ/L (3.5-5.1)
[2019-01-08 09:00] VITALS: BP 145/59
[2019-01-08] MEDS: LEVEMIR (INSULIN DETEMIR) 1 UNITS/0.01ML SC SCH (09:52)
[2019-01-08] MEDS: HumaLOG INSULIN (NovoLOG) PER UNIT SC SCH ×4 (09:53→21:00)
[2019-01-08] MEDS: GABAPENTIN 300 MG CAP PO SCH ×2 (11:14→22:13)
[2019-01-08] MEDS: guaiFENesin ER 600 MG TAB PO SCH ×2 (11:14→22:14)
[2019-01-08] MEDS: ASPIRIN 81 MG ENTERIC TAB PO SCH (11:15)
[2019-01-08] MEDS: SENOKOT S TAB PO SCH ×2 (11:16→22:13)
[2019-01-08] MEDS: CLOPIDOGREL 75 MG TAB PO SCH (11:16)
[2019-01-08] MEDS: TORSEMIDE 20 MG TAB PO SCH ×2 (11:17→17:33)
[2019-01-08] MEDS: ALLOPURINOL 100 MG TAB PO SCH (11:17)
[2019-01-08] MEDS: LEVOTHYROXINE 75MCG TABLET (0.075MG) PO SCH (11:17)
[2019-01-08] MEDS: predniSONE 5 MG TAB PO SCH (11:18)
[2019-01-08] MEDS: BISACODYL 10 MG SUPP PR SCH ×2 (11:18→22:14)
[2019-01-08] MEDS: HEPARIN SOD (PORCINE) 5000 UNITS/ML VIAL SC SCH ×2 (11:19→22:14)
[2019-01-08 13:43] VITALS: BP 141/57
--- NOTE | 2019-01-08 13:49 | IPN ---
DATE: 01/07/2019 Patient says that his breathing is much improved. He continues to have large amounts of yellow thick sputum. No fever or chills. Tolerating his diet well. Patient is awaiting a rehabilitation bed working well with physical therapy. Vitals: Temperature 97.3, pulse 72, respiratory rate 18, blood pressure 132/85, 99% on room air. Generally patient is awake, alert, oriented times three. Slow to speak but appropriate. No expressive aphagia. Patient had diminished breath sounds. Heart: S1, S2, sinus rhythm. Abdomen is soft, nontender, nondistended, positive bowel sounds. Extremities: No cyanosis or clubbing. CBC and metabolic panel have been reviewed. Imaging studies: Chest x-ray 01/07/2019 shows sternotomy wires, bibasilar atelectasis with infiltrates. No emily edema. No interval change. IMPRESSION: 83-year-old with coronary artery disease (CAD), coronary artery bypass graft (CABG), ejection fraction (EF) of 25%, ischemic cardiomyopathy, chronic obstructive pulmonary disease (COPD), chronic kidney disease stage IV, fem/pop, peripheral arterial disease (PAD), paroxysmal atrial fibrillation, cardioversion not on anticoagulation, Staphylococcus aureus (MRSA) cellulitis, pacer due to sick sinus syndrome, admitted for E. Coli urinary tract infection (UTI). 1. Acute congestive heart failure exacerbation with depressed ejection fraction of 25%, currently status post diuresis with IV Lasix, resumed on his home dose of torsemide appears to be euvolemic. Strict input and output and daily weights and fluid restriction. 2. Urinary tract infection with E Coli. Last day of ceftriaxone is tomorrow. Patient's white count is normal. No fevers. No new complaints. 3. Enterobacter in the sputum sensitive to ceftriaxone. 4. Small bilateral effusions: Repeat chest x-ray is slightly improved. 5. Type 2 diabetes on Levemir sliding scale insulin. Consistent carbohydrates. Hypoglycemic protocol. 6. COPD: Steroid dependent and DuoNebs every two as needed four times daily. Mucinex has been given with improved secretions. 7. Chronic kidney disease stage III: At baseline creatinine. 8. Benign prostatic hypertrophy (BPH): On Flomax. 9. Diabetic neuropathy: On gabapentin. 10. Dyslipidemia: On Lipitor. 11. Hypothyroidism: Synthroid. 12. Coronary artery disease on aspirin and Plavix. 13. Gout: On allopurinol. DISPOSITION: After 7 days of IV antibiotics, patient is stable to be released to rehabilitation at anytime awaiting placement. JUSTEN
[2019-01-08 14:00] VITALS: BP 141/57
[2019-01-08 22:00] VITALS: BP 134/63
[2019-01-08] MEDS: cefTRIAXone SOD 1 GM in D5W MINI-BAG PLUS 50 ML IV SCH (22:12)
[2019-01-08] MEDS: TAMSULOSIN 0.4 MG CAP PO SCH (22:13)
[2019-01-08] MEDS: MOM 30ML SUSPENSION UDC PO PRN (22:13)
[2019-01-08] MEDS: ATORVASTATIN 20 MG TAB PO SCH (22:14)
[2019-01-09 06:00] VITALS: BP 141/63
[2019-01-09] MEDS: IPRATROPIUM 0.5MG/ALBUTEROL 2.5MG INH SOL UD 3ML (DUONEB)(J7620) NEB SCH ×4 (07:15→20:02)
[2019-01-09] MEDS: CLOPIDOGREL 75 MG TAB PO SCH (08:22)
[2019-01-09] MEDS: SENOKOT S TAB PO SCH ×2 (08:22→21:02)
[2019-01-09] MEDS: HumaLOG INSULIN (NovoLOG) PER UNIT SC SCH ×4 (08:22→21:00)
[2019-01-09] MEDS: BISACODYL 10 MG SUPP PR SCH ×2 (08:22→21:02)
[2019-01-09] MEDS: GABAPENTIN 300 MG CAP PO SCH ×2 (08:22→21:02)
[2019-01-09] MEDS: LEVEMIR (INSULIN DETEMIR) 1 UNITS/0.01ML SC SCH (08:22)
[2019-01-09] MEDS: predniSONE 5 MG TAB PO SCH (08:22)
[2019-01-09] MEDS: ASPIRIN 81 MG ENTERIC TAB PO SCH (08:22)
[2019-01-09] MEDS: guaiFENesin ER 600 MG TAB PO SCH ×2 (08:22→21:02)
[2019-01-09] MEDS: LEVOTHYROXINE 75MCG TABLET (0.075MG) PO SCH (08:22)
[2019-01-09] MEDS: TORSEMIDE 20 MG TAB PO SCH ×2 (08:23→16:56)
[2019-01-09] MEDS: ALLOPURINOL 100 MG TAB PO SCH (08:23)
[2019-01-09] MEDS: HEPARIN SOD (PORCINE) 5000 UNITS/ML VIAL SC SCH ×2 (08:30→21:02)
--- NOTE | 2019-01-09 11:29 | IPN ---
DATE OF SERVICE: 01/08/2019 Patient seen and examined at the bedside. Chart has been reviewed. Patient complains of still productive cough but improved. Shortness of breath has also improved. Afebrile overnight. Temperature 97, pulse 68, respiratory 20, blood pressure 145/59, 95% on room air. Input and output overnight: Input 486, output 2450, negative 1964. Generally, patient is awake, alert, oriented times three. He answers questions appropriately. No use of accessory or respiratory muscles. No conversational dyspnea. Lungs are diminished. Bibasilar crackles. Heart: S1, S2, sinus rhythm. Abdomen soft, nontender, nondistended. Extremities: No cyanosis or clubbing. Skin is pink in color, warm to touch. Laboratory data, microbiology, imaging studies have been reviewed. ASSESSMENT AND PLAN: This is an 83-year-old male with history of ischemic cardiomyopathy, CAD, coronary artery bypass graft (CABG), ejection fraction (EF) of 25%, chronic obstructive pulmonary disease (COPD), chronic kidney disease (CKD) stage IV, fem/pop, peripheral arterial disease (PAD), paroxysmal atrial fibrillation, status post cardioversion, not on anticoagulation, methicillin-resistant Staphylococcus aureus (MRSA) cellulitis, pacemaker due to sick sinus syndrome, found to have Escherichia (E) coli, urinary tract infection (UTI) and Enterobacter in the sputum. Both are sensitive to ceftriaxone. IMPRESSION: 1. Congestive heart failure (CHF) exacerbation, acute decompensation, EF of 25%, with depressed systolic function, status post Lasix, currently on torsemide. Intakes and outputs are stable. Patient is clinically improving and back on his home dose of torsemide. 2. Urinary tract infection with E Coli. Completed 7 days of IV ceftriaxone with normal white count, afebrile and no new complaints. 3. Enterobacter in the sputum sensitive to ceftriaxone with small bilateral effusions. Chest x-ray has been repeated with improved findings. 4. Type 2 diabetes. On Levemir insulin, hypoglycemic protocol, consistent carbohydrate diet with coverage. 5. History of chronic obstructive pulmonary disease. On DuoNebs every 2. Mucinex given to decrease secretions. 6. Chronic kidney disease, stage III, at baseline creatinine. Status post IV Lasix now on torsemide. 7. BPH. On Flomax. 8. Diabetic neuropathy. On gabapentin. 9. Dyslipidemia. On Lipitor. 10. Hypothyroidism. On Synthroid. 11. CAD. On aspirin and Plavix, torsemide. 12. History of gout. On allopurinol. DISPOSITION: Patient may be transferred to acute rehab at anytime. He is clinically medically stable. MTDD
[2019-01-09 14:00] VITALS: BP 132/63
[2019-01-09] MEDS: MOM 30ML SUSPENSION UDC PO PRN (16:58)
[2019-01-09] MEDS: TAMSULOSIN 0.4 MG CAP PO SCH (21:02)
[2019-01-09] MEDS: ATORVASTATIN 20 MG TAB PO SCH (21:03)
[2019-01-09] MEDS: cefTRIAXone SOD 1 GM in D5W MINI-BAG PLUS 50 ML IV SCH (21:03)
[2019-01-09 22:00] VITALS: BP 116/52
[2019-01-10 06:00] VITALS: BP 135/63
[2019-01-10] MEDS: IPRATROPIUM 0.5MG/ALBUTEROL 2.5MG INH SOL UD 3ML (DUONEB)(J7620) NEB SCH ×3 (08:11→20:04)
[2019-01-10] MEDS: LEVEMIR (INSULIN DETEMIR) 1 UNITS/0.01ML SC SCH (08:50)
[2019-01-10] MEDS: HumaLOG INSULIN (NovoLOG) PER UNIT SC SCH ×4 (08:51→20:46)
[2019-01-10] MEDS: guaiFENesin ER 600 MG TAB PO SCH ×2 (08:51→20:45)
[2019-01-10] MEDS: GABAPENTIN 300 MG CAP PO SCH ×2 (08:51→20:45)
[2019-01-10] MEDS: CLOPIDOGREL 75 MG TAB PO SCH (08:51)
[2019-01-10] MEDS: LEVOTHYROXINE 75MCG TABLET (0.075MG) PO SCH (08:51)
[2019-01-10] MEDS: predniSONE 5 MG TAB PO SCH (08:51)
[2019-01-10] MEDS: ALLOPURINOL 100 MG TAB PO SCH (08:51)
[2019-01-10] MEDS: TORSEMIDE 20 MG TAB PO SCH ×2 (08:52→17:44)
[2019-01-10] MEDS: HEPARIN SOD (PORCINE) 5000 UNITS/ML VIAL SC SCH ×2 (08:52→20:46)
[2019-01-10] MEDS: ASPIRIN 81 MG ENTERIC TAB PO SCH (08:52)
[2019-01-10] MEDS: BISACODYL 10 MG SUPP PR SCH ×2 (08:55→20:45)
[2019-01-10] MEDS: SENOKOT S TAB PO SCH ×2 (08:55→20:45)
[2019-01-10 14:00] VITALS: BP 122/54
--- NOTE | 2019-01-10 20:14 | IPN ---
DATE: 01/09/2019 Patient is frustrated with not having adequate bowel movements for the past three days despite multiple bowel regimens. He says that prune juice at home usually works for him. He had a small bowel movement yesterday despite MiraLAX, Senokot, Fleet enema. He denies any abdominal pain. No fever or chills. Shortness of breath has improved. No other acute issues per nursing. Temperature 98, pulse 71, respiratory rate 18, blood pressure 141/63, 97% on room air. GENERAL: Awake, alert and oriented times three, answering questions appropriately. No jugular venous distention (JVD). No thyromegaly. No cervical lymphadenopathy. Moist mucous membranes. LUNGS: Diminished, bibasilar crackles. HEART: S1, S2, sinus rhythm. No murmurs, rubs, or gallops. ABDOMEN: Soft, nontender, nondistended. Positive bowel sounds. No rebound, guarding, or hepatosplenomegaly. EXTREMITIES: No clubbing or cyanosis. SKIN: [place] in color, warm to touch. Laboratory data, microbiology, and imaging studies have been reviewed. ASSESSMENT AND PLAN: An 83-year-old male with history of ischemic cardiomyopathy, coronary artery disease (CAD), ejection fraction of 25%, chronic obstructive pulmonary disease (COPD), chronic kidney disease (CKD) stage IV, peripheral artery disease (PAD), femoral-popliteal, paroxysmal atrial fibrillation status post cardioversion not on anticoagulation, methicillin-resistant Staphylococcus aureus (MRSA) cellulitis, pacer due to sick sinus syndrome, found to have Escherichia (E) coli urinary tract infection (UTI) and Enterobacter in his sputum. Both are sensitive to ceftriaxone. IMPRESSION: 1. Congestive heart failure (CHF) exacerbation, acute decompensation, ejection fraction (EF) of 25%, has resolved. He has been diuresed for the past three days and has had significant improvement. He is now medically stable for transfer to rehabilitation. 2. Urinary tract infection with Escherichia (E) coli. He has completed seven days of intravenous ceftriaxone. He is currently afebrile. No white count. No new complaints. 3. Constipation. Multiple bowel regimens have yielded no desired effect. He will try prune juice today and will continue with daily bowel regimen. 4. Enterobacter in the sputum, sensitive to ceftriaxone with small bilateral effusions on chest x-ray with improved findings. 5. Type 2 diabetes, on Levemir insulin, hypoglycemic protocol, insulin sliding scale with coverage, and consistent-carbohydrate diet. Appears to be controlled and does not need adjustment. 6. History of chronic obstructive pulmonary disease (COPD), on DuoNebs every two hours, Mucinex given to decrease secretions which has significantly improved. 7. Chronic kidney disease (CKD), stage III, at baseline creatinine. Resumed back on his home dose of torsemide. 8. Benign prostatic hypertrophy (BPH), on chronic Flomax. 9. Diabetic neuropathy, on gabapentin. 10. Dyslipidemia, on Lipitor. 11. Hypothyroidism, on Synthroid. 12. Coronary artery disease (CAD), on aspirin, Plavix and torsemide. 13. History of gout, on allopurinol. DISPOSITION: Patient is medically stable for hospital discharge and transfer to rehabilitation. MTDD
[2019-01-10] MEDS: ATORVASTATIN 20 MG TAB PO SCH (20:45)
[2019-01-10] MEDS: TAMSULOSIN 0.4 MG CAP PO SCH (20:45)
[2019-01-10] MEDS: EYE OU SCH (20:46)
[2019-01-10] MEDS: VYZULTA 0.024% OU SCH (20:46)
[2019-01-11 06:00] VITALS: BP 124/52
--- NOTE | 2019-01-11 06:41 | IPN ---
DATE OF SERVICE: 01/10/2019 The patient is seen and examined at the bedside. The patient had significant constipation for the past three days and despite enemas he still feels that he has not evacuated completely; however, would prefer not to have any more enemas. Today his shortness of breath has improved back to baseline. He has no fever. He has completed seven days of IV Ceftriaxone. He is currently waiting for a rehab bed. No shortness of breath. He is still with a cough occasionally. In and out (I and O) have been stable. PHYSICAL EXAMINATION VITAL SIGNS: Temperature is 96.5, pulse 68, respiratory rate 18, blood pressure 135/63. GENERAL: The patient is awake, alert and oriented, answering questions appropriately. No conversational dyspnea, able to speak in full sentences. No use of respiratory accessory muscles. LUNGS: Diminished bibasilar crackles. HEART: S1,S2, sinus rhythm. ABDOMEN: Soft, nontender, nondistended. EXTREMITIES: No cyanosis or clubbing. SKIN: [place] in color, warm to touch. LABORATORY DATA AND IMAGING STUDIES: Have been reviewed. ASSESSMENT AND PLAN: This is an 83-year-old male with history of ischemic cardiomyopathy, coronary artery disease (CAD), coronary artery bypass grafting (CABG), ejection fraction 55% June 2017 from previous depressed systolic function June 22 when he was on a dobutamine drip, chronic pulmonary obstructive disease (COPD), chronic kidney disease stage IV, femoral-popliteal, peripheral arterial disease (PAD), paroxysmal atrial fibrillation status post cardioversion, not on anticoagulation, methicillin-resistant Staphylococcus aureus (MRSA), found to have Escherichia (E) coli urinary tract infection (UTI) and Enterobacter in his sputum, status post seven days of IV ceftriaxone. CURRENT ISSUES: 1. congestive heart failure (CHF) exacerbation: Ejection fraction of 55% on echo in June 2017. Status post IV Lasix diuresis with good net negative value and improvement of patient's shortness of breath. He is currently euvolemic and was started back on his home dose of diuretics. 2. Resolved CHF. No acute decompensation at this time. He appears to be euvolemic. 3. Urinary tract infection (UTI) with E coli. Completed seven days of IV Ceftriaxone. 4. Enterobacter in his sputum. Completed seven days of antibiotics. 5. Type 2 diabetes. Hyperglycemic protocol and sliding scale coverage. 6. Chronic pulmonary obstructive disease (COPD) on DuoNebs every 4 hours. 7. Chronic kidney disease, stage III. At baseline creatinine, avoiding nephrotoxins. He is status post Lasix, currently stable. 8. Benign prostatic hypertrophy (BPH) on Flomax. 9. Diabetic neuropathy. On gabapentin. 10. Dyslipidemia, on Lipitor. 11. Hypothyroidism, on Synthroid. 12. Coronary artery disease (CAD), on aspirin, Plavix. 13. History of gout, on allopurinol. DISPOSITION: Patient may be changed to alternative level of care (ALC) status if there is no acute active issues, awaiting a rehab bed. MTDD
[2019-01-11] MEDS: LEVOTHYROXINE 75MCG TABLET (0.075MG) PO SCH (08:30)
[2019-01-11] MEDS: predniSONE 5 MG TAB PO SCH (08:30)
[2019-01-11] MEDS: TORSEMIDE 20 MG TAB PO SCH ×2 (08:31→17:49)
[2019-01-11] MEDS: CLOPIDOGREL 75 MG TAB PO SCH (08:31)
[2019-01-11] MEDS: ALLOPURINOL 100 MG TAB PO SCH (08:31)
[2019-01-11] MEDS: guaiFENesin ER 600 MG TAB PO SCH ×2 (08:31→21:25)
[2019-01-11] MEDS: GABAPENTIN 300 MG CAP PO SCH ×2 (08:31→21:26)
[2019-01-11] MEDS: ASPIRIN 81 MG ENTERIC TAB PO SCH (08:31)
[2019-01-11] MEDS: BISACODYL 10 MG SUPP PR SCH ×2 (08:32→21:25)
[2019-01-11] MEDS: HEPARIN SOD (PORCINE) 5000 UNITS/ML VIAL SC SCH ×2 (08:32→21:25)
[2019-01-11] MEDS: LEVEMIR (INSULIN DETEMIR) 1 UNITS/0.01ML SC SCH (08:32)
[2019-01-11] MEDS: HumaLOG INSULIN (NovoLOG) PER UNIT SC SCH ×4 (08:32→21:00)
[2019-01-11] MEDS: SENOKOT S TAB PO SCH ×2 (08:32→21:25)
[2019-01-11] MEDS: IPRATROPIUM 0.5MG/ALBUTEROL 2.5MG INH SOL UD 3ML (DUONEB)(J7620) NEB SCH ×4 (08:50→19:39)
[2019-01-11] MEDS: TAMSULOSIN 0.4 MG CAP PO SCH (21:25)
[2019-01-11] MEDS: ATORVASTATIN 20 MG TAB PO SCH (21:25)
[2019-01-11] MEDS: EYE OU SCH (21:26)
[2019-01-11] MEDS: VYZULTA 0.024% OU SCH (21:26)
[2019-01-12 06:00] VITALS: BP 124/60
[2019-01-12] MEDS: guaiFENesin ER 600 MG TAB PO SCH (08:05)
[2019-01-12] MEDS: HEPARIN SOD (PORCINE) 5000 UNITS/ML VIAL SC SCH (08:05)
[2019-01-12] MEDS: BISACODYL 10 MG SUPP PR SCH (08:05)
[2019-01-12] MEDS: predniSONE 5 MG TAB PO SCH (08:06)
[2019-01-12] MEDS: SENOKOT S TAB PO SCH (08:06)
[2019-01-12] MEDS: ASPIRIN 81 MG ENTERIC TAB PO SCH (08:06)
[2019-01-12] MEDS: LEVOTHYROXINE 75MCG TABLET (0.075MG) PO SCH (08:06)
[2019-01-12] MEDS: GABAPENTIN 300 MG CAP PO SCH (08:06)
[2019-01-12] MEDS: LEVEMIR (INSULIN DETEMIR) 1 UNITS/0.01ML SC SCH (08:06)
[2019-01-12] MEDS: ALLOPURINOL 100 MG TAB PO SCH (08:06)
[2019-01-12] MEDS: CLOPIDOGREL 75 MG TAB PO SCH (08:06)
[2019-01-12] MEDS: TORSEMIDE 20 MG TAB PO SCH (08:06)
[2019-01-12] MEDS: HumaLOG INSULIN (NovoLOG) PER UNIT SC SCH ×2 (08:08→12:20)
[2019-01-12] MEDS: MOM 30ML SUSPENSION UDC PO PRN (08:20)
[2019-01-12] MEDS: IPRATROPIUM 0.5MG/ALBUTEROL 2.5MG INH SOL UD 3ML (DUONEB)(J7620) NEB SCH ×2 (08:22→11:56)
--- NOTE | 2019-01-12 14:35 | DS.PDOC ---
Discharge Summary General Date of Admission Jan 01, 2019 at 20:46 Date of Discharge 01/12/19 Discharge Summary PROCEDURES PERFORMED DURING STAY: [None]. 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 Left subclavian to common carotid artery bypass graft COMPLICATIONS/CHIEF COMPLAINT: Sepsis, Uti. HISTORY OF PRESENT ILLNESS: See history and physical HOSPITAL COURSE: 83 M extensive pmh including systolic and diastolic CHF with EF 25% improved with dobutamine on june 22 2017 echo , Ischemic cardiomyapathy, Paroxysmal Afib s/p cardioversion not on anticoagulation for unclear reasons, DM2 with diabetic polyneuropathy with bilateral lower extremity weakness, MRSA cellulitis, tachy-cecil syndrome s/p PM placement , CAD s/p CABG, CKD 4, COPD on chronic steroids, gout, MRSA infection in the past, PAD s/p multiple surgeries including b/l fem-pop bypass had recent fem-fem bypass on 12/21/18 at [facility] and was discharged from there with an indwelling catheter which was moved at the urologist's office on 12/30/18. On the day of admission he woke up with chills and shaking. His said he was confused so was brought to the ED In the ED he was febrile to 103.4 , His UA was very dirty and his WBC was elevated to 22.6, His lactate was also elevated. He was admitted for UTI and sepsis. He was found to have Escherichia (E) coli urinary tract infection (UTI) and Enterobacter in his sputum, status post seven days of IV ceftriaxone. His hospital course was complication by CHF exacerbation. Congestive heart failure (CHF) exacerbation: Ejection fraction of 55% on echo in June 2017 with dobutamine. Status post IV Lasix diuresis with good net negative value and improvement of patient's shortness of breath. He is currently euvolemic and was started back on his home dose of diuretics torsemide 20 bid. Urinary tract infection (UTI) with E coli. Completed seven days of IV Ceftriaxone. Enterobacter in his sputum. Completed seven days of antibiotics. Type 2 diabetes with neurppathy, nephropathy continue home insulin. Chronic pulmonary obstructive disease (COPD) on DuoNebs Chronic kidney disease, stage IV continue calcitriol Benign prostatic hypertrophy (BPH) on Flomax. Diabetic neuropathy. On gabapentin. Dyslipidemia, on Lipitor. Hypothyroidism, on Synthroid. Coronary artery disease (CAD), on aspirin, Plavix. Gout on allopurinol. DISCHARGE MEDICATIONS: Please see below. ALLERGIES: Please see below. PHYSICAL EXAMINATION ON DISCHARGE: VITAL SIGNS: Please see below. GENERAL: The patient is awake, alert and oriented, answering questions appropriately. No conversational dyspnea, able to speak in full sentences. No use of respiratory accessory muscles. HEENT: Normocephalic atraumatic, anicteric eyes, moist mucous membranes. NECK: Supple, No JVD, No thyromegaly LUNGS: Diminished bibasilar crackles. No wheezing or ronchi HEART: S1,S2, sinus rhythm. No rub, murmur or gallop ABDOMEN: Soft, nontender, nondistended. Bowel sounds normal EXTREMITIES: No cyanosis or clubbing. There is trace edema with chronic venous stasis changes. Bilateral surgical scars present. SKIN: [place] in color, warm to touch. LABORATORY DATA: Please see below. ACTIVITY: [As tolerated]. DIET: Carb consistent with 1.8 l fluid restriction. DISCHARGE PLAN: Home with services. DISPOSITION: Home DISCHARGE INSTRUCTIONS: follow up with PMD in 1 week. DISCHARGE CONDITION: [Stable]. TIME SPENT ON DISCHARGE: 35 minutes. Vital Signs/I&Os Vital Signs Date Time Temp Pulse Resp B/P (MAP) Pulse Ox O2 Delivery O2 Flow Rate FiO2 01/12/19 06:00 97.6 57 15 124/60 (81) 97 I&O- Last 24 Hours up to 6 AM 01/12/19 06:00 Intake Total 1110 ml Output Total 1875 ml Balance -765 ml Laboratory Data Labs 24H Laboratory Tests 2 01/11/19 16:51: Bedside Glucose (Misc Panel) 203H 01/11/19 20:31: Bedside Glucose (Misc Panel) 214H FSBS Laboratory Tests Test 01/11/19 16:51 01/11/19 20:31 Range/Units Bedside Glucose (Misc Panel) 203 214 83-110 MG/DL Discharge Medications Scheduled Allopurinol (Allopurinol) 100 Mg Tab, 100 MG PO DAILY, (Reported) Aspirin (Aspir 81) 81 Mg Tablet.dr, 81 MG PO DAILY, (Reported) Atorvastatin Calcium (Atorvastatin Calcium) 80 Mg Tab, 40 MG PO QHS, (Reported) Calcitriol (Calcitriol) 0.25 Mcg Cap, 0.5 MCG PO 1XWK, (Reported) TAKES ON MONDAYS Cholecalciferol (Vitamin D3) (Vitamin D3) 1,000 Unit Tab, 1,000 UNIT PO DAILY, (Reported) Clopidogrel Bisulfate (Plavix) 75 Mg Tab, 75 MG PO DAILY, (Reported) Docusate Sodium (Colace) 100 Mg Capsule, 100 MG PO BID, (Reported) Gabapentin (Gabapentin) 300 Mg Cap, 300 MG PO BID, (Reported) Insulin NPH Hum/Reg Insulin Hm (Humulin 70/30 Kwikpen) 100 Unit/1 Ml Insuln.pen, 1 DOSE SC BID, (Reported) PER SLIDING SCALE Ipratropium/Albuterol Sulfate (Iprat-Albut 0.5-3(2.5) mg/3 ml) 1 Rudy Rudy, 1 RUDY INH BID, (Reported) Latanoprostene Bunod (Vyzulta) 0.024% 5ML Drops, 1 DROP OU QHS, (Reported) Levothyroxine Sodium (Levothyroxine Sodium) 75 Mcg Tab, 75 MCG PO DAILY, (Rep orted) Multivitamins (Thera M Plus Tablet) 1 Tab Tab, 1 TAB PO DAILY, (Reported) [place]-3 Fatty Acids/Fish Oil ([place] 3 1,000 mg Softgel) 1 Cap Cap, 1 CAP PO DAILY, (Reported) Prednisone (Prednisone) 5 Mg Tablet, 5 MG PO DAILY, (Reported) Tamsulosin HCl (Flomax) 0.4 Mg Capsule, 0.4 MG PO QHS, (Reported) Torsemide (Torsemide) 20 Mg Tablet, 20 MG PO BID, (Reported) Ubidecarenone (Coenzyme Q10) 100 Mg Cap, 100 MG PO DAILY, (Reported) Scheduled PRN Nitroglycerin (Nitrostat) 0.4 Mg Subl, 0.4 MG SL NITRO PRN for CHEST PAIN, (Reported) Allergies Coded Allergies: fluorescein (Verified Allergy, Intermediate, HYPOTENSION, 09/13/18) brimonidine (Verified Allergy, Mild, EYE REDNESS, 09/13/18) tramadol (Unverified Allergy, Unknown, 09/13/18) KIM BURNS MD Jan 12, 2019 13:24
== END 2019-01-12 14:36 | disposition home health service (06) | DRG 698 ==
LOC: M ED 17:36 → M ED INP 20:46 → EEVIPCON 20:46 → M MSPAV 01-02
PROVIDERS: ADMIT Internal Medicine Nephrology; ATTEND Internal Medicine Nephrology
DX: T83.511A Infection and inflammatory reaction due to indwelling urethral catheter, initial encounter (principal); A41.9 Sepsis, unspecified organism; I50.23 Acute on chronic systolic (congestive) heart failure; N18.4 Chronic kidney disease, stage 4 (severe); I48.92 Unspecified atrial flutter; E87.2 Acidosis; I27.20 Pulmonary hypertension, unspecified; E03.9 Hypothyroidism, unspecified; E11.51 Type 2 diabetes mellitus with diabetic peripheral angiopathy without gangrene; E11.319 Type 2 diabetes mellitus with unspecified diabetic retinopathy without macular edema; E11.21 Type 2 diabetes mellitus with diabetic nephropathy; M10.9 Gout, unspecified; I48.0 Paroxysmal atrial fibrillation; I25.10 Atherosclerotic heart disease of native coronary artery without angina pectoris; Z95.1 Presence of aortocoronary bypass graft; Z95.2 Presence of prosthetic heart valve; B96.29 Other Escherichia coli [E. coli] as the cause of diseases classified elsewhere; J44.9 Chronic obstructive pulmonary disease, unspecified; E78.5 Hyperlipidemia, unspecified; Z79.82 Long term (current) use of aspirin; Z79.899 Other long term (current) drug therapy; Z88.8 Allergy status to other drugs, medicaments and biological substances; H40.9 Unspecified glaucoma; Z95.0 Presence of cardiac pacemaker; Z87.891 Personal history of nicotine dependence; Z79.01 Long term (current) use of anticoagulants; Z79.4 Long term (current) use of insulin; N18.3 Chronic kidney disease, stage 3 (moderate); N40.0 Benign prostatic hyperplasia without lower urinary tract symptoms; Z79.52 Long term (current) use of systemic steroids; K59.00 Constipation, unspecified; Y84.6 Urinary catheterization as the cause of abnormal reaction of the patient, or of later complication, without mention of misadventure at the time of the procedure